=== PATIENT | male | born 1955 | race African-American/Black ===

== ENCOUNTER 2016-12-12 12:41 | Inpatient (IN) | payer OTHER ==
[2016-12-12 14:13] VITALS: BMI 27.1
--- NOTE | 2016-12-12 16:55 | HP ---
COWS - Scale Resting Pulse: 0= [place] 80 or Below Sweatin=Flushed/Facial Moisture Restless Observation: 3= Extraneous Movement Pupil Size: 2= Moderately Dilated Bone or Joint Aches: 2= Severe Diffuse Aches Runny Nose/ Eye Tearin= Runny Nose/Eyes GI Upset > 30mins: 3= Vomiting/Diarrhea Tremor Observation: 2= Slight Tremor Visible Yawning Observation: 2= >3x During Session Anxiety or Irritability: 2=Irritable/Anxious Goose Flesh Skin: 0=Smooth Skin COWS Score: 20 CIWA Score - CIWA Score Nausea/Vomitin Muscle Tremors: 3 Anxiety: 3 Agitation: 3 Paroxysmal Sweats: 2 Orientation: 0-Oriented Tacttile Disturbances: 2-Mild Itch/Numbness/Burn Auditory Disturbances: 2-Mild Harshness/Frighten Visual Disturbances: 2-Mild Sensitivity Headache: 2-Mild CIWA-Ar Total Score: 22 Admission ROS BHS - HPI Chief Complaint: i need help to stop using heroin and alcohol,withdrawal symptom,last detox [facility] insomnia low back pain eight loss longest of sobriety 1 year Allergies/Adverse Reactions: Allergies Allergy/AdvReac Type Severity Reaction Status Date / Time No Known Allergies Allergy Verified 12/12/16 16:46 History of Present Illness: this 61 years old male with heroin and alcohol dependence for inpatient detox as mentioned Exam Limitations: No Limitations - Ebola screening Have you traveled outside of the country in the last 21 days: No Have you had contact with anyone from an Ebola affected area: No Have you been sick,other than usual withdrawal symptoms: No Do you have a fever: No - Review of Systems Constitutional: Chills, Loss of Appetite, Malaise, Night Sweats, Changes in sleep, Weakness, Unintentional Wgt. Loss EENT: reports: Tearing, Nose Congestion Respiratory: reports: No Symptoms reported Cardiac: reports: No Symptoms Reported GI: reports: Diarrhea, Nausea, Vomiting, Abdominal cramping : reports: No Symptoms Reported Musculoskeletal: reports: Back Pain, Joint Pain, Muscle Pain, Joint Stiffness Integumentary: reports: Dryness Neuro: reports: Headache, Tremors Endocrine: reports: No Symptoms Reported Hematology: reports: No Symptoms Reported Psychiatric: reports: No Sypmtoms Reported (insomnia), Mood/Affect Appropiate, Orientated x3, other Patient History - Patient Medical History Hx Anemia: No Hx Asthma: No Hx Chronic Obstructive Pulmonary Disease (COPD): No Hx Cancer: No Hx Cardiac Disorders: No Hx Congestive Heart Failure: No Hx Hypertension: No Hx Hypercholesterolemia: No Hx Pacemaker: No HX Cerebrovascular Accident: No Hx Seizures: No Hx Diabetes: No Hx Gastrointestinal Disorders: No Hx Liver Disease: No Hx Genitourinary Disorders: No Hx Sexually Transmitted Disorders: No Hx Renal Disease (ESRD): No Hx Thyroid Disease: No Hx Human Immunodeficiency Virus (HIV): No (NEGATIVE HX LAST 2014) Hx Hepatitis C: No Hx Depression: No Hx Suicide Attempt: No Hx Bipolar Disorder: No Hx Schizophrenia: No Other Medical History: NO SUICIDAL,NO HOMICIDAL - Patient Surgical History Past Surgical History: No - PPD History Previous Implant?: Yes Documented Results: Negative w/o proof Date: 10/13/14 PPD to be Administered?: Yes - Smoking Cessation Smoking history: Never smoked Have you smoked in the past 12 months: No Aproximately how many cigarettes per day: 0 If you are a former smoker, when did you quit?: 20 Cigars Per Day: 0 Hx Chewing Tobacco Use: No Initiated information on smoking cessation: No - Substance & Tx. History Hx Alcohol Use: Yes Hx Substance Use: Yes Substance Use Type: Alcohol, Heroin Hx Substance Use Treatment: Yes (LAST 07/06 [facility]) - Substances Abused Heroin Route: Inhalation Frequency: Daily Amount used: 8 BAGS Age of first use: 52 Date of Last Use: 12/11/16 Alcohol Route: Oral Frequency: Daily Amount used: 1 PINT RUM Age of first use: 32 Date of Last Use: 12/11/16 Family Disease History - Family Disease History Family History: Denies Admission Physical Exam [facility] - Vital Signs Vital Signs: Vital Signs - 24 hr 12/12/16 14:11 Temperature 97.5 F L Pulse Rate 66 Respiratory 20 Rate Blood Pressure 121/71 - Physical General Appearance: Yes: Moderate Distress, Tremorous, Irritable, Sweating, Anxious HEENTM: Yes: Hearing grossly Normal, Pharynx Normal, Nasal Congestion Respiratory: Yes: Lungs Clear, Normal Breath Sounds, No Respiratory Distress Neck: Yes: Within Normal Limits Breast: Yes: Within Normal Limits Cardiology: Yes: Within Normal Limits, Regular Rhythm, Regular Rate, S1, S2 Abdominal: Yes: Within Normal Limits, Normal Bowel Sounds, Non Tender, Flat, Soft Genitourinary: Yes: Within Normal Limits Back: Yes: Muscle Spasm Musculoskeletal: Yes: Back pain, Joint Stiffness, Muscle Pain Extremities: Yes: Within Normal Limits, Normal Inspection, Normal Range of Motion, Non-Tender, Tremors Neurological: Yes: radio news writer II-XII NML intact, Fully Oriented, Alert, Motor Strength 5/5 Integumentary: Yes: Dry Lymphatic: Yes: Within Normal Limits - Diagnostic (1) Opioid dependence with withdrawal Current Visit: Yes Status: Acute (2) Alcohol dependence with uncomplicated withdrawal Current Visit: Yes Status: Acute (3) Insomnia Current Visit: Yes Status: Acute (4) Low back pain Current Visit: Yes Status: Acute (5) Weight loss Current Visit: Yes Status: Acute Cleared for Admission [facility] - Detox or Rehab [facility] Level of Care: Medically Managed Detox Regimen/Protocol: Methadone/Librium [facility] Breath Alcohol Content Breath Alcohol Content: 0 Urine Drug Screen - Results Drug Screen Negative: No Urine Drug Screen Results: OPI-Opiates, BZO-Benzodiazepines
[2016-12-12] MEDS ORDERED: guaiFENesin/D-METHORPHAN HB 10 ML UNIT-DOSE CUPS PO PRN (17:03)
[2016-12-12] MEDS ORDERED: LOPERAMIDE HCL 2 MG CAPSULE PO PRN (17:03)
[2016-12-12] MEDS ORDERED: diphenhydrAMINE HCL 50 MG CAPSULE PO PRN (17:03)
[2016-12-12] MEDS ORDERED: MENTHOL/PHENOL 1 EACH UD MM PRN (17:03)
[2016-12-12] MEDS ORDERED: IBUPROFEN 400 MG TABLET (FP) PO PRN (17:03)
[2016-12-12] MEDS ORDERED: hydrOXYzine PAMOATE 25 MG CAPSULE (FP) PO PRN (17:03)
[2016-12-12] MEDS ORDERED: P-EPHED 60MG/TRIPROLIDI 2.5MG TABLET PO PRN (17:03)
[2016-12-12] MEDS ORDERED: MAGNESIUM CITRATE 300 ML BOTTLE PO PRN (17:03)
[2016-12-12] MEDS ORDERED: MAGNESIUM HYDROX 2400MG/30ML ORAL SUSPENSION 30 ML CUP PO PRN (17:03)
[2016-12-12] MEDS ORDERED: MAG HYDROX/AL HYDROX/SIMETH 30 ML UNIT-DOSE CUP PO PRN (17:03)
[2016-12-12] MEDS ORDERED: ACETAMINOPHEN 325 MG TABLET (FP) PO PRN (17:03)
[2016-12-12] MEDS ORDERED: chlordiazePOXIDE HCL 25 MG CAPSULE PO ONE (18:30)
[2016-12-12] MEDS ORDERED: METHADONE HCL 10 MG TABLET (FOR DETOX USE ONLY) PO ONE ×2 (18:30→23:00)
[2016-12-12] MEDS: chlordiazePOXIDE HCL 25 MG CAPSULE PO SCH (22:15)
[2016-12-12] MEDS: cloNIDine HCL 0.1 MG TABLET PO SCH (22:44)
[2016-12-12] MEDS: THIAMINE HCL 100 MG TABLET (FP) PO SCH (22:44)
[2016-12-12 22:45] LABS: URINE APPEARANCE CLEAR; URINE BILIRUBIN NEGATIVE (NEGATIVE); URINE COLOR LTYELLOW; URINE GLUCOSE (UA) NEGATIVE (NEGATIVE); URINE KETONE NEGATIVE (NEGATIVE); URINE LEUK ESTERASE NEGATIVE (NEGATIVE); URINE NITRITE NEGATIVE (NEGATIVE); URINE PROTEIN NEGATIVE (NEGATIVE); URINE UROBILINOGEN NEGATIVE E.U./dl (0.2-1.0)
[2016-12-12 22:49] LABS: URINE BLOOD 2+ (NEGATIVE)
[2016-12-12 22:56] LABS: URINE MUCUS RARE; URINE RBC 2 /hpf (0-3); URINE WBC 1 /hpf (3-5)
[2016-12-13] MEDS: chlordiazePOXIDE HCL 25 MG CAPSULE PO SCH ×4 (06:10→22:43)
[2016-12-13] MEDS: CYCLOBENZAPRINE HCL 10 MG TABLET (FP) PO PRN (07:43)
[2016-12-13] MEDS ORDERED: METHADONE HCL 10 MG TABLET (FOR DETOX USE ONLY) PO SCH (10:00)
[2016-12-13] MEDS: PRENATAL VITAMINS W/ FOLIC ACID TABLET (FP) PO SCH (10:15)
[2016-12-13] MEDS: cloNIDine HCL 0.1 MG TABLET PO SCH ×3 (10:15→22:45)
[2016-12-13 10:34] LABS: MCH 29.5 pg (25.7-33.7); MCHC 32.5 g/dl (32.0-35.9); MEAN CELL VOLUME 90.7 fl (80-96); MEAN PLT VOLUME 9.7 fl (7.5-11.1); PLATELET COUNT 229 K/MM3 (134-434); RDW 14.1 % (11.9-15.9); WHITE BLOOD COUNT 8.6 K/mm3 (4.0-10.0)
[2016-12-13 10:57] LABS: ALBUMIN 4.1 g/dl (3.4-5.0); ALK PHOS 74 U/L (45-117); ANION GAP 9 (8-16); BILIRUBIN,TOTAL 1.3 mg/dL (0.2-1.0); CALCIUM 9.1 mg/dL (8.5-10.1); CO2 28 mmol/L (21-32); CREATININE 1.1 mg/dL (0.7-1.3); GLUCOSE,RANDOM 121 mg/dL (74-106); SGOT/AST 18 U/L (15-37); SGPT/ALT 10 U/L (12-78); TOT PROT 8.1 g/dl (6.4-8.2)
--- NOTE | 2016-12-13 11:27 | PN ---
S CIWA - CIWA Score Nausea/Vomitin Muscle Tremors: 3 Anxiety: 2 Agitation: 2 Paroxysmal Sweats: 1-Minimal Palms Moist Orientation: 0-Oriented Tacttile Disturbances: 1-Very Mild Itch/Numbness Auditory Disturbances: 1-Very Mild Visual Disturbances: 1-Very Mild Sensitivity Headache: 2-Mild CIWA-Ar Total Score: 16 BHS COWS - Scale Resting Pulse: 0= [place] 80 or Below Sweatin= Chills/Flushing Restless Observation: 3= Extraneous Movement Pupil Size: 1= Pupils >than Normal Bone or Joint Aches: 2= Severe Diffuse Aches Runny Nose/ Eye Tearin= Runny Nose/Eyes GI Upset > 30mins: 3= Vomiting/Diarrhea Tremor Observation of Outstretched Hands: 2= Slight Tremor Visible Yawning Observation: 1= 1-2x During Session Anxiety or Irritability: 2=Irritable/Anxious Goose Flesh Skin: 0=Smooth Skin COWS Score: 17 S Progress Note (SOAP) Subjective: ALERT,IRRITABLE,ANXIOUS,INTERRUPTED SLEEP,TREMOR,PAIN IN THE BODY AND BACK Objective: 12/13/16 11:25 Vital Signs Temperature 97.3 F L 12/13/16 09:57 Pulse Rate 75 12/13/16 09:57 Respiratory Rate 18 12/13/16 09:57 Blood Pressure 104/77 12/13/16 09:57 O2 Sat by Pulse Oximetry (%) EKG SINUS BRADYCARDIA RATE 57/MIN,RBBB NO CHEST PAIN,NO SOB,NO DIZZINESS Laboratory Last Values WBC 8.6 K/mm3 (4.0-10.0) 12/13/16 06:20 RBC 4.68 M/mm3 (4.00-5.60) 12/13/16 06:20 Hgb 13.8 GM/dL (11.7-16.9) D 12/13/16 06:20 Hct 42.4 % (35.4-49) 12/13/16 06:20 MCV 90.7 fl (80-96) 12/13/16 06:20 MCHC 32.5 g/dl (32.0-35.9) 12/13/16 06:20 RDW 14.1 % (11.9-15.9) 12/13/16 06:20 Plt Count 229 K/MM3 (134-434) 12/13/16 06:20 MPV 9.7 fl (7.5-11.1) 12/13/16 06:20 Sodium 136 mmol/L (136-145) 12/13/16 06:20 Potassium 4.1 mmol/L (3.5-5.1) 12/13/16 06:20 Chloride 99 mmol/L (98-107) 12/13/16 06:20 Carbon Dioxide 28 mmol/L (21-32) 12/13/16 06:20 Anion Gap 9 (8-16) 12/13/16 06:20 BUN 20 mg/dL (7-18) H 12/13/16 06:20 Creatinine 1.1 mg/dL (0.7-1.3) D 12/13/16 06:20 Creat Clearance w eGFR > 60 (>60) 12/13/16 06:20 Random Glucose 121 mg/dL (74-106) H D 12/13/16 06:20 Calcium 9.1 mg/dL (8.5-10.1) 12/13/16 06:20 Total Bilirubin 1.3 mg/dL (0.2-1.0) H D 12/13/16 06:20 AST 18 U/L (15-37) D 12/13/16 06:20 ALT 10 U/L (12-78) L D 12/13/16 06:20 Alkaline Phosphatase 74 U/L (45-117) 12/13/16 06:20 Total Protein 8.1 g/dl (6.4-8.2) 12/13/16 06:20 Albumin 4.1 g/dl (3.4-5.0) 12/13/16 06:20 Urine Color Ltyellow 12/12/16 21:14 Urine Appearance Clear 12/12/16 21:14 Urine pH 5.0 (5.0-8.0) 12/12/16 21:14 Ur Specific [place] 1.025 (1.001-1.035) 12/12/16 21:14 Urine Protein Negative (NEGATIVE) 12/12/16 21:14 Urine Glucose (UA) Negative (NEGATIVE) 12/12/16 21:14 Urine Ketones Negative (NEGATIVE) 12/12/16 21:14 Urine Blood 2+ (NEGATIVE) H 12/12/16 21:14 Urine Nitrite Negative (NEGATIVE) 12/12/16 21:14 Urine Bilirubin Negative (NEGATIVE) 12/12/16 21:14 Urine Urobilinogen Negative E.U./dl (0.2-1.0) 12/12/16 21:14 Ur Leukocyte Esterase Negative (NEGATIVE) 12/12/16 21:14 Urine RBC 2 /hpf (0-3) 12/12/16 21:14 Urine WBC 1 /hpf (3-5) 12/12/16 21:14 Ur Epithelial Cells Rare /hpf (FEW) 12/12/16 21:14 Urine Mucus Rare 12/12/16 21:14 Assessment: 12/13/16 11:27 WITHDRAWAL SYMPTOM Plan: CONTINUE DETOX,INITIAL GLUCOSE 121,BGM MONITORING
--- NOTE | 2016-12-13 18:23 | EKG ---
Test Reason : Blood Pressure : / mmHG Vent. Rate : 057 BPM Atrial Rate : 057 BPM P-R Int : 158 ms QRS Dur : 168 ms QT Int : 468 ms P-R-T Axes : -12 -38 009 degrees QTc Int : 455 ms SINUS BRADYCARDIA LEFT AXIS DEVIATION RIGHT BUNDLE BRANCH BLOCK ABNORMAL ECG WHEN COMPARED WITH ECG OF 12-DEC-2016 17:57, NO SIGNIFICANT CHANGE WAS FOUND Confirmed by JOSE JENNINGS, NICHOLAS ([id number]) on 12/13/2016 6:22:53 PM Referred By: Jeff Grady Confirmed By:NICHOLAS GARCIA MD
--- NOTE | 2016-12-13 18:29 | EKG ---
Test Reason : Blood Pressure : / mmHG Vent. Rate : 065 BPM Atrial Rate : 065 BPM P-R Int : 146 ms QRS Dur : 164 ms QT Int : 462 ms P-R-T Axes : -10 -49 033 degrees QTc Int : 480 ms NORMAL SINUS RHYTHM RIGHT BUNDLE BRANCH BLOCK LEFT ANTERIOR FASCICULAR BLOCK BIFASCICULAR BLOCK ABNORMAL ECG NO PREVIOUS ECGS AVAILABLE Confirmed by JOSE JENNINGS, NICHOLAS ([id number]) on 12/13/2016 6:29:43 PM Referred By: Jeff Grady Confirmed By:NICHOLAS GARCIA MD
[2016-12-13] MEDS: chlordiazePOXIDE HCL 25 MG CAPSULE PO PRN (18:53)
[2016-12-13] MEDS: THIAMINE HCL 100 MG TABLET (FP) PO SCH (22:44)
[2016-12-14] MEDS: chlordiazePOXIDE HCL 25 MG CAPSULE PO SCH ×3 (06:04→17:36)
[2016-12-14] MEDS: PRENATAL VITAMINS W/ FOLIC ACID TABLET (FP) PO SCH (10:55)
[2016-12-14] MEDS: METHADONE HCL 5 MG TABLET (FOR DETOX USE ONLY) PO SCH (10:55)
[2016-12-14] MEDS: cloNIDine HCL 0.1 MG TABLET PO SCH ×2 (10:57→22:54)
[2016-12-14] MEDS: CYCLOBENZAPRINE HCL 10 MG TABLET (FP) PO PRN (10:58)
--- NOTE | 2016-12-14 15:28 | PN ---
S CIWA - CIWA Score Nausea/Vomitin-Mild Nausea/No Vomiting Muscle Tremors: 3 Anxiety: 3 Agitation: 3 Paroxysmal Sweats: No Perspiration Orientation: 0-Oriented Tacttile Disturbances: 1-Very Mild Itch/Numbness Auditory Disturbances: 0-None Visual Disturbances: 0-None Headache: 3-Moderate CIWA-Ar Total Score: 14 BHS COWS - Scale Resting Pulse: 0= [place] 80 or Below Sweatin= Chills/Flushing Restless Observation: 3= Extraneous Movement Pupil Size: 0= Normal to Room Light Bone or Joint Aches: 1= Mild Discomfort Runny Nose/ Eye Tearin= Runny Nose/Eyes GI Upset > 30mins: 2= Nausea/Diarrhea Tremor Observation of Outstretched Hands: 2= Slight Tremor Visible Yawning Observation: 0= None Anxiety or Irritability: 2=Irritable/Anxious Goose Flesh Skin: 0=Smooth Skin COWS Score: 13 S Progress Note (SOAP) Subjective: Anxious, interrupted sleep, sweating, tremor, nausea Objective: 12/14/16 15:25 Last Vital Signs Temp Pulse Resp BP Pulse Ox 97.9 F 79 18 114/66 12/14/16 14:00 12/14/16 14:00 12/14/16 14:00 12/14/16 14:00 Laboratory Tests 12/12/16 12/13/16 12/13/16 21:14 06:20 06:20 WBC 8.6 RBC 4.68 Hgb 13.8 D Hct 42.4 MCV 90.7 MCHC 32.5 RDW 14.1 Plt Count 229 MPV 9.7 Sodium 136 Potassium 4.1 Chloride 99 Carbon Dioxide 28 Anion Gap 9 BUN 20 H Creatinine 1.1 D Creat Clearance w eGFR > 60 Random Glucose 121 H D Calcium 9.1 Total Bilirubin 1.3 H D AST 18 D ALT 10 L D Alkaline Phosphatase 74 Total Protein 8.1 Albumin 4.1 Urine Color Ltyellow Urine Appearance Clear Urine pH 5.0 Ur Specific [place] 1.025 Urine Protein Negative Urine Glucose (UA) Negative Urine Ketones Negative Urine Blood 2+ H Urine Nitrite Negative Urine Bilirubin Negative Urine Urobilinogen Negative Ur Leukocyte Esterase Negative Urine RBC 2 Urine WBC 1 Ur Epithelial Cells Rare Urine Mucus Rare RPR Titer 12/13/16 06:20 WBC RBC Hgb Hct MCV MCHC RDW Plt Count MPV Sodium Potassium Chloride Carbon Dioxide Anion Gap BUN Creatinine Creat Clearance w eGFR Random Glucose Calcium Total Bilirubin AST ALT Alkaline Phosphatase Total Protein Albumin Urine Color Urine Appearance Urine pH Ur Specific [place] Urine Protein Urine Glucose (UA) Urine Ketones Urine Blood Urine Nitrite Urine Bilirubin Urine Urobilinogen Ur Leukocyte Esterase Urine RBC Urine WBC Ur Epithelial Cells Urine Mucus RPR Titer Nonreactive Labs noted: UA with 2+ blood Assessment: 12/14/16 15:27 Withdrawal symptoms Noted with microscopic hematuria Plan: Continue detox Microscopic hematuria: encouraged to drink lots of water (at least 6-8 cups/day) , repeat UA
[2016-12-14] MEDS: THIAMINE HCL 100 MG TABLET (FP) PO SCH (22:53)
[2016-12-14] MEDS: chlordiazePOXIDE 5 MG CAPSULE PO SCH (22:53)
[2016-12-15] MEDS: chlordiazePOXIDE 5 MG CAPSULE PO SCH ×3 (05:48→17:51)
[2016-12-15] MEDS: METHADONE HCL 5 MG TABLET (FOR DETOX USE ONLY) PO SCH (10:18)
[2016-12-15] MEDS: PRENATAL VITAMINS W/ FOLIC ACID TABLET (FP) PO SCH (10:18)
[2016-12-15] MEDS: cloNIDine HCL 0.1 MG TABLET PO SCH ×2 (10:19→23:57)
[2016-12-15 10:23] LABS: URINE APPEARANCE CLEAR; URINE BILIRUBIN NEGATIVE (NEGATIVE); URINE BLOOD NEGATIVE (NEGATIVE); URINE COLOR STRAW; URINE GLUCOSE (UA) NEGATIVE (NEGATIVE); URINE KETONE NEGATIVE (NEGATIVE); URINE LEUK ESTERASE NEGATIVE (NEGATIVE); URINE NITRITE NEGATIVE (NEGATIVE); URINE PROTEIN NEGATIVE (NEGATIVE); URINE UROBILINOGEN NEGATIVE E.U./dl (0.2-1.0)
--- NOTE | 2016-12-15 10:45 | PN ---
BHS Progress Note (SOAP) Subjective: left knee pain sweats irritable agitation Objective: 12/15/16 10:45 Vital Signs Temperature 97.0 F L 12/15/16 10:00 Pulse Rate 73 12/15/16 10:00 Respiratory Rate 18 12/15/16 10:00 Blood Pressure 137/75 12/15/16 10:00 O2 Sat by Pulse Oximetry (%) awake/alert ambulating no acute distress Assessment: 12/15/16 10:46 withdrawal sx Plan: continue detox increase fluids knee x-ray analgesic balm motrin 800mg tid
[2016-12-15] MEDS ORDERED: IBUPROFEN 400 MG TABLET (FP) PO PRN (10:49)
[2016-12-15] MEDS: chlordiazePOXIDE HCL 25 MG CAPSULE PO PRN (14:09)
[2016-12-15] MEDS: METHYL SALICYLATE/MENTHOL OINT 30 GM TUBE TP SCH ×2 (15:26→23:58)
[2016-12-15] MEDS: chlordiazePOXIDE HCL 10 MG CAPSULE PO SCH (23:57)
[2016-12-15] MEDS: THIAMINE HCL 100 MG TABLET (FP) PO SCH (23:57)
[2016-12-16] MEDS: chlordiazePOXIDE HCL 10 MG CAPSULE PO SCH ×3 (05:53→17:28)
[2016-12-16] MEDS ORDERED: chlordiazePOXIDE 5 MG CAPSULE ONE (09:45)
[2016-12-16] MEDS ORDERED: METHADONE HCL 10 MG TABLET (FOR DETOX USE ONLY) PO SCH (10:00)
[2016-12-16] MEDS: PRENATAL VITAMINS W/ FOLIC ACID TABLET (FP) PO SCH (10:29)
[2016-12-16] MEDS: METHYL SALICYLATE/MENTHOL OINT 30 GM TUBE TP SCH ×2 (10:30→23:34)
[2016-12-16] MEDS: cloNIDine HCL 0.1 MG TABLET PO SCH ×2 (10:31→23:33)
[2016-12-16] MEDS ORDERED: COLLOIDAL OATMEAL 1 BAR EACH TP PRN (10:35)
--- NOTE | 2016-12-16 10:43 | PN ---
BHS Progress Note (SOAP) Subjective: ALERT,IRRITABLE.INTERRUPTED SLEEP Objective: 12/16/16 10:42 Vital Signs Temperature 97.9 F 12/16/16 09:58 Pulse Rate 73 12/16/16 09:58 Respiratory Rate 18 12/16/16 09:58 Blood Pressure 118/75 12/16/16 09:58 O2 Sat by Pulse Oximetry (%) Assessment: 12/16/16 10:42 WITHDRAWAL SYMPTOM Plan: CONTINUE DETOX,DISCHARGE IN AM
[2016-12-16] MEDS: CYCLOBENZAPRINE HCL 10 MG TABLET (FP) PO PRN (14:23)
[2016-12-16] MEDS: THIAMINE HCL 100 MG TABLET (FP) PO SCH (23:34)
[2016-12-17] MEDS ORDERED: METHADONE HCL 5 MG TABLET (FOR DETOX USE ONLY) PO SCH (06:00)
--- NOTE | 2016-12-17 08:56 | DS ---
[facility] Detox Discharge Summary Admission Date: 12/12/16 Discharge Date: 12/17/16 - History Present History: Alcohol Dependence, Opioid Dependence - Physical Exam Results Vital Signs: Vital Signs Temperature 97.9 F 12/17/16 06:44 Pulse Rate 60 12/17/16 06:44 Respiratory Rate 16 12/17/16 06:44 Blood Pressure 98/65 12/17/16 06:44 O2 Sat by Pulse Oximetry (%) - Treatment Hospital Course: Detox Protocol Followed, Detoxed Safely, Responded well, Discharged Condition Good, Rehab Referral Accepted - Medication Discharge Medications: Ambulatory Orders NK [No Known Home Medication] 12/12/16 - Diagnosis (1) Alcohol dependence with uncomplicated withdrawal Current Visit: Yes Status: Chronic (2) Insomnia Current Visit: Yes Status: Acute (3) Low back pain Current Visit: Yes Status: Chronic Qualifiers: Chronicity: unspecified (4) Opioid dependence with withdrawal Current Visit: Yes Status: Chronic (5) Weight loss Current Visit: Yes Status: Acute (6) Substance-induced sleep disorder Current Visit: No Status: Acute (7) Chronic back pain Current Visit: No Status: Chronic (8) Substance induced mood disorder Current Visit: No Status: Chronic - AMA Did Patient Leave Against Medical Advice: No
[2016-12-17 10:33] VITALS: BP 113/72; PULSE 78; TEMP 97.7
[2016-12-17] MEDS: PRENATAL VITAMINS W/ FOLIC ACID TABLET (FP) PO SCH (10:47)
[2016-12-17] MEDS: METHYL SALICYLATE/MENTHOL OINT 30 GM TUBE TP SCH (10:48)
[2016-12-17] MEDS: cloNIDine HCL 0.1 MG TABLET PO SCH (10:48)
== END 2016-12-17 14:30 | disposition other institution (70) | DRG 773 ==
LOC: YASAS 12:41 → Y6N 17:55
PROVIDERS: ADMIT Internal Medicine; ATTEND Internal Medicine
PROC: HZ2ZZZZ Detoxification Services for Substance Abuse Treatment (ICD-10-PCS; principal; 2016-12-12)
DX: F11.23 Opioid dependence with withdrawal (principal); F10.230 Alcohol dependence with withdrawal, uncomplicated; F19.24 Other psychoactive substance dependence with psychoactive substance-induced mood disorder; F19.282 Other psychoactive substance dependence with psychoactive substance-induced sleep disorder; R00.0 Tachycardia, unspecified; I45.10 Unspecified right bundle-branch block; G47.00 Insomnia, unspecified; M54.5 Low back pain; G89.29 Other chronic pain; R31.29 Other microscopic hematuria; Z87.898 Personal history of other specified conditions
CPT/HCPCS: 36415; 71020-TC; 73564-TC-LT; 80053; 81003; 81015; 85027; 86593; 93005; 93010

== ENCOUNTER 2016-12-17 15:03 | Inpatient (IN) | payer OTHER ==
[2016-12-17 15:31] VITALS: BMI 28.5
[2016-12-17] MEDS ORDERED: LOPERAMIDE HCL 2 MG CAPSULE PO PRN (15:46)
[2016-12-17] MEDS ORDERED: IBUPROFEN 400 MG TABLET (FP) PO PRN (15:46)
[2016-12-17] MEDS ORDERED: MAG HYDROX/AL HYDROX/SIMETH 30 ML UNIT-DOSE CUP PO PRN (15:46)
[2016-12-17] MEDS ORDERED: guaiFENesin/D-METHORPHAN HB 10 ML UNIT-DOSE CUPS PO PRN (15:46)
[2016-12-17] MEDS ORDERED: diphenhydrAMINE HCL 50 MG CAPSULE PO PRN (15:46)
[2016-12-17] MEDS ORDERED: ACETAMINOPHEN 325 MG TABLET (FP) PO PRN (15:46)
[2016-12-17] MEDS ORDERED: MAGNESIUM CITRATE 300 ML BOTTLE PO PRN (15:46)
[2016-12-17] MEDS ORDERED: P-EPHED 60MG/TRIPROLIDI 2.5MG TABLET PO PRN (15:46)
[2016-12-17] MEDS ORDERED: MENTHOL/PHENOL 1 EACH UD MM PRN (15:46)
[2016-12-18] MEDS: THIAMINE HCL 100 MG TABLET (FP) PO SCH ×2 (00:43→21:30)
--- NOTE | 2016-12-18 09:38 | HP ---
Psychiatrist Admission - Data Date of interview: 12/18/16 Admission source: 6N Identifying data: This is the third [facility] admission for this 61 years old single Black male, unemployed with no source of income, living with a friend seeking rehab treatment for alcohol and heroin Medical History: Significant for Positive PPD and LBP. Smokes cigarettes 1ppd Psychiatric History: Denies history of previous psychiatric treatment Physical/Sexual Abuse/Trauma History: Denies history of emotional, physical or sexual abuse as well asDV relationship Additional Comment: No criminal history elicited Vital Signs: Vital Signs - 24 hr 12/17/16 12/18/16 15:21 06:00 Temperature 97.7 F 97 F L Pulse Rate 86 62 Respiratory 18 20 Rate Blood Pressure 130/72 111/72 Allergies/Adverse Reactions: Allergies Allergy/AdvReac Type Severity Reaction Status Date / Time No Known Allergies Allergy Verified 12/17/16 15:18 Date of last physical exam: 12/12/16 Concur with the findings of this exam: Yes - Substance Abuse/Tx History Hx Alcohol Use: Yes Hx Substance Use: Yes Substance Use Type: Alcohol (Started drinking alcohol at age 32, consumes one p[ int of rum daily. Last drink on 12/11/16), Heroin (Started using heroin at age 52 , consumes 8 bagsdaily. Last used on 12/11/16) Hx Substance Use Treatment: Yes (one previous inpt detox & 2 inpt rehab @ [facility]) - Admission Criteria Previous failed treatment: Yes Poor recovery environment: Yes Comorbidities: Yes Lacks judgement: Yes Mental Status Exam - Mental Status Exam Alert and Oriented to: Time, Place, Person Cognitive Function: Fair Patient Appearance: Well Groomed Mood: Hopeful, Euthymic Patient Behavior: Cooperative Speech Pattern: Clear Voice Loudness: Normal Thought Process: Intact Thought Disorder: Not Present Hallucinations: Denies Suicidal Ideation: Denies Homicidal Ideation: Denies Insight/Judgement: Fair Sleep: Poorly Appetite: Good Muscle strength/Tone: Normal Gait/Station: Normal Psychiatric Findings - Problem List ([place] 1, 2,3) (1) Alcohol dependence with uncomplicated withdrawal Current Visit: No Status: Chronic (2) Opioid dependence with withdrawal Current Visit: No Status: Chronic (3) Nicotine dependence Current Visit: Yes Status: Acute (4) Substance-induced sleep disorder Current Visit: No Status: Acute (5) Chronic back pain Current Visit: No Status: Chronic (6) Low back pain Current Visit: No Status: Chronic Qualifiers: Chronicity: unspecified (7) PPD positive Current Visit: Yes Status: Acute - Initial Treatment Plan Initial Treatment Plan: 1) Start Trazadone 100 mg po HS. 2) Monitor progress
[2016-12-18] MEDS: PRENATAL VITAMINS W/ FOLIC ACID TABLET (FP) PO SCH (10:23)
[2016-12-18 10:56] LABS: HIV 1 & 2 AB NEGATIVE; HIV 1 AGp24 NEGATIVE
[2016-12-18] MEDS ORDERED: PT OWN MED DRAWER 7, Y5N ONE (21:30)
[2016-12-18] MEDS: traZODone HCL 100 MG TABLET (FP) PO SCH (21:30)
[2016-12-18] MEDS: VITAMINS A AND D TOPICAL OINTMENT 60 GM TUBE TP SCH (21:31)
[2016-12-19] MEDS: PRENATAL VITAMINS W/ FOLIC ACID TABLET (FP) PO SCH (10:17)
[2016-12-19] MEDS: VITAMINS A AND D TOPICAL OINTMENT 60 GM TUBE TP SCH ×2 (10:17→21:14)
[2016-12-19] MEDS: MAGNESIUM HYDROX 2400MG/30ML ORAL SUSPENSION 30 ML CUP PO PRN (13:44)
[2016-12-19] MEDS: THIAMINE HCL 100 MG TABLET (FP) PO SCH (21:13)
[2016-12-19] MEDS: traZODone HCL 100 MG TABLET (FP) PO SCH (21:13)
[2016-12-20] MEDS: MAGNESIUM HYDROX 2400MG/30ML ORAL SUSPENSION 30 ML CUP PO PRN (07:42)
[2016-12-20] MEDS: PRENATAL VITAMINS W/ FOLIC ACID TABLET (FP) PO SCH (10:17)
[2016-12-20] MEDS: VITAMINS A AND D TOPICAL OINTMENT 60 GM TUBE TP SCH ×2 (10:18→21:50)
[2016-12-20] MEDS: traZODone HCL 100 MG TABLET (FP) PO SCH (21:49)
[2016-12-20] MEDS: THIAMINE HCL 100 MG TABLET (FP) PO SCH (21:50)
[2016-12-20] MEDS ORDERED: PT OWN MED DRAWER 7, Y5N ONE (22:21)
[2016-12-21] MEDS ORDERED: PT OWN MED DRAWER 7, Y5N ONE ×2 (09:01→14:02)
[2016-12-21] MEDS: VITAMINS A AND D TOPICAL OINTMENT 60 GM TUBE TP SCH ×2 (10:25→21:22)
[2016-12-21] MEDS: PRENATAL VITAMINS W/ FOLIC ACID TABLET (FP) PO SCH (10:25)
[2016-12-21] MEDS: traZODone HCL 100 MG TABLET (FP) PO SCH (21:22)
[2016-12-21] MEDS: THIAMINE HCL 100 MG TABLET (FP) PO SCH (21:23)
[2016-12-22] MEDS: PRENATAL VITAMINS W/ FOLIC ACID TABLET (FP) PO SCH (10:00)
[2016-12-22] MEDS: VITAMINS A AND D TOPICAL OINTMENT 60 GM TUBE TP SCH ×2 (10:01→21:16)
[2016-12-22] MEDS: MAGNESIUM HYDROX 2400MG/30ML ORAL SUSPENSION 30 ML CUP PO PRN (12:03)
--- NOTE | 2016-12-22 15:00 | PN ---
Psychiatric Progress Note Vital Signs: Vital Signs Period Temp Pulse Resp BP Sys/Egan Pulse Ox Last 24 Hr 97.4 F 73 17-18 132/91 Date of Session: 12/22/16 Chief Complaint:: Insomnia HPI: Patient addressing Alcohol, Opoid Dependence comorbid with Nicotine Dependence and Substance-Induced Sleep Disorder ROS: LBP, PPD+ Current Medications: Active Medications Generic Name Dose Route Start Last Admin Trade Name Freq PRN Reason Stop Dose Admin Acetaminophen 650 mg 12/17/16 15:46 Tylenol - PO Q4H PRN FEVER OR PAIN Al Hydroxide/Mg Hydroxide 30 ml 12/17/16 15:46 Mylanta Oral Suspension - PO Q6H PRN DYSPEPSIA Diphenhydramine HCl 50 mg 12/17/16 15:46 Benadryl - PO HSMR1 PRN FOR ITCHING Eucalyptus/Menthol/Phenol/Sorbitol 1 each 12/17/16 15:46 Cepastat Lozenge - MM Q4H PRN SORE THROAT Guaifenesin 10 ml 12/17/16 15:46 Robitussin Dm - PO Q6H PRN COUGH Ibuprofen 400 mg 12/17/16 15:46 Motrin - PO Q6H PRN PAIN Loperamide HCl 4 mg 12/17/16 15:46 Imodium - PO Q6H PRN DIARRHEA Magnesium Hydroxide 30 ml 12/17/16 15:46 12/22/16 12:03 Milk Of Magnesia - PO 30 ml DAILY PRN Administration CONSTIPATION Multivit/Folic Acid/Iron 1 tab 12/18/16 10:00 12/22/16 10:00 Vitamins (Sjr) - PO 1 tab DAILY HOWARD Administration Pseudoephedrine/Triprolidine 1 combo 12/17/16 15:46 Actifed - PO TID PRN NASAL CONGESTION Thiamine HCl 100 mg 12/17/16 22:00 12/21/16 21:23 Vitamin B1 - PO Not Given HS HOWARD Trazodone HCl 150 mg 12/22/16 22:00 Desyrel - PO HS HOWARD Vitamin A/Vitamin D 1 applic 12/18/16 22:00 12/22/16 10:01 Vitamin A & D Top Oint - TP Not Given BID [facility] Medication(s) Change(s): Increase Trazadone dosage to 150 mg po HS Current Side Effect: No Lab tests ordered: Yes Lab tests reviewed: Yes Provider note:: Patient reports experiencing difficulty to sleep. Told verse writer that he has been sleeping poorly despite taking Trazadone 100 mg po HS Total face to face time:: 25 Mental Status Exam - Mental Status Exam Alert and Oriented to: Time, Place, Person Cognitive Function: Fair Patient Appearance: Well Groomed Mood: Hopeful, Euthymic Affect: Appropriate Patient Behavior: Cooperative Speech Pattern: Clear Voice Loudness: Normal Thought Process: Intact Thought Disorder: Not Present Hallucinations: Denies Suicidal Ideation: Denies Homicidal Ideation: Denies Insight/Judgement: Fair Sleep: Poorly Appetite: Good Muscle strength/Tone: Normal Gait/Station: Normal Psychiatric Treatment Plan - Problem List (1) Alcohol dependence with uncomplicated withdrawal Current Visit: No (2) Opioid dependence with withdrawal Current Visit: No (3) Nicotine dependence Current Visit: Yes (4) Substance-induced sleep disorder Current Visit: No (5) Chronic back pain Current Visit: No (6) Low back pain Current Visit: No Qualifiers: Chronicity: unspecified (7) PPD positive Current Visit: Yes Initial treatment plan: 1) Discontinue Trazadone 100 mg po HS. 2) Start Trazadone 150 mg po HS. 3) Monitor progress
[2016-12-22] MEDS ORDERED: PT OWN MED DRAWER 7, Y5N ONE (20:07)
[2016-12-22] MEDS: traZODone HCL 50 MG TABLET (FP) PO SCH (21:16)
[2016-12-22] MEDS: THIAMINE HCL 100 MG TABLET (FP) PO SCH (21:16)
--- NOTE | 2016-12-23 07:45 | PN ---
Psychiatric Progress Note Vital Signs: Vital Signs Period Temp Pulse Resp BP Sys/Egan Pulse Ox Last 24 Hr 97 F 77 18-18 140/78 Date of Session: 12/23/16 Chief Complaint:: Psychiatrist Discharge Note HPI: Patient addressing Alcohol and Opoid Dependence comorbid with Nicotine Dependence and Substance-Induced Sleep Disorder ROS: LBP, PPD+ were medically managed Current Medications: Active Medications Generic Name Dose Route Start Last Admin Trade Name Freq PRN Reason Stop Dose Admin Acetaminophen 650 mg 12/17/16 15:46 Tylenol - PO Q4H PRN FEVER OR PAIN Al Hydroxide/Mg Hydroxide 30 ml 12/17/16 15:46 Mylanta Oral Suspension - PO Q6H PRN DYSPEPSIA Diphenhydramine HCl 50 mg 12/17/16 15:46 Benadryl - PO HSMR1 PRN FOR ITCHING Eucalyptus/Menthol/Phenol/Sorbitol 1 each 12/17/16 15:46 Cepastat Lozenge - MM Q4H PRN SORE THROAT Guaifenesin 10 ml 12/17/16 15:46 Robitussin Dm - PO Q6H PRN COUGH Ibuprofen 400 mg 12/17/16 15:46 Motrin - PO Q6H PRN PAIN Loperamide HCl 4 mg 12/17/16 15:46 Imodium - PO Q6H PRN DIARRHEA Magnesium Hydroxide 30 ml 12/17/16 15:46 12/22/16 12:03 Milk Of Magnesia - PO 30 ml DAILY PRN Administration CONSTIPATION Multivit/Folic Acid/Iron 1 tab 12/18/16 10:00 12/22/16 10:00 Vitamins (Sjr) - PO 1 tab DAILY HOWARD Administration Pseudoephedrine/Triprolidine 1 combo 12/17/16 15:46 Actifed - PO TID PRN NASAL CONGESTION Thiamine HCl 100 mg 12/17/16 22:00 12/22/16 21:16 Vitamin B1 - PO Not Given HS HOWARD Trazodone HCl 150 mg 12/22/16 22:00 12/22/16 21:16 Desyrel - PO 150 mg HS HOWARD Administration Vitamin A/Vitamin D 1 applic 12/18/16 22:00 12/22/16 21:16 Vitamin A & D Top Oint - TP 1 applic BID HOWARD Administration Current Side Effect: No Lab tests ordered: Yes Lab tests reviewed: Yes Provider note:: Patient will complete this program on 12/24/16. He has met his treatment goals and will continue to address his issues in outpatient treatment at [facility]. He verbalized understanding the negative consequences of his addiction and from his participation in this program, he has learned that patience is a virtue. He responded well to Trazadone 150 mg po HS. Script for 30 days supply of that medication jean paul be electronically transmitted to [facility] at [address] [place] [address]. He is stable for discharge on 12/24/16 Total face to face time:: 35 Psychiatric Treatment Plan - Problem List (1) Alcohol dependence with uncomplicated withdrawal Current Visit: No (2) Opioid dependence with withdrawal Current Visit: No (3) Nicotine dependence Current Visit: Yes (4) Substance-induced sleep disorder Current Visit: No (5) Chronic back pain Current Visit: No (6) Low back pain Current Visit: No (7) PPD positive Current Visit: Yes Initial treatment plan: Patient will be disccharged tomorrow and referred to [facility] for outpatient treatment
[2016-12-23] MEDS: PRENATAL VITAMINS W/ FOLIC ACID TABLET (FP) PO SCH (10:09)
[2016-12-23] MEDS: VITAMINS A AND D TOPICAL OINTMENT 60 GM TUBE TP SCH ×2 (10:09→21:25)
[2016-12-23] MEDS: traZODone HCL 50 MG TABLET (FP) PO SCH (21:24)
[2016-12-23] MEDS: THIAMINE HCL 100 MG TABLET (FP) PO SCH (21:25)
[2016-12-24 07:15] VITALS: BP 150/95; PULSE 76; TEMP 97.5
== END 2016-12-24 09:55 | disposition home or self-care (01) | DRG 772 ==
LOC: YASAS 15:03 → Y3W 15:04
PROVIDERS: ADMIT Psychiatry & Neurology Psychiatry; ATTEND Psychiatry & Neurology Psychiatry
PROC: HZ42ZZZ Group Counseling for Substance Abuse Treatment, Cognitive-Behavioral (ICD-10-PCS; principal; 2016-12-17)
DX: F11.20 Opioid dependence, uncomplicated (principal); F10.20 Alcohol dependence, uncomplicated; F17.210 Nicotine dependence, cigarettes, uncomplicated; F19.282 Other psychoactive substance dependence with psychoactive substance-induced sleep disorder; M54.5 Low back pain; G89.29 Other chronic pain
CPT/HCPCS: 36415; 87389

== ENCOUNTER 2017-04-16 11:59 | Inpatient (IN) | payer OTHER ==
[2017-04-16 12:15] VITALS: BMI 28.3
--- NOTE | 2017-04-16 19:33 | HP ---
CIWA Score - CIWA Score Nausea/Vomitin Muscle Tremors: 3 Anxiety: 3 Agitation: 3 Paroxysmal Sweats: 2 Orientation: 0-Oriented Tacttile Disturbances: 2-Mild Itch/Numbness/Burn Auditory Disturbances: 2-Mild Harshness/Frighten Visual Disturbances: 2-Mild Sensitivity Headache: 2-Mild CIWA-Ar Total Score: 22 Admission ROS [facility] - HPI Chief Complaint: i nee help to stop drinking and also heroin Allergies/Adverse Reactions: Allergies Allergy/AdvReac Type Severity Reaction Status Date / Time No Known Allergies Allergy Verified 04/16/17 17:03 History of Present Illness: this 61 years old male with alcohol dependence and heroin,seeking detox,last treatment - Ebola screening Have you traveled outside of the country in the last 21 days: No Have you had contact with anyone from an Ebola affected area: No Have you been sick,other than usual withdrawal symptoms: No - Review of Systems Constitutional: Loss of Appetite, Malaise, Night Sweats, Changes in sleep, Weakness EENT: reports: Nose Congestion Respiratory: reports: No Symptoms reported Cardiac: reports: No Symptoms Reported GI: reports: Diarrhea, Nausea, Vomiting, Abdominal cramping : reports: No Symptoms Reported Musculoskeletal: reports: Back Pain, Joint Pain, Muscle Pain Integumentary: reports: Dryness Neuro: reports: Headache, Tremors Endocrine: reports: No Symptoms Reported Hematology: reports: No Symptoms Reported Psychiatric: reports: Anxious, Depressed (insomnia) Patient History - Patient Medical History Hx Anemia: No Hx Asthma: No Hx Chronic Obstructive Pulmonary Disease (COPD): No Hx Cancer: No Hx Cardiac Disorders: No Hx Congestive Heart Failure: No Hx Hypertension: No Hx Hypercholesterolemia: No Hx Pacemaker: No HX Cerebrovascular Accident: No Hx Seizures: No Hx Diabetes: No Hx Gastrointestinal Disorders: No Hx Liver Disease: No Hx Genitourinary Disorders: No Hx Sexually Transmitted Disorders: No Hx Renal Disease (ESRD): No Hx Thyroid Disease: No Hx Human Immunodeficiency Virus (HIV): No (NEGATIVE HX LAST 2014) Hx Hepatitis C: No Hx Depression: Yes (anxiety) Hx Suicide Attempt: No Hx Bipolar Disorder: No Hx Schizophrenia: No Other Medical History: insomnia,no suiidal,no homicidal - Patient Surgical History Past Surgical History: No Hx Neurologic Surgery: No Hx Cataract Extraction: No Hx Cardiac Surgery: No Hx Lung Surgery: No Hx Breast Surgery: No Hx Breast Biopsy: No Hx Abdominal Surgery: No Hx Appendectomy: No Hx Cholecystectomy: No Hx Genitourinary Surgery: No Hx Section: No Hx Orthopedic Surgery: No Anesthesia Reaction: No - PPD History Previous Implant?: Yes Documented Results: Positive w/proof Date: 12/14/16 Results: 15 mm PPD to be Administered?: No - Smoking Cessation Smoking history: Never smoked Have you smoked in the past 12 months: No Aproximately how many cigarettes per day: 0 If you are a former smoker, when did you quit?: 20 Cigars Per Day: 0 Hx Chewing Tobacco Use: No Initiated information on smoking cessation: No - Substance & Tx. History Hx Alcohol Use: Yes Hx Substance Use: Yes Substance Use Type: Alcohol Hx Substance Use Treatment: Yes [facility] 12[facility] to 12/17/16 detox,12/17/16 to 02/04) - Substances Abused Heroin Route: Inhalation Frequency: Daily Amount used: 5 BAGS Age of first use: 22 Date of Last Use: 04/15/17 Alcohol Route: Oral Frequency: Daily Amount used: LIQUOR- 2 PINTS, BEER- 1 SIX PACK Age of first use: 22 Date of Last Use: 04/15/17 Family Disease History - Family Disease History Family History: Denies Admission Physical Exam [facility] - Vital Signs Vital Signs: Vital Signs - 24 hr 04/16/17 12:13 Temperature 97.3 F L Pulse Rate 51 L Respiratory 18 Rate Blood Pressure 139/87 - Physical General Appearance: Yes: Moderate Distress, Tremorous, Irritable, Sweating, Anxious HEENTM: Yes: Normocephalic, JAMI, Pharynx Normal Respiratory: Yes: Lungs Clear, Normal Breath Sounds, No Respiratory Distress Neck: Yes: Within Normal Limits, Supple, Trachea in good position Breast: Yes: Within Normal Limits Cardiology: Yes: Within Normal Limits, Regular Rhythm, Regular Rate, S1, S2 Abdominal: Yes: Within Normal Limits, Normal Bowel Sounds, Non Tender, Flat, Soft Genitourinary: Yes: Within Normal Limits Back: Yes: Muscle Spasm Musculoskeletal: Yes: full range of Motion, Back pain, Muscle Pain Extremities: Yes: Tremors Neurological: Yes: waste cotton cleaner II-XII NML intact, Fully Oriented, Alert, Motor Strength 5/5 Integumentary: Yes: Dry Lymphatic: Yes: Within Normal Limits Cleared for Admission [facility] - Detox or Rehab [facility] Level of Care: Medically Managed (urine for drug screening negative,ptent will not get detox from heroin,will be on librium regimen for alcohol detox) Detox Regimen/Protocol: Librium (patient urine for drug screeni shooed negative, patient awae he get detox from alcohol with librium) [facility] Breath Alcohol Content Breath Alcohol Content: 0 Urine Drug Screen - Results Drug Screen Negative: Yes
[2017-04-16] MEDS ORDERED: hydrOXYzine PAMOATE 50 MG CAPSULE (FP) PO PRN (19:56)
[2017-04-16] MEDS ORDERED: diphenhydrAMINE HCL 50 MG CAPSULE PO PRN (19:56)
[2017-04-16] MEDS ORDERED: chlordiazePOXIDE HCL 25 MG CAPSULE PO ONE (19:56)
[2017-04-16] MEDS ORDERED: METHADONE HCL 10 MG TABLET (FOR DETOX USE ONLY) PO ONE ×2 (19:56→23:00)
[2017-04-16] MEDS ORDERED: P-EPHED 60MG/TRIPROLIDI 2.5MG TABLET PO PRN (19:56)
[2017-04-16] MEDS ORDERED: MENTHOL/PHENOL 1 EACH UD MM PRN (19:56)
[2017-04-16] MEDS ORDERED: guaiFENesin/D-METHORPHAN HB 10 ML UNIT-DOSE CUPS PO PRN (19:56)
[2017-04-16] MEDS ORDERED: IBUPROFEN 400 MG TABLET (FP) PO PRN (19:56)
[2017-04-16] MEDS ORDERED: ACETAMINOPHEN 325 MG TABLET (FP) PO PRN (19:56)
[2017-04-16] MEDS ORDERED: MAGNESIUM HYDROX 2400MG/30ML ORAL SUSPENSION 30 ML CUP PO PRN (19:56)
[2017-04-16] MEDS ORDERED: MAGNESIUM CITRATE 300 ML BOTTLE PO PRN (19:56)
[2017-04-16] MEDS ORDERED: chlordiazePOXIDE HCL 25 MG CAPSULE PO PRN (19:56)
[2017-04-16] MEDS: THIAMINE HCL 100 MG TABLET (FP) PO SCH (22:28)
[2017-04-16] MEDS: cloNIDine HCL 0.1 MG TABLET PO SCH (22:28)
[2017-04-16 23:05] LABS: URINE APPEARANCE CLEAR; URINE BILIRUBIN NEGATIVE (NEGATIVE); URINE BLOOD 2+ (NEGATIVE); URINE COLOR LTYELLOW; URINE GLUCOSE (UA) NEGATIVE (NEGATIVE); URINE KETONE NEGATIVE (NEGATIVE); URINE LEUK ESTERASE NEGATIVE (NEGATIVE); URINE NITRITE NEGATIVE (NEGATIVE); URINE PROTEIN NEGATIVE (NEGATIVE); URINE UROBILINOGEN NEGATIVE mg/dL (0.2-1.0)
[2017-04-16 23:26] LABS: URINE BACTERIA RARE /hpf (NONE SEEN); URINE MUCUS RARE; URINE RBC 6 /hpf (0-3); URINE WBC 2 /hpf (3-5)
[2017-04-17] MEDS: chlordiazePOXIDE HCL 25 MG CAPSULE PO SCH ×4 (05:16→22:23)
--- NOTE | 2017-04-17 09:24 | EKG ---
Test Reason : Blood Pressure : / mmHG Vent. Rate : 053 BPM Atrial Rate : 053 BPM P-R Int : 146 ms QRS Dur : 170 ms QT Int : 494 ms P-R-T Axes : -12 -37 015 degrees QTc Int : 463 ms SINUS BRADYCARDIA LEFT AXIS DEVIATION RIGHT BUNDLE BRANCH BLOCK ABNORMAL ECG WHEN COMPARED WITH ECG OF 13-DEC-2016 05:55, NO SIGNIFICANT CHANGE WAS FOUND Confirmed by PAIGE DUARTE MD ([id number]) on 04/17/2017 9:24:17 AM Referred By: Jeff Grady Confirmed By:PAIGE DUARTE MD
[2017-04-17] MEDS ORDERED: METHADONE HCL 10 MG TABLET (FOR DETOX USE ONLY) PO SCH (10:00)
[2017-04-17 10:14] LABS: MCH 29.4 pg (25.7-33.7); MCHC 32.9 g/dl (32.0-35.9); MEAN CELL VOLUME 89.3 fl (80-96); MEAN PLT VOLUME 9.4 fl (7.5-11.1); PLATELET COUNT 229 K/MM3 (134-434); WHITE BLOOD COUNT 7.1 K/mm3 (4.0-10.0)
[2017-04-17 10:21] LABS: ANION GAP 4 (8-16); CALCIUM 9.5 mg/dL (8.5-10.1); CO2 34 mmol/L (21-32); GLUCOSE,RANDOM 102 mg/dL (74-106)
[2017-04-17 10:23] LABS: ALK PHOS 68 U/L (45-117); BILIRUBIN,TOTAL 1.6 mg/dL (0.2-1.0); SGOT/AST 17 U/L (15-37); SGPT/ALT 12 U/L (12-78); TOT PROT 7.9 g/dl (6.4-8.2)
[2017-04-17] MEDS: cloNIDine HCL 0.1 MG TABLET PO SCH ×2 (10:29→22:22)
[2017-04-17] MEDS: CYCLOBENZAPRINE HCL 10 MG TABLET (FP) PO PRN ×2 (10:29→17:54)
[2017-04-17] MEDS: PRENATAL VITAMINS W/ FOLIC ACID TABLET (FP) PO SCH (10:30)
[2017-04-17] MEDS: MAG HYDROX/AL HYDROX/SIMETH 30 ML UNIT-DOSE CUP PO PRN (10:30)
--- NOTE | 2017-04-17 10:49 | PN ---
[facility] CIWA - CIWA Score Nausea/Vomitin Muscle Tremors: 3 Anxiety: 2 Agitation: 2 Paroxysmal Sweats: 1-Minimal Palms Moist Orientation: 0-Oriented Tacttile Disturbances: 1-Very Mild Itch/Numbness Auditory Disturbances: 1-Very Mild Visual Disturbances: 1-Very Mild Sensitivity Headache: 2-Mild CIWA-Ar Total Score: 16 S Progress Note (SOAP) Subjective: ALERT,IRRITABLE,ANXIOUS,INTERRUPTED SLEEP,TREMOR Objective: 04/17/17 10:46 Vital Signs Temperature 97.7 F 04/17/17 10:00 Pulse Rate 63 04/17/17 10:00 Respiratory Rate 16 04/17/17 10:00 Blood Pressure 114/67 04/17/17 10:00 O2 Sat by Pulse Oximetry (%) EKG SINUS BRADYCARDIA,RBBB RATE 53/MIN NO CHEST PAIN,NO SOB,NO DIZZINESS Laboratory Last Values WBC 7.1 K/mm3 (4.0-10.0) 04/17/17 07:00 RBC 4.80 M/mm3 (4.00-5.60) 04/17/17 07:00 Hgb 14.1 GM/dL (11.7-16.9) 04/17/17 07:00 Hct 42.8 % (35.4-49) 04/17/17 07:00 MCV 89.3 fl (80-96) 04/17/17 07:00 MCH 29.4 pg (25.7-33.7) 04/17/17 07:00 MCHC 32.9 g/dl (32.0-35.9) 04/17/17 07:00 RDW 14.0 % (11.9-15.9) 04/17/17 07:00 Plt Count 229 K/MM3 (134-434) 04/17/17 07:00 MPV 9.4 fl (7.5-11.1) 04/17/17 07:00 Sodium 137 mmol/L (136-145) 04/17/17 07:00 Potassium 4.4 mmol/L (3.5-5.1) 04/17/17 07:00 Chloride 99 mmol/L (98-107) 04/17/17 07:00 Carbon Dioxide 34 mmol/L (21-32) H D 04/17/17 07:00 Anion Gap 4 (8-16) L 04/17/17 07:00 BUN 17 mg/dL (7-18) 04/17/17 07:00 Creatinine 1.0 mg/dL (0.7-1.3) 04/17/17 07:00 Creat Clearance w eGFR > 60 (>60) 04/17/17 07:00 Random Glucose 102 mg/dL (74-106) 04/17/17 07:00 Calcium 9.5 mg/dL (8.5-10.1) 04/17/17 07:00 Total Bilirubin 1.6 mg/dL (0.2-1.0) H D 04/17/17 07:00 AST 17 U/L (15-37) 04/17/17 07:00 ALT 12 U/L (12-78) 04/17/17 07:00 Alkaline Phosphatase 68 U/L (45-117) 04/17/17 07:00 Total Protein 7.9 g/dl (6.4-8.2) 04/17/17 07:00 Albumin 4.0 g/dl (3.4-5.0) 04/17/17 07:00 Urine Color Ltyellow 04/16/17 21:30 Urine Appearance Clear 04/16/17 21:30 Urine pH 5.0 (5.0-8.0) 04/16/17 21:30 Urine Protein Negative (NEGATIVE) 04/16/17 21:30 Urine Glucose (UA) Negative (NEGATIVE) 04/16/17 21:30 Urine Ketones Negative (NEGATIVE) 04/16/17 21:30 Urine Blood 2+ (NEGATIVE) H 04/16/17 21:30 Urine Nitrite Negative (NEGATIVE) 04/16/17 21:30 Urine Bilirubin Negative (NEGATIVE) 04/16/17 21:30 Urine Urobilinogen Negative mg/dL (0.2-1.0) 04/16/17 21:30 Ur Leukocyte Esterase Negative (NEGATIVE) 04/16/17 21:30 Urine RBC 6 /hpf (0-3) 04/16/17 21:30 Urine WBC 2 /hpf (3-5) 04/16/17 21:30 Ur Epithelial Cells Rare /hpf (FEW) 04/16/17 21:30 Urine Bacteria Rare /hpf (NONE SEEN) 04/16/17 21:30 Urine Mucus Rare 04/16/17 21:30 Assessment: 07/28/17 10:48 WITHDRAWAL SYMPTOM Plan: CONTINUE DETOX
--- NOTE | 2017-04-17 11:07 | CONSULT ---
[facility] Psychiatric Consult - Data Date of interview: 04/17/17 Admission source: [facility] Identifying data: This is a 61 years old single Black male, unemployed with no source of income, living in [place], here for detox. treatment for alcohol and heroin Substance Abuse History: Patient reports started drinking alcohol at age of 22. He drinks daily beer and 2 pints of liquor. He reports started using heroin at age of 22 , uses 5 bags a day, but urine tox. was negative for opioids. Medical History: Positive PPD and LBP. Smokes cigarettes 1ppd Psychiatric History: Patient reports no history of psychiatric hospitalizations, was treated for insomnia with Trazodone, reports a good response sleeps well when on medications, no side-effects. Physical/Sexual Abuse/Trauma History: Denies history of sexual, physical and verbal abuse. Mental Status Exam - Mental Status Exam Alert and Oriented to: Time, Place, Person Cognitive Function: Grossly Intact Patient Appearance: Well Groomed Mood: Anxious Affect: Appropriate, Mood Congruent Patient Behavior: Appropriate, Cooperative Speech Pattern: Clear, Appropriate Voice Loudness: Normal Thought Process: Intact, Goal Oriented Hallucinations: Denies Suicidal Ideation: Denies Homicidal Ideation: Denies Insight/Judgement: Fair Sleep: Poorly, Difficulty falling asleep Appetite: Fair Muscle strength/Tone: Normal Gait/Station: Normal Psychiatric Findings - Problem List ([place] 1, 2,3) (1) Insomnia Current Visit: Yes Status: Acute (2) Nicotine dependence Current Visit: Yes Status: Acute (3) Substance-induced anxiety disorder Current Visit: Yes Status: Acute - Initial Treatment Plan Initial Treatment Plan: Will add Trazodone 100 mg po hs, side-effects /beneft= its discussed with the patient, will contineu to monitor progress.
[2017-04-17] MEDS: traZODone HCL 100 MG TABLET (FP) PO SCH (22:23)
[2017-04-17] MEDS: THIAMINE HCL 100 MG TABLET (FP) PO SCH (22:42)
[2017-04-18] MEDS: chlordiazePOXIDE HCL 25 MG CAPSULE PO SCH ×3 (06:15→17:31)
[2017-04-18] MEDS: CYCLOBENZAPRINE HCL 10 MG TABLET (FP) PO PRN (06:18)
[2017-04-18] MEDS ORDERED: METHADONE HCL 5 MG TABLET (FOR DETOX USE ONLY) PO SCH (10:00)
[2017-04-18] MEDS: PRENATAL VITAMINS W/ FOLIC ACID TABLET (FP) PO SCH (10:31)
[2017-04-18] MEDS: cloNIDine HCL 0.1 MG TABLET PO SCH ×2 (10:33→22:18)
[2017-04-18 10:39] LABS: URINE APPEARANCE CLEAR; URINE BILIRUBIN NEGATIVE (NEGATIVE); URINE BLOOD 2+ (NEGATIVE); URINE COLOR LTYELLOW; URINE GLUCOSE (UA) NEGATIVE (NEGATIVE); URINE KETONE NEGATIVE (NEGATIVE); URINE LEUK ESTERASE NEGATIVE (NEGATIVE); URINE NITRITE NEGATIVE (NEGATIVE); URINE PROTEIN NEGATIVE (NEGATIVE); URINE UROBILINOGEN NEGATIVE mg/dL (0.2-1.0)
[2017-04-18 10:47] LABS: URINE MUCUS RARE; URINE RBC 1 /hpf (0-3); URINE WBC <1 /hpf (3-5)
--- NOTE | 2017-04-18 16:26 | PN ---
[facility] CIWA - CIWA Score Nausea/Vomitin-Mild Nausea/No Vomiting Muscle Tremors: 4-Moderate,w/Arms Extend Anxiety: 3 Agitation: 3 Paroxysmal Sweats: 3 Orientation: 0-Oriented Tacttile Disturbances: 0-None Auditory Disturbances: 0-None Visual Disturbances: 0-None Headache: 0-None Present CIWA-Ar Total Score: 14 S Progress Note (SOAP) Subjective: Anxiety,tremors,interrupted sleep,restless Objective: 04/18/17 16:24 Vital Signs - 8 hr 04/18/17 04/18/17 09:46 14:04 Temperature 97.9 F 97.3 F L Pulse Rate 100 H 95 H Respiratory 20 20 Rate Blood Pressure 110/65 117/65 Laboratory Last Values WBC 7.1 K/mm3 (4.0-10.0) 04/17/17 07:00 RBC 4.80 M/mm3 (4.00-5.60) 04/17/17 07:00 Hgb 14.1 GM/dL (11.7-16.9) 04/17/17 07:00 Hct 42.8 % (35.4-49) 04/17/17 07:00 MCV 89.3 fl (80-96) 04/17/17 07:00 MCH 29.4 pg (25.7-33.7) 04/17/17 07:00 MCHC 32.9 g/dl (32.0-35.9) 04/17/17 07:00 RDW 14.0 % (11.9-15.9) 04/17/17 07:00 Plt Count 229 K/MM3 (134-434) 04/17/17 07:00 MPV 9.4 fl (7.5-11.1) 04/17/17 07:00 Sodium 137 mmol/L (136-145) 04/17/17 07:00 Potassium 4.4 mmol/L (3.5-5.1) 04/17/17 07:00 Chloride 99 mmol/L (98-107) 04/17/17 07:00 Carbon Dioxide 34 mmol/L (21-32) H D 04/17/17 07:00 Anion Gap 4 (8-16) L 04/17/17 07:00 BUN 17 mg/dL (7-18) 04/17/17 07:00 Creatinine 1.0 mg/dL (0.7-1.3) 04/17/17 07:00 Creat Clearance w eGFR > 60 (>60) 04/17/17 07:00 Random Glucose 102 mg/dL (74-106) 04/17/17 07:00 Calcium 9.5 mg/dL (8.5-10.1) 04/17/17 07:00 Total Bilirubin 1.6 mg/dL (0.2-1.0) H D 04/17/17 07:00 AST 17 U/L (15-37) 04/17/17 07:00 ALT 12 U/L (12-78) 04/17/17 07:00 Alkaline Phosphatase 68 U/L (45-117) 04/17/17 07:00 Total Protein 7.9 g/dl (6.4-8.2) 04/17/17 07:00 Albumin 4.0 g/dl (3.4-5.0) 04/17/17 07:00 Urine Color Ltyellow 04/18/17 08:00 Urine Appearance Clear 04/18/17 08:00 Urine pH 5.0 (5.0-8.0) 04/18/17 08:00 Ur Specific [place] 1.015 (1.005-1.025) 04/18/17 08:00 Urine Protein Negative (NEGATIVE) 04/18/17 08:00 Urine Glucose (UA) Negative (NEGATIVE) 04/18/17 08:00 Urine Ketones Negative (NEGATIVE) 04/18/17 08:00 Urine Blood 2+ (NEGATIVE) H 04/18/17 08:00 Urine Nitrite Negative (NEGATIVE) 04/18/17 08:00 Urine Bilirubin Negative (NEGATIVE) 04/18/17 08:00 Urine Urobilinogen Negative mg/dL (0.2-1.0) 04/18/17 08:00 Ur Leukocyte Esterase Negative (NEGATIVE) 04/18/17 08:00 Urine RBC 1 /hpf (0-3) 04/18/17 08:00 Urine WBC <1 /hpf (3-5) 04/18/17 08:00 Ur Epithelial Cells Rare /hpf (FEW) 04/18/17 08:00 Urine Bacteria Rare /hpf (NONE SEEN) 04/16/17 21:30 Urine Mucus Rare 04/18/17 08:00 RPR Titer Nonreactive (NONREACTIVE) 04/17/17 07:00 labs noted Assessment: 04/18/17 16:25 Withdrawal sx. Plan: Continue detox
[2017-04-18] MEDS: chlordiazePOXIDE 5 MG CAPSULE PO SCH (22:18)
[2017-04-18] MEDS: traZODone HCL 100 MG TABLET (FP) PO SCH (22:18)
[2017-04-18] MEDS: THIAMINE HCL 100 MG TABLET (FP) PO SCH (22:20)
[2017-04-19] MEDS: chlordiazePOXIDE 5 MG CAPSULE PO SCH ×4 (05:56→18:26)
[2017-04-19] MEDS: CYCLOBENZAPRINE HCL 10 MG TABLET (FP) PO PRN ×2 (05:58→23:51)
[2017-04-19] MEDS: PRENATAL VITAMINS W/ FOLIC ACID TABLET (FP) PO SCH (10:39)
[2017-04-19] MEDS: cloNIDine HCL 0.1 MG TABLET PO SCH ×3 (10:41→23:51)
--- NOTE | 2017-04-19 15:17 | PN ---
[facility] Progress Note (SOAP) Subjective: Sweating,interrupted sleep,restless Objective: 04/19/17 15:16 Vital Signs - 8 hr 04/19/17 04/19/17 10:00 13:44 Temperature 95.8 F L 97 F L Pulse Rate 88 84 Respiratory 18 16 Rate Blood Pressure 127/74 117/74 Laboratory Last Values WBC 7.1 K/mm3 (4.0-10.0) 04/17/17 07:00 RBC 4.80 M/mm3 (4.00-5.60) 04/17/17 07:00 Hgb 14.1 GM/dL (11.7-16.9) 04/17/17 07:00 Hct 42.8 % (35.4-49) 04/17/17 07:00 MCV 89.3 fl (80-96) 04/17/17 07:00 MCH 29.4 pg (25.7-33.7) 04/17/17 07:00 MCHC 32.9 g/dl (32.0-35.9) 04/17/17 07:00 RDW 14.0 % (11.9-15.9) 04/17/17 07:00 Plt Count 229 K/MM3 (134-434) 04/17/17 07:00 MPV 9.4 fl (7.5-11.1) 04/17/17 07:00 Sodium 137 mmol/L (136-145) 04/17/17 07:00 Potassium 4.4 mmol/L (3.5-5.1) 04/17/17 07:00 Chloride 99 mmol/L (98-107) 04/17/17 07:00 Carbon Dioxide 34 mmol/L (21-32) H D 04/17/17 07:00 Anion Gap 4 (8-16) L 04/17/17 07:00 BUN 17 mg/dL (7-18) 04/17/17 07:00 Creatinine 1.0 mg/dL (0.7-1.3) 04/17/17 07:00 Creat Clearance w eGFR > 60 (>60) 04/17/17 07:00 Random Glucose 102 mg/dL (74-106) 04/17/17 07:00 Calcium 9.5 mg/dL (8.5-10.1) 04/17/17 07:00 Total Bilirubin 1.6 mg/dL (0.2-1.0) H D 04/17/17 07:00 AST 17 U/L (15-37) 04/17/17 07:00 ALT 12 U/L (12-78) 04/17/17 07:00 Alkaline Phosphatase 68 U/L (45-117) 04/17/17 07:00 Total Protein 7.9 g/dl (6.4-8.2) 04/17/17 07:00 Albumin 4.0 g/dl (3.4-5.0) 04/17/17 07:00 Urine Color Ltyellow 04/18/17 08:00 Urine Appearance Clear 04/18/17 08:00 Urine pH 5.0 (5.0-8.0) 04/18/17 08:00 Ur Specific [place] 1.015 (1.005-1.025) 04/18/17 08:00 Urine Protein Negative (NEGATIVE) 04/18/17 08:00 Urine Glucose (UA) Negative (NEGATIVE) 04/18/17 08:00 Urine Ketones Negative (NEGATIVE) 04/18/17 08:00 Urine Blood 2+ (NEGATIVE) H 04/18/17 08:00 Urine Nitrite Negative (NEGATIVE) 04/18/17 08:00 Urine Bilirubin Negative (NEGATIVE) 04/18/17 08:00 Urine Urobilinogen Negative mg/dL (0.2-1.0) 04/18/17 08:00 Ur Leukocyte Esterase Negative (NEGATIVE) 04/18/17 08:00 Urine RBC 1 /hpf (0-3) 04/18/17 08:00 Urine WBC <1 /hpf (3-5) 04/18/17 08:00 Ur Epithelial Cells Rare /hpf (FEW) 04/18/17 08:00 Urine Bacteria Rare /hpf (NONE SEEN) 04/16/17 21:30 Urine Mucus Rare 04/18/17 08:00 RPR Titer Nonreactive (NONREACTIVE) 04/17/17 07:00 labs noted Assessment: 04/19/17 15:16 Withdrawal sx. Plan: Continue detox
--- NOTE | 2017-04-19 18:33 | PN ---
[facility] Progress Note Note: Pt. slipped on wet floor,fell with LLE bent at the knee, RLE straight then back and head hit the floor. BP 142/81 P 96 R 18 TEMP 98.2F Head : Normocephalic,no injury noted in occipital region Ext. : Normal ROM both lower extremities, no signs of injury Dx. : Fall with head trauma as per patient P : post fall #[address] scan without contrast, X-ray of left knee.
[2017-04-19] MEDS: traZODone HCL 100 MG TABLET (FP) PO SCH ×2 (23:21→23:51)
[2017-04-19] MEDS: chlordiazePOXIDE HCL 10 MG CAPSULE PO SCH ×2 (23:22→23:51)
[2017-04-19] MEDS: THIAMINE HCL 100 MG TABLET (FP) PO SCH ×2 (23:22→23:51)
[2017-04-20] MEDS: chlordiazePOXIDE HCL 10 MG CAPSULE PO SCH ×3 (06:16→17:55)
--- NOTE | 2017-04-20 09:31 | PN ---
S Progress Note (SOAP) Subjective: ALERT,IRRITABLE,INTERRUPTED SLEEP Objective: 04/20/17 09:30 Vital Signs Temperature 97.7 F 04/20/17 07:54 Pulse Rate 58 L 04/20/17 07:54 Respiratory Rate 16 04/20/17 07:54 Blood Pressure 116/76 04/20/17 07:54 O2 Sat by Pulse Oximetry (%) HISTORY OF A FALL YESTERDAY WITH HEAD INJURY CLEAR TO RETURN FROM ER FOR CONTINUE DETOX CT OF HED,XRAY LEFT KNEE,PELVIS AND RIGHT HIP NOTED ON PROTOCOL 1 OBSERVATION AMBULATION WITHOUT COMPLAINT 04/20/17 09:33 Assessment: 04/20/17 09:35 WITHDRAWAL SYMPTOM Plan: CONTINUE DETOX,DISCHARGE IN AM
[2017-04-20] MEDS ORDERED: METHADONE HCL 10 MG TABLET (FOR DETOX USE ONLY) PO SCH (10:00)
[2017-04-20] MEDS: PRENATAL VITAMINS W/ FOLIC ACID TABLET (FP) PO SCH (10:14)
[2017-04-20] MEDS: cloNIDine HCL 0.1 MG TABLET PO SCH ×2 (10:15→22:55)
[2017-04-20] MEDS: CYCLOBENZAPRINE HCL 10 MG TABLET (FP) PO PRN (10:16)
[2017-04-20] MEDS: MAG HYDROX/AL HYDROX/SIMETH 30 ML UNIT-DOSE CUP PO PRN (16:52)
[2017-04-20] MEDS: LOPERAMIDE HCL 2 MG CAPSULE PO PRN (21:18)
[2017-04-20] MEDS: THIAMINE HCL 100 MG TABLET (FP) PO SCH (22:55)
[2017-04-20] MEDS: traZODone HCL 100 MG TABLET (FP) PO SCH (22:55)
[2017-04-21] MEDS: LOPERAMIDE HCL 2 MG CAPSULE PO PRN (04:25)
[2017-04-21 06:07] VITALS: BP 112/73; PULSE 55; TEMP 96.9
--- NOTE | 2017-04-21 08:32 | DS ---
[facility] Detox Discharge Summary Admission Date: 04/16/17 Discharge Date: 04/21/17 - History Present History: Alcohol Dependence Additional Comments: FOLLOW UP WITH AFTER CARE PROGRAM ARRANGEMENT Pertinent Past History: CHRONIC LOW BACK PAIN WEIGHT LOSS ANXIETY AND DEPRESSION - Physical Exam Results Vital Signs: Vital Signs Temperature 96.9 F L 04/21/17 06:05 Pulse Rate 55 L 04/21/17 06:05 Respiratory Rate 16 04/21/17 06:05 Blood Pressure 112/73 04/21/17 06:05 O2 Sat by Pulse Oximetry (%) Pertinent Admission Physical Exam Findings: WITHDRAWAL SYMPTOM - Treatment Hospital Course: Detox Protocol Followed, Detoxed Safely, Responded well, Discharged Condition Good Patient has Accepted a Rehab Referral to: DECLINED - Medication Discharge Medications: Ambulatory Orders Trazodone HCl [Desyrel -] 150 mg PO HS #30 tablet 12/24/16 Trazodone HCl [Desyrel -] 100 mg PO HS #30 tablet 04/17/17 - Diagnosis (1) Insomnia Current Visit: Yes Status: Acute (2) Nicotine dependence Current Visit: Yes Status: Acute (3) PPD positive Current Visit: Yes Status: Acute (4) Weight loss Current Visit: Yes Status: Acute (5) Alcohol dependence with uncomplicated withdrawal Current Visit: Yes Status: Chronic (6) Chronic back pain Current Visit: Yes Status: Chronic (7) Low back pain Current Visit: Yes Status: Chronic Qualifiers: Chronicity: unspecified (8) Anxiety and depression Current Visit: Yes Status: Acute - AMA Did Patient Leave Against Medical Advice: No
== END 2017-04-21 09:21 | disposition home or self-care (01) | DRG 775 ==
LOC: YASAS 11:59 → Y6N 17:27
PROVIDERS: ADMIT Internal Medicine; ATTEND Internal Medicine
PROC: HZ2ZZZZ Detoxification Services for Substance Abuse Treatment (ICD-10-PCS; principal; 2017-04-16)
DX: F10.230 Alcohol dependence with withdrawal, uncomplicated (principal); F17.210 Nicotine dependence, cigarettes, uncomplicated; F41.8 Other specified anxiety disorders; F19.280 Other psychoactive substance dependence with psychoactive substance-induced anxiety disorder; G47.00 Insomnia, unspecified; R76.11 Nonspecific reaction to tuberculin skin test without active tuberculosis; M54.5 Low back pain; G89.29 Other chronic pain; R00.1 Bradycardia, unspecified; I45.10 Unspecified right bundle-branch block; Z87.898 Personal history of other specified conditions; S09.90XA Unspecified injury of head, initial encounter; W01.0XXA Fall on same level from slipping, tripping and stumbling without subsequent striking against object, initial encounter; Y93.01 Activity, walking, marching and hiking; Y92.239 Unspecified place in hospital as the place of occurrence of the external cause
CPT/HCPCS: 36415; 73560-TC-LT; 80053; 81003; 81015; 85027; 86593; 93005; 93010

== ENCOUNTER 2017-04-19 19:06 | Emergency (ER) | payer OTHER ==
[2017-04-19 19:41] VITALS: TEMP 98.2; BMI 27.5
--- NOTE | 2017-04-19 19:42 | PDOC ---
History of Present Illness - General Stated Complaint: FALL Time Seen by Provider: 04/19/17 19:15 History Source: Patient Exam Limitations: No Limitations - History of Present Illness Initial Comments: 04/19/17 19:38 61M with history of alcohol abuse (last drink Thursday, in detox facility) here today complaining of a fall. He's complaining of a headache, pain to his left knee and pain in his right hip. The headache is on the right side and is described as a throbbing. He did not lose consciousness and did not vomit. The fall was from standing. He was able to ambulate after the fall with a limp. Past History - Past Medical History Allergies/Adverse Reactions: Allergies Allergy/AdvReac Type Severity Reaction Status Date / Time No Known Allergies Allergy Verified 04/19/17 19:40 Home Medications: Ambulatory Orders Trazodone HCl [Desyrel -] 150 mg PO HS #30 tablet 12/24/16 Trazodone HCl [Desyrel -] 100 mg PO HS #30 tablet 04/17/17 Anemia: No Asthma: No Cancer: No Cardiac Disorders: No CVA: No COPD: No CHF: No Diabetes: No GI Disorders: No Disorders: No HTN: No Hypercholesterolemia: No Kidney Stones: No Liver Disease: No Suicide Attempt (Hx): No Seizures: No Thyroid Disease: No - Surgical History Abdominal Surgery: No Appendectomy: No Cardiac Surgery: No Cholecystectomy: No Lung Surgery: No Neurologic Surgery: No Orthopedic Surgery: No - Reproductive History Testicular Surgery: No - Psycho/Social/Smoking Cessation Hx Anxiety: Yes Suicidal Ideation: No Smoking History: Never smoked Have you smoked in the past 12 months: No Number of Cigarettes Smoked Daily: 0 If you are a former smoker, when did you quit?: 20 Cigars Per Day: 0 'Breaking Loose' booklet given: 03/08/15 Hx Alcohol Use: Yes Drug/Substance Use Hx: Yes Substance Use Type: Alcohol Hx Substance Use Treatment: Yes ([facility] 12/12/16 to 12/17/16 detox,12/17/16 to 02/04) Trauma Specific PMHX - Complaint Specific PMHX Arthritis: No Review of Systems - Review of Systems Comments:: 04/19/17 19:42 GENERAL/CONSTITUTIONAL: No fever or chills. No weakness. HEAD, EYES, EARS, NOSE AND THROAT: No change in vision. CARDIOVASCULAR: No chest pain or shortness of breath RESPIRATORY: No cough, wheezing GASTROINTESTINAL: No nausea, vomiting, diarrhea or constipation. GENITOURINARY: No dysuria, frequency, or change in urination. MUSCULOSKELETAL: Pain in right knee and right hip. NEUROLOGIC: Positive for headache. Negative for vertigo, loss of consciousness, or change in strength/sensation. *Physical Exam - Physical Exam Comments: 04/19/17 19:44 GENERAL: Awake, alert, and fully oriented, in no acute distress HEAD: Tender to palpation along right side, normocephalic, atraumatic EYES: PERRLA, EOMI, sclera anicteric, conjunctiva clear ENT: Auricles normal inspection, hearing grossly normal, nares patent, oropharynx clear without exudates. Moist mucosa NECK: Normal ROM, supple, no midline tenderness LUNGS: No distress, speaks full sentences, clear to auscultation bilaterally HEART: Regular rate and rhythm, normal S1 and S2, no murmurs, rubs or gallops, peripheral pulses normal and equal bilaterally. ABDOMEN: Soft, nontender, normoactive bowel sounds. No guarding, no rebound. No masses EXTREMITIES: Pain to palpation in right hip and left knee. Neurovascularly intact. NEUROLOGICAL: Cranial nerves II through XII grossly intact. Normal speech, normal gait, no focal sensorimotor deficits SKIN: Warm, Dry, normal turgor, no rashes or lesions noted. ED Treatment Course - RADIOLOGY Radiology Studies Ordered: Category Date Time Status HEAD CT WITHOUT CONTRAST [CT] Stat CT Scan 04/19/17 19:33 Ordered HIP & PELVIS-RIGHT [RAD] Stat Radiology 04/19/17 19:33 Ordered KNEE 3 POS-LEFT [RAD] Stat Radiology 04/19/17 19:33 Ordered Medical Decision Making - Medical Decision Making 04/19/17 19:45 61M with history of alcohol abuse, currently in detox last drink Thursday, here today complaining of a fall. Will get head CT, x-rays of left knee and right hip to evaluate. 04/19/17 21:23 X-rays of left knee and right hip show no fractures. Head CT pending. 04/19/17 21:39 CT of his head is normal. Discharging back to [facility]. *DC/Admit/Observation/Transfer Diagnosis at time of Disposition: Fall Qualifiers: Encounter type: initial encounter Qualified Code(s): W19.XXXA - Unspecified fall, initial encounter - Discharge Dispostion Disposition: I.P. ALCOHOL/SUBS ABUSE REHAB Condition at time of disposition: Good Admit: No - Referrals Referrals: STAFF,NOT ON [Primary Care Provider] - - Patient Instructions Printed Discharge Instructions: DI for Post-traumatic Headache - Attestations Physician Attestion: 04/19/17 21:15 I, Dr. Iain Jensen, attest that this document has been prepared under my direction and personally reviewed by me in its entirety. I further attest, that it accurately reflects all work, treatment, procedures and medical decision -making performed by me.
--- NOTE | 2017-04-19 20:11 | PDOC ---
Attending Attestation - Resident Resident Name: Iain Jensen - HPI HPI: 04/19/17 20:11 61-year-old male brought in by ambulance from [facility] because he felt the facility. No loss of consciousness. Does report slipping on his back hurting his knee and hitting his head He also has complaint of hip pain - Physicial Exam PE: 04/19/17 20:12 Well-nourished, well-developed 61-year-old male with no scalp laceration Neck supple, no vertebral tenderness Lungs clear to auscultation cvs [id number] abd soft,nontender extemity no gross deformity neuro axox4 - Medical Decision Making 04/19/17 20:13 pt sent from [facility] for Ct head and plain films following fall at the detox facility
[2017-04-19] MEDS ORDERED: ACETAMINOPHEN 325 MG TABLET (FP) PO ONE (21:05)
[2017-04-19] MEDS ORDERED: ACETAMINOPHEN 500 MG TABLET (FP) PO ONE (21:07)
[2017-04-19] MEDS ORDERED: ACETAMINOPHEN 325 MG TABLET (FP) ONE (21:08)
[2017-04-19 23:28] VITALS: BP 118/71; PULSE 58
== END 2017-04-19 23:28 | disposition other institution (70) ==
LOC: SUPCPDRO 19:06 → JER 19:06
DX: G44.309 Post-traumatic headache, unspecified, not intractable (principal); W18.39XA Other fall on same level, initial encounter; Y93.89 Activity, other specified; Y92.238 Other place in hospital as the place of occurrence of the external cause; F10.10 Alcohol abuse, uncomplicated; F17.210 Nicotine dependence, cigarettes, uncomplicated
CPT/HCPCS: 70450-TC; 73523-TC; 73562-TC-LT; 99281-25

== ENCOUNTER 2018-04-15 09:51 | Inpatient (IN) | payer OTHER ==
[2018-04-15 10:12] VITALS: BMI 27.1
--- NOTE | 2018-04-15 12:55 | HP ---
COWS - Scale Resting Pulse: 0= [place] 80 or Below Sweatin= Chills/Flushing Restless Observation: 1= Difficult to Sit Still Pupil Size: 0= Normal to Room Light Bone or Joint Aches: 2= Severe Diffuse Aches Runny Nose/ Eye Tearin= Runny Nose/Eyes GI Upset > 30mins: 2= Nausea/Diarrhea Tremor Observation: 2= Slight Tremor Visible Yawning Observation: 2= >3x During Session Anxiety or Irritability: 2=Irritable/Anxious Goose Flesh Skin: 3=Piloerection COWS Score: 17 CIWA Score - CIWA Score Nausea/Vomitin-Mild Nausea/No Vomiting Muscle Tremors: 4-Moderate,w/Arms Extend Anxiety: 4-Mod. Anxious/Guarded Agitation: 4-Moderately Restless Paroxysmal Sweats: 1-Minimal Palms Moist Orientation: 1-Uncertain about Date Tacttile Disturbances: 1-Very Mild Itch/Numbness Auditory Disturbances: 0-None Visual Disturbances: 0-None Headache: 1-Very Mild CIWA-Ar Total Score: 17 Admission [facility] - HPI Chief Complaint: alcohol and opiate withdrawal sx Allergies/Adverse Reactions: Allergies Allergy/AdvReac Type Severity Reaction Status Date / Time No Known Allergies Allergy Verified 04/15/18 10:43 History of Present Illness: 62 years old male with long history of opiate alcohol dependence denies medical issue has depression and anxiety is admitted to detox Exam Limitations: No Limitations - Ebola screening Have you traveled outside of the country in the last 21 days: No Have you had contact with anyone from an Ebola affected area: No Have you been sick,other than usual withdrawal symptoms: No Do you have a fever: No - Review of Systems Constitutional: Loss of Appetite, Changes in sleep, Unintentional Wgt. Loss, Unexplained wgt Loss EENT: reports: Blurred Vision (eye glasses) Respiratory: reports: No Symptoms reported Cardiac: reports: No Symptoms Reported GI: reports: Nausea, Poor Appetite, Poor Fluid Intake, Abdominal cramping : reports: No Symptoms Reported Musculoskeletal: reports: No Symptoms Reported Neuro: reports: Tremors Endocrine: reports: No Symptoms Reported Hematology: reports: No Symptoms Reported Psychiatric: reports: Judgement Intact, Anxious, Depressed Other Systems: Reviewed and Negative Patient History - Patient Medical History Hx Anemia: No Hx Asthma: No Hx Chronic Obstructive Pulmonary Disease (COPD): No Hx Cancer: No Hx Cardiac Disorders: No Hx Congestive Heart Failure: No Hx Hypertension: No Hx Hypercholesterolemia: No Hx Pacemaker: No HX Cerebrovascular Accident: No Hx Seizures: No Hx Dementia: No Hx Diabetes: No Hx Gastrointestinal Disorders: No Hx Liver Disease: No Hx Genitourinary Disorders: No Hx Sexually Transmitted Disorders: No Hx Renal Disease (ESRD): No Hx Thyroid Disease: No Hx Human Immunodeficiency Virus (HIV): No (NEGATIVE HX LAST 2014) Hx Hepatitis C: No Hx Depression: Yes Hx Suicide Attempt: No Hx Bipolar Disorder: No Hx Schizophrenia: No - Patient Surgical History Past Surgical History: No Hx Neurologic Surgery: No Hx Cataract Extraction: No Hx Cardiac Surgery: No Hx Lung Surgery: No Hx Breast Surgery: No Hx Breast Biopsy: No Hx Abdominal Surgery: No Hx Appendectomy: No Hx Cholecystectomy: No Hx Genitourinary Surgery: No Hx Orthopedic Surgery: No - PPD History Previous Implant?: Yes Documented Results: Positive w/proof Implanted On Prior R Admission?: No Date: 12/14/16 Results: 15 mm PPD to be Administered?: No - Smoking Cessation Smoking history: Never smoked Have you smoked in the past 12 months: No Aproximately how many cigarettes per day: 0 If you are a former smoker, when did you quit?: 20 Cigars Per Day: 0 Hx Chewing Tobacco Use: No Initiated information on smoking cessation: No - Substance & Tx. History Hx Alcohol Use: Yes Hx Substance Use: Yes Substance Use Type: Alcohol, Opiates Hx Substance Use Treatment: Yes (03/2017 [facility] - Substances Abused Heroin Route: Inhalation Frequency: Daily Amount used: 8 BAGS Age of first use: 28 Date of Last Use: 04/13/18 Alcohol Route: Oral Frequency: Daily Amount used: 1 PINT RUM Age of first use: 22 Date of Last Use: 04/12/18 Family Disease History - Family Disease History Family Disease History: Other: Father ( no contact), Mother () Other Family History: only child Admission Physical Exam S - Vital Signs Vital Signs: Vital Signs - 24 hr 04/15/18 10:11 Temperature 98.1 F Pulse Rate 55 L Respiratory 20 Rate Blood Pressure 146/99 - Physical General Appearance: Yes: Appropriately Dressed, Mild Distress, Thin, Tremorous, Irritable, Sweating, Anxious HEENTM: Yes: Hearing grossly Normal, Normocephalic, Normal Voice, Other (eye glasses) Respiratory: Yes: Chest Non-Tender, Lungs Clear, Normal Breath Sounds, No Respiratory Distress, No Accessory Muscle Use Neck: Yes: Supple, Trachea in good position Breast: Yes: Breasts Symetrical, No Discharge Cardiology: Yes: Regular Rhythm, S1, S2, Bradycardia Abdominal: Yes: Normal Bowel Sounds, Non Tender, Flat, Soft Genitourinary: Yes: Within Normal Limits Back: Yes: Normal Inspection Musculoskeletal: Yes: full range of Motion, Gait Steady, Back pain, Muscle Pain Extremities: Yes: Normal Inspection, Normal Range of Motion, Non-Tender, Tremors Neurological: Yes: Alert, Motor Strength 5/5, Normal Response, Depressed Affect Integumentary: Yes: Warm Lymphatic: Yes: Within Normal Limits - Diagnostic (1) PPD positive Current Visit: No Status: Resolved (2) Weight loss Current Visit: Yes Status: Acute (3) Opioid dependence with withdrawal Current Visit: Yes Status: Acute (4) Alcohol dependence with uncomplicated withdrawal Current Visit: Yes Status: Acute (5) Depression (emotion) Current Visit: Yes Status: Suspected Qualifiers: Depression Type: dysthymia Qualified Code(s): F34.1 - Dysthymic disorder Cleared for Admission [facility] - Detox or Rehab [facility] Level of Care: Medically Managed Detox Regimen/Protocol: Methadone/Librium [facility] Breath Alcohol Content Breath Alcohol Content: 0 Urine Drug Screen - Results Drug Screen Negative: No Urine Drug Screen Results: OPI-Opiates, BZO-Benzodiazepines
[2018-04-15] MEDS ORDERED: IBUPROFEN 400 MG TABLET (FP) PO PRN (12:56)
[2018-04-15] MEDS ORDERED: chlordiazePOXIDE HCL 25 MG CAPSULE PO PRN (12:56)
[2018-04-15] MEDS ORDERED: LOPERAMIDE HCL 2 MG CAPSULE PO PRN (12:56)
[2018-04-15] MEDS ORDERED: guaiFENesin/D-METHORPHAN HB 10 ML UNIT-DOSE CUPS PO PRN (12:56)
[2018-04-15] MEDS ORDERED: MAGNESIUM CITRATE 300 ML BOTTLE PO PRN (12:56)
[2018-04-15] MEDS ORDERED: P-EPHED 60MG/TRIPROLIDI 2.5MG TABLET PO PRN (12:56)
[2018-04-15] MEDS ORDERED: ACETAMINOPHEN 325 MG TABLET (FP) PO PRN (12:56)
[2018-04-15] MEDS ORDERED: MAG HYDROX/AL HYDROX/SIMETH 30 ML UNIT-DOSE CUP PO PRN (12:56)
[2018-04-15] MEDS ORDERED: MAGNESIUM HYDROX 2400MG/30ML ORAL SUSPENSION 30 ML CUP PO PRN (12:56)
[2018-04-15] MEDS ORDERED: MENTHOL/PHENOL 1 EACH UD MM PRN (12:56)
[2018-04-15] MEDS ORDERED: METHADONE HCL 10 MG TABLET (FOR DETOX USE ONLY) PO ONE ×2 (13:35→23:00)
--- NOTE | 2018-04-15 15:25 | CONSULT ---
[facility] Psychiatric Consult - Data Date of interview: 04/15/18 Admission source: [facility] Identifying data: Patient is a 62 year old single male, domiciled, and unemployed. Pt. is supported by public assistance. This is one of multiple admissions for patient. Pt. admitted to for alcohol and opiate dependence. Substance Abuse History: - Smoking Cessation. Smoking history: Never smoked. Have you smoked in the past 12 months: No. Aproximately how many cigarettes per day: 0. If you are a former smoker, when did you quit?: 20. Cigars Per Day : 0. Hx Chewing Tobacco Use: No. Initiated information on smoking cessation: No. - Substance & Tx. History. Hx Alcohol Use: Yes. Hx Substance Use: Yes. Substance Use Type: Alcohol, Opiates. Hx Substance Use Treatment: Yes (03/2017 [facility]). - Substances Abused. Heroin. Route: Inhalation. Frequency: Daily. Amount used: 8 BAGS. Age of first use: 28. Date of Last Use: . Alcohol. Route: Oral. Frequency: Daily. Amount used: 1 PINT RUM. Age of first use: 22. Date of Last Use: 04/12/18 Medical History: Denies. Psychiatric History: Patient denies h/o psychiatric hospitalization, outpatient care, and suicide attempt. Pt. reports poor sleep and is requesting trazodone. States he has received trazodone on detox/rehab facilites with good effect. Physical/Sexual Abuse/Trauma History: Denies. Mental Status Exam - Mental Status Exam Alert and Oriented to: Time, Place, Person Cognitive Function: Good Patient Appearance: Well Groomed Mood: Hopeful, Euthymic Affect: Mood Congruent Patient Behavior: Appropriate, Cooperative Speech Pattern: Clear, Appropriate Voice Loudness: Normal Thought Process: Intact, Goal Oriented Thought Disorder: Not Present Hallucinations: Denies Suicidal Ideation: Denies Homicidal Ideation: Denies Insight/Judgement: Poor Sleep: Poorly Appetite: Fair Muscle strength/Tone: Normal Gait/Station: Normal Psychiatric Findings - Problem List ([place] 1, 2,3) (1) Alcohol dependence with uncomplicated withdrawal Current Visit: Yes Status: Acute (2) Opioid dependence with withdrawal Current Visit: Yes Status: Acute (3) Substance-induced sleep disorder Current Visit: No Status: Acute - Initial Treatment Plan Initial Treatment Plan: Psychoeducation provided. Detoxification in progress. Trazodone 50mg qhs ordered. Benefits and side effects discussed. Pt. made aware of the risk of priapism. Verbal consent given.
[2018-04-15 17:09] LABS: URINE APPEARANCE CLEAR; URINE BILIRUBIN NEGATIVE (<2.0 mg/dL); URINE COLOR YELLOW; URINE GLUCOSE (UA) NEGATIVE (NEGATIVE); URINE KETONE NEGATIVE (NEGATIVE); URINE LEUK ESTERASE NEGATIVE (NEGATIVE); URINE NITRITE NEGATIVE (NEGATIVE); URINE PROTEIN NEGATIVE (NEGATIVE); URINE UROBILINOGEN NEGATIVE mg/dL (0.2-1.0)
[2018-04-15] MEDS: chlordiazePOXIDE HCL 25 MG CAPSULE PO SCH ×2 (17:46→22:12)
[2018-04-15] MEDS ORDERED: MELATONIN 5 MG TABLETS PO PRN (22:00)
[2018-04-15] MEDS: traZODone HCL 50 MG TABLET (FP) PO SCH (22:12)
[2018-04-15] MEDS: THIAMINE HCL 100 MG TABLET (FP) PO SCH (22:14)
[2018-04-16] MEDS: chlordiazePOXIDE HCL 25 MG CAPSULE PO SCH ×4 (05:24→23:53)
[2018-04-16] MEDS: PRENATAL VITAMINS W/ FOLIC ACID TABLET (FP) PO SCH (09:59)
[2018-04-16 10:00] LABS: HEMATOCRIT 43.1 % (35.4-49); HEMOGLOBIN 14.5 GM/dL (11.7-16.9); MCH 30.1 pg (25.7-33.7); MCHC 33.7 g/dl (32.0-35.9); MEAN CELL VOLUME 89.2 fl (80-96); MEAN PLT VOLUME 10.1 fl (7.5-11.1); PLATELET COUNT 255 K/MM3 (134-434); RBC 4.83 M/mm3 (4.00-5.60); RDW 14.4 % (11.9-15.9); WHITE BLOOD COUNT 9.5 K/mm3 (4.0-10.0)
[2018-04-16] MEDS ORDERED: METHADONE HCL 10 MG TABLET (FOR DETOX USE ONLY) PO SCH (10:00)
[2018-04-16 10:07] LABS: CHLORIDE 98 mmol/L (98-107); POTASSIUM 4.9 mmol/L (3.5-5.1); SODIUM 136 mmol/L (136-145)
[2018-04-16 10:16] LABS: ALBUMIN 4.5 g/dl (3.4-5.0); ALK PHOS 72 U/L (45-117); ANION GAP 9 (8-16); BILIRUBIN,TOTAL 1.6 mg/dL (0.2-1.0); BLOOD UREA NITROGEN 18 mg/dL (7-18); CALCIUM 9.6 mg/dL (8.5-10.1); CO2 29 mmol/L (21-32); CREATININE 1.2 mg/dL (0.7-1.3); GLUCOSE,RANDOM 122 mg/dL (74-106); SGOT/AST 34 U/L (15-37); SGPT/ALT 17 U/L (12-78); TOT PROT 8.8 g/dl (6.4-8.2)
--- NOTE | 2018-04-16 11:36 | EKG ---
Test Reason : Blood Pressure : / mmHG Vent. Rate : 056 BPM Atrial Rate : 056 BPM P-R Int : 134 ms QRS Dur : 160 ms QT Int : 474 ms P-R-T Axes : -18 -59 028 degrees QTc Int : 457 ms SINUS BRADYCARDIA WITH PREMATURE SUPRAVENTRICULAR COMPLEXES RIGHT BUNDLE BRANCH BLOCK LEFT ANTERIOR FASCICULAR BLOCK BIFASCICULAR BLOCK SEPTAL INFARCT , AGE UNDETERMINED ABNORMAL ECG WHEN COMPARED WITH ECG OF 16-APR-2017 19:53, PREMATURE SUPRAVENTRICULAR COMPLEXES ARE NOW PRESENT SEPTAL INFARCT IS NOW PRESENT Confirmed by LUIS JENNINGS, RIVERA ([id number]) on 04/16/2018 11:35:51 AM Referred By: Confirmed By:RIVERA SMITH MD
--- NOTE | 2018-04-16 12:33 | PN ---
[facility] CIWA - CIWA Score Nausea/Vomitin-No Nausea/No Vomiting Muscle Tremors: None Anxiety: 4-Mod. Anxious/Guarded Agitation: 2 Paroxysmal Sweats: 3 Orientation: 0-Oriented Tacttile Disturbances: 3-Moderate Itch/Numb/Burn Auditory Disturbances: 1-Very Mild Visual Disturbances: 2-Mild Sensitivity Headache: 0-None Present CIWA-Ar Total Score: 15 BHS COWS - Scale Resting Pulse: 1= [place] 81-100 Sweatin= Chills/Flushing Restless Observation: 1= Difficult to Sit Still Pupil Size: 0= Normal to Room Light Bone or Joint Aches: 2= Severe Diffuse Aches Runny Nose/ Eye Tearin= None GI Upset > 30mins: 2= Nausea/Diarrhea Tremor Observation of Outstretched Hands: 0= None Yawning Observation: 1= 1-2x During Session Anxiety or Irritability: 2=Irritable/Anxious Goose Flesh Skin: 3=Piloerection COWS Score: 13 BHS Progress Note (SOAP) Subjective: Body Aches, Diarrhea, Stomach Cramping, Sweating, Interrupted Sleep. Objective: PATIENT A & O X 3, OBSERVED AMBULATING ON UNIT. NO ACUTE DISTRESS. 04/16/18 12:32 Vital Signs Temperature 97.0 F L 04/16/18 09:19 Pulse Rate 82 04/16/18 09:19 Respiratory Rate 18 04/16/18 09:19 Blood Pressure 118/78 04/16/18 09:19 O2 Sat by Pulse Oximetry (%) Laboratory Tests 04/15/18 04/15/18 04/16/18 14:00 14:00 06:00 WBC 9.5 RBC 4.83 Hgb 14.5 Hct 43.1 MCV 89.2 MCH 30.1 MCHC 33.7 RDW 14.4 Plt Count 255 MPV 10.1 Sodium Potassium Chloride Carbon Dioxide Anion Gap BUN Creatinine Creat Clearance w eGFR Random Glucose Calcium Total Bilirubin AST ALT Alkaline Phosphatase Total Protein Albumin Urine Color Yellow Urine Appearance Clear Urine pH 5.0 Ur Specific [place] 1.021 Urine Protein Negative Urine Glucose (UA) Negative Urine Ketones Negative Urine Blood Negative Urine Nitrite Negative Urine Bilirubin Negative Urine Urobilinogen Negative Ur Leukocyte Esterase Negative RPR Titer HIV 1&2 Antibody Screen Negative HIV P24 Antigen Negative 07/27/18 07/27/18 06:00 06:00 WBC RBC Hgb Hct MCV MCH MCHC RDW Plt Count MPV Sodium 136 Potassium 4.9 Chloride 98 Carbon Dioxide 29 Anion Gap 9 BUN 18 Creatinine 1.2 Creat Clearance w eGFR > 60 Random Glucose 122 H Calcium 9.6 Total Bilirubin 1.6 H AST 34 D ALT 17 D Alkaline Phosphatase 72 Total Protein 8.8 H Albumin 4.5 Urine Color Urine Appearance Urine pH Ur Specific [place] Urine Protein Urine Glucose (UA) Urine Ketones Urine Blood Urine Nitrite Urine Bilirubin Urine Urobilinogen Ur Leukocyte Esterase RPR Titer Nonreactive HIV 1&2 Antibody Screen HIV P24 Antigen LABS NOTED. Assessment: 04/16/18 12:32 WITHDRAWAL SYMPTOMS. Plan: CONTINUE DETOX. INCREASE DAILY PO FLUID INTAKE. PRN IMMODIUM FOR DIARRHEA. LIDODERM PATCH FOR LOWER BACK ACHE.
[2018-04-16] MEDS: LIDOCAINE 5% TOPICAL PATCH TP SCH (14:49)
[2018-04-16] MEDS: LIDOCAINE PATCH REMOVAL MC SCH (23:52)
[2018-04-16] MEDS: traZODone HCL 50 MG TABLET (FP) PO SCH (23:52)
[2018-04-16] MEDS: THIAMINE HCL 100 MG TABLET (FP) PO SCH (23:53)
[2018-04-17] MEDS: chlordiazePOXIDE HCL 25 MG CAPSULE PO SCH ×2 (05:21→10:17)
[2018-04-17] MEDS: PRENATAL VITAMINS W/ FOLIC ACID TABLET (FP) PO SCH (10:17)
[2018-04-17] MEDS: METHADONE HCL 5 MG TABLET (FOR DETOX USE ONLY) PO SCH (10:17)
[2018-04-17] MEDS: LIDOCAINE 5% TOPICAL PATCH TP SCH (10:18)
[2018-04-17] MEDS: chlordiazePOXIDE 5 MG CAPSULE PO SCH ×2 (17:52→22:32)
--- NOTE | 2018-04-17 18:08 | PN ---
[facility] CIWA - CIWA Score Nausea/Vomitin-No Nausea/No Vomiting Muscle Tremors: None Anxiety: 4-Mod. Anxious/Guarded Agitation: 4-Moderately Restless Paroxysmal Sweats: No Perspiration Orientation: 0-Oriented Tacttile Disturbances: 2-Mild Itch/Numbness/Burn Auditory Disturbances: 2-Mild Harshness/Frighten Visual Disturbances: 2-Mild Sensitivity Headache: 0-None Present CIWA-Ar Total Score: 14 S COWS - Scale Resting Pulse: 0= [place] 80 or Below Sweatin= Chills/Flushing Restless Observation: 1= Difficult to Sit Still Pupil Size: 0= Normal to Room Light Bone or Joint Aches: 2= Severe Diffuse Aches Runny Nose/ Eye Tearin= Nasal Congestion GI Upset > 30mins: 1= Stomach Cramp Tremor Observation of Outstretched Hands: 0= None Yawning Observation: 1= 1-2x During Session Anxiety or Irritability: 2=Irritable/Anxious Goose Flesh Skin: 3=Piloerection COWS Score: 12 S Progress Note (SOAP) Subjective: Body Aches, Stomach Cramping, Runny Nose, Interrupted Sleep. Objective: PATIENT A & O X 3, OBSERVED AMBULATING ON UNIT. NO ACUTE DISTRESS. 04/17/18 18:07 Vital Signs Temperature 96.7 F L 04/17/18 14:38 Pulse Rate 72 04/17/18 14:38 Respiratory Rate 18 04/17/18 14:38 Blood Pressure 116/80 04/17/18 14:38 O2 Sat by Pulse Oximetry (%) Laboratory Tests 04/15/18 04/15/18 04/16/18 14:00 14:00 06:00 WBC 9.5 RBC 4.83 Hgb 14.5 Hct 43.1 MCV 89.2 MCH 30.1 MCHC 33.7 RDW 14.4 Plt Count 255 MPV 10.1 Sodium Potassium Chloride Carbon Dioxide Anion Gap BUN Creatinine Creat Clearance w eGFR Random Glucose Calcium Total Bilirubin AST ALT Alkaline Phosphatase Total Protein Albumin Urine Color Yellow Urine Appearance Clear Urine pH 5.0 Ur Specific [place] 1.021 Urine Protein Negative Urine Glucose (UA) Negative Urine Ketones Negative Urine Blood Negative Urine Nitrite Negative Urine Bilirubin Negative Urine Urobilinogen Negative Ur Leukocyte Esterase Negative RPR Titer HIV 1&2 Antibody Screen Negative HIV P24 Antigen Negative 04/16/18 04/16/18 06:00 06:00 WBC RBC Hgb Hct MCV MCH MCHC RDW Plt Count MPV Sodium 136 Potassium 4.9 Chloride 98 Carbon Dioxide 29 Anion Gap 9 BUN 18 Creatinine 1.2 Creat Clearance w eGFR > 60 Random Glucose 122 H Calcium 9.6 Total Bilirubin 1.6 H AST 34 D ALT 17 D Alkaline Phosphatase 72 Total Protein 8.8 H Albumin 4.5 Urine Color Urine Appearance Urine pH Ur Specific [place] Urine Protein Urine Glucose (UA) Urine Ketones Urine Blood Urine Nitrite Urine Bilirubin Urine Urobilinogen Ur Leukocyte Esterase RPR Titer Nonreactive HIV 1&2 Antibody Screen HIV P24 Antigen LABS NOTED. Assessment: 04/17/18 18:07 WITHDRAWAL SYMPTOMS. Plan: CONTINUE DETOX.
[2018-04-17] MEDS: LIDOCAINE PATCH REMOVAL MC SCH (22:32)
[2018-04-17] MEDS: THIAMINE HCL 100 MG TABLET (FP) PO SCH (22:32)
[2018-04-17] MEDS: traZODone HCL 50 MG TABLET (FP) PO SCH (22:32)
[2018-04-18] MEDS: chlordiazePOXIDE 5 MG CAPSULE PO SCH ×2 (05:48→10:36)
[2018-04-18] MEDS: LIDOCAINE 5% TOPICAL PATCH TP SCH (10:36)
[2018-04-18] MEDS: METHADONE HCL 5 MG TABLET (FOR DETOX USE ONLY) PO SCH (10:36)
[2018-04-18] MEDS: PRENATAL VITAMINS W/ FOLIC ACID TABLET (FP) PO SCH (10:36)
[2018-04-18] MEDS: chlordiazePOXIDE HCL 10 MG CAPSULE PO SCH ×2 (16:32→22:21)
--- NOTE | 2018-04-18 17:05 | PN ---
[facility] Progress Note (SOAP) Subjective: pt wants to go to rehab at d/c. Objective: 04/18/18 17:04 Vital Signs - 24 hr 04/17/18 04/17/18 04/18/18 18:24 22:37 06:33 Temperature 97.8 F 97.6 F 97.1 F L Pulse Rate 78 70 59 L Respiratory 18 18 18 Rate Blood Pressure 107/67 118/74 101/68 04/18/18 04/18/18 09:14 13:27 Temperature 98.3 F 97.1 F L Pulse Rate 89 86 Respiratory 18 18 Rate Blood Pressure 129/82 136/82 Laboratory Tests 04/15/18 04/15/18 04/16/18 14:00 14:00 06:00 WBC 9.5 RBC 4.83 Hgb 14.5 Hct 43.1 MCV 89.2 MCH 30.1 MCHC 33.7 RDW 14.4 Plt Count 255 MPV 10.1 Sodium Potassium Chloride Carbon Dioxide Anion Gap BUN Creatinine Creat Clearance w eGFR Random Glucose Calcium Total Bilirubin AST ALT Alkaline Phosphatase Total Protein Albumin Urine Color Yellow Urine Appearance Clear Urine pH 5.0 Ur Specific [place] 1.021 Urine Protein Negative Urine Glucose (UA) Negative Urine Ketones Negative Urine Blood Negative Urine Nitrite Negative Urine Bilirubin Negative Urine Urobilinogen Negative Ur Leukocyte Esterase Negative RPR Titer HIV 1&2 Antibody Screen Negative HIV P24 Antigen Negative 04/16/18 04/16/18 06:00 06:00 WBC RBC Hgb Hct MCV MCH MCHC RDW Plt Count MPV Sodium 136 Potassium 4.9 Chloride 98 Carbon Dioxide 29 Anion Gap 9 BUN 18 Creatinine 1.2 Creat Clearance w eGFR > 60 Random Glucose 122 H Calcium 9.6 Total Bilirubin 1.6 H AST 34 D ALT 17 D Alkaline Phosphatase 72 Total Protein 8.8 H Albumin 4.5 Urine Color Urine Appearance Urine pH Ur Specific [place] Urine Protein Urine Glucose (UA) Urine Ketones Urine Blood Urine Nitrite Urine Bilirubin Urine Urobilinogen Ur Leukocyte Esterase RPR Titer Nonreactive HIV 1&2 Antibody Screen HIV P24 Antigen Vs good labs WNL Assessment: 04/18/18 17:04 alcohol and opiate withdrawal Rx Plan: continue detox protocol
[2018-04-18] MEDS: traZODone HCL 50 MG TABLET (FP) PO SCH (22:21)
[2018-04-18] MEDS: THIAMINE HCL 100 MG TABLET (FP) PO SCH (22:21)
[2018-04-18] MEDS: LIDOCAINE PATCH REMOVAL MC SCH (22:21)
[2018-04-19] MEDS: chlordiazePOXIDE HCL 10 MG CAPSULE PO SCH ×2 (05:27→10:34)
[2018-04-19] MEDS ORDERED: METHADONE HCL 10 MG TABLET (FOR DETOX USE ONLY) PO SCH (10:00)
[2018-04-19] MEDS: PRENATAL VITAMINS W/ FOLIC ACID TABLET (FP) PO SCH (10:34)
[2018-04-19] MEDS: LIDOCAINE 5% TOPICAL PATCH TP SCH (11:08)
--- NOTE | 2018-04-19 12:11 | PN ---
S Progress Note (SOAP) Subjective: DETOX PROCEEDING PER PROTOCOL. ALERT O X 3. PT IS INTERESTED IN GOING TO REHAB. Objective: 04/19/18 12:09 Vital Signs 04/19/18 04/19/18 06:19 09:16 Temperature 96.8 F L 97.5 F L Pulse Rate 68 98 H Respiratory 18 20 Rate Blood Pressure 129/89 121/82 Laboratory Tests 04/15/18 04/15/18 04/16/18 14:00 14:00 06:00 WBC 9.5 RBC 4.83 Hgb 14.5 Hct 43.1 MCV 89.2 MCH 30.1 MCHC 33.7 RDW 14.4 Plt Count 255 MPV 10.1 Sodium Potassium Chloride Carbon Dioxide Anion Gap BUN Creatinine Creat Clearance w eGFR Random Glucose Calcium Total Bilirubin AST ALT Alkaline Phosphatase Total Protein Albumin Urine Color Yellow Urine Appearance Clear Urine pH 5.0 Ur Specific [place] 1.021 Urine Protein Negative Urine Glucose (UA) Negative Urine Ketones Negative Urine Blood Negative Urine Nitrite Negative Urine Bilirubin Negative Urine Urobilinogen Negative Ur Leukocyte Esterase Negative RPR Titer HIV 1&2 Antibody Screen Negative HIV P24 Antigen Negative 04/16/18 04/16/18 06:00 06:00 WBC RBC Hgb Hct MCV MCH MCHC RDW Plt Count MPV Sodium 136 Potassium 4.9 Chloride 98 Carbon Dioxide 29 Anion Gap 9 BUN 18 Creatinine 1.2 Creat Clearance w eGFR > 60 Random Glucose 122 H Calcium 9.6 Total Bilirubin 1.6 H AST 34 D ALT 17 D Alkaline Phosphatase 72 Total Protein 8.8 H Albumin 4.5 Urine Color Urine Appearance Urine pH Ur Specific [place] Urine Protein Urine Glucose (UA) Urine Ketones Urine Blood Urine Nitrite Urine Bilirubin Urine Urobilinogen Ur Leukocyte Esterase RPR Titer Nonreactive HIV 1&2 Antibody Screen HIV P24 Antigen Assessment: 04/19/18 12:10 DECREASED WITHDRAWAL SX Plan: CONTINUE DETOX COUNSELOR WOULD REFER TO REHAB IF BED AVAILABLE TODAY.
[2018-04-19 17:52] VITALS: BP 101/64; PULSE 84; TEMP 97
[2018-04-20] MEDS ORDERED: METHADONE HCL 5 MG TABLET (FOR DETOX USE ONLY) PO SCH (06:00)
== END 2018-04-19 17:39 | disposition other institution (70) | DRG 773 ==
LOC: YASAS 09:51 → Y3N 13:19
PROVIDERS: ADMIT Surgery; ATTEND Surgery
PROC: HZ2ZZZZ Detoxification Services for Substance Abuse Treatment (ICD-10-PCS; principal; 2018-04-15)
DX: F11.23 Opioid dependence with withdrawal (principal); F10.230 Alcohol dependence with withdrawal, uncomplicated; F17.213 Nicotine dependence, cigarettes, with withdrawal; F19.282 Other psychoactive substance dependence with psychoactive substance-induced sleep disorder; F34.1 Dysthymic disorder; R63.4 Abnormal weight loss; Z68.27 Body mass index [BMI] 27.0-27.9, adult; R76.11 Nonspecific reaction to tuberculin skin test without active tuberculosis
CPT/HCPCS: 36415; 71046-TC-FY; 80053; 81003; 85027; 86593; 87389; 93005; 93010

== ENCOUNTER 2018-06-16 12:16 | Inpatient (IN) | payer OTHER ==
[2018-06-16 12:38] VITALS: BMI 27.0
--- NOTE | 2018-06-16 13:53 | HP ---
COWS - Scale Resting Pulse: 0= [place] 80 or Below Sweatin= Chills/Flushing Restless Observation: 3= Extraneous Movement Pupil Size: 1= Pupils >than Normal Bone or Joint Aches: 2= Severe Diffuse Aches Runny Nose/ Eye Tearin= Runny Nose/Eyes GI Upset > 30mins: 3= Vomiting/Diarrhea Tremor Observation: 2= Slight Tremor Visible Yawning Observation: 1= 1-2x During Session Anxiety or Irritability: 2=Irritable/Anxious Goose Flesh Skin: 0=Smooth Skin COWS Score: 17 CIWA Score - CIWA Score Nausea/Vomitin Muscle Tremors: 3 Anxiety: 2 Agitation: 3 Paroxysmal Sweats: 1-Minimal Palms Moist Orientation: 0-Oriented Tacttile Disturbances: 1-Very Mild Itch/Numbness Auditory Disturbances: 1-Very Mild Visual Disturbances: 1-Very Mild Sensitivity Headache: 2-Mild CIWA-Ar Total Score: 16 Admission ROS [facility] - HPI Chief Complaint: i need help to stop using heroin and alcohol Allergies/Adverse Reactions: Allergies Allergy/AdvReac Type Severity Reaction Status Date / Time No Known Allergies Allergy Verified 06/16/18 13:42 History of Present Illness: this 62 years old male with heroin and alcohol dependence,withdrawal symptom, seeking detox,last detox 04/19/18 to 04/22/18 weight loss low back pain positive ppd longest period of sobriety 2 years Exam Limitations: No Limitations - Ebola screening Have you traveled outside of the country in the last 21 days: No Have you had contact with anyone from an Ebola affected area: No Have you been sick,other than usual withdrawal symptoms: Yes Do you have a fever: No - Review of Systems Constitutional: Chills, Loss of Appetite, Malaise, Night Sweats, Changes in sleep, Weakness, Unintentional Wgt. Loss EENT: reports: Tearing, Nose Congestion Respiratory: reports: No Symptoms reported Cardiac: reports: No Symptoms Reported GI: reports: Diarrhea, Nausea, Poor Fluid Intake, Vomiting : reports: No Symptoms Reported Musculoskeletal: reports: Back Pain, Muscle Pain, Neck Pain, Joint Stiffness Integumentary: reports: Dryness Neuro: reports: Headache, Tremors Endocrine: reports: No Symptoms Reported Hematology: reports: No Symptoms Reported Psychiatric: reports: No Sypmtoms Reported, Judgement Intact, Mood/Affect Appropiate, Orientated x3 Patient History - Patient Medical History Hx Anemia: No Hx Asthma: No Hx Chronic Obstructive Pulmonary Disease (COPD): No Hx Cancer: No Hx Cardiac Disorders: No Hx Congestive Heart Failure: No Hx Hypertension: No Hx Hypercholesterolemia: No Hx Pacemaker: No HX Cerebrovascular Accident: No Hx Seizures: No Hx Dementia: No Hx Diabetes: No Hx Gastrointestinal Disorders: No Hx Liver Disease: No Hx Genitourinary Disorders: No Hx Sexually Transmitted Disorders: No Hx Renal Disease (ESRD): No Hx Thyroid Disease: No Hx Human Immunodeficiency Virus (HIV): No (NEGATIVE HX LAST 2014) Hx Hepatitis C: No Hx Depression: Yes Hx Suicide Attempt: No Hx Bipolar Disorder: No Hx Schizophrenia: No Other Medical History: no suicidal,no homicidal - Patient Surgical History Past Surgical History: No Hx Neurologic Surgery: No Hx Cataract Extraction: No Hx Cardiac Surgery: No Hx Lung Surgery: No Hx Breast Surgery: No Hx Breast Biopsy: No Hx Abdominal Surgery: No Hx Appendectomy: No Hx Cholecystectomy: No Hx Genitourinary Surgery: No Hx Section: No Hx Orthopedic Surgery: No Anesthesia Reaction: No - PPD History Previous Implant?: Yes Documented Results: Positive w/proof Date: 12/14/16 Results: 15 mm PPD to be Administered?: No - Smoking Cessation Smoking history: Never smoked Have you smoked in the past 12 months: No Aproximately how many cigarettes per day: 0 If you are a former smoker, when did you quit?: 20 Cigars Per Day: 0 Hx Chewing Tobacco Use: No - Substance & Tx. History Hx Alcohol Use: Yes Hx Substance Use: Yes Substance Use Type: Alcohol, Heroin Hx Substance Use Treatment: Yes ([facility] 04/15/18 to 04/19/18) - Substances Abused Heroin Route: Inhalation Frequency: Daily Amount used: 8 BAGS Age of first use: 27 Date of Last Use: 06/14/18 Alcohol Route: Oral Frequency: Daily Amount used: 1 PINT RUM Age of first use: 22 Date of Last Use: 06/15/18 Family Disease History - Family Disease History Family History: Denies Family Disease History: Other: Father ( no contact), Mother () Admission Physical Exam [facility] - Vital Signs Vital Signs: Vital Signs - 24 hr 06/16/18 12:34 Temperature 98.1 F Pulse Rate 62 Respiratory 18 Rate Blood Pressure 127/95 - Physical General Appearance: Yes: Moderate Distress, Tremorous, Irritable, Sweating, Anxious HEENTM: Yes: Normal ENT Inspection, JAMI, Pharynx Normal Respiratory: Yes: Lungs Clear, Normal Breath Sounds, No Respiratory Distress Neck: Yes: Within Normal Limits, Supple, Trachea in good position Breast: Yes: Within Normal Limits Cardiology: Yes: Within Normal Limits, Regular Rhythm, Regular Rate, S1, S2 Abdominal: Yes: Within Normal Limits, Normal Bowel Sounds, Non Tender, Soft Genitourinary: Yes: Within Normal Limits Back: Yes: Muscle Spasm Musculoskeletal: Yes: full range of Motion, Back pain, Joint Stiffness, Muscle Pain Extremities: Yes: Tremors Neurological: Yes: airplane captain II-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 NML intact, Fully Oriented, Alert, Motor Strength 5/5 Integumentary: Yes: Dry Lymphatic: Yes: Within Normal Limits - Diagnostic (1) Opioid dependence with withdrawal Current Visit: No Status: Acute (2) Alcohol dependence with uncomplicated withdrawal Current Visit: No Status: Acute (3) Insomnia Current Visit: No Status: Acute (4) Low back pain Current Visit: No Status: Chronic Qualifiers: Chronicity: unspecified (5) PPD positive Current Visit: No Status: Resolved Cleared for Admission [facility] - Detox or Rehab [facility] Level of Care: Medically Managed Detox Regimen/Protocol: Methadone/Librium [facility] Breath Alcohol Content Breath Alcohol Content: 0 Urine Drug Screen - Results Drug Screen Negative: No Urine Drug Screen Results: OPI-Opiates, BZO-Benzodiazepines
[2018-06-16] MEDS ORDERED: hydrOXYzine PAMOATE 25 MG CAPSULE (FP) PO PRN (14:00)
[2018-06-16] MEDS ORDERED: P-EPHED 60MG/TRIPROLIDI 2.5MG TABLET PO PRN (14:00)
[2018-06-16] MEDS ORDERED: MAGNESIUM CITRATE 300 ML BOTTLE PO PRN (14:00)
[2018-06-16] MEDS ORDERED: guaiFENesin/D-METHORPHAN HB 10 ML UNIT-DOSE CUPS PO PRN (14:00)
[2018-06-16] MEDS ORDERED: MENTHOL/PHENOL 1 EACH UD MM PRN (14:00)
[2018-06-16] MEDS ORDERED: MAGNESIUM HYDROX 2400MG/30ML ORAL SUSPENSION 30 ML CUP PO PRN (14:00)
[2018-06-16] MEDS ORDERED: LOPERAMIDE HCL 2 MG CAPSULE PO PRN (14:00)
[2018-06-16] MEDS ORDERED: IBUPROFEN 400 MG TABLET (FP) PO PRN (14:00)
[2018-06-16] MEDS ORDERED: ACETAMINOPHEN 325 MG TABLET (FP) PO PRN (14:00)
[2018-06-16] MEDS ORDERED: MAG HYDROX/AL HYDROX/SIMETH 30 ML UNIT-DOSE CUP PO PRN (14:00)
[2018-06-16] MEDS ORDERED: METHADONE HCL 10 MG TABLET (FOR DETOX USE ONLY) PO ONE ×2 (15:15→23:00)
[2018-06-16] MEDS: chlordiazePOXIDE HCL 25 MG CAPSULE PO PRN (15:52)
--- NOTE | 2018-06-16 15:53 | EKG ---
Test Reason : Blood Pressure : / mmHG Vent. Rate : 064 BPM Atrial Rate : 064 BPM P-R Int : 140 ms QRS Dur : 158 ms QT Int : 450 ms P-R-T Axes : 058 -60 030 degrees QTc Int : 464 ms NORMAL SINUS RHYTHM RIGHT BUNDLE BRANCH BLOCK LEFT ANTERIOR FASCICULAR BLOCK BIFASCICULAR BLOCK ABNORMAL ECG WHEN COMPARED WITH ECG OF 15-APR-2018 13:57, PREMATURE SUPRAVENTRICULAR COMPLEXES ARE NO LONGER PRESENT CRITERIA FOR SEPTAL INFARCT ARE NO LONGER PRESENT Confirmed by LUIS JENNINGS, RIVERA ([id number]) on 06/16/2018 3:53:02 PM Referred By: Confirmed By:RIVERA SMITH MD
[2018-06-16] MEDS: chlordiazePOXIDE HCL 25 MG CAPSULE PO SCH ×2 (17:44→22:07)
[2018-06-16 18:35] LABS: URINE APPEARANCE CLEAR; URINE BILIRUBIN NEGATIVE (<2.0 mg/dL); URINE COLOR YELLOW; URINE GLUCOSE (UA) NEGATIVE (NEGATIVE); URINE KETONE NEGATIVE (NEGATIVE); URINE LEUK ESTERASE NEGATIVE (NEGATIVE); URINE NITRITE NEGATIVE (NEGATIVE); URINE PROTEIN NEGATIVE (NEGATIVE); URINE UROBILINOGEN NEGATIVE mg/dL (0.2-1.0)
[2018-06-16] MEDS ORDERED: MELATONIN 5 MG TABLETS PO PRN (22:00)
[2018-06-16] MEDS: THIAMINE HCL 100 MG TABLET (FP) PO SCH (22:09)
[2018-06-17] MEDS: chlordiazePOXIDE HCL 25 MG CAPSULE PO PRN (02:39)
[2018-06-17] MEDS: chlordiazePOXIDE HCL 25 MG CAPSULE PO SCH ×4 (05:30→23:22)
[2018-06-17] MEDS ORDERED: METHADONE HCL 10 MG TABLET (FOR DETOX USE ONLY) PO SCH (10:00)
[2018-06-17 10:09] LABS: HEMATOCRIT 42.3 % (35.4-49); HEMOGLOBIN 13.8 GM/dL (11.7-16.9); MCH 29.3 pg (25.7-33.7); MCHC 32.5 g/dl (32.0-35.9); MEAN CELL VOLUME 90.2 fl (80-96); MEAN PLT VOLUME 9.5 fl (7.5-11.1); PLATELET COUNT 227 K/MM3 (134-434); RBC 4.69 M/mm3 (4.00-5.60); RDW 14.5 % (11.9-15.9); WHITE BLOOD COUNT 7.4 K/mm3 (4.0-10.0)
[2018-06-17] MEDS: PRENATAL VITAMINS W/ FOLIC ACID TABLET (FP) PO SCH (10:20)
[2018-06-17 10:35] LABS: ALK PHOS 64 U/L (45-117); ANION GAP 11 MMOL/L (8-16); BILIRUBIN,TOTAL 1.4 mg/dL (0.2-1); BLOOD UREA NITROGEN 17 mg/dL (7-18); CALCIUM 9.6 mg/dL (8.5-10.1); CHLORIDE 104 mmol/L (98-107); CO2 26 mmol/L (21-32); CREATININE 1.3 mg/dL (0.55-1.3); GLUCOSE,RANDOM 116 mg/dL (74-106); POTASSIUM 4.5 mmol/L (3.5-5.1); SGOT/AST 21 U/L (15-37); SGPT/ALT 14 U/L (13-61); SODIUM 141 mmol/L (136-145); TOT PROT 8.3 g/dl (6.4-8.2)
[2018-06-17] MEDS: LIDOCAINE 5% TOPICAL PATCH TP SCH (11:41)
--- NOTE | 2018-06-17 11:55 | PN ---
[facility] CIWA - CIWA Score Nausea/Vomitin-No Nausea/No Vomiting Muscle Tremors: 2 Anxiety: 3 Agitation: 3 Paroxysmal Sweats: 2 Orientation: 0-Oriented Tacttile Disturbances: 1-Very Mild Itch/Numbness Auditory Disturbances: 0-None Visual Disturbances: 1-Very Mild Sensitivity Headache: 0-None Present CIWA-Ar Total Score: 12 BHS COWS - Scale Resting Pulse: 0= [place] 80 or Below Sweatin= Chills/Flushing Restless Observation: 1= Difficult to Sit Still Pupil Size: 1= Pupils >than Normal Bone or Joint Aches: 1= Mild Discomfort Runny Nose/ Eye Tearin= Runny Nose/Eyes GI Upset > 30mins: 2= Nausea/Diarrhea Tremor Observation of Outstretched Hands: 0= None Yawning Observation: 2= >3x During Session Anxiety or Irritability: 2=Irritable/Anxious Goose Flesh Skin: 0=Smooth Skin COWS Score: 12 S Progress Note (SOAP) Subjective: anxious, interrupted sleep, body aches Objective: 06/17/18 11:55 Vital Signs Temperature 98.4 F 06/17/18 09:06 Pulse Rate 75 06/17/18 09:06 Respiratory Rate 18 06/17/18 09:06 Blood Pressure 108/72 06/17/18 09:06 O2 Sat by Pulse Oximetry (%) Laboratory Last Values WBC 7.4 K/mm3 (4.0-10.0) 06/17/18 06:00 RBC 4.69 M/mm3 (4.00-5.60) 06/17/18 06:00 Hgb 13.8 GM/dL (11.7-16.9) 06/17/18 06:00 Hct 42.3 % (35.4-49) 06/17/18 06:00 MCV 90.2 fl (80-96) 06/17/18 06:00 MCH 29.3 pg (25.7-33.7) 06/17/18 06:00 MCHC 32.5 g/dl (32.0-35.9) 06/17/18 06:00 RDW 14.5 % (11.9-15.9) 06/17/18 06:00 Plt Count 227 K/MM3 (134-434) 06/17/18 06:00 MPV 9.5 fl (7.5-11.1) 06/17/18 06:00 Sodium 141 mmol/L (136-145) 06/17/18 06:00 Potassium 4.5 mmol/L (3.5-5.1) 06/17/18 06:00 Chloride 104 mmol/L (98-107) 06/17/18 06:00 Carbon Dioxide 26 mmol/L (21-32) 06/17/18 06:00 Anion Gap 11 MMOL/L (8-16) 06/17/18 06:00 BUN 17 mg/dL (7-18) 06/17/18 06:00 Creatinine 1.3 mg/dL (0.55-1.3) 06/17/18 06:00 Creat Clearance w eGFR 56.31 (>60) 06/17/18 06:00 Random Glucose 116 mg/dL (74-106) H 06/17/18 06:00 Calcium 9.6 mg/dL (8.5-10.1) 06/17/18 06:00 Total Bilirubin 1.4 mg/dL (0.2-1) H 06/17/18 06:00 AST 21 U/L (15-37) 06/17/18 06:00 ALT 14 U/L (13-61) 06/17/18 06:00 Alkaline Phosphatase 64 U/L (45-117) 06/17/18 06:00 Total Protein 8.3 g/dl (6.4-8.2) H 06/17/18 06:00 Albumin 4.0 g/dl (3.4-5.0) 06/17/18 06:00 Urine Color Yellow 06/16/18 14:40 Urine Appearance Clear 06/16/18 14:40 Urine pH 5.0 (5.0-8.0) 06/16/18 14:40 Ur Specific [place] 1.024 (1.001-1.035) 06/16/18 14:40 Urine Protein Negative (NEGATIVE) 06/16/18 14:40 Urine Glucose (UA) Negative (NEGATIVE) 06/16/18 14:40 Urine Ketones Negative (NEGATIVE) 06/16/18 14:40 Urine Blood Negative (NEGATIVE) 06/16/18 14:40 Urine Nitrite Negative (NEGATIVE) 06/16/18 14:40 Urine Bilirubin Negative (<2.0 mg/dL) 06/16/18 14:40 Urine Urobilinogen Negative mg/dL (0.2-1.0) 06/16/18 14:40 Ur Leukocyte Esterase Negative (NEGATIVE) 06/16/18 14:40 RPR Titer Nonreactive (NONREACTIVE) 06/17/18 06:00 Assessment: 06/17/18 15:41 Vital Signs Temperature 97.3 F L 06/17/18 13:42 Pulse Rate 57 L 06/17/18 13:42 Respiratory Rate 18 06/17/18 13:42 Blood Pressure 117/75 06/17/18 13:42 O2 Sat by Pulse Oximetry (%) Laboratory Last Values WBC 7.4 K/mm3 (4.0-10.0) 06/17/18 06:00 RBC 4.69 M/mm3 (4.00-5.60) 06/17/18 06:00 Hgb 13.8 GM/dL (11.7-16.9) 06/17/18 06:00 Hct 42.3 % (35.4-49) 06/17/18 06:00 MCV 90.2 fl (80-96) 06/17/18 06:00 MCH 29.3 pg (25.7-33.7) 06/17/18 06:00 MCHC 32.5 g/dl (32.0-35.9) 06/17/18 06:00 RDW 14.5 % (11.9-15.9) 06/17/18 06:00 Plt Count 227 K/MM3 (134-434) 06/17/18 06:00 MPV 9.5 fl (7.5-11.1) 06/17/18 06:00 Sodium 141 mmol/L (136-145) 06/17/18 06:00 Potassium 4.5 mmol/L (3.5-5.1) 06/17/18 06:00 Chloride 104 mmol/L (98-107) 06/17/18 06:00 Carbon Dioxide 26 mmol/L (21-32) 06/17/18 06:00 Anion Gap 11 MMOL/L (8-16) 06/17/18 06:00 BUN 17 mg/dL (7-18) 06/17/18 06:00 Creatinine 1.3 mg/dL (0.55-1.3) 06/17/18 06:00 Creat Clearance w eGFR 56.31 (>60) 06/17/18 06:00 Random Glucose 116 mg/dL (74-106) H 06/17/18 06:00 Calcium 9.6 mg/dL (8.5-10.1) 06/17/18 06:00 Total Bilirubin 1.4 mg/dL (0.2-1) H 06/17/18 06:00 AST 21 U/L (15-37) 06/17/18 06:00 ALT 14 U/L (13-61) 06/17/18 06:00 Alkaline Phosphatase 64 U/L (45-117) 06/17/18 06:00 Total Protein 8.3 g/dl (6.4-8.2) H 06/17/18 06:00 Albumin 4.0 g/dl (3.4-5.0) 06/17/18 06:00 Urine Color Yellow 06/16/18 14:40 Urine Appearance Clear 06/16/18 14:40 Urine pH 5.0 (5.0-8.0) 06/16/18 14:40 Ur Specific [place] 1.024 (1.001-1.035) 06/16/18 14:40 Urine Protein Negative (NEGATIVE) 06/16/18 14:40 Urine Glucose (UA) Negative (NEGATIVE) 06/16/18 14:40 Urine Ketones Negative (NEGATIVE) 06/16/18 14:40 Urine Blood Negative (NEGATIVE) 06/16/18 14:40 Urine Nitrite Negative (NEGATIVE) 06/16/18 14:40 Urine Bilirubin Negative (<2.0 mg/dL) 06/16/18 14:40 Urine Urobilinogen Negative mg/dL (0.2-1.0) 06/16/18 14:40 Ur Leukocyte Esterase Negative (NEGATIVE) 06/16/18 14:40 RPR Titer Nonreactive (NONREACTIVE) 06/17/18 06:00 Aox3 no distress no adventitious breath sounds full ROM, ambulating in the unit withdrawal sx Plan: continue detox continue to monitor
[2018-06-17] MEDS: THIAMINE HCL 100 MG TABLET (FP) PO SCH (23:20)
[2018-06-17] MEDS: LIDOCAINE PATCH REMOVAL MC SCH (23:20)
[2018-06-18] MEDS: chlordiazePOXIDE HCL 25 MG CAPSULE PO SCH ×2 (05:16→10:50)
[2018-06-18] MEDS: LIDOCAINE 5% TOPICAL PATCH TP SCH (10:50)
[2018-06-18] MEDS: METHADONE HCL 5 MG TABLET (FOR DETOX USE ONLY) PO SCH (10:50)
[2018-06-18] MEDS: PRENATAL VITAMINS W/ FOLIC ACID TABLET (FP) PO SCH (10:51)
--- NOTE | 2018-06-18 11:32 | PN ---
[facility] CIWA - CIWA Score Nausea/Vomitin-No Nausea/No Vomiting Muscle Tremors: 3 Anxiety: 2 Agitation: 2 Paroxysmal Sweats: 2 Orientation: 0-Oriented Tacttile Disturbances: 0-None Auditory Disturbances: 0-None Visual Disturbances: 0-None Headache: 1-Very Mild CIWA-Ar Total Score: 10 BHS COWS - Scale Resting Pulse: 0= [place] 80 or Below Sweatin= Chills/Flushing Restless Observation: 1= Difficult to Sit Still Pupil Size: 0= Normal to Room Light Bone or Joint Aches: 1= Mild Discomfort Runny Nose/ Eye Tearin= Runny Nose/Eyes GI Upset > 30mins: 1= Stomach Cramp Tremor Observation of Outstretched Hands: 1= Tremor [place], Not Seen Yawning Observation: 2= >3x During Session Anxiety or Irritability: 2=Irritable/Anxious Goose Flesh Skin: 0=Smooth Skin COWS Score: 11 S Progress Note (SOAP) Subjective: shakes sweats interrupted sleep body aches agitation Objective: 06/18/18 11:31 Vital Signs Temperature 97.9 F 06/18/18 09:27 Pulse Rate 61 06/18/18 09:27 Respiratory Rate 18 06/18/18 09:27 Blood Pressure 118/80 06/18/18 09:27 O2 Sat by Pulse Oximetry (%) Laboratory Tests 06/16/18 06/17/18 06/17/18 14:40 06:00 06:00 WBC 7.4 RBC 4.69 Hgb 13.8 Hct 42.3 MCV 90.2 MCH 29.3 MCHC 32.5 RDW 14.5 Plt Count 227 MPV 9.5 Sodium 141 Potassium 4.5 Chloride 104 Carbon Dioxide 26 Anion Gap 11 BUN 17 Creatinine 1.3 Creat Clearance w eGFR 56.31 Random Glucose 116 H Calcium 9.6 Total Bilirubin 1.4 H AST 21 ALT 14 Alkaline Phosphatase 64 Total Protein 8.3 H Albumin 4.0 Urine Color Yellow Urine Appearance Clear Urine pH 5.0 Ur Specific [place] 1.024 Urine Protein Negative Urine Glucose (UA) Negative Urine Ketones Negative Urine Blood Negative Urine Nitrite Negative Urine Bilirubin Negative Urine Urobilinogen Negative Ur Leukocyte Esterase Negative RPR Titer 06/17/18 06:00 WBC RBC Hgb Hct MCV MCH MCHC RDW Plt Count MPV Sodium Potassium Chloride Carbon Dioxide Anion Gap BUN Creatinine Creat Clearance w eGFR Random Glucose Calcium Total Bilirubin AST ALT Alkaline Phosphatase Total Protein Albumin Urine Color Urine Appearance Urine pH Ur Specific [place] Urine Protein Urine Glucose (UA) Urine Ketones Urine Blood Urine Nitrite Urine Bilirubin Urine Urobilinogen Ur Leukocyte Esterase RPR Titer Nonreactive aaox3 ambulating no acute distress Assessment: 06/18/18 11:31 withdrawal sx Plan: continue detox increase fluids
[2018-06-18] MEDS: chlordiazePOXIDE HCL 25 MG CAPSULE PO PRN ×2 (12:40→19:54)
--- NOTE | 2018-06-18 14:42 | CONSULT ---
[facility] Psychiatric Consult - Data Date of interview: 06/18/18 Admission source: [facility] Identifying data: Patient is a 62 year old single male, father of six, domiciled , unemployed, and is supported by food stamps. This is patient's first admission to detox at [facility]. Pt. admitted to for alcohol and opioid dependence. Substance Abuse History: Smoking Cessation. Smoking history: Never smoked. Have you smoked in the past 12 months: No. Aproximately how many cigarettes per day: 0. If you are a former smoker, when did you quit?: 20. Cigars Per Day : 0. Hx Chewing Tobacco Use: No. - Substance & Tx. History. Hx Alcohol Use: Yes. Hx Substance Use: Yes. Substance Use Type: Alcohol, Heroin. Hx Substance Use Treatment: Yes ([facility] 04/15/18 to 04/19/18). - Substances Abused. Heroin. Route: Inhalation. Frequency: Daily. Amount used: 8 BAGS. Age of first use: 27. Date of Last Use: 06/14/18. Alcohol. Route: Oral. Frequency: Daily. Amount used: 1 PINT RUM. Age of first use: 22. Date of Last Use: 06/15/18 Medical History: denies. Psychiatric History: Patient denies h/o psychiatric hospitalization, outpatient care, and suicide attempt. Pt. reports poor sleep. Physical/Sexual Abuse/Trauma History: denies. Mental Status Exam - Mental Status Exam Alert and Oriented to: Time, Place, Person Cognitive Function: Good Patient Appearance: Well Groomed Mood: Hopeful, Euthymic Affect: Appropriate Patient Behavior: Appropriate, Cooperative Speech Pattern: Clear, Appropriate Voice Loudness: Normal Thought Process: Intact, Goal Oriented Thought Disorder: Not Present Hallucinations: Denies Suicidal Ideation: Denies Homicidal Ideation: Denies Insight/Judgement: Poor Sleep: Poorly Appetite: Fair Muscle strength/Tone: Normal Gait/Station: Normal Psychiatric Findings - Problem List ([place] 1, 2,3) (1) Alcohol dependence with uncomplicated withdrawal Current Visit: Yes Status: Acute (2) Opioid dependence with withdrawal Current Visit: Yes Status: Acute (3) Substance-induced sleep disorder Current Visit: Yes Status: Acute - Initial Treatment Plan Initial Treatment Plan: Psychoeducation provided. Detoxification in progress. Will increase Melatonin to 10mg qhs prn. Verbal consent given.
[2018-06-18] MEDS: chlordiazePOXIDE 5 MG CAPSULE PO SCH ×2 (17:37→23:07)
[2018-06-18] MEDS ORDERED: MELATONIN 5 MG TABLETS PO PRN (22:00)
[2018-06-18] MEDS: LIDOCAINE PATCH REMOVAL MC SCH (23:06)
[2018-06-18] MEDS: THIAMINE HCL 100 MG TABLET (FP) PO SCH (23:06)
[2018-06-19] MEDS: chlordiazePOXIDE 5 MG CAPSULE PO SCH ×2 (05:38→10:27)
--- NOTE | 2018-06-19 09:01 | PN ---
S Progress Note Note: c/o of back pain, interrupted sleep, anxious Vital Signs Temperature 97.2 F L 06/19/18 07:26 Pulse Rate 57 L 06/19/18 07:26 Respiratory Rate 18 06/19/18 07:26 Blood Pressure 115/70 06/19/18 07:26 O2 Sat by Pulse Oximetry (%) Laboratory Last Values WBC 7.4 K/mm3 (4.0-10.0) 06/17/18 06:00 RBC 4.69 M/mm3 (4.00-5.60) 06/17/18 06:00 Hgb 13.8 GM/dL (11.7-16.9) 06/17/18 06:00 Hct 42.3 % (35.4-49) 06/17/18 06:00 MCV 90.2 fl (80-96) 06/17/18 06:00 MCH 29.3 pg (25.7-33.7) 06/17/18 06:00 MCHC 32.5 g/dl (32.0-35.9) 06/17/18 06:00 RDW 14.5 % (11.9-15.9) 06/17/18 06:00 Plt Count 227 K/MM3 (134-434) 06/17/18 06:00 MPV 9.5 fl (7.5-11.1) 06/17/18 06:00 Sodium 141 mmol/L (136-145) 06/17/18 06:00 Potassium 4.5 mmol/L (3.5-5.1) 06/17/18 06:00 Chloride 104 mmol/L (98-107) 06/17/18 06:00 Carbon Dioxide 26 mmol/L (21-32) 06/17/18 06:00 Anion Gap 11 MMOL/L (8-16) 06/17/18 06:00 BUN 17 mg/dL (7-18) 06/17/18 06:00 Creatinine 1.3 mg/dL (0.55-1.3) 06/17/18 06:00 Creat Clearance w eGFR 56.31 (>60) 06/17/18 06:00 Random Glucose 116 mg/dL (74-106) H 06/17/18 06:00 Calcium 9.6 mg/dL (8.5-10.1) 06/17/18 06:00 Total Bilirubin 1.4 mg/dL (0.2-1) H 06/17/18 06:00 AST 21 U/L (15-37) 06/17/18 06:00 ALT 14 U/L (13-61) 06/17/18 06:00 Alkaline Phosphatase 64 U/L (45-117) 06/17/18 06:00 Total Protein 8.3 g/dl (6.4-8.2) H 06/17/18 06:00 Albumin 4.0 g/dl (3.4-5.0) 06/17/18 06:00 Urine Color Yellow 06/16/18 14:40 Urine Appearance Clear 06/16/18 14:40 Urine pH 5.0 (5.0-8.0) 06/16/18 14:40 Ur Specific [place] 1.024 (1.001-1.035) 06/16/18 14:40 Urine Protein Negative (NEGATIVE) 06/16/18 14:40 Urine Glucose (UA) Negative (NEGATIVE) 06/16/18 14:40 Urine Ketones Negative (NEGATIVE) 06/16/18 14:40 Urine Blood Negative (NEGATIVE) 06/16/18 14:40 Urine Nitrite Negative (NEGATIVE) 06/16/18 14:40 Urine Bilirubin Negative (<2.0 mg/dL) 06/16/18 14:40 Urine Urobilinogen Negative mg/dL (0.2-1.0) 06/16/18 14:40 Ur Leukocyte Esterase Negative (NEGATIVE) 06/16/18 14:40 RPR Titer Nonreactive (NONREACTIVE) 06/17/18 06:00 Patient AOx3 no distress no adventitious breath sounds + low back pain full ROM, ambulating in the unit independently withdrawal sx back pain Plan: increase PO fluids flexeril PRN ambulate continue lidocaine TP patch qd PRN continue detox continue to monitor
[2018-06-19] MEDS ORDERED: CYCLOBENZAPRINE HCL 10 MG TABLET (FP) PO SCH (10:00)
[2018-06-19] MEDS: METHADONE HCL 5 MG TABLET (FOR DETOX USE ONLY) PO SCH (10:26)
[2018-06-19] MEDS: PRENATAL VITAMINS W/ FOLIC ACID TABLET (FP) PO SCH (10:27)
[2018-06-19] MEDS: LIDOCAINE 5% TOPICAL PATCH TP SCH (10:27)
[2018-06-19] MEDS: chlordiazePOXIDE HCL 25 MG CAPSULE PO PRN (13:29)
[2018-06-19] MEDS: CYCLOBENZAPRINE HCL 5 MG TABLET PO SCH ×2 (13:29→22:26)
[2018-06-19] MEDS: chlordiazePOXIDE HCL 10 MG CAPSULE PO SCH ×2 (17:40→22:26)
[2018-06-19] MEDS: LIDOCAINE PATCH REMOVAL MC SCH (22:26)
[2018-06-19] MEDS: THIAMINE HCL 100 MG TABLET (FP) PO SCH (22:26)
[2018-06-20] MEDS: CYCLOBENZAPRINE HCL 5 MG TABLET PO SCH ×3 (05:49→23:40)
[2018-06-20] MEDS: chlordiazePOXIDE HCL 10 MG CAPSULE PO SCH ×2 (05:49→10:39)
[2018-06-20] MEDS ORDERED: METHADONE HCL 10 MG TABLET (FOR DETOX USE ONLY) PO SCH (10:00)
[2018-06-20] MEDS: PRENATAL VITAMINS W/ FOLIC ACID TABLET (FP) PO SCH (10:39)
[2018-06-20] MEDS: LIDOCAINE 5% TOPICAL PATCH TP SCH (10:40)
--- NOTE | 2018-06-20 15:57 | PN ---
S Progress Note (SOAP) Subjective: feeling better no tremor no body ache no gi distress social with peers in day room Objective: 06/20/18 15:56 Vital Signs Temperature 97.3 F L 06/20/18 14:03 Pulse Rate 73 06/20/18 14:03 Respiratory Rate 16 06/20/18 14:03 Blood Pressure 108/69 06/20/18 14:03 O2 Sat by Pulse Oximetry (%) Laboratory Last Values WBC 7.4 K/mm3 (4.0-10.0) 06/17/18 06:00 RBC 4.69 M/mm3 (4.00-5.60) 06/17/18 06:00 Hgb 13.8 GM/dL (11.7-16.9) 06/17/18 06:00 Hct 42.3 % (35.4-49) 06/17/18 06:00 MCV 90.2 fl (80-96) 06/17/18 06:00 MCH 29.3 pg (25.7-33.7) 06/17/18 06:00 MCHC 32.5 g/dl (32.0-35.9) 06/17/18 06:00 RDW 14.5 % (11.9-15.9) 06/17/18 06:00 Plt Count 227 K/MM3 (134-434) 06/17/18 06:00 MPV 9.5 fl (7.5-11.1) 06/17/18 06:00 Sodium 141 mmol/L (136-145) 06/17/18 06:00 Potassium 4.5 mmol/L (3.5-5.1) 06/17/18 06:00 Chloride 104 mmol/L (98-107) 06/17/18 06:00 Carbon Dioxide 26 mmol/L (21-32) 06/17/18 06:00 Anion Gap 11 MMOL/L (8-16) 06/17/18 06:00 BUN 17 mg/dL (7-18) 06/17/18 06:00 Creatinine 1.3 mg/dL (0.55-1.3) 06/17/18 06:00 Creat Clearance w eGFR 56.31 (>60) 06/17/18 06:00 Random Glucose 116 mg/dL (74-106) H 06/17/18 06:00 Calcium 9.6 mg/dL (8.5-10.1) 06/17/18 06:00 Total Bilirubin 1.4 mg/dL (0.2-1) H 06/17/18 06:00 AST 21 U/L (15-37) 06/17/18 06:00 ALT 14 U/L (13-61) 06/17/18 06:00 Alkaline Phosphatase 64 U/L (45-117) 06/17/18 06:00 Total Protein 8.3 g/dl (6.4-8.2) H 06/17/18 06:00 Albumin 4.0 g/dl (3.4-5.0) 06/17/18 06:00 Urine Color Yellow 06/16/18 14:40 Urine Appearance Clear 06/16/18 14:40 Urine pH 5.0 (5.0-8.0) 06/16/18 14:40 Ur Specific [place] 1.024 (1.001-1.035) 06/16/18 14:40 Urine Protein Negative (NEGATIVE) 06/16/18 14:40 Urine Glucose (UA) Negative (NEGATIVE) 06/16/18 14:40 Urine Ketones Negative (NEGATIVE) 06/16/18 14:40 Urine Blood Negative (NEGATIVE) 06/16/18 14:40 Urine Nitrite Negative (NEGATIVE) 06/16/18 14:40 Urine Bilirubin Negative (<2.0 mg/dL) 06/16/18 14:40 Urine Urobilinogen Negative mg/dL (0.2-1.0) 06/16/18 14:40 Ur Leukocyte Esterase Negative (NEGATIVE) 06/16/18 14:40 RPR Titer Nonreactive (NONREACTIVE) 06/17/18 06:00 lab noted Assessment: 06/20/18 15:56 midl withdrawal sx Plan: medically supervised detox
[2018-06-20] MEDS: THIAMINE HCL 100 MG TABLET (FP) PO SCH (23:40)
[2018-06-20] MEDS: LIDOCAINE PATCH REMOVAL MC SCH (23:40)
[2018-06-21] MEDS: CYCLOBENZAPRINE HCL 5 MG TABLET PO SCH (05:36)
[2018-06-21] MEDS ORDERED: METHADONE HCL 5 MG TABLET (FOR DETOX USE ONLY) PO SCH (06:00)
[2018-06-21 06:05] VITALS: BP 126/76; PULSE 81; TEMP 97.5
--- NOTE | 2018-06-21 11:57 | DS ---
[facility] Detox Discharge Summary Admission Date: 06/16/18 Discharge Date: 06/21/18 - History Present History: Alcohol Dependence, Opioid Dependence Additional Comments: 62 years old male admitted on 06/16/18 for alcohol and opioid withdrawal sx \alert oriented x 3 no acute distress denies alcohol and opioid withdrawal sx alert oriented x 3 no acute distress aftercare [facility] out patient - Physical Exam Results Vital Signs: Vital Signs Temperature 97.5 F L 06/21/18 06:00 Pulse Rate 81 06/21/18 06:00 Respiratory Rate 18 06/21/18 06:00 Blood Pressure 126/76 06/21/18 06:00 O2 Sat by Pulse Oximetry (%) Pertinent Admission Physical Exam Findings: 62 years old male admitted on 06/16/18 for alcohol and opioid withdrawal sx completed alcohol and opioid detox regimen tolerated well denies alcohol and opioid withdrawal sx alert oriented x 3 no acute distress aftercare aci outpatient - Treatment Hospital Course: Detox Protocol Followed, Detoxed Safely, Responded well, Discharged Condition Good, Rehab Referral Accepted Patient has Accepted a Rehab Referral to: [facility] out patient - Medication Discharge Medications: Ambulatory Orders Folic Acid 1 mg PO DAILY 06/18/18 - Diagnosis (1) Alcohol dependence with uncomplicated withdrawal Status: Acute (2) Nicotine dependence Status: Acute Qualifiers: Nicotine product type: cigarettes Substance use status: in withdrawal Qualified Code(s): F17.213 - Nicotine dependence, cigarettes, with withdrawal (3) Opioid dependence with withdrawal Status: Acute (4) Substance-induced anxiety disorder Status: Suspected (5) PPD positive Status: Resolved - AMA Did Patient Leave Against Medical Advice: No
== END 2018-06-21 08:57 | disposition home or self-care (01) | DRG 773 ==
LOC: YASAS 12:16 → Y6N 14:34
PROC: HZ2ZZZZ Detoxification Services for Substance Abuse Treatment (ICD-10-PCS; principal; 2018-06-16)
DX: F11.23 Opioid dependence with withdrawal (principal); F10.230 Alcohol dependence with withdrawal, uncomplicated; F19.280 Other psychoactive substance dependence with psychoactive substance-induced anxiety disorder; G47.00 Insomnia, unspecified; R76.11 Nonspecific reaction to tuberculin skin test without active tuberculosis; M54.5 Low back pain; G89.29 Other chronic pain
CPT/HCPCS: 36415; 80053; 81003; 85027; 86593; 93005; 93010

== ENCOUNTER 2018-09-07 16:00 | Inpatient (IN) | payer OTHER ==
[2018-09-07 16:37] VITALS: BMI 29.7
--- NOTE | 2018-09-07 18:11 | HP ---
"CIWA Score - Admission Criteria OASAS Guidelines: Admission for Medically Managed Detox: Requires at least one of the followin. CIWA greater than 12 2. Seizures within the past 24 hours 3. Delirium tremens within the past 24 hours 4. Hallucinations within the past 24 hours 5. Acute intervention needed for co occurring medical disorder 6. Acute intervention needed for co occurring psychiatric disorder 7. Severe withdrawal that cannot be handled at a lower level of care (continued vomiting, continued diarrhea, abnormal vital signs) requiring intravenous medication and/or fluids 8. Admission ROS S - HPI Chief Complaint: SEEKING REHAB SERVICES AFTER DETOX TO MAINTAIN ABSTINENCE Allergies/Adverse Reactions: Allergies Allergy/AdvReac Type Severity Reaction Status Date / Time No Known Allergies Allergy Verified 09/07/18 17:50 History of Present Illness: 63 Y.O. MALE WITH OPIOID AND ALCOHOL DEPENDENCE HERE FOR REHAB SERVICES CLIENT WAS REFERRED BY [facility] AFTER COMPLETING A 5 DAY STAY FOR DETOX. CLIENT IS KNOWN TO [facility]. LAST HERE 05/2018. REPORTS LONGEST CLEAN TIME 1 YEAR SELF MAINTAINED. DENIES ANY CLEAN TIME IN THE PAST YEAR. DENIES HX/O SI/HI, AVH,SEIZURE D/O AND DRUG OVERDOSE. DENIES LEGALS, LIVES ALONE, UNEMPLOYED. PMHX- CHRONIC R HIP PAIN, PSYCH- DENIES MEDS- DENIES Search Terms: genaro waller, 1955 Search Date: 09/07/2018 06:01:46 PM The Drug Utilization Report below displays all of the controlled substance prescriptions, if any, that your patient has filled in the last twelve months. The information displayed on this report is compiled from pharmacy submissions to the Department, and accurately reflects the information as submitted by the pharmacies. This report was requested by: Daniel Ricks | Reference #: [id number] You have not added a MATTHIAS number. Keeping your MATTHIAS number(s) up to date on the My MATTHIAS Numbers page will enable the separation of your prescriptions from others ' in the search results. Others' Prescriptions Patient Name: Genaro Waller Date: 1955 Address: [address] [place] [address] [id number] [place] [address] Sex: Male Rx Written Rx Dispensed Drug Quantity Days Supply Prescriber Name 07/07/2018 07/07/2018 suboxone 8 mg-2 mg sl film 30 15 Tarun Moscoso MD 06/23/2018 06/23/2018 suboxone 8 mg-2 mg sl film 15 15 Tarun Moscoso MD Patient Name: Genaro Waller Date: 1955 Address: [address] [place] [address] Sex: Male Rx Written Rx Dispensed Drug Quantity Days Supply Prescriber Name 03/03/2018 03/06/2018 zolpidem tartrate 10 mg tablet 30 30 Hilda, Cooper Galaviz MD 01/29/2018 01/29/2018 suboxone 8 mg-2 mg sl film 60 30 Hilda, Cooper Galaviz MD 01/29/2018 01/29/2018 zolpidem tartrate 10 mg tablet 30 30 Hilda, Cooper Galaviz MD 01/01/2018 01/01/2018 suboxone 8 mg-2 mg sl film 60 30 Hilda, Cooper Galaviz MD 01/01/2018 01/01/2018 zolpidem tartrate 10 mg tablet 30 30 Hilda, Cooper Galaviz MD 12/01/2017 12/01/2017 suboxone 8 mg-2 mg sl film 60 30 Hilda, Cooper Galaviz MD 12/01/2017 12/01/2017 zolpidem tartrate 10 mg tablet 30 30 Hilda, Cooper Galaviz MD 11/03/2017 11/03/2017 zolpidem tartrate 10 mg tablet 30 30 Hilda, Cooper Galaviz MD 11/03/2017 11/03/2017 suboxone 8 mg-2 mg sl film 30 30 Hilda, Cooper Galaviz MD 09/29/2017 10/01/2017 suboxone 8 mg-2 mg sl film 30 30 Hilda, Cooper Galaviz MD Exam Limitations: No Limitations - Ebola screening Have you traveled outside of the country in the last 21 days: No Have you had contact with anyone from an Ebola affected area: No Have you been sick,other than usual withdrawal symptoms: No Do you have a fever: No - Review of Systems Constitutional: Malaise, Changes in sleep EENT: reports: Other (RINORRHEA) Respiratory: reports: No Symptoms reported Cardiac: reports: No Symptoms Reported GI: reports: No Symptoms Reported : reports: No Symptoms Reported Musculoskeletal: reports: Joint Pain (R HIP) Integumentary: reports: No Symptoms Reported Neuro: reports: No Symptoms reported Endocrine: reports: No Symptoms Reported Hematology: reports: No Symptoms Reported Psychiatric: reports: Anxious Other Systems: Reviewed and Negative Patient History - Patient Medical History Hx Anemia: No Hx Asthma: No Hx Chronic Obstructive Pulmonary Disease (COPD): No Hx Cancer: No Hx Cardiac Disorders: No Hx Congestive Heart Failure: No Hx Hypertension: No Hx Hypercholesterolemia: No Hx Pacemaker: No HX Cerebrovascular Accident: No Hx Seizures: No Hx Dementia: No Hx Diabetes: No Hx Gastrointestinal Disorders: No Hx Liver Disease: No Hx Genitourinary Disorders: No Hx Sexually Transmitted Disorders: No Hx Renal Disease (ESRD): No Hx Thyroid Disease: No Hx Human Immunodeficiency Virus (HIV): No Hx Hepatitis C: No Hx Depression: Yes Hx Suicide Attempt: No Hx Bipolar Disorder: No Hx Schizophrenia: No - Patient Surgical History Past Surgical History: No Hx Neurologic Surgery: No Hx Cataract Extraction: No Hx Cardiac Surgery: No Hx Lung Surgery: No Hx Breast Surgery: No Hx Breast Biopsy: No Hx Abdominal Surgery: No Hx Appendectomy: No Hx Cholecystectomy: No Hx Genitourinary Surgery: No Hx Section: No Hx Orthopedic Surgery: No Anesthesia Reaction: No - PPD History Previous Implant?: Yes Documented Results: Positive w/proof Implanted On Prior R Admission?: Yes Date: 09/02/18 ([facility]) Results: NEGATIVE TBGOLD PPD to be Administered?: No - Reproductive History Patient is a Female of Child Bearing Age (11 -55 yrs old): No - Smoking Cessation Smoking history: Never smoked Have you smoked in the past 12 months: No Aproximately how many cigarettes per day: 0 Cigars Per Day: 0 Hx Chewing Tobacco Use: No Initiated information on smoking cessation: No - Substance & Tx. History Hx Alcohol Use: Yes Hx Substance Use: Yes Substance Use Type: Alcohol, Heroin Hx Substance Use Treatment: Yes ([facility]) - Substances Abused Alcohol Route: Oral Frequency: Daily Amount used: 1 PINT Age of first use: 22 Date of Last Use: 08/31/18 Heroin Route: SNIFF Frequency: Daily Amount used: 7 BAGS Age of first use: 27 Date of Last Use: 08/31/18 Family Disease History - Family Disease History Family Disease History: Other: Father ( no contact), Mother () Admission Physical Exam BHS - Vital Signs Vital Signs: Vital Signs - 24 hr 09/07/18 16:35 Temperature 96.7 F L Pulse Rate 60 Respiratory 18 Rate Blood Pressure 122/80 - Physical General Appearance: Yes: No Apparent Distress, Appropriately Dressed HEENTM: Yes: EOMI, Normocephalic, Normal Voice, JAMI, Pharynx Normal, Tm's normal, Other (MISSING TEETH) Respiratory: Yes: Chest Non-Tender, Lungs Clear, Normal Breath Sounds, No Respiratory Distress, No Accessory Muscle Use Neck: Yes: No masses,lesions,Nodules, Supple, Trachea in good position Breast: Yes: Breast Exam Deferred Cardiology: Yes: Regular Rhythm, Regular Rate, S1, S2 Abdominal: Yes: Normal Bowel Sounds, Non Tender, Soft Genitourinary: Yes: Within Normal Limits (NO C/O) Back: Yes: Normal Inspection Musculoskeletal: Yes: full range of Motion, Gait Steady Extremities: Yes: Normal Capillary Refill, Normal Range of Motion, Non-Tender Neurological: Yes: Fully Oriented, Alert, Motor Strength 5/5 Integumentary: Yes: Dry, Warm Lymphatic: Yes: Within Normal Limits - Diagnostic (1) Uncomplicated alcohol dependence Current Visit: Yes Status: Chronic (2) Uncomplicated opioid dependence Current Visit: Yes Status: Chronic (3) Insomnia Current Visit: Yes Status: Chronic Qualifiers: Insomnia type: drug-induced Qualified Code(s): F19.982 - Other psychoactive substance use, unspecified with psychoactive substance-induced sleep disorder (4) Nicotine dependence Current Visit: Yes Status: Chronic Qualifiers: Nicotine product type: cigarettes Substance use status: in withdrawal Qualified Code(s): F17.213 - Nicotine dependence, cigarettes, with withdrawal (5) Chronic back pain Current Visit: Yes Status: Chronic Qualifiers: Back pain location: low back pain Back pain laterality: bilateral Sciatica presence: without sciatica Qualified Code(s): M54.5 - Low back pain; G89.29 - Other chronic pain (6) Substance induced mood disorder Current Visit: Yes Status: Chronic Cleared for Admission BHS - Detox or Rehab Detox Regimen/Protocol: Not Applicable Claeared for Rehab Admission: Yes [facility] Breath Alcohol Content Breath Alcohol Content: 0 Urine Drug Screen - Results Drug Screen Negative: No Urine Drug Screen Results: BZO-Benzodiazepines, BUP-Suboxone Inpatient Rehab Admission - Initial Determination Are CD services needed?: Yes Free of communicable disease: Yes Not in need of hospitalization: Yes - Rehab Admission Criteria Previous failed treatment: Yes Poor recovery environment: Yes Comorbidities: No Lacks judgement: Yes Patient is meeting Inpatient Rehab admission criteria:: Yes"
[2018-09-07] MEDS ORDERED: LOPERAMIDE HCL 2 MG CAPSULE PO PRN (18:21)
[2018-09-07] MEDS ORDERED: MAGNESIUM HYDROX 2400MG/30ML ORAL SUSPENSION 30 ML CUP PO PRN (18:21)
[2018-09-07] MEDS ORDERED: hydrOXYzine PAMOATE 50 MG CAPSULE (FP) PO PRN (18:21)
[2018-09-07] MEDS ORDERED: MAGNESIUM CITRATE 300 ML BOTTLE PO PRN (18:21)
[2018-09-07] MEDS ORDERED: guaiFENesin/D-METHORPHAN HB 10 ML UNIT-DOSE CUPS PO PRN (18:21)
[2018-09-07] MEDS ORDERED: MENTHOL/PHENOL 1 EACH UD MM PRN (18:21)
[2018-09-07] MEDS ORDERED: IBUPROFEN 400 MG TABLET (FP) PO PRN (18:21)
[2018-09-07] MEDS ORDERED: ACETAMINOPHEN 325 MG TABLET (FP) PO PRN (18:21)
[2018-09-07] MEDS ORDERED: P-EPHED 60MG/TRIPROLIDI 2.5MG TABLET PO PRN (18:21)
[2018-09-07] MEDS ORDERED: MELATONIN 5 MG TABLETS PO PRN (22:00)
[2018-09-07] MEDS: CYCLOBENZAPRINE HCL 5 MG TABLET PO PRN (22:03)
[2018-09-07] MEDS: THIAMINE HCL 100 MG TABLET (FP) PO SCH (22:03)
[2018-09-08 01:39] LABS: URINE APPEARANCE CLEAR; URINE BILIRUBIN NEGATIVE (<2.0 mg/dL); URINE COLOR LTYELLOW; URINE GLUCOSE (UA) NEGATIVE (NEGATIVE); URINE KETONE NEGATIVE (NEGATIVE); URINE LEUK ESTERASE NEGATIVE (NEGATIVE); URINE NITRITE NEGATIVE (NEGATIVE); URINE PROTEIN NEGATIVE (NEGATIVE); URINE UROBILINOGEN NEGATIVE mg/dL (0.2-1.0)
--- NOTE | 2018-09-08 08:13 | HP ---
Psychiatrist Admission - Data Date of interview: 09/08/18 Admission source: Self-refered Identifying data: This is one of the multiple [facility] admission for this 63 years old single Black male, father of 4 children, unemployed on public assistance, domiciled Medical History: Significant for positive PPD and chronic low back and right hip pain Psychiatric History: Denies history of previous psychiatric treatment. However he was seen on 06/18/18 by ABIGAIL Degroot in detox and was prescribed Melatonin 10 mg po HS prn for insomnia Physical/Sexual Abuse/Trauma History: Denies history of emotional, physical or sexual abuse as well as DV relationship. No service Additional Comment: No criminal history elicited Vital Signs: Vital Signs - 24 hr 09/07/18 09/07/18 09/08/18 16:35 21:25 00:30 Temperature 96.7 F L 97.9 F Pulse Rate 60 65 Respiratory 18 18 18 Rate Blood Pressure 122/80 122/74 09/08/18 06:48 Temperature 97.3 F L Pulse Rate 52 L Respiratory 18 Rate Blood Pressure 142/80 Allergies/Adverse Reactions: Allergies Allergy/AdvReac Type Severity Reaction Status Date / Time No Known Allergies Allergy Verified 09/07/18 17:50 Date of last physical exam: 09/07/18 Concur with the findings of this exam: Yes - Substance Abuse/Tx History Hx Alcohol Use: Yes Hx Substance Use: Yes Substance Use Type: Alcohol (Started drinking alcohol at age 22, consumes one pint of liquordaily. Last drank on 08/31/18), Heroin (Started using heroin at age 27, consumes 7 bags daily. Last used on 08/31/18) Hx Substance Use Treatment: Yes (4 previous inpt detox & 4 inpt rehab @ [facility]) Mental Status Exam - Mental Status Exam Alert and Oriented to: Time, Place, Person Cognitive Function: Fair Patient Appearance: Well Groomed Mood: Hopeful, Euthymic Patient Behavior: Cooperative Speech Pattern: Clear Voice Loudness: Normal Thought Process: Intact Thought Disorder: Not Present Hallucinations: Denies Suicidal Ideation: Denies Insight/Judgement: Fair Sleep: Poorly Muscle strength/Tone: Normal Gait/Station: Normal Psychiatric Findings - Problem List ([place] 1, 2,3) (1) Alcohol dependence Current Visit: No Status: Acute (2) Opioid dependence Current Visit: No Status: Acute (3) Nicotine dependence Current Visit: Yes Status: Chronic Qualifiers: Nicotine product type: cigarettes Substance use status: in withdrawal Qualified Code(s): F17.213 - Nicotine dependence, cigarettes, with withdrawal (4) Substance-induced sleep disorder Current Visit: Yes Status: Acute (5) Chronic back pain Current Visit: Yes Status: Chronic Qualifiers: Back pain location: low back pain Back pain laterality: bilateral Sciatica presence: without sciatica Qualified Code(s): M54.5 - Low back pain; G89.29 - Other chronic pain (6) Low back pain Current Visit: No Status: Chronic Qualifiers: Chronicity: unspecified (7) PPD positive Current Visit: No Status: Resolved - Initial Treatment Plan Initial Treatment Plan: 1) Start melatonin 10 mg po HS prn for insomnia. 2) Monitor progress
[2018-09-08 10:09] LABS: HEMATOCRIT 42.4 % (35.4-49); HEMOGLOBIN 13.7 GM/dL (11.7-16.9); MCH 29.4 pg (25.7-33.7); MCHC 32.3 g/dl (32.0-35.9); MEAN PLT VOLUME 9.2 fl (7.5-11.1); PLATELET COUNT 194 K/MM3 (134-434); RBC 4.66 M/mm3 (4.00-5.60); RDW 14.1 % (11.9-15.9); WHITE BLOOD COUNT 6.5 K/mm3 (4.0-10.0)
[2018-09-08 10:40] LABS: ALBUMIN 3.5 g/dl (3.4-5.0); ALK PHOS 70 U/L (45-117); ANION GAP 4 MMOL/L (8-16); BILIRUBIN,TOTAL 0.6 mg/dL (0.2-1); BLOOD UREA NITROGEN 16 mg/dL (7-18); CALCIUM 8.8 mg/dL (8.5-10.1); CHLORIDE 101 mmol/L (98-107); CO2 32 mmol/L (21-32); GLUCOSE,RANDOM 75 mg/dL (74-106); POTASSIUM 4.4 mmol/L (3.5-5.1); SGOT/AST 17 U/L (15-37); SGPT/ALT 11 U/L (13-61); SODIUM 137 mmol/L (136-145); TOT PROT 7.3 g/dl (6.4-8.2)
[2018-09-08] MEDS: PRENATAL VITAMINS W/ FOLIC ACID TABLET (FP) PO SCH (10:43)
[2018-09-08] MEDS: CYCLOBENZAPRINE HCL 5 MG TABLET PO PRN (12:09)
[2018-09-08] MEDS ORDERED: CYCLOBENZAPRINE HCL 10 MG TABLET (FP) PO SCH (14:00)
[2018-09-08] MEDS: MELATONIN 5 MG TABLETS PO PRN (21:25)
[2018-09-08] MEDS: MAG HYDROX/AL HYDROX/SIMETH 30 ML UNIT-DOSE CUP PO PRN (21:27)
[2018-09-08] MEDS: THIAMINE HCL 100 MG TABLET (FP) PO SCH (22:29)
[2018-09-09] MEDS: PRENATAL VITAMINS W/ FOLIC ACID TABLET (FP) PO SCH (10:25)
[2018-09-09] MEDS: CYCLOBENZAPRINE HCL 5 MG TABLET PO PRN (10:26)
[2018-09-09] MEDS: MELATONIN 5 MG TABLETS PO PRN (21:40)
[2018-09-09] MEDS: THIAMINE HCL 100 MG TABLET (FP) PO SCH (21:41)
[2018-09-10] MEDS: PRENATAL VITAMINS W/ FOLIC ACID TABLET (FP) PO SCH (10:20)
[2018-09-10] MEDS: CYCLOBENZAPRINE HCL 5 MG TABLET PO PRN (10:22)
[2018-09-10] MEDS: THIAMINE HCL 100 MG TABLET (FP) PO SCH (22:07)
[2018-09-11] MEDS: PRENATAL VITAMINS W/ FOLIC ACID TABLET (FP) PO SCH (09:57)
[2018-09-11] MEDS: CYCLOBENZAPRINE HCL 5 MG TABLET PO PRN (09:58)
[2018-09-11] MEDS: MELATONIN 5 MG TABLETS PO PRN (21:20)
[2018-09-11] MEDS: THIAMINE HCL 100 MG TABLET (FP) PO SCH (21:54)
[2018-09-12] MEDS: CYCLOBENZAPRINE HCL 5 MG TABLET PO PRN (10:04)
[2018-09-12] MEDS: PRENATAL VITAMINS W/ FOLIC ACID TABLET (FP) PO SCH (10:04)
[2018-09-12] MEDS: THIAMINE HCL 100 MG TABLET (FP) PO SCH (21:44)
[2018-09-13] MEDS: PRENATAL VITAMINS W/ FOLIC ACID TABLET (FP) PO SCH (10:15)
[2018-09-13] MEDS: CYCLOBENZAPRINE HCL 5 MG TABLET PO PRN (10:15)
[2018-09-13] MEDS: MAG HYDROX/AL HYDROX/SIMETH 30 ML UNIT-DOSE CUP PO PRN (10:15)
--- NOTE | 2018-09-13 14:30 | PN ---
BHS Progress Note Note: Patient complains of experiencing difficulty to sleep despite taking Melatonin 10 mg at bedtime. Belsomra 10 mg po HS prn for insomnia ordered for patient
--- NOTE | 2018-09-13 14:43 | PN ---
[facility] Progress Note Note: Others' Prescriptions Patient Name: Genaro Waller Date: 1955 Address: [address] [place], [place] [id number] [place] [address] Sex: Male Rx Written Rx Dispensed Drug Quantity Days Supply Prescriber Name 07/07/2018 07/07/2018 suboxone 8 mg-2 mg sl film 30 15 Tarun Moscoso MD 06/23/2018 06/23/2018 suboxone 8 mg-2 mg sl film 15 15 Tarun Moscoso MD Patient Name: Genaro Waller Date: 1955 Address: [facility] [place] [address] Sex: Male Rx Written Rx Dispensed Drug Quantity Days Supply Prescriber Name 03/03/2018 03/06/2018 zolpidem tartrate 10 mg tablet 30 30 HildaCooper MD 01/29/2018 01/29/2018 suboxone 8 mg-2 mg sl film 60 30 HildaCooper MD 01/29/2018 01/29/2018 zolpidem tartrate 10 mg tablet 30 30 HildaCooper MD 01/01/2018 01/01/2018 suboxone 8 mg-2 mg sl film 60 30 HildaCooper MD 01/01/2018 01/01/2018 zolpidem tartrate 10 mg tablet 30 30 HildaCooper MD 12/01/2017 12/01/2017 suboxone 8 mg-2 mg sl film 60 30 HildaCooper MD 12/01/2017 12/01/2017 zolpidem tartrate 10 mg tablet 30 30 HildaCooper MD 11/03/2017 11/03/2017 zolpidem tartrate 10 mg tablet 30 30 HildaCooper MD 11/03/2017 11/03/2017 suboxone 8 mg-2 mg sl film 30 30 HildaCooper MD 09/29/2017 10/01/2017 suboxone 8 mg-2 mg sl film 30 30 HildaCooper mckeon MD * - Drugs marked with an asterisk are compound drugs. If the compound drug is made up of more than one controlled substance, then each controlled substance will be a separate row in the table.
--- NOTE | 2018-09-13 16:08 | PN ---
BHS COWS - Scale Resting Pulse: 0= TN 80 or Below Sweatin= No chills or Flushing Restless Observation: 3= Extraneous Movement Pupil Size: 2= Moderately Dilated (5 mm) Bone or Joint Aches: 4=Acute Joint/Muscle Pain Runny Nose/ Eye Tearin= Runny Nose/Eyes GI Upset > 30mins: 1= Stomach Cramp Tremor Observation of Outstretched Hands: 1= Tremor [place], Not Seen Yawning Observation: 0= None Anxiety or Irritability: 2=Irritable/Anxious Goose Flesh Skin: 0=Smooth Skin COWS Score: 15 BHS Progress Note (SOAP) Subjective: PT REPORTS WITHDRAWAL SX OF RESTLESSNESS AND IRRITABILITY, BODY ACHES, YAWNING, RUNNY NOSE. PT STATES HE WAS ON SUBOXONE 8MG/2MG SL ONCE IN JUNE PER PNP RECORD. PT STATES HE RELAPSED AND WENT BACK TO USING HEROIN AND WENT TO A PROGRAM CALLED [facility] IN [place] WHERE HE LAST GOT 4MG TABLET EVERY OTHER DAY. PT WAS ADMITTED TO REHAB ON 09/07/18. PT IS WILLING TO BE ON 2 MG SL DAILY HERE TO SEE HOW HE FEELS WITH THE DOSE. PT MET WITH HIS COUNSELOR HERE, [place]IN[place]ILLA AND ARRANGEMENT HAS BEEN MADE FOR REFERRAL TO [facility] FOR AFTERCARE AND TO CONTINUE WITH SUBOXONE TREATMENT AFTER REHAB. Laboratory Tests 09/07/18 09/08/18 09/08/18 23:45 07:00 07:00 WBC 6.5 RBC 4.66 Hgb 13.7 Hct 42.4 MCV 91.0 MCH 29.4 MCHC 32.3 RDW 14.1 Plt Count 194 MPV 9.2 Sodium 137 Potassium 4.4 Chloride 101 Carbon Dioxide 32 Anion Gap 4 L BUN 16 Creatinine 1.0 Creat Clearance w eGFR > 60 Random Glucose 75 Calcium 8.8 Total Bilirubin 0.6 AST 17 ALT 11 L Alkaline Phosphatase 70 Total Protein 7.3 Albumin 3.5 Urine Color Ltyellow Urine Appearance Clear Urine pH 5.0 Ur Specific [place] 1.021 Urine Protein Negative Urine Glucose (UA) Negative Urine Ketones Negative Urine Blood Negative Urine Nitrite Negative Urine Bilirubin Negative Urine Urobilinogen Negative Ur Leukocyte Esterase Negative RPR Titer 09/08/18 07:00 WBC RBC Hgb Hct MCV MCH MCHC RDW Plt Count MPV Sodium Potassium Chloride Carbon Dioxide Anion Gap BUN Creatinine Creat Clearance w eGFR Random Glucose Calcium Total Bilirubin AST ALT Alkaline Phosphatase Total Protein Albumin Urine Color Urine Appearance Urine pH Ur Specific [place] Urine Protein Urine Glucose (UA) Urine Ketones Urine Blood Urine Nitrite Urine Bilirubin Urine Urobilinogen Ur Leukocyte Esterase RPR Titer Nonreactive Vital Signs - 24 hr 09/13/18 09/13/18 00:30 07:07 Temperature 98.5 F Pulse Rate 77 Respiratory 18 18 Rate Blood Pressure 110/75 Objective: 09/13/18 16:09 Vital Signs - 24 hr 09/13/18 09/13/18 00:30 07:07 Temperature 98.5 F Pulse Rate 77 Respiratory 18 18 Rate Blood Pressure 110/75 Laboratory Tests 09/07/18 09/08/18 09/08/18 23:45 07:00 07:00 WBC 6.5 RBC 4.66 Hgb 13.7 Hct 42.4 MCV 91.0 MCH 29.4 MCHC 32.3 RDW 14.1 Plt Count 194 MPV 9.2 Sodium 137 Potassium 4.4 Chloride 101 Carbon Dioxide 32 Anion Gap 4 L BUN 16 Creatinine 1.0 Creat Clearance w eGFR > 60 Random Glucose 75 Calcium 8.8 Total Bilirubin 0.6 AST 17 ALT 11 L Alkaline Phosphatase 70 Total Protein 7.3 Albumin 3.5 Urine Color Ltyellow Urine Appearance Clear Urine pH 5.0 Ur Specific [place] 1.021 Urine Protein Negative Urine Glucose (UA) Negative Urine Ketones Negative Urine Blood Negative Urine Nitrite Negative Urine Bilirubin Negative Urine Urobilinogen Negative Ur Leukocyte Esterase Negative RPR Titer 09/08/18 07:00 WBC RBC Hgb Hct MCV MCH MCHC RDW Plt Count MPV Sodium Potassium Chloride Carbon Dioxide Anion Gap BUN Creatinine Creat Clearance w eGFR Random Glucose Calcium Total Bilirubin AST ALT Alkaline Phosphatase Total Protein Albumin Urine Color Urine Appearance Urine pH Ur Specific [place] Urine Protein Urine Glucose (UA) Urine Ketones Urine Blood Urine Nitrite Urine Bilirubin Urine Urobilinogen Ur Leukocyte Esterase RPR Titer Nonreactive Assessment: 09/13/18 16:09 SUBOXONE TREATMENT Plan: START SUBOXONE 2MG /05 MG SL DAILY RE-EVALUATE IF NEEDED
[2018-09-13] MEDS ORDERED: BUPRENORPHINE/NALOXONE 2 MG/0.5 MG FILM PACKET SL SCH (16:15)
[2018-09-13] MEDS ORDERED: BUPRENORPHINE/NALOXONE 2 MG/0.5 MG FILM PACKET SL ONE (16:45)
[2018-09-13] MEDS: THIAMINE HCL 100 MG TABLET (FP) PO SCH (21:17)
[2018-09-13] MEDS: SUVOREXANT 10 MG TABLET PO PRN (21:18)
[2018-09-14] MEDS: PRENATAL VITAMINS W/ FOLIC ACID TABLET (FP) PO SCH (10:10)
[2018-09-14] MEDS: BUPRENORPHINE/NALOXONE 2 MG/0.5 MG FILM PACKET SL SCH (10:11)
[2018-09-14] MEDS: CYCLOBENZAPRINE HCL 5 MG TABLET PO PRN ×3 (10:12→21:16)
[2018-09-14] MEDS: THIAMINE HCL 100 MG TABLET (FP) PO SCH (21:16)
[2018-09-15] MEDS: PRENATAL VITAMINS W/ FOLIC ACID TABLET (FP) PO SCH (10:32)
[2018-09-15] MEDS: CYCLOBENZAPRINE HCL 5 MG TABLET PO PRN ×2 (10:33→21:21)
[2018-09-15] MEDS: BUPRENORPHINE/NALOXONE 2 MG/0.5 MG FILM PACKET SL SCH (10:33)
[2018-09-15] MEDS: THIAMINE HCL 100 MG TABLET (FP) PO SCH (21:23)
[2018-09-15] MEDS: SUVOREXANT 10 MG TABLET PO PRN (21:23)
[2018-09-16] MEDS: CYCLOBENZAPRINE HCL 5 MG TABLET PO PRN ×2 (10:13→21:19)
[2018-09-16] MEDS: BUPRENORPHINE/NALOXONE 2 MG/0.5 MG FILM PACKET SL SCH (10:14)
[2018-09-16] MEDS: PRENATAL VITAMINS W/ FOLIC ACID TABLET (FP) PO SCH (10:14)
[2018-09-16] MEDS: THIAMINE HCL 100 MG TABLET (FP) PO SCH (21:19)
[2018-09-16] MEDS: SUVOREXANT 10 MG TABLET PO PRN (21:19)
[2018-09-17] MEDS: BUPRENORPHINE/NALOXONE 2 MG/0.5 MG FILM PACKET SL SCH (10:01)
[2018-09-17] MEDS: PRENATAL VITAMINS W/ FOLIC ACID TABLET (FP) PO SCH (10:01)
[2018-09-17] MEDS: CYCLOBENZAPRINE HCL 5 MG TABLET PO PRN ×2 (10:01→21:23)
[2018-09-17] MEDS: THIAMINE HCL 100 MG TABLET (FP) PO SCH (21:23)
[2018-09-18] MEDS: CYCLOBENZAPRINE HCL 5 MG TABLET PO PRN ×2 (09:43→21:28)
[2018-09-18] MEDS: PRENATAL VITAMINS W/ FOLIC ACID TABLET (FP) PO SCH (09:44)
[2018-09-18] MEDS: BUPRENORPHINE/NALOXONE 2 MG/0.5 MG FILM PACKET SL SCH (09:44)
[2018-09-18] MEDS: SUVOREXANT 10 MG TABLET PO PRN (21:28)
[2018-09-18] MEDS: THIAMINE HCL 100 MG TABLET (FP) PO SCH (21:28)
--- NOTE | 2018-09-19 08:48 | PN ---
Psychiatric Progress Note Vital Signs: Vital Signs Period Temp Pulse Resp BP Sys/Egan Pulse Ox Last 24 Hr 97.3 F 70 18-18 126/78 Date of Session: 09/19/18 ( Discharge ) Chief Complaint:: Discharge Note HPI: Patient addressing Alcohol and Opioid Dependence comorbid with Nicotine Dependence and Substance-Induced Sleep Disorder ROS: Low back pain, PPD+ were medically managed Current Medications: Active Medications Generic Name Dose Route Start Last Admin Trade Name Freq PRN Reason Stop Dose Admin Acetaminophen 650 mg 09/07/18 18:21 Tylenol - PO Q4H PRN FEVER Al Hydroxide/Mg Hydroxide 30 ml 09/07/18 18:21 09/13/18 10:15 Mylanta Oral Suspension - PO 30 ml Q6H PRN Administration DYSPEPSIA Buprenorphine/Naloxone 1 each 09/14/18 10:00 09/18/18 09:44 Suboxone 2mg/0.5mg Sl Film - SL 1 each DAILY HOWARD Administration Cyclobenzaprine HCl 5 mg 09/07/18 18:22 09/18/18 21:28 Cyclobenzaprine Hcl PO 5 mg Q8H PRN Administration MUSCLE SPASMS Eucalyptus/Menthol/Phenol/Sorbitol 1 each 09/07/18 18:21 09/08/18 21:27 Cepastat Lozenge - MM 1 each Q4H PRN Administration SORE THROAT Guaifenesin 10 ml 09/07/18 18:21 Robitussin Dm - PO Q6H PRN COUGH Hydroxyzine Pamoate 50 mg 09/07/18 18:21 Vistaril - PO Q4H PRN AGITATION Ibuprofen 400 mg 09/07/18 18:21 Motrin - PO Q6H PRN Pain level 4-6 Loperamide HCl 4 mg 09/07/18 18:21 Imodium - PO Q6H PRN DIARRHEA Magnesium Citrate 300 ml 09/07/18 18:21 Citroma - PO Q48H PRN CONSTIPATION Magnesium Hydroxide 30 ml 09/07/18 18:21 09/10/18 10:21 Milk Of Magnesia - PO 30 ml DAILY PRN Administration CONSTIPATION Multivit/Folic Acid/Iron 1 tab 09/08/18 10:00 09/18/18 09:44 Vitamins (Sjr) - PO 1 tab DAILY HOWARD Administration Pseudoephedrine/Triprolidine 1 combo 09/07/18 18:21 Actifed - PO TID PRN NASAL CONGESTION Suvorexant 10 mg 09/18/18 22:00 09/18/18 21:28 Belsomra PO 10 mg HS PRN Administration INSOMNIA Thiamine HCl 100 mg 09/07/18 22:00 09/18/18 21:28 Vitamin B1 - PO Not Given HS HOWARD Current Side Effect: No Lab tests ordered: Yes Lab tests reviewed: Yes Provider note:: Patient will complete this program on 09/20/18. He has met his treatment goals and will continue to address his issues in outpatient treatment at [facility] at [address] [place] [address]. Told radio script writer that from his participation in this program, he has learned the importance of adherence to his outpatient treatment. He is stable for discharge on 09/20/18 Total face to face time:: 35 Mental Status Exam - Mental Status Exam Alert and Oriented to: Time, Place, Person Cognitive Function: Fair Patient Appearance: Well Groomed Mood: Hopeful, Euthymic Affect: Appropriate Patient Behavior: Cooperative Speech Pattern: Clear Voice Loudness: Normal Thought Process: Intact, Goal Oriented Thought Disorder: Not Present Hallucinations: Denies Suicidal Ideation: Denies Homicidal Ideation: Denies Insight/Judgement: Fair Sleep: Fair Appetite: Good Muscle strength/Tone: Normal Gait/Station: Normal Psychiatric Treatment Plan - Problem List (1) Alcohol dependence Current Visit: No (2) Opioid dependence Current Visit: No (3) Nicotine dependence Current Visit: Yes Qualifiers: Nicotine product type: cigarettes Substance use status: in withdrawal Qualified Code(s): F17.213 - Nicotine dependence, cigarettes, with withdrawal (4) Substance-induced sleep disorder Current Visit: Yes (5) Chronic back pain Current Visit: Yes Qualifiers: Back pain location: low back pain Back pain laterality: bilateral Sciatica presence: without sciatica Qualified Code(s): M54.5 - Low back pain; G89.29 - Other chronic pain (6) Low back pain Current Visit: No Qualifiers: Chronicity: unspecified (7) PPD positive Current Visit: No Initial treatment plan: Patient will be discharged tomorrow and referred to [facility] in [place] for outpatient treatment
[2018-09-19] MEDS: PRENATAL VITAMINS W/ FOLIC ACID TABLET (FP) PO SCH (09:49)
[2018-09-19] MEDS: CYCLOBENZAPRINE HCL 5 MG TABLET PO PRN ×2 (09:49→21:21)
[2018-09-19] MEDS: BUPRENORPHINE/NALOXONE 2 MG/0.5 MG FILM PACKET SL SCH (09:49)
[2018-09-19] MEDS: THIAMINE HCL 100 MG TABLET (FP) PO SCH (21:20)
[2018-09-19] MEDS: SUVOREXANT 10 MG TABLET PO PRN (21:21)
[2018-09-20 07:22] VITALS: BP 131/85; PULSE 60; TEMP 97.8
== END 2018-09-20 09:20 | disposition home or self-care (01) | DRG 772 ==
LOC: YASAS 16:00 → Y5N 19:11
PROVIDERS: ADMIT Psychiatry & Neurology Psychiatry; ATTEND Psychiatry & Neurology Psychiatry
PROC: HZ42ZZZ Group Counseling for Substance Abuse Treatment, Cognitive-Behavioral (ICD-10-PCS; principal; 2018-09-07)
DX: F11.20 Opioid dependence, uncomplicated (principal); F10.20 Alcohol dependence, uncomplicated; F17.213 Nicotine dependence, cigarettes, with withdrawal; F19.282 Other psychoactive substance dependence with psychoactive substance-induced sleep disorder; F19.24 Other psychoactive substance dependence with psychoactive substance-induced mood disorder; M54.5 Low back pain; G89.29 Other chronic pain; M25.551 Pain in right hip; R76.11 Nonspecific reaction to tuberculin skin test without active tuberculosis
CPT/HCPCS: 36415; 80053; 81003; 85027; 86593

== ENCOUNTER 2019-03-23 09:21 | Inpatient (IN) | payer OTHER ==
[2019-03-23 09:58] VITALS: BMI 30.2
--- NOTE | 2019-03-23 10:20 | HP ---
COWS - Scale Resting Pulse: 0= [place] 80 or Below Sweatin= Beads of Sweat on Face Restless Observation: 3= Extraneous Movement Pupil Size: 0= Normal to Room Light Bone or Joint Aches: 1= Mild Discomfort Runny Nose/ Eye Tearin= Runny Nose/Eyes GI Upset > 30mins: 1= Stomach Cramp Tremor Observation: 1= Tremor Martin, Not Seen Yawning Observation: 1= 1-2x During Session Anxiety or Irritability: 2=Irritable/Anxious Goose Flesh Skin: 3=Piloerection COWS Score: 17 CIWA Score Nausea/Vomitin Muscle Tremors: 3 Anxiety: 3 Agitation: 0-Normal Activity Paroxysmal Sweats: 3 Orientation: 0-Oriented Tacttile Disturbances: 0-None Auditory Disturbances: 0-None Visual Disturbances: 0-None Headache: 1-Very Mild CIWA-Ar Total Score: 13 - Admission Criteria OASAS Guidelines: Admission for Medically Managed Detox: Requires at least one of the followin. CIWA greater than 12 2. Seizures within the past 24 hours 3. Delirium tremens within the past 24 hours 4. Hallucinations within the past 24 hours 5. Acute intervention needed for co occurring medical disorder 6. Acute intervention needed for co occurring psychiatric disorder 7. Severe withdrawal that cannot be handled at a lower level of care (continued vomiting, continued diarrhea, abnormal vital signs) requiring intravenous medication and/or fluids 8. Admission ROS [facility] Chief Complaint: 63 y/o M with no significant PMH who presents for detox from heroin and alcohol. States that his last use of heroin was yesterday. Used 7 bags worth. Uses 7-8 bags/day. Has never OD. Was in detox and rehab in 2018 for heroin at [facility]. Also endorses last drink was yesterday; had 1 pint of rum. Drinks 1 pint daily. Has never had alcoholic sz or blackouts. Endorses good support at home. Lives in [place]. Would like to go to rehab after he is done with detox. PMH: none PsxH: denies meds: denies allergies: NKDA FH: none SH: lives in [place]. 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 denies smoking cigarettes. alcohol and heroin use as above. denies other drug ingestions. Allergies/Adverse Reactions: Allergies Allergy/AdvReac Type Severity Reaction Status Date / Time No Known Allergies Allergy Verified 03/23/19 09:54 History of Present Illness: 63 y/o M with no significant PMH who presents for detox from heroin and alcohol. States that his last use of heroin was yesterday Exam Limitations: No Limitations - Ebola screening Have you traveled outside of the country in the last 21 days: No Have you had contact with anyone from an Ebola affected area: No Do you have a fever: No - Review of Systems Constitutional: Unintentional Wgt. Loss EENT: reports: Nose Congestion Respiratory: reports: Cough Cardiac: reports: No Symptoms Reported GI: reports: Abdominal cramping : reports: No Symptoms Reported Musculoskeletal: reports: Muscle Pain, Muscle Weakness Integumentary: reports: No Symptoms Reported Neuro: reports: Tremors Endocrine: reports: No Symptoms Reported Hematology: reports: No Symptoms Reported Psychiatric: reports: Orientated x3 Patient History - Patient Medical History Hx Anemia: No Hx Asthma: No Hx Chronic Obstructive Pulmonary Disease (COPD): No Hx Cancer: No Hx Cardiac Disorders: No Hx Congestive Heart Failure: No Hx Hypertension: No Hx Hypercholesterolemia: No Hx Pacemaker: No HX Cerebrovascular Accident: No Hx Seizures: No Hx Dementia: No Hx Diabetes: No Hx Gastrointestinal Disorders: No Hx Liver Disease: No Hx Genitourinary Disorders: No Hx Sexually Transmitted Disorders: No Hx Renal Disease (ESRD): No Hx Thyroid Disease: No Hx Human Immunodeficiency Virus (HIV): No Hx Hepatitis C: No Hx Depression: No Hx Suicide Attempt: No Hx Bipolar Disorder: No Hx Schizophrenia: No - Patient Surgical History Past Surgical History: No Hx Neurologic Surgery: No Hx Cataract Extraction: No Hx Cardiac Surgery: No Hx Lung Surgery: No Hx Breast Surgery: No Hx Breast Biopsy: No Hx Abdominal Surgery: No Hx Appendectomy: No Hx Cholecystectomy: No Hx Genitourinary Surgery: No Hx Section: No Hx Orthopedic Surgery: No Anesthesia Reaction: No - PPD History Documented Results: Negative w/o proof Date: 09/21/18 PPD to be Administered?: Yes - Reproductive History Patient is a Female of Child Bearing Age (11 -55 yrs old): No - Smoking Cessation Smoking history: Never smoked Have you smoked in the past 12 months: No Aproximately how many cigarettes per day: 0 If you are a former smoker, when did you quit?: 20 Cigars Per Day: 0 Hx Chewing Tobacco Use: No - Substance & Tx. History Hx Alcohol Use: Yes Hx Substance Use: Yes Substance Use Type: Heroin Hx Substance Use Treatment: Yes (rehab, detox 2018 ) - Substances abused Alcohol Substance route: Oral Frequency: Daily Amount used: 1 pint of rum, 3/24oz cans of beer Age of first use: 17 Date of last use: 03/22/19 Heroin Substance route: Inhalation Frequency: Daily Amount used: 8 bags Age of first use: 30 Date of last use: 03/22/19 Family Disease History - Family Disease History Family History: Denies Family Disease History: Other: Father ( no contact), Mother () Admission Physical Exam [facility] - Vital Signs Vital Signs: Vital Signs - 24 hr 03/23/19 09:47 Temperature 98.3 F Pulse Rate 57 L Respiratory 16 Rate Blood Pressure 129/83 - Physical General Appearance: Yes: Nourished HEENTM: Yes: Within Normal Limits Respiratory: Yes: Chest Non-Tender, Normal Breath Sounds Neck: Yes: Supple Breast: Yes: Breast Exam Deferred Cardiology: Yes: Regular Rhythm, Regular Rate, S1, S2 Abdominal: Yes: Flat, Soft Genitourinary: Yes: Within Normal Limits Back: Yes: Within Normal Limits Musculoskeletal: Yes: Within Normal Limits Extremities: Yes: Normal Range of Motion Neurological: Yes: senior benefits specialist II-XII NML intact Integumentary: Yes: Dry, Warm Lymphatic: Yes: Within Normal Limits - Diagnostic (1) Alcohol dependence with uncomplicated withdrawal Current Visit: No Status: Acute (2) Opioid dependence with withdrawal Current Visit: No Status: Acute Cleared for Admission [facility] - Detox or Rehab [facility] Level of Care: Medically Managed Detox Regimen/Protocol: Methadone/Librium Inpatient Rehab Admission - Rehab Decision to Admit Inpatient rehab admission?: No
[2019-03-23] MEDS ORDERED: cloNIDine HCL 0.1 MG TABLET PO PRN (10:26)
[2019-03-23] MEDS ORDERED: MELATONIN 5 MG TABLETS PO PRN (10:28)
[2019-03-23] MEDS ORDERED: MENTHOL/PHENOL 1 EACH UD MM PRN (10:28)
[2019-03-23] MEDS ORDERED: hydrOXYzine PAMOATE 25 MG CAPSULE (FP) PO PRN (10:28)
[2019-03-23] MEDS ORDERED: MAGNESIUM HYDROX 2400MG/30ML ORAL SUSPENSION 30 ML CUP PO PRN (10:28)
[2019-03-23] MEDS ORDERED: ACETAMINOPHEN 325 MG TABLET (FP) PO PRN (10:28)
[2019-03-23] MEDS ORDERED: BISMUTH SUBSALICYLATE 262 MG/15 ML BTL PO PRN (10:28)
[2019-03-23] MEDS ORDERED: MAGNESIUM CITRATE 300 ML BOTTLE PO PRN (10:28)
[2019-03-23] MEDS ORDERED: METHOCARBAMOL 500 MG TABLET PO PRN (10:28)
--- NOTE | 2019-03-23 10:40 | PN ---
OLIVER Progress Note Note: this 63 years old male with heroin and alcohol dependence i personally present,review ,the history and examination of this patient by Dr.Abbi Griffiths, including plan of treatment and concurred with the need for inpatient Detox, Medically managed and methadone and librium regimen
--- NOTE | 2019-03-23 11:01 | PN ---
[facility] Progress Note Note: ptient has history of positive ppd,will do chest x ray
[2019-03-23] MEDS ORDERED: METHADONE HCL 10 MG TABLET (FOR DETOX USE ONLY) PO ONE (11:10)
[2019-03-23] MEDS: chlordiazePOXIDE HCL 25 MG CAPSULE PO SCH ×2 (12:46→22:20)
[2019-03-23 14:47] LABS: URINE APPEARANCE CLEAR; URINE BILIRUBIN NEGATIVE (NEGATIVE); URINE COLOR YELLOW; URINE GLUCOSE (UA) TRACE (NEGATIVE); URINE KETONE NEGATIVE (NEGATIVE); URINE LEUK ESTERASE NEGATIVE (NEGATIVE); URINE NITRITE NEGATIVE (NEGATIVE); URINE PROTEIN NEGATIVE (NEGATIVE); URINE UROBILINOGEN 0.2 mg/dL (0.2-1.0)
[2019-03-23 14:49] LABS: HEMATOCRIT 40.8 % (35.4-49); HEMOGLOBIN 13.4 GM/dL (11.7-16.9); MCH 29.7 pg (25.7-33.7); MCHC 32.9 g/dl (32.0-35.9); MEAN CELL VOLUME 90.4 fl (80-96); MEAN PLT VOLUME 9.1 fl (7.5-11.1); PLATELET COUNT 191 K/MM3 (134-434); RBC 4.51 M/mm3 (4.00-5.60); WHITE BLOOD COUNT 7.7 K/mm3 (4.0-10.0)
[2019-03-23 15:02] LABS: BILIRUBIN,TOTAL 1.4 mg/dL (0.2-1); BLOOD UREA NITROGEN 18.4 mg/dL (7-18); CALCIUM 8.8 mg/dL (8.5-10.1); POTASSIUM 3.9 mmol/L (3.5-5.1)
[2019-03-23] MEDS: chlordiazePOXIDE HCL 10 MG CAPSULE PO PRN (16:04)
[2019-03-23] MEDS: THIAMINE HCL 100 MG TABLET (FP) PO SCH (22:20)
[2019-03-24] MEDS: chlordiazePOXIDE HCL 25 MG CAPSULE PO SCH ×3 (04:55→21:24)
[2019-03-24] MEDS: MAG HYDROX/AL HYDROX/SIMETH 30 ML UNIT-DOSE CUP PO PRN (04:55)
[2019-03-24] MEDS: IBUPROFEN 400 MG TABLET (FP) PO PRN ×3 (04:56→21:24)
[2019-03-24] MEDS ORDERED: METHADONE HCL 5 MG TABLET (FOR DETOX USE ONLY) PO ONE (10:00)
[2019-03-24] MEDS: chlordiazePOXIDE HCL 10 MG CAPSULE PO PRN (10:45)
[2019-03-24] MEDS: PRENATAL VITAMINS W/ FOLIC ACID TABLET (FP) PO SCH (10:46)
--- NOTE | 2019-03-24 10:48 | PN ---
S CIWA - CIWA Score Nausea/Vomitin-Mild Nausea/No Vomiting Muscle Tremors: 3 Anxiety: 3 Agitation: 3 Paroxysmal Sweats: 1-Minimal Palms Moist Orientation: 0-Oriented Tacttile Disturbances: 0-None Auditory Disturbances: 0-None Visual Disturbances: 0-None Headache: 2-Mild CIWA-Ar Total Score: 13 [facility] COWS - Scale Resting Pulse: 0= [place] 80 or Below Sweatin= Chills/Flushing Restless Observation: 0= Sits Still Pupil Size: 0= Normal to Room Light Bone or Joint Aches: 1= Mild Discomfort Runny Nose/ Eye Tearin= Nasal Congestion GI Upset > 30mins: 2= Nausea/Diarrhea Tremor Observation of Outstretched Hands: 2= Slight Tremor Visible Yawning Observation: 1= 1-2x During Session Anxiety or Irritability: 2=Irritable/Anxious Goose Flesh Skin: 3=Piloerection COWS Score: 13 S Progress Note (SOAP) Subjective: body aches anxious minimum food toleration Objective: 03/24/19 10:47 Vital Signs Temperature 98.6 F 03/24/19 09:33 Pulse Rate 76 03/24/19 09:33 Respiratory Rate 18 03/24/19 09:33 Blood Pressure 131/91 03/24/19 09:33 O2 Sat by Pulse Oximetry (%) Laboratory Last Values WBC 7.7 K/mm3 (4.0-10.0) 03/23/19 10:50 RBC 4.51 M/mm3 (4.00-5.60) 03/23/19 10:50 Hgb 13.4 GM/dL (11.7-16.9) 03/23/19 10:50 Hct 40.8 % (35.4-49) 03/23/19 10:50 MCV 90.4 fl (80-96) 03/23/19 10:50 MCH 29.7 pg (25.7-33.7) 03/23/19 10:50 MCHC 32.9 g/dl (32.0-35.9) 03/23/19 10:50 RDW 14.0 % (11.9-15.9) 03/23/19 10:50 Plt Count 191 K/MM3 (134-434) 03/23/19 10:50 MPV 9.1 fl (7.5-11.1) 03/23/19 10:50 Sodium 135 mmol/L (136-145) L 03/23/19 10:50 Potassium 3.9 mmol/L (3.5-5.1) 03/23/19 10:50 Chloride 102 mmol/L (98-107) 03/23/19 10:50 Carbon Dioxide 28 mmol/L (21-32) 03/23/19 10:50 Anion Gap 5 MMOL/L (8-16) L 03/23/19 10:50 BUN 18.4 mg/dL (7-18) H 03/23/19 10:50 Creatinine 1.0 mg/dL (0.55-1.3) 03/23/19 10:50 Est GFR (CKD-EPI)AfAm 93.73 03/23/19 10:50 Est GFR (CKD-EPI)NonAf 80.87 03/23/19 10:50 Random Glucose 78 mg/dL (74-106) 03/23/19 10:50 Calcium 8.8 mg/dL (8.5-10.1) 03/23/19 10:50 Total Bilirubin 1.4 mg/dL (0.2-1) H 03/23/19 10:50 AST 34 U/L (15-37) 03/23/19 10:50 ALT 19 U/L (13-61) 03/23/19 10:50 Alkaline Phosphatase 67 U/L (45-117) 03/23/19 10:50 Total Protein 8.0 g/dl (6.4-8.2) 03/23/19 10:50 Albumin 4.0 g/dl (3.4-5.0) 03/23/19 10:50 Urine Color Yellow 03/23/19 11:15 Urine Appearance Clear 03/23/19 11:15 Urine pH 5.0 (5.0-8.0) 03/23/19 11:15 Ur Specific [place] 1.022 (1.010-1.035) 03/23/19 11:15 Urine Protein Negative (NEGATIVE) 03/23/19 11:15 Urine Glucose (UA) Trace (NEGATIVE) 03/23/19 11:15 Urine Ketones Negative (NEGATIVE) 03/23/19 11:15 Urine Blood Negative (NEGATIVE) 03/23/19 11:15 Urine Nitrite Negative (NEGATIVE) 03/23/19 11:15 Urine Bilirubin Negative (NEGATIVE) 03/23/19 11:15 Urine Urobilinogen 0.2 mg/dL (0.2-1.0) 03/23/19 11:15 Ur Leukocyte Esterase Negative (NEGATIVE) 03/23/19 11:15 RPR Titer Nonreactive (NONREACTIVE) 03/23/19 10:50 lab noted Assessment: 03/24/19 10:47 alcohol and opiate withdrawal sx Plan: continue alcohol and opiate detox
[2019-03-24] MEDS: THIAMINE HCL 100 MG TABLET (FP) PO SCH (21:24)
[2019-03-24] MEDS: QUEtiapine FUMARATE 50 MG TABLET PO SCH (21:24)
[2019-03-25] MEDS: chlordiazePOXIDE 5 MG CAPSULE PO SCH ×3 (06:27→22:23)
[2019-03-25] MEDS: IBUPROFEN 400 MG TABLET (FP) PO PRN (06:28)
[2019-03-25] MEDS ORDERED: METHADONE HCL 10 MG TABLET (FOR DETOX USE ONLY) PO ONE (10:00)
[2019-03-25] MEDS: PRENATAL VITAMINS W/ FOLIC ACID TABLET (FP) PO SCH (10:14)
[2019-03-25] MEDS: MAG HYDROX/AL HYDROX/SIMETH 30 ML UNIT-DOSE CUP PO PRN (10:16)
[2019-03-25] MEDS: ACETAMINOPHEN 325 MG TABLET (FP) PO PRN ×2 (12:24→19:53)
--- NOTE | 2019-03-25 16:22 | PN ---
S CIWA - CIWA Score Nausea/Vomitin-No Nausea/No Vomiting Muscle Tremors: None Anxiety: 3 Agitation: 1-Slight > Activity Paroxysmal Sweats: No Perspiration Orientation: 0-Oriented Tacttile Disturbances: 1-Very Mild Itch/Numbness Auditory Disturbances: 1-Very Mild Visual Disturbances: 0-None Headache: 0-None Present CIWA-Ar Total Score: 6 [facility] COWS - Scale Resting Pulse: 1= [place] 81-100 Sweatin= No chills or Flushing Restless Observation: 1= Difficult to Sit Still Pupil Size: 0= Normal to Room Light Bone or Joint Aches: 0= None Runny Nose/ Eye Tearin= None GI Upset > 30mins: 0= None Tremor Observation of Outstretched Hands: 0= None Yawning Observation: 1= 1-2x During Session Anxiety or Irritability: 2=Irritable/Anxious Goose Flesh Skin: 3=Piloerection COWS Score: 8 S Progress Note (SOAP) Subjective: Anxious, Restless. Objective: PATIENT A & O X 3, OBSERVED AMBULATING ON UNIT UNASSISTED. IN NO ACUTE DISTRESS. 03/25/19 16:20 Vital Signs Temperature 96.8 F L 03/25/19 13:52 Pulse Rate 69 03/25/19 13:52 Respiratory Rate 18 03/25/19 13:52 Blood Pressure 140/84 03/25/19 13:52 O2 Sat by Pulse Oximetry (%) Laboratory Tests 03/23/19 03/23/19 03/23/19 10:50 10:50 10:50 WBC 7.7 RBC 4.51 Hgb 13.4 Hct 40.8 MCV 90.4 MCH 29.7 MCHC 32.9 RDW 14.0 Plt Count 191 MPV 9.1 Sodium 135 L Potassium 3.9 Chloride 102 Carbon Dioxide 28 Anion Gap 5 L BUN 18.4 H Creatinine 1.0 Est GFR (CKD-EPI)AfAm 93.73 Est GFR (CKD-EPI)NonAf 80.87 Random Glucose 78 Calcium 8.8 Total Bilirubin 1.4 H AST 34 ALT 19 Alkaline Phosphatase 67 Total Protein 8.0 Albumin 4.0 Urine Color Urine Appearance Urine pH Ur Specific [place] Urine Protein Urine Glucose (UA) Urine Ketones Urine Blood Urine Nitrite Urine Bilirubin Urine Urobilinogen Ur Leukocyte Esterase RPR Titer Nonreactive 03/23/19 11:15 WBC RBC Hgb Hct MCV MCH MCHC RDW Plt Count MPV Sodium Potassium Chloride Carbon Dioxide Anion Gap BUN Creatinine Est GFR (CKD-EPI)AfAm Est GFR (CKD-EPI)NonAf Random Glucose Calcium Total Bilirubin AST ALT Alkaline Phosphatase Total Protein Albumin Urine Color Yellow Urine Appearance Clear Urine pH 5.0 Ur Specific [place] 1.022 Urine Protein Negative Urine Glucose (UA) Trace Urine Ketones Negative Urine Blood Negative Urine Nitrite Negative Urine Bilirubin Negative Urine Urobilinogen 0.2 Ur Leukocyte Esterase Negative RPR Titer LABS NOTED. Assessment: 03/25/19 16:21 WITHDRAWAL SYMPTOMS. HYPERBILIRUBINEMIA. ELEVATED BLOOD PRESSURE. 03/25/19 16:22 Plan: CONTINUE DETOX. INCREASE DAILY PO WATER INTAKE. CONTINUE TO MONITOR BLOOD PRESSURE (PATIENT DENIES KNOWN HISTORY OF HYPERTENSION / TREATMENT FOR HYPERTENSION).
[2019-03-25] MEDS: chlordiazePOXIDE HCL 10 MG CAPSULE PO PRN (19:52)
[2019-03-25] MEDS: QUEtiapine FUMARATE 50 MG TABLET PO SCH (22:23)
[2019-03-25] MEDS: THIAMINE HCL 100 MG TABLET (FP) PO SCH (23:25)
[2019-03-26] MEDS ORDERED: chlordiazePOXIDE HCL 10 MG CAPSULE PO PRN
[2019-03-26] MEDS ORDERED: chlordiazePOXIDE HCL 10 MG CAPSULE PO SCH (05:00)
[2019-03-26] MEDS: ACETAMINOPHEN 325 MG TABLET (FP) PO PRN (05:40)
[2019-03-26] MEDS ORDERED: METHADONE HCL 5 MG TABLET (FOR DETOX USE ONLY) PO ONE (06:00)
[2019-03-26 09:37] VITALS: BP 129/91; PULSE 79; TEMP 97.2
--- NOTE | 2019-03-26 14:23 | DS ---
[facility] Detox Discharge Summary Admission Date: 03/23/19 Discharge Date: 03/26/19 - History Present History: Alcohol Dependence, Opioid Dependence Additional Comments: PATIENT DENIES CURRENT WITHDRAWAL / DETOX SYMPTOMS AND REPORTS THAT HE FEELS WELL OVERALL AT TIME OF DISCHARGE FROM DETOX UNIT. PATIENT WILL ATTEND [facility] ([place], [place]) FOR AFTERCARE. PATIENT WAS DISCHARGED FROM DETOX UNIT IN STABLE MEDICAL CONDITION. Pertinent Past History: History Of Positive PPD, Hyperbilirubinemia, Elevated Blood Pressure Reading Without Diagnosis of hypertension. - Physical Exam Results Vital Signs: Vital Signs Temperature 97.2 F L 03/26/19 09:37 Pulse Rate 79 03/26/19 09:37 Respiratory Rate 18 03/26/19 09:37 Blood Pressure 129/91 03/26/19 09:37 O2 Sat by Pulse Oximetry (%) Pertinent Admission Physical Exam Findings: WITHDRAWAL SYMPTOMS. Laboratory Tests 03/23/19 03/23/19 03/23/19 10:50 10:50 10:50 WBC 7.7 RBC 4.51 Hgb 13.4 Hct 40.8 MCV 90.4 MCH 29.7 MCHC 32.9 RDW 14.0 Plt Count 191 MPV 9.1 Sodium 135 L Potassium 3.9 Chloride 102 Carbon Dioxide 28 Anion Gap 5 L BUN 18.4 H Creatinine 1.0 Est GFR (CKD-EPI)AfAm 93.73 Est GFR (CKD-EPI)NonAf 80.87 Random Glucose 78 Calcium 8.8 Total Bilirubin 1.4 H AST 34 ALT 19 Alkaline Phosphatase 67 Total Protein 8.0 Albumin 4.0 Urine Color Urine Appearance Urine pH Ur Specific [place] Urine Protein Urine Glucose (UA) Urine Ketones Urine Blood Urine Nitrite Urine Bilirubin Urine Urobilinogen Ur Leukocyte Esterase RPR Titer Nonreactive 03/23/19 11:15 WBC RBC Hgb Hct MCV MCH MCHC RDW Plt Count MPV Sodium Potassium Chloride Carbon Dioxide Anion Gap BUN Creatinine Est GFR (CKD-EPI)AfAm Est GFR (CKD-EPI)NonAf Random Glucose Calcium Total Bilirubin AST ALT Alkaline Phosphatase Total Protein Albumin Urine Color Yellow Urine Appearance Clear Urine pH 5.0 Ur Specific [place] 1.022 Urine Protein Negative Urine Glucose (UA) Trace Urine Ketones Negative Urine Blood Negative Urine Nitrite Negative Urine Bilirubin Negative Urine Urobilinogen 0.2 Ur Leukocyte Esterase Negative RPR Titer LABS NOTED. - Treatment Hospital Course: Detox Protocol Followed, Detoxed Safely, Responded well, Discharged Condition Good Patient has Accepted a Rehab Referral to: PATIENT WILL ATTEND [facility] OUT[facility]IENT [facility] ([place], [place]). - Medication Discharge Medications: Ambulatory Orders NK [No Known Home Medication] 09/07/18 - Diagnosis (1) Alcohol dependence with uncomplicated withdrawal Status: Acute (2) Elevated blood pressure reading in office with diagnosis of hypertension Status: Acute (3) Hyperbilirubinemia Status: Acute (4) Opioid dependence with withdrawal Status: Acute - AMA Did Patient Leave Against Medical Advice: No
[2019-03-27] MEDS ORDERED: chlordiazePOXIDE HCL 10 MG CAPSULE PO ONE (05:00)
== END 2019-03-26 10:10 | disposition home or self-care (01) | DRG 773 ==
LOC: YASAS 09:21 → Y3N 10:39
PROVIDERS: ADMIT Surgery; ATTEND Surgery
PROC: HZ2ZZZZ Detoxification Services for Substance Abuse Treatment (ICD-10-PCS; principal; 2019-03-23)
DX: F10.230 Alcohol dependence with withdrawal, uncomplicated (principal); F11.23 Opioid dependence with withdrawal; E80.6 Other disorders of bilirubin metabolism; R03.0 Elevated blood-pressure reading, without diagnosis of hypertension; R76.11 Nonspecific reaction to tuberculin skin test without active tuberculosis
CPT/HCPCS: 36415; 80053; 81003; 85027; 86593

== ENCOUNTER 2019-06-01 12:59 | Inpatient (IN) | payer OTHER | END 2019-06-06 12:55 | disposition other institution (70) | LOC: YASAS 12:59 → Y3N 18:12 ==

== ENCOUNTER 2019-06-06 13:30 | Inpatient (IN) | payer OTHER ==
--- NOTE | 2019-06-06 12:59 | HP ---
OLIVER JENNINGS Rehab Assess/Revision - Admission History Admitted to Rehab from: [facility] Date of Admission to Rehab: 06/06/19 - Findings Detox History & Physical reviewed: Yes Concur with findings: Yes Comments/Additional Findings: transferred from detox to rehab admission as per protocol Inpatient Rehab Admission - Rehab Decision to Admit Inpatient rehab admission?: Yes - Initial Determination Are CD services needed?: Yes Free of communicable disease: Yes Not in need of hospitalization: Yes - Rehab Admission Criteria Previous failed treatment: Yes Poor recovery environment: Yes Comorbidities: Yes Lacks judgement: Yes Patient is meeting Inpatient Rehab admission criteria:: Yes
[~2019-06-06 13:30] MED LIST: ACETAMINOPHEN 325 MG TABLET (FP) PO PRN; LOPERAMIDE HCL 2 MG CAPSULE PO PRN; MAGNESIUM CITRATE 300 ML BOTTLE PO PRN; MAGNESIUM HYDROX 2400MG/30ML ORAL SUSPENSION 30 ML CUP PO PRN; MENTHOL/PHENOL 1 EACH UD MM PRN; NICOTINE 7 MG/24 HOURS TOPICAL PATCH TD PRN; NICOTINE POLACRILEX 2 MG GUM BC PRN; P-EPHED 60MG/TRIPROLIDI 2.5MG TABLET PO PRN
--- NOTE | 2019-06-06 14:45 | PN ---
OLIVER Progress Note Note: received nurse call that the patient wants to increase his remeron requests psychiatric consultation psychiatrist referral
[2019-06-06] MEDS: THIAMINE HCL 100 MG TABLET (FP) PO SCH (21:45)
[2019-06-06] MEDS ORDERED: MIRTAZAPINE 15 MG TABLET (FP) PO SCH (22:00)
[2019-06-07] MEDS: IBUPROFEN 400 MG TABLET (FP) PO PRN ×2 (04:28→21:31)
[2019-06-07] MEDS: PRENATAL VITAMINS W/ FOLIC ACID TABLET (FP) PO SCH (10:45)
[2019-06-07] MEDS: MAG HYDROX/AL HYDROX/SIMETH 30 ML UNIT-DOSE CUP PO PRN (11:41)
--- NOTE | 2019-06-07 14:06 | CONSULT ---
[facility] Psychiatric Consult - Data Date of interview: 06/07/19 Admission source: [facility] Identifying data: Patient is a 63 year old single male, father of five, domiciled, unemployed, and is supported on welfare. Patient admitted to for alcohol and opiate dependence. Substance Abuse History: Smoking Cessation. Smoking history: Never smoked. Have you smoked in the past 12 months: No. Aproximately how many cigarettes per day: 0. If you are a former smoker, when did you quit?: 20. Cigars Per Day : 0. Hx Chewing Tobacco Use: No. - Substance & Tx. History. Hx Alcohol Use: Yes. Hx Substance Use: Yes. Substance Use Type: Heroin, Opiates. - Substances abused. Alcohol. Substance route: Oral. Frequency: 3-6 times per week. Amount used: 1 pint of rum, 2/24oz cans of beer. Age of first use: 17. Date of last use: 05/31/19. Heroin. Substance route: Inhalation. Frequency: Daily. Amount used: 8-10 bags. Age of first use: 30. Date of last use: 05/31/19 Medical History: History of positive PPD and chronic lumbar pain. Psychiatric History: Patient denies h/o psychiatric hospitalization, suicide attempts, and outpatient care. Patient seen by Dr. Schrader on 3N and was prescribed remeron 7.5mg HS. At present patient reports stable mood but reports mild anxiety, restlessness and difficulty sleeping. Physical/Sexual Abuse/Trauma History: Patient served in the [employer] ([id number]). 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 Never deployed in combat situations. Mental Status Exam - Mental Status Exam Alert and Oriented to: Time, Place, Person Cognitive Function: Good Patient Appearance: Well Groomed Mood: Euthymic Affect: Mood Congruent Patient Behavior: Cooperative Speech Pattern: Appropriate Voice Loudness: Normal Thought Process: Goal Oriented Thought Disorder: Not Present Hallucinations: Denies Suicidal Ideation: Denies Homicidal Ideation: Denies Insight/Judgement: Poor Sleep: Poorly Appetite: Fair Muscle strength/Tone: Normal Gait/Station: Normal Psychiatric Findings - Problem List ([place] 1, 2,3) (1) Opioid dependence Current Visit: Yes Status: Acute (2) Alcohol dependence Current Visit: Yes Status: Acute (3) Insomnia Current Visit: Yes Status: Chronic Qualifiers: Insomnia type: drug-induced Qualified Code(s): F19.982 - Other psychoactive substance use, unspecified with psychoactive substance-induced sleep disorder (4) Substance induced mood disorder Current Visit: Yes Status: Suspected - Initial Treatment Plan Initial Treatment Plan: Psychoeducation provided. Rehab in progress. Will d/c remeron 7.5mg HS. Will order remeron 15mg HS. Benefits and side effects discussed. Verbal consent given.
[2019-06-07] MEDS: MIRTAZAPINE 15 MG TABLET (FP) PO SCH (21:29)
[2019-06-07] MEDS: THIAMINE HCL 100 MG TABLET (FP) PO SCH (21:29)
[2019-06-08] MEDS: PRENATAL VITAMINS W/ FOLIC ACID TABLET (FP) PO SCH (10:51)
[2019-06-08] MEDS: MAG HYDROX/AL HYDROX/SIMETH 30 ML UNIT-DOSE CUP PO PRN (10:52)
[2019-06-08] MEDS: THIAMINE HCL 100 MG TABLET (FP) PO SCH (22:00)
[2019-06-08] MEDS: IBUPROFEN 400 MG TABLET (FP) PO PRN (22:01)
[2019-06-08] MEDS: MELATONIN 5 MG TABLETS PO PRN (22:01)
[2019-06-08] MEDS: MIRTAZAPINE 15 MG TABLET (FP) PO SCH (22:01)
[2019-06-09] MEDS: PRENATAL VITAMINS W/ FOLIC ACID TABLET (FP) PO SCH (11:06)
[2019-06-09] MEDS: THIAMINE HCL 100 MG TABLET (FP) PO SCH (21:57)
[2019-06-09] MEDS: MIRTAZAPINE 15 MG TABLET (FP) PO SCH (21:57)
[2019-06-09] MEDS: MELATONIN 5 MG TABLETS PO PRN (21:58)
[2019-06-10] MEDS: MAG HYDROX/AL HYDROX/SIMETH 30 ML UNIT-DOSE CUP PO PRN (10:45)
[2019-06-10] MEDS: PRENATAL VITAMINS W/ FOLIC ACID TABLET (FP) PO SCH (10:45)
--- NOTE | 2019-06-10 16:11 | PN ---
OLIVER Progress Note Note: Nurse reports that this patient wants to increase medication for sleeping. Pt is on Melatonin 5 mg po hs prn with no effect. Pt is alsoon Remeron 15 mg po hs. Vital Signs - 24 hr 06/10/19 06/10/19 06/10/19 00:30 03:30 07:17 Temperature 97.4 F L Pulse Rate 92 H Respiratory 18 18 18 Rate Blood Pressure 135/81 A/P Poor sleep hygiene Plan:Increase melatonin 10 mg po hs prn Refer to Psych MD if not effective
[2019-06-10] MEDS: MIRTAZAPINE 15 MG TABLET (FP) PO SCH (22:00)
[2019-06-10] MEDS: THIAMINE HCL 100 MG TABLET (FP) PO SCH (22:00)
[2019-06-10] MEDS: MELATONIN 5 MG TABLETS PO PRN (22:00)
[2019-06-11] MEDS: PRENATAL VITAMINS W/ FOLIC ACID TABLET (FP) PO SCH (10:29)
[2019-06-11] MEDS: MIRTAZAPINE 15 MG TABLET (FP) PO SCH (22:30)
[2019-06-11] MEDS: THIAMINE HCL 100 MG TABLET (FP) PO SCH (22:30)
[2019-06-12] MEDS: PRENATAL VITAMINS W/ FOLIC ACID TABLET (FP) PO SCH (10:23)
[2019-06-12] MEDS: MIRTAZAPINE 15 MG TABLET (FP) PO SCH (22:12)
[2019-06-12] MEDS: THIAMINE HCL 100 MG TABLET (FP) PO SCH (22:13)
[2019-06-13] MEDS: PRENATAL VITAMINS W/ FOLIC ACID TABLET (FP) PO SCH (10:35)
[2019-06-13] MEDS: MIRTAZAPINE 15 MG TABLET (FP) PO SCH (21:04)
[2019-06-13] MEDS: MELATONIN 5 MG TABLETS PO PRN (21:04)
[2019-06-13] MEDS: THIAMINE HCL 100 MG TABLET (FP) PO SCH (21:05)
[2019-06-14] MEDS: PRENATAL VITAMINS W/ FOLIC ACID TABLET (FP) PO SCH (10:25)
--- NOTE | 2019-06-14 12:53 | PN ---
Psychiatric Progress Note Vital Signs: Vital Signs Period Temp Pulse Resp BP Sys/Egan Pulse Ox Last 24 Hr 98.5 F 94 18-20 124/84 Date of Session: 06/14/19 Chief Complaint:: " I'm only sleeping two hours per night." HPI: Patient admitted to for alcohol and opiate dependence. ROS: Patient is coherent, alert, and oriented X3. Current Medications: Active Medications Generic Name Dose Route Start Last Admin Trade Name Freq PRN Reason Stop Dose Admin Acetaminophen 650 mg 06/06/19 12:59 Tylenol - PO Q4H PRN FEVER Al Hydroxide/Mg Hydroxide 30 ml 06/06/19 12:59 06/10/19 10:45 Mylanta Oral Suspension - PO 30 ml Q6H PRN Administration DYSPEPSIA Eucalyptus/Menthol/Phenol/Sorbitol 1 each 06/06/19 12:59 Cepastat Lozenge - MM Q4H PRN SORE THROAT Guaifenesin 10 ml 06/06/19 12:59 Robitussin - PO Q6H PRN COUGH Ibuprofen 400 mg 06/06/19 12:59 06/08/19 22:01 Motrin - PO 400 mg Q6H PRN Administration Pain level 4-6 Loperamide HCl 4 mg 06/06/19 12:59 Imodium - PO Q6H PRN DIARRHEA Magnesium Citrate 300 ml 06/06/19 12:59 Citroma - PO Q48H PRN CONSTIPATION Magnesium Hydroxide 30 ml 06/06/19 12:59 Milk Of Magnesia - PO DAILY PRN CONSTIPATION Melatonin 10 mg 06/10/19 16:15 06/13/19 21:04 Melatonin PO 10 mg HS PRN Administration INSOMNIA Mirtazapine 15 mg 06/07/19 22:00 06/13/19 21:04 Remeron - PO 15 mg HS HOWARD Administration Nicotine 7 mg 06/06/19 12:59 Nicoderm Patch - TD DAILY PRN NICOTINE REPLACEMENT RX Nicotine Polacrilex 2 mg 06/06/19 12:59 Nicorette Gum - BC Q2H PRN NICOTINE REPLACEMENT RX Multivit/Folic Acid/Iron 1 tab 06/07/19 10:00 06/14/19 10:25 Vitamins (Sjr) - PO Not Given DAILY HOWARD Pseudoephedrine/Triprolidine 1 combo 09/16/19 12:59 Actifed - PO TID PRN NASAL CONGESTION Thiamine HCl 100 mg 06/06/19 22:00 06/13/19 21:05 Vitamin B1 - PO Not Given HS [facility] Medication(s) Change(s): Yes. Current Side Effect: No Lab tests ordered: No Lab tests reviewed: Yes Provider note:: Patient reports poor sleep. Reports sleeping 2-3 hours per night. Patient is accepting remeron 15mg + Melatonin 10mg but continues to report difficulty sleeping. Mr. Waller is requesting melatonin be discontinued. Will order Belsomra 10mg and discontinue melatonin 10mg hs. Benefits and side effects discussed. Verbal consent given. Total face to face time:: 20 Mental Status Exam - Mental Status Exam Alert and Oriented to: Time, Place, Person Cognitive Function: Good Patient Appearance: Well Groomed Mood: Euthymic Affect: Mood Congruent Patient Behavior: Cooperative Speech Pattern: Appropriate Voice Loudness: Normal Thought Process: Goal Oriented Thought Disorder: Not Present Hallucinations: Denies Suicidal Ideation: Denies Homicidal Ideation: Denies Insight/Judgement: Poor Sleep: Poorly Appetite: Fair Muscle strength/Tone: Normal Gait/Station: Normal Psychiatric Treatment Plan - Problem List (1) Opioid dependence Current Visit: Yes (2) Alcohol dependence Current Visit: Yes (3) Insomnia Current Visit: Yes Qualifiers: Insomnia type: drug-induced Qualified Code(s): F19.982 - Other psychoactive substance use, unspecified with psychoactive substance-induced sleep disorder (4) Substance induced mood disorder Current Visit: Yes
--- NOTE | 2019-06-14 15:18 | PN ---
BHS Progress Note (SOAP) Subjective: Pt was referred to this provider for evaluation for possible Suboxone-MAT. Pt was identified as a patient who has been on suboxone as below and might benefit from treatment. Pt spoke to this rewriter that he does not want to get back on Suboxone stating "I'm clean now and don't want anything anymore inside me". Others' Prescriptions Patient Name: Genaro Waller Date: 1955 Address: [address] [place] [address] [address] [place] [id number] Sex: Male Rx Written Rx Dispensed Drug Quantity Days Supply Prescriber Name 07/07/2018 07/07/2018 suboxone 8 mg-2 mg sl film 30 15 Taurn Moscoso MD 06/23/2018 06/23/2018 suboxone 8 mg-2 mg sl film 15 15 Tarun Moscoso MD * - Drugs marked with an asterisk are compound drugs. If the compound drug is made up of more than one controlled substance, then each controlled substance will be a separate row in the table.Pt was referred to this rewriter Objective: 06/14/19 19:45 Vital Signs (72 hours) 06/12/19 06/12/19 06/12/19 00:30 03:30 07:26 Temperature 98.0 F Pulse Rate 92 H Respiratory 18 18 18 Rate Blood Pressure 113/72 06/13/19 06/13/19 06/14/19 03:30 07:19 00:30 Temperature 97.8 F Pulse Rate 83 Respiratory 18 18 18 Rate Blood Pressure 124/77 06/14/19 06/14/19 03:30 06:14 Temperature 98.5 F Pulse Rate 94 H Respiratory 18 20 Rate Blood Pressure 124/84 Alert o x 3 oob ambulating with steady gait nad Participating in groups as needed. Assessment: 06/14/19 19:46 rehab patient Plan: maintain safety Follow up with patient if changes his mind for MAT. D/w pt's counselor, Ms Gustabo Finn about pt's refusal at this time and plan to revisit with patient if needed.
[2019-06-14] MEDS: THIAMINE HCL 100 MG TABLET (FP) PO SCH (21:01)
[2019-06-14] MEDS: SUVOREXANT 10 MG TABLET PO PRN (21:02)
[2019-06-14] MEDS: MIRTAZAPINE 15 MG TABLET (FP) PO SCH (21:02)
[2019-06-15] MEDS: PRENATAL VITAMINS W/ FOLIC ACID TABLET (FP) PO SCH (09:53)
[2019-06-15] MEDS: THIAMINE HCL 100 MG TABLET (FP) PO SCH (20:59)
[2019-06-15] MEDS: SUVOREXANT 10 MG TABLET PO PRN (21:00)
[2019-06-15] MEDS: MIRTAZAPINE 15 MG TABLET (FP) PO SCH (21:01)
[2019-06-16] MEDS: PRENATAL VITAMINS W/ FOLIC ACID TABLET (FP) PO SCH (11:29)
[2019-06-16] MEDS: THIAMINE HCL 100 MG TABLET (FP) PO SCH (22:14)
[2019-06-16] MEDS: MIRTAZAPINE 15 MG TABLET (FP) PO SCH (22:14)
[2019-06-17] MEDS: PRENATAL VITAMINS W/ FOLIC ACID TABLET (FP) PO SCH (10:32)
--- NOTE | 2019-06-17 17:12 | PN ---
BHS Progress Note Note: Psychiatric nurse practitioner note: Belsomra 10mg ordered X3 days. Verbal consent given.
[2019-06-17] MEDS: MIRTAZAPINE 15 MG TABLET (FP) PO SCH (21:04)
[2019-06-17] MEDS: THIAMINE HCL 100 MG TABLET (FP) PO SCH (21:04)
[2019-06-17] MEDS ORDERED: SUVOREXANT 10 MG TABLET PO PRN (22:00)
[2019-06-18] MEDS: PRENATAL VITAMINS W/ FOLIC ACID TABLET (FP) PO SCH (11:25)
[2019-06-18] MEDS: guaiFENesin 200 MG/10 ML 10 ML UNIT-DOSE CUPS PO PRN (12:54)
[2019-06-18] MEDS: MIRTAZAPINE 15 MG TABLET (FP) PO SCH (21:46)
[2019-06-18] MEDS: THIAMINE HCL 100 MG TABLET (FP) PO SCH (21:46)
[2019-06-19] MEDS: MAG HYDROX/AL HYDROX/SIMETH 30 ML UNIT-DOSE CUP PO PRN (02:18)
[2019-06-19] MEDS: PRENATAL VITAMINS W/ FOLIC ACID TABLET (FP) PO SCH (10:40)
[2019-06-19] MEDS ORDERED: SUVOREXANT 10 MG TABLET PO PRN (12:59)
--- NOTE | 2019-06-19 13:17 | PN ---
S Progress Note Note: Psychiatric nurse practitioner note: Patient scheduled for discharge on 06/20/19. A 30 day prescription of remeron 15mg HS was electronically sent to [facility], [address] [place] [address].
[2019-06-19] MEDS: guaiFENesin 200 MG/10 ML 10 ML UNIT-DOSE CUPS PO PRN (15:42)
[2019-06-19] MEDS: THIAMINE HCL 100 MG TABLET (FP) PO SCH (22:21)
[2019-06-19] MEDS: MIRTAZAPINE 15 MG TABLET (FP) PO SCH (22:21)
[2019-06-20] MEDS: guaiFENesin 200 MG/10 ML 10 ML UNIT-DOSE CUPS PO PRN ×2 (01:19→09:23)
[2019-06-20 06:48] VITALS: BP 141/87; PULSE 79; TEMP 97.9
--- NOTE | 2019-06-20 09:07 | DS ---
[facility] Rehab Discharge Summary - [facility] Rehab Discharge Summary Admission Date: 06/06/19 Discharge Date: 06/20/19 - History Present History: Alcohol dependence, Opioid dependence, Sedative dependence Additional Comments: pt is a 63 y/o male with a hx of DEJAN admitted to rehab and discharging today after completion of rehab. Pt reports he has no primary care provider but goes to [facility] when in [place] or [facility] when in in [place]. Pertinent Past History: Poor sleep hygiene - Discharge Physical Exam Vital Signs: Vital Signs Temperature 97.9 F 06/20/19 06:47 Pulse Rate 79 06/20/19 06:47 Respiratory Rate 18 06/20/19 06:47 Blood Pressure 141/87 06/20/19 06:47 O2 Sat by Pulse Oximetry (%) Alert o x 3 nad oob ambulating with steady gait cardiac:s1 s2,rrr lung:cta,laura. abdomen:soft,+bs,nt,nd Extremities/Skin:No edema,no cyanosis, toe nails with dry/brow/thickened and brittle appearance:full ROM;skin intact. Pertinent Admission Physical Exam Findings: unremarkable and status Unchanged from admission. - Treatment Discharge Condition: Discharge condition good Hospital Course: Rehabilitated safely and Responded well Accepted CD aftercare referral - Medication Discharge Medications: Ambulatory Orders Naloxone HCl [Narcan] 4 mg NS 1XPACU PRN 1 Days spray 06/05/19 Naloxone HCl [Narcan] 4 mg NS ASDIR PRN #1 spray 06/05/19 Mirtazapine [Remeron -] 7.5 mg PO DAILY 06/06/19 Mirtazapine [Remeron -] 15 mg PO HS #30 tablet 06/19/19 - Medication-Assisted Treatment (MAT) Medication-Assisted Treatment (MAT): No - Discharge Instructions Diet, activity, other medical instructions: Diet:Regular diet Activity: oob ad cali Other medical instructions:Follow up with CD aftercare at [facility] at [address] [place] [address]. Follow up with primary care at [facility] within 1-2 weeks after discharge/as needed. - Diagnosis (1) Sedative abuse Status: Chronic (2) Alcohol dependence Status: Chronic Qualifiers: Substance use status: uncomplicated Qualified Code(s): F10.20 - Alcohol dependence, uncomplicated (3) Nicotine dependence Status: Chronic Qualifiers: Nicotine product type: cigarettes Substance use status: uncomplicated Qualified Code(s): F17.210 - Nicotine dependence, cigarettes, uncomplicated (4) Opioid dependence Status: Chronic Qualifiers: Substance use status: uncomplicated Qualified Code(s): F11.20 - Opioid dependence, uncomplicated - Follow-up Referral Minutes to complete discharge: 20 - AMA Did Patient Leave Against Medical Advice: No
== END 2019-06-20 10:25 | disposition home or self-care (01) | DRG 772 ==
LOC: YASAS 13:30 → Y5N 13:32
PROVIDERS: ADMIT Neuromusculoskeletal Medicine & OMM; ATTEND Neuromusculoskeletal Medicine & OMM
PROC: HZ42ZZZ Group Counseling for Substance Abuse Treatment, Cognitive-Behavioral (ICD-10-PCS; principal; 2019-06-06)
DX: F11.20 Opioid dependence, uncomplicated (principal); F10.20 Alcohol dependence, uncomplicated; F13.10 Sedative, hypnotic or anxiolytic abuse, uncomplicated; F17.210 Nicotine dependence, cigarettes, uncomplicated; F19.24 Other psychoactive substance dependence with psychoactive substance-induced mood disorder; F19.282 Other psychoactive substance dependence with psychoactive substance-induced sleep disorder
CPT/HCPCS: 71046-TC-FY

== ENCOUNTER 2019-08-03 13:34 | Inpatient (IN) | payer OTHER ==
[2019-08-03 14:43] VITALS: BMI 28.2
--- NOTE | 2019-08-03 15:05 | HP ---
CIWA Score Nausea/Vomitin Muscle Tremors: 2 Anxiety: 4-Mod. Anxious/Guarded Agitation: 4-Moderately Restless Paroxysmal Sweats: 1-Minimal Palms Moist Orientation: 0-Oriented Tacttile Disturbances: 0-None Auditory Disturbances: 0-None Visual Disturbances: 0-None Headache: 3-Moderate CIWA-Ar Total Score: 17 - Admission Criteria OASAS Guidelines: Admission for Medically Managed Detox: Requires at least one of the followin. CIWA greater than 12 2. Seizures within the past 24 hours 3. Delirium tremens within the past 24 hours 4. Hallucinations within the past 24 hours 5. Acute intervention needed for co occurring medical disorder 6. Acute intervention needed for co occurring psychiatric disorder 7. Severe withdrawal that cannot be handled at a lower level of care (continued vomiting, continued diarrhea, abnormal vital signs) requiring intravenous medication and/or fluids 8. Admitting History and Physical - Admission Chief Complaint: "I want to detox and work on rewiring my thought processes to be successful in stopping alcohol." History of Present Illness: 64 year old male with history of alcohol dependence with withdrawals, opiate dependence with withdrawals. He is drinking about 1 pint of rum daily, denies blackout or withdrawal seizures , last drank yesterday. He is using heroin 1 bundle daily, last used yesterday. He denies overdoses. He does not carry a narcan kit. He was last here for detox in 05/2019 and then completed detox and rehab but upon discharge he was only abstinent for only 1 month and then relapsed. Patient denies any other substances of abuse. He does not smoke ciggarettes. Never smoked. PMH: Insomnia, Chronic back pain Psurg: None Patient has 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s pending. He is domiciled and has support systems of friends and family. However, he feels he needs a structured environment to really succeed. - Smoking History Smoking history: Never smoked Have you smoked in the past 12 months: No Aproximately how many cigarettes per day: 0 If you are a former smoker, when did you quit?: 20 - Alcohol/Substance Use Hx Alcohol Use: Yes Admission ROS [facility] Allergies/Adverse Reactions: Allergies Allergy/AdvReac Type Severity Reaction Status Date / Time No Known Allergies Allergy Verified 08/03/19 14:36 - Ebola screening Have you traveled outside of the country in the last 21 days: No Have you had contact with anyone from an Ebola affected area: No Do you have a fever: No Patient History - Patient Medical History Hx Anemia: No Hx Asthma: No Hx Chronic Obstructive Pulmonary Disease (COPD): No Hx Cancer: No Hx Cardiac Disorders: No Hx Congestive Heart Failure: No Hx Hypertension: No Hx Hypercholesterolemia: No Hx Pacemaker: No HX Cerebrovascular Accident: No Hx Seizures: No Hx Dementia: No Hx Diabetes: No Hx Gastrointestinal Disorders: No Hx Liver Disease: No Hx Genitourinary Disorders: No Hx Sexually Transmitted Disorders: No Hx Renal Disease (ESRD): No Hx Thyroid Disease: No Hx Human Immunodeficiency Virus (HIV): No Hx Hepatitis C: No Hx Depression: No Hx Suicide Attempt: No Hx Bipolar Disorder: No Hx Schizophrenia: No - Patient Surgical History Past Surgical History: No Hx Neurologic Surgery: No Hx Cataract Extraction: No Hx Cardiac Surgery: No Hx Lung Surgery: No Hx Breast Surgery: No Hx Breast Biopsy: No Hx Abdominal Surgery: No Hx Appendectomy: No Hx Cholecystectomy: No Hx Genitourinary Surgery: No Hx Section: No Hx Orthopedic Surgery: No Anesthesia Reaction: No - PPD History Date: 09/21/18 Results: NEGATIVE TBGOLD - Smoking Cessation Smoking history: Never smoked Have you smoked in the past 12 months: No Aproximately how many cigarettes per day: 0 If you are a former smoker, when did you quit?: 20 Cigars Per Day: 0 Hx Chewing Tobacco Use: No Initiated information on smoking cessation: No - Substances abused Alcohol Substance route: Oral Frequency: 3-6 times per week Amount used: 1 pint of rum, 2/24oz cans of beer Age of first use: 17 Date of last use: 08/02/19 Heroin Substance route: Inhalation Frequency: Daily Amount used: 8-10 bags Age of first use: 30 Date of last use: 08/02/19 Admission Physical Exam BHS - Vital Signs Vital Signs: Vital Signs - 24 hr 08/03/19 14:38 Temperature 98.2 F Pulse Rate 57 L Respiratory 20 Rate Blood Pressure 136/83 Screened but not Admitted - Documentation of Visit Screened but not Admitted: No Breathalyzer - Breathalyzer Breathalyzer: 0.005 Urine Drug Screen - Test Device Lot number: [id number] Expiration date: 02/18/21 - Control Is test valid?: Yes - Results Drug screen NEGATIVE: No Urine drug screen results: FEN-Fentanyl, MOP-Opiates, OXY-Oxycodone, BZO- Benzodiazepines Inpatient Rehab Admission - Rehab Decision to Admit Inpatient rehab admission?: No
[2019-08-03] MEDS ORDERED: ACETAMINOPHEN 325 MG TABLET (FP) PO PRN ×2 (15:10)
[2019-08-03] MEDS ORDERED: MAGNESIUM HYDROX 2400MG/30ML ORAL SUSPENSION 30 ML CUP PO PRN (15:10)
[2019-08-03] MEDS ORDERED: MENTHOL/PHENOL 1 EACH UD MM PRN (15:10)
[2019-08-03] MEDS ORDERED: chlordiazePOXIDE HCL 25 MG CAPSULE PO PRN (15:10)
[2019-08-03] MEDS ORDERED: METHOCARBAMOL 500 MG TABLET PO PRN (15:10)
[2019-08-03] MEDS ORDERED: MAG HYDROX/AL HYDROX/SIMETH 30 ML UNIT-DOSE CUP PO PRN (15:10)
[2019-08-03] MEDS ORDERED: BISMUTH SUBSALICYLATE 262 MG/15 ML BTL PO PRN (15:10)
[2019-08-03] MEDS ORDERED: METHADONE HCL 10 MG TABLET (FOR DETOX USE ONLY) PO ONE (15:10)
[2019-08-03] MEDS ORDERED: MAGNESIUM CITRATE 300 ML BOTTLE PO PRN (15:10)
[2019-08-03] MEDS ORDERED: hydrOXYzine PAMOATE 25 MG CAPSULE (FP) PO PRN (15:10)
[2019-08-03] MEDS ORDERED: cloNIDine HCL 0.1 MG TABLET PO PRN (15:10)
[2019-08-03] MEDS: chlordiazePOXIDE HCL 25 MG CAPSULE PO SCH ×2 (17:22→22:07)
[2019-08-03] MEDS: THIAMINE HCL 100 MG TABLET (FP) PO SCH (22:07)
[2019-08-03] MEDS: SUVOREXANT 10 MG TABLET PO PRN (22:09)
[2019-08-04] MEDS: chlordiazePOXIDE HCL 25 MG CAPSULE PO SCH ×4 (06:54→22:02)
[2019-08-04] MEDS ORDERED: METHADONE HCL 10 MG TABLET (FOR DETOX USE ONLY) ONE (09:29)
[2019-08-04] MEDS ORDERED: METHADONE HCL 5 MG TABLET (FOR DETOX USE ONLY) ONE (09:29)
[2019-08-04 09:38] LABS: HEMATOCRIT 43.6 % (35.4-49); HEMOGLOBIN 14.4 GM/dL (11.7-16.9); MCH 29.9 pg (25.7-33.7); MEAN CELL VOLUME 90.8 fl (80-96); MEAN PLT VOLUME 9.3 fl (7.5-11.1); PLATELET COUNT 215 K/MM3 (134-434); RDW 14.3 % (11.9-15.9); WHITE BLOOD COUNT 7.5 K/mm3 (4.0-10.0)
--- NOTE | 2019-08-04 09:43 | PN ---
S CIWA - CIWA Score Nausea/Vomitin-Mild Nausea/No Vomiting Muscle Tremors: 2 Anxiety: 3 Agitation: 2 Paroxysmal Sweats: No Perspiration Orientation: 0-Oriented Tacttile Disturbances: 1-Very Mild Itch/Numbness Auditory Disturbances: 0-None Visual Disturbances: 0-None Headache: 2-Mild CIWA-Ar Total Score: 11 BHS COWS - Scale Resting Pulse: 1= [place] 81-100 Sweatin= No chills or Flushing Restless Observation: 1= Difficult to Sit Still Pupil Size: 1= Pupils >than Normal Bone or Joint Aches: 1= Mild Discomfort Runny Nose/ Eye Tearin= Nasal Congestion GI Upset > 30mins: 1= Stomach Cramp Tremor Observation of Outstretched Hands: 2= Slight Tremor Visible Yawning Observation: 1= 1-2x During Session Anxiety or Irritability: 2=Irritable/Anxious Goose Flesh Skin: 0=Smooth Skin COWS Score: 11 S Progress Note (SOAP) Subjective: alert,irritable,anxious,interrupted sleep,pain in the body, Objective: 08/04/19 09:40 Vital Signs Temperature 97.7 F 08/04/19 09:37 Pulse Rate 88 08/04/19 09:37 Respiratory Rate 18 08/04/19 09:37 Blood Pressure 127/77 08/04/19 09:37 O2 Sat by Pulse Oximetry (%) 08/04/19 09:40 Laboratory Last Values WBC 7.5 K/mm3 (4.0-10.0) 08/03/19 06:00 RBC 4.80 M/mm3 (4.00-5.60) 08/03/19 06:00 Hgb 14.4 GM/dL (11.7-16.9) 08/03/19 06:00 Hct 43.6 % (35.4-49) 08/03/19 06:00 MCV 90.8 fl (80-96) 08/03/19 06:00 MCH 29.9 pg (25.7-33.7) 08/03/19 06:00 MCHC 33.0 g/dl (32.0-35.9) 08/03/19 06:00 RDW 14.3 % (11.9-15.9) 08/03/19 06:00 Plt Count 215 K/MM3 (134-434) 08/03/19 06:00 MPV 9.3 fl (7.5-11.1) 08/03/19 06:00 labs pending Assessment: 08/04/19 09:42 withdrawal symptom Plan: continue detox methadone and librium regimen
[2019-08-04] MEDS ORDERED: METHADONE (DETOX) 20 MG, METHADONE (DETOX) 5 MG PO ONE (10:00)
[2019-08-04 10:10] LABS: ALBUMIN 4.2 g/dl (3.4-5.0); BILIRUBIN,TOTAL 1.3 mg/dL (0.2-1); BLOOD UREA NITROGEN 21.3 mg/dL (7-18); CALCIUM 9.2 mg/dL (8.5-10.1); POTASSIUM 3.9 mmol/L (3.5-5.1); TOT PROT 8.4 g/dl (6.4-8.2)
[2019-08-04] MEDS: PRENATAL VITAMINS W/ FOLIC ACID TABLET (FP) PO SCH (10:58)
[2019-08-04] MEDS: NICOTINE 14 MG/24 HOURS TOPICAL PATCH TD SCH (11:01)
[2019-08-04] MEDS: SUVOREXANT 10 MG TABLET PO PRN (22:02)
[2019-08-04] MEDS: THIAMINE HCL 100 MG TABLET (FP) PO SCH (22:03)
[2019-08-05] MEDS: chlordiazePOXIDE HCL 25 MG CAPSULE PO SCH ×4 (05:40→22:10)
[2019-08-05] MEDS ORDERED: METHADONE HCL 10 MG TABLET (FOR DETOX USE ONLY) PO ONE (10:00)
[2019-08-05] MEDS: PRENATAL VITAMINS W/ FOLIC ACID TABLET (FP) PO SCH (10:37)
[2019-08-05] MEDS: NICOTINE 14 MG/24 HOURS TOPICAL PATCH TD SCH (10:38)
[2019-08-05] MEDS: SUVOREXANT 10 MG TABLET PO PRN (22:09)
[2019-08-05] MEDS: THIAMINE HCL 100 MG TABLET (FP) PO SCH (22:10)
[2019-08-06] MEDS ORDERED: chlordiazePOXIDE HCL 10 MG CAPSULE PO PRN
[2019-08-06] MEDS: chlordiazePOXIDE HCL 10 MG CAPSULE PO SCH ×4 (05:38→22:09)
[2019-08-06] MEDS ORDERED: METHADONE HCL 10 MG TABLET (FOR DETOX USE ONLY) ONE (09:28)
[2019-08-06] MEDS ORDERED: METHADONE HCL 5 MG TABLET (FOR DETOX USE ONLY) ONE (09:28)
[2019-08-06] MEDS ORDERED: METHADONE (DETOX) 10 MG, METHADONE (DETOX) 5 MG PO ONE (10:00)
[2019-08-06] MEDS: PRENATAL VITAMINS W/ FOLIC ACID TABLET (FP) PO SCH (10:12)
[2019-08-06] MEDS: NICOTINE 14 MG/24 HOURS TOPICAL PATCH TD SCH (10:13)
--- NOTE | 2019-08-06 12:25 | PN ---
S CIWA - CIWA Score Nausea/Vomitin-No Nausea/No Vomiting Muscle Tremors: 2 Anxiety: 3 Agitation: 3 Paroxysmal Sweats: No Perspiration Orientation: 0-Oriented Tacttile Disturbances: 1-Very Mild Itch/Numbness Auditory Disturbances: 0-None Visual Disturbances: 0-None Headache: 0-None Present CIWA-Ar Total Score: 9 BHS Progress Note (SOAP) Subjective: Anxious, Tremors. Objective: PATIENT A & O X 3, OBSERVED AMBULATING ON DETOX UNIT UNASSISTED. IN NO ACUTE DISTRESS. 08/06/19 12:26 Vital Signs Temperature 97.4 F L 08/06/19 10:39 Pulse Rate 82 08/06/19 10:39 Respiratory Rate 18 08/06/19 10:39 Blood Pressure 132/70 08/06/19 10:39 O2 Sat by Pulse Oximetry (%) Laboratory Tests 08/03/19 08/03/19 08/03/19 06:00 06:00 06:00 WBC 7.5 RBC 4.80 Hgb 14.4 Hct 43.6 MCV 90.8 MCH 29.9 MCHC 33.0 RDW 14.3 Plt Count 215 MPV 9.3 Sodium 138 Potassium 3.9 Chloride 104 Carbon Dioxide 27 Anion Gap 8 BUN 21.3 H Creatinine 1.0 Est GFR (CKD-EPI)AfAm 93.08 Est GFR (CKD-EPI)NonAf 80.31 Random Glucose 103 Calcium 9.2 Total Bilirubin 1.3 H AST 21 ALT 13 Alkaline Phosphatase 76 Total Protein 8.4 H Albumin 4.2 RPR Titer Nonreactive LABS NOTED. Assessment: 08/06/19 12:26 WITHDRAWAL SYMPTOMS. Plan: CONTINUE DETOX. INCREASE DAILY PO WATER INTAKE.
[2019-08-06] MEDS: THIAMINE HCL 100 MG TABLET (FP) PO SCH (22:10)
[2019-08-07] MEDS: chlordiazePOXIDE HCL 10 MG CAPSULE PO SCH ×2 (06:01→17:35)
[2019-08-07] MEDS ORDERED: METHADONE HCL 10 MG TABLET (FOR DETOX USE ONLY) PO ONE (10:00)
[2019-08-07] MEDS: PRENATAL VITAMINS W/ FOLIC ACID TABLET (FP) PO SCH (10:50)
[2019-08-07] MEDS: NICOTINE 14 MG/24 HOURS TOPICAL PATCH TD SCH (10:51)
--- NOTE | 2019-08-07 10:57 | PN ---
[facility] CIWA - CIWA Score Nausea/Vomitin-No Nausea/No Vomiting Muscle Tremors: None Anxiety: 2 Agitation: 2 Paroxysmal Sweats: 2 Orientation: 0-Oriented Tacttile Disturbances: 0-None Auditory Disturbances: 0-None Visual Disturbances: 0-None Headache: 0-None Present CIWA-Ar Total Score: 6 BHS COWS - Scale Resting Pulse: 0= [place] 80 or Below Sweatin= No chills or Flushing Restless Observation: 0= Sits Still Pupil Size: 0= Normal to Room Light Bone or Joint Aches: 2= Severe Diffuse Aches Runny Nose/ Eye Tearin= Runny Nose/Eyes GI Upset > 30mins: 1= Stomach Cramp Tremor Observation of Outstretched Hands: 0= None Yawning Observation: 0= None Anxiety or Irritability: 1=Feels Anxious/Irritable Goose Flesh Skin: 0=Smooth Skin COWS Score: 6 BHS Progress Note (SOAP) Subjective: Patient stated he feels ok Objective: 08/07/19 10:53 Last Vital Signs Temp Pulse Resp BP Pulse Ox 97.7 F 78 18 117/73 08/07/19 10:42 08/07/19 10:42 08/07/19 10:42 08/07/19 10:42 Laboratory Tests 08/03/19 08/03/19 08/03/19 06:00 06:00 06:00 WBC 7.5 RBC 4.80 Hgb 14.4 Hct 43.6 MCV 90.8 MCH 29.9 MCHC 33.0 RDW 14.3 Plt Count 215 MPV 9.3 Sodium 138 Potassium 3.9 Chloride 104 Carbon Dioxide 27 Anion Gap 8 BUN 21.3 H Creatinine 1.0 Est GFR (CKD-EPI)AfAm 93.08 Est GFR (CKD-EPI)NonAf 80.31 Random Glucose 103 Calcium 9.2 Total Bilirubin 1.3 H AST 21 ALT 13 Alkaline Phosphatase 76 Total Protein 8.4 H Albumin 4.2 RPR Titer Nonreactive Labs reviewed: noted is bun 21.3 (high) and total bilirubin 1.3 (high) Assessment: 08/07/19 10:55 Withdrawal sxs Noted with azotemia and elevated total bilirubin Plan: Continue detox Patient scheduled for discharge tomorrow Azotemia: encouraged PO water intake Elevated total bilirubin: most likely due to alcoholism, follow up with PCP for monitoring
[2019-08-07] MEDS: IBUPROFEN 400 MG TABLET (FP) PO PRN (20:38)
[2019-08-07] MEDS: THIAMINE HCL 100 MG TABLET (FP) PO SCH (23:30)
[2019-08-08] MEDS ORDERED: chlordiazePOXIDE HCL 10 MG CAPSULE PO ONE (05:00)
[2019-08-08] MEDS ORDERED: METHADONE HCL 5 MG TABLET (FOR DETOX USE ONLY) PO ONE (06:00)
[2019-08-08] MEDS: IBUPROFEN 400 MG TABLET (FP) PO PRN (06:12)
--- NOTE | 2019-08-08 08:46 | DS ---
[facility] Detox Discharge Summary Admission Date: 08/03/19 Discharge Date: 08/08/19 - History Present History: Alcohol Dependence, Opioid Dependence - Physical Exam Results Vital Signs: Vital Signs Temperature 96.8 F L 08/08/19 05:47 Pulse Rate 69 08/08/19 05:47 Respiratory Rate 20 08/08/19 05:47 Blood Pressure 125/65 08/08/19 05:47 O2 Sat by Pulse Oximetry (%) Pertinent Admission Physical Exam Findings: pt arrived in withdrawals Vital Signs Temperature 96.8 F L 08/08/19 05:47 Pulse Rate 69 08/08/19 05:47 Respiratory Rate 20 08/08/19 05:47 Blood Pressure 125/65 08/08/19 05:47 O2 Sat by Pulse Oximetry (%) Laboratory Tests 08/03/19 08/03/19 08/03/19 06:00 06:00 06:00 WBC 7.5 RBC 4.80 Hgb 14.4 Hct 43.6 MCV 90.8 MCH 29.9 MCHC 33.0 RDW 14.3 Plt Count 215 MPV 9.3 Sodium 138 Potassium 3.9 Chloride 104 Carbon Dioxide 27 Anion Gap 8 BUN 21.3 H Creatinine 1.0 Est GFR (CKD-EPI)AfAm 93.08 Est GFR (CKD-EPI)NonAf 80.31 Random Glucose 103 Calcium 9.2 Total Bilirubin 1.3 H AST 21 ALT 13 Alkaline Phosphatase 76 Total Protein 8.4 H Albumin 4.2 RPR Titer Nonreactive today pt is aaox3 ambulating no acute distress - Treatment Hospital Course: Detox Protocol Followed, Detoxed Safely, Responded well, Discharged Condition Good, Rehab Referral Accepted Patient has Accepted a Rehab Referral to: referred to inpatient rehab [facility] or [facility]. - Medication Discharge Medications: Ambulatory Orders Mirtazapine [Remeron -] 7.5 mg PO DAILY 06/06/19 - Diagnosis (1) Alcohol dependence with uncomplicated withdrawal Current Visit: Yes Status: Chronic (2) Anxiety and depression Current Visit: No Status: Acute (3) Opioid dependence with withdrawal Current Visit: Yes Status: Chronic (4) Substance-induced anxiety disorder Current Visit: No Status: Acute (5) Substance-induced sleep disorder Current Visit: No Status: Acute (6) Substance-induced sleep disorder Current Visit: No Status: Acute (7) Substance-induced sleep disorder Current Visit: No Status: Acute (8) Chronic back pain Current Visit: Yes Status: Chronic Qualifiers: Back pain location: low back pain Back pain laterality: bilateral Sciatica presence: without sciatica Qualified Code(s): M54.5 - Low back pain; G89.29 - Other chronic pain (9) Insomnia Current Visit: No Status: Chronic Qualifiers: Insomnia type: drug-induced Qualified Code(s): F19.982 - Other psychoactive substance use, unspecified with psychoactive substance-induced sleep disorder (10) Nicotine dependence Current Visit: Yes Status: Chronic Qualifiers: Nicotine product type: cigarettes Substance use status: uncomplicated Qualified Code(s): F17.210 - Nicotine dependence, cigarettes, uncomplicated (11) Depression (emotion) Current Visit: No Status: Suspected Qualifiers: Depression Type: dysthymia Qualified Code(s): F34.1 - Dysthymic disorder (12) Substance induced mood disorder Current Visit: No Status: Suspected (13) Substance-induced anxiety disorder Current Visit: No Status: Suspected (14) PPD positive Current Visit: No Status: Resolved - AMA Did Patient Leave Against Medical Advice: No
[2019-08-08] MEDS: PRENATAL VITAMINS W/ FOLIC ACID TABLET (FP) PO SCH (10:45)
[2019-08-08] MEDS: NICOTINE 14 MG/24 HOURS TOPICAL PATCH TD SCH (10:46)
[2019-08-08 17:13] VITALS: BP 122/87; PULSE 83; TEMP 98.5
== END 2019-08-08 18:20 | disposition other institution (70) | DRG 773 ==
LOC: YASAS 13:34 → Y6N 15:22
PROVIDERS: ADMIT Allergy & Immunology; ATTEND Allergy & Immunology
PROC: HZ2ZZZZ Detoxification Services for Substance Abuse Treatment (ICD-10-PCS; principal; 2019-08-03)
DX: F10.230 Alcohol dependence with withdrawal, uncomplicated (principal); F11.23 Opioid dependence with withdrawal; F17.210 Nicotine dependence, cigarettes, uncomplicated; F19.280 Other psychoactive substance dependence with psychoactive substance-induced anxiety disorder; F19.282 Other psychoactive substance dependence with psychoactive substance-induced sleep disorder; F19.24 Other psychoactive substance dependence with psychoactive substance-induced mood disorder; F34.1 Dysthymic disorder; F41.8 Other specified anxiety disorders; F32.9 Major depressive disorder, single episode, unspecified; E80.6 Other disorders of bilirubin metabolism; M54.5 Low back pain; G89.29 Other chronic pain; R79.89 Other specified abnormal findings of blood chemistry; R76.11 Nonspecific reaction to tuberculin skin test without active tuberculosis
CPT/HCPCS: 36415; 80053; 85027; 86593

== ENCOUNTER 2019-08-08 18:45 | Inpatient (IN) | payer OTHER ==
--- NOTE | 2019-08-08 23:29 | HP ---
[facility] Rehab Assess/Revision - Admission History Admitted to Rehab from: [facility] Date of Admission to Rehab: 08/08/2019 - Findings Detox History & Physical reviewed: Yes Concur with findings: Yes Inpatient Rehab Admission - Rehab Decision to Admit Inpatient rehab admission?: Yes - Initial Determination Are CD services needed?: Yes Free of communicable disease: Yes Not in need of hospitalization: Yes - Rehab Admission Criteria Previous failed treatment: Yes Poor recovery environment: Yes Comorbidities: Yes Lacks judgement: No Patient is meeting Inpatient Rehab admission criteria:: Yes
[2019-08-08] MEDS ORDERED: LOPERAMIDE HCL 2 MG CAPSULE PO PRN (23:30)
[2019-08-08] MEDS ORDERED: MAGNESIUM CITRATE 300 ML BOTTLE PO PRN (23:30)
[2019-08-08] MEDS ORDERED: MENTHOL/PHENOL 1 EACH UD MM PRN (23:30)
[2019-08-08] MEDS ORDERED: NICOTINE POLACRILEX 2 MG GUM BUC PRN (23:30)
[2019-08-08] MEDS ORDERED: ACETAMINOPHEN 325 MG TABLET (FP) PO PRN (23:30)
[2019-08-08] MEDS ORDERED: P-EPHED 60MG/TRIPROLIDI 2.5MG TABLET PO PRN (23:30)
[2019-08-08] MEDS ORDERED: MAG HYDROX/AL HYDROX/SIMETH 30 ML UNIT-DOSE CUP PO PRN (23:30)
[2019-08-08] MEDS ORDERED: guaiFENesin 200 MG/10 ML 10 ML UNIT-DOSE CUPS PO PRN (23:30)
[2019-08-08] MEDS ORDERED: MAGNESIUM HYDROX 2400MG/30ML ORAL SUSPENSION 30 ML CUP PO PRN (23:30)
[2019-08-08] MEDS ORDERED: hydrOXYzine PAMOATE 25 MG CAPSULE (FP) PO PRN (23:39)
[2019-08-09] MEDS: PRENATAL VITAMINS W/ FOLIC ACID TABLET (FP) PO SCH (10:00)
[2019-08-09] MEDS: NICOTINE 14 MG/24 HOURS TOPICAL PATCH TD SCH (10:00)
[2019-08-09] MEDS: IBUPROFEN 400 MG TABLET (FP) PO PRN (13:50)
[2019-08-09] MEDS: MELATONIN 5 MG TABLETS PO PRN (21:32)
[2019-08-09] MEDS: THIAMINE HCL 100 MG TABLET (FP) PO SCH (21:33)
[2019-08-09] MEDS: MIRTAZAPINE 15 MG TABLET (FP) PO SCH (21:33)
[2019-08-10] MEDS: NICOTINE 14 MG/24 HOURS TOPICAL PATCH TD SCH (10:16)
[2019-08-10] MEDS: PRENATAL VITAMINS W/ FOLIC ACID TABLET (FP) PO SCH (10:16)
[2019-08-10] MEDS: THIAMINE HCL 100 MG TABLET (FP) PO SCH (21:42)
[2019-08-10] MEDS: MIRTAZAPINE 15 MG TABLET (FP) PO SCH (21:43)
[2019-08-10] MEDS: MELATONIN 5 MG TABLETS PO PRN (21:44)
[2019-08-11] MEDS: NICOTINE 14 MG/24 HOURS TOPICAL PATCH TD SCH (10:17)
[2019-08-11] MEDS: PRENATAL VITAMINS W/ FOLIC ACID TABLET (FP) PO SCH (10:17)
--- NOTE | 2019-08-11 10:34 | CONSULT ---
[facility] Psychiatric Consult - Data Date of interview: 08/11/19 Admission source: [facility] Identifying data: Patient is a 64 year old single male, with children, unemployed, domiciled, and is not currently receiving financial assistance. This is one of multiple admissions to rehab. Patient admitted to for alcohol and opiate dependence. Substance Abuse History: - Smoking Cessation. Smoking history: Never smoked. Have you smoked in the past 12 months: No. Aproximately how many cigarettes per day: 0. If you are a former smoker, when did you quit?: 20. Cigars Per Day : 0. Hx Chewing Tobacco Use: No. Initiated information on smoking cessation: No. - Substances abused. Alcohol. Substance route: Oral. Frequency: 3-6 times per week. Amount used: 1 pint of rum, 2/24oz cans of beer. Age of first use: 17. Date of last use: 08/02/19. Heroin. Substance route: Inhalation. Frequency: Daily. Amount used: 8-10 bags. Age of first use: 30. Date of last use: 08/02/19 Medical History: History of positive PPD and chronic lumbar pain Psychiatric History: Patient denies history of psychiatric hospitalizations, suicide attempt, and outpatient care. Mr. Waller reports history of insomnia which has been treated with Mirtzapine, trazdone, and belsomra. At present patient reports difficulty sleeping. Physical/Sexual Abuse/Trauma History: denies. Additional Comment: Patient served in the [employer] ([id number]). [facility]ed [facility]. Never deployed in combat situations. Mental Status Exam - Mental Status Exam Alert and Oriented to: Time, Place, Person Cognitive Function: Good Patient Appearance: Well Groomed Mood: Euthymic Affect: Appropriate Patient Behavior: Appropriate, Cooperative Speech Pattern: Appropriate Voice Loudness: Normal Thought Process: Goal Oriented Thought Disorder: Not Present Hallucinations: Denies Suicidal Ideation: Denies Homicidal Ideation: Denies Insight/Judgement: Poor Sleep: Poorly Appetite: Fair Muscle strength/Tone: Normal Gait/Station: Normal Psychiatric Findings - Problem List ([place] 1, 2,3) (1) Substance-induced sleep disorder Current Visit: Yes Status: Acute (2) Alcohol use disorder Current Visit: Yes Status: Acute (3) Opiate dependence Current Visit: Yes Status: Acute - Initial Treatment Plan Initial Treatment Plan: Psychoeducation provided. Rehab in progress. Will d/c remeron 7.5 mg HS. Will order Remeron 15mg HS. Benefits and side effects discussed. Verbal consent given.
[2019-08-11] MEDS: THIAMINE HCL 100 MG TABLET (FP) PO SCH (21:42)
[2019-08-11] MEDS: MELATONIN 5 MG TABLETS PO PRN (21:42)
[2019-08-11] MEDS: MIRTAZAPINE 15 MG TABLET (FP) PO SCH (21:43)
[2019-08-12] MEDS: PRENATAL VITAMINS W/ FOLIC ACID TABLET (FP) PO SCH (09:51)
[2019-08-12] MEDS: NICOTINE 14 MG/24 HOURS TOPICAL PATCH TD SCH (09:53)
[2019-08-12] MEDS: MIRTAZAPINE 15 MG TABLET (FP) PO SCH (21:18)
[2019-08-12] MEDS: THIAMINE HCL 100 MG TABLET (FP) PO SCH (21:18)
[2019-08-12] MEDS: SUVOREXANT 10 MG TABLET PO PRN (21:20)
--- NOTE | 2019-08-13 08:57 | PN ---
BHS Progress Note Note: Psychiatric nurse practitioner note: Delayed note: Patient continues to report poor sleep despite accepting Remeron 15mg HS. Will order Belsomra 10mg HS PRN. Benefits and side effects discussed. Verbal consent given.
[2019-08-13] MEDS: NICOTINE 14 MG/24 HOURS TOPICAL PATCH TD SCH (10:23)
[2019-08-13] MEDS: PRENATAL VITAMINS W/ FOLIC ACID TABLET (FP) PO SCH (10:23)
[2019-08-13] MEDS: MIRTAZAPINE 15 MG TABLET (FP) PO SCH (21:43)
[2019-08-13] MEDS: THIAMINE HCL 100 MG TABLET (FP) PO SCH (21:43)
[2019-08-13] MEDS: SUVOREXANT 10 MG TABLET PO PRN (21:43)
[2019-08-14] MEDS: PRENATAL VITAMINS W/ FOLIC ACID TABLET (FP) PO SCH (10:24)
[2019-08-14] MEDS: NICOTINE 14 MG/24 HOURS TOPICAL PATCH TD SCH (10:29)
[2019-08-14] MEDS: THIAMINE HCL 100 MG TABLET (FP) PO SCH (22:31)
[2019-08-14] MEDS: MIRTAZAPINE 15 MG TABLET (FP) PO SCH (22:31)
[2019-08-15] MEDS: IBUPROFEN 400 MG TABLET (FP) PO PRN (00:22)
[2019-08-15] MEDS: NICOTINE 14 MG/24 HOURS TOPICAL PATCH TD SCH (12:40)
[2019-08-15] MEDS: PRENATAL VITAMINS W/ FOLIC ACID TABLET (FP) PO SCH (12:40)
[2019-08-15] MEDS: MIRTAZAPINE 15 MG TABLET (FP) PO SCH (21:38)
[2019-08-15] MEDS: THIAMINE HCL 100 MG TABLET (FP) PO SCH (21:38)
[2019-08-15] MEDS: SUVOREXANT 10 MG TABLET PO PRN (21:39)
[2019-08-16] MEDS: NICOTINE 14 MG/24 HOURS TOPICAL PATCH TD SCH (10:27)
[2019-08-16] MEDS: PRENATAL VITAMINS W/ FOLIC ACID TABLET (FP) PO SCH (10:27)
[2019-08-16] MEDS: THIAMINE HCL 100 MG TABLET (FP) PO SCH (21:58)
[2019-08-16] MEDS: MIRTAZAPINE 15 MG TABLET (FP) PO SCH (21:58)
[2019-08-17] MEDS: IBUPROFEN 400 MG TABLET (FP) PO PRN (02:52)
[2019-08-17] MEDS: NICOTINE 14 MG/24 HOURS TOPICAL PATCH TD SCH (10:09)
[2019-08-17] MEDS: PRENATAL VITAMINS W/ FOLIC ACID TABLET (FP) PO SCH (10:16)
[2019-08-17] MEDS: MIRTAZAPINE 15 MG TABLET (FP) PO SCH (21:29)
[2019-08-17] MEDS: THIAMINE HCL 100 MG TABLET (FP) PO SCH (21:29)
[2019-08-17] MEDS: SUVOREXANT 10 MG TABLET PO PRN (21:30)
[2019-08-18] MEDS ORDERED: PT OWN MED DRAWER 7, Y5N ONE ×3 (09:01→14:42)
[2019-08-18] MEDS: NICOTINE 14 MG/24 HOURS TOPICAL PATCH TD SCH (10:09)
[2019-08-18] MEDS: PRENATAL VITAMINS W/ FOLIC ACID TABLET (FP) PO SCH (10:09)
--- NOTE | 2019-08-18 10:31 | DS ---
[facility] Rehab Discharge Summary - [facility] Rehab Discharge Summary Admission Date: 08/08/19 Discharge Date: 08/18/19 - History Pertinent Past History: 64 year old male with history of alcohol dependence with withdrawals, opiate dependence with withdrawals. He is drinking about 1 pint of rum daily, denies blackout or withdrawal seizures. He is using heroin 1 bundle bel. He denies overdoses. He does not carry a narcan kit. He was last here for detox in 05/2019 and then completed detox and rehab but upon discharge he was only abstinent for only 1 month and then relapsed. Patient denies any other substances of abuse. He does not smoke cigarettes. Never smoked. PMH: Insomnia, Chronic back pain Psurg: None Patient has 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s pending. He is domiciled and has support systems of friends and family. However, he feels he needs a structured environment to really succeed. - Discharge Physical Exam Vital Signs: Vital Signs Temperature 97.4 F L 08/18/19 07:00 Pulse Rate 79 08/18/19 07:00 Respiratory Rate 18 08/18/19 07:00 Blood Pressure 122/83 08/18/19 07:00 O2 Sat by Pulse Oximetry (%) Pertinent Admission Physical Exam Findings: Physical Exam General: No apparent distress HEENTM: Normocephalic, PERRLA Lungs: clear Heart: s1 s2 Abd: +BS, non-tender, non-distended Neuro: CN 2-12 intact MSK: full weight bearing, full ROM, steady gait. - Treatment Discharge Condition: Outpatient referral accepted (Medically stable for discharge.Will go to [facility] Hospital Course: Patient was adherent to his medication regimen and treatment plan. He had no medical needs while in detox. - Medication Discharge Medications: Ambulatory Orders Mirtazapine [Remeron -] 7.5 mg PO DAILY 06/06/19 - Medication-Assisted Treatment (MAT) Medication-Assisted Treatment (MAT): No - Discharge Instructions Diet, activity, other medical instructions: Diet: as tolerated Activity: as tolerated Other medical instructions: Please follow up with aftercare referral. - Follow-up Referral Minutes to complete discharge: 20 - AMA Did Patient Leave Against Medical Advice: No
--- NOTE | 2019-08-18 13:08 | PN ---
S Progress Note Note: Patient is scheduled for discharge tomorrow. Script for 30 days supply of Remeron 15 mg.hs will be electronically transmitted to [facility] at [address] [place], [place] [address]
[2019-08-18] MEDS: THIAMINE HCL 100 MG TABLET (FP) PO SCH (21:31)
[2019-08-18] MEDS: SUVOREXANT 10 MG TABLET PO PRN (21:31)
[2019-08-18] MEDS: MIRTAZAPINE 15 MG TABLET (FP) PO SCH (21:31)
[2019-08-18] MEDS ORDERED: SUVOREXANT 10 MG TABLET PO PRN (22:00)
[2019-08-19 06:57] VITALS: BP 139/91; PULSE 72; TEMP 97.7
== END 2019-08-19 08:20 | disposition home or self-care (01) | DRG 772 ==
LOC: YASAS 18:45 → Y3W 18:46
PROVIDERS: ADMIT Neuromusculoskeletal Medicine & OMM; ATTEND Neuromusculoskeletal Medicine & OMM
PROC: HZ42ZZZ Group Counseling for Substance Abuse Treatment, Cognitive-Behavioral (ICD-10-PCS; principal; 2019-08-08)
DX: F10.20 Alcohol dependence, uncomplicated (principal); F11.20 Opioid dependence, uncomplicated; F19.282 Other psychoactive substance dependence with psychoactive substance-induced sleep disorder; G47.00 Insomnia, unspecified; M54.5 Low back pain; G89.29 Other chronic pain; R76.11 Nonspecific reaction to tuberculin skin test without active tuberculosis
CPT/HCPCS: 36415; 87389

== ENCOUNTER 2019-11-02 11:39 | Inpatient (IN) | payer OTHER ==
--- NOTE | 2019-11-02 12:02 | BHS.RME ---
Substance Use & Tx History - Substance Use History Opiates (Heroin) Frequency of use: Daily Substance route: Inhalation (ex: sniffing or snorting) Date of Last Use: 11/01/19 (6 bags per day) Alcohol Frequency of use: Daily Substance route: Oral Date of Last Use: 11/01/19 (one pint rum, 2 24 ounce beer daily) Physical/Psych/Mental Status - Behavior Eye Contact: Normal - Cooperativeness Cooperativeness: Cooperative - Thinking Thought Processes: Tight - Physical Health Problems Is patient presently having any pain?: Yes (right hip, on Naproxen) Does patient presently have any injuries (include location): No Does patient currently have a fever: No Is patient : No COWS - Scale Resting Pulse: 0= [place] 80 or Below Sweatin= No chills or Flushing Restless Observation: 0= Sits Still Bone or Joint Aches: 1= Mild Discomfort Runny Nose/ Eye Tearin= Runny Nose/Eyes GI Upset > 30mins: 2= Nausea/Diarrhea Tremor Observation: 2= Slight Tremor Visible Yawning Observation: 0= None Anxiety or Irritability: 1=Feels Anxious/Irritable Goose Flesh Skin: 0=Smooth Skin CIWA Nausea/Vomitin-Mild Nausea/No Vomiting Muscle Tremors: 4-Moderate,w/Arms Extend Anxiety: 1-Mildly Anxious Agitation: 0-Normal Activity Paroxysmal Sweats: No Perspiration Orientation: 0-Oriented Tacttile Disturbances: 0-None Auditory Disturbances: 0-None Visual Disturbances: 0-None Headache: 0-None Present CIWA-Ar Total Score: 6
--- NOTE | 2019-11-02 12:28 | HP ---
COWS - Scale Resting Pulse: 0= [place] 80 or Below (last used yesterday) Sweatin= No chills or Flushing Restless Observation: 1= Difficult to Sit Still Pupil Size: 2= Moderately Dilated Bone or Joint Aches: 1= Mild Discomfort Runny Nose/ Eye Tearin= Runny Nose/Eyes GI Upset > 30mins: 2= Nausea/Diarrhea Tremor Observation: 2= Slight Tremor Visible Yawning Observation: 0= None Anxiety or Irritability: 2=Irritable/Anxious Goose Flesh Skin: 0=Smooth Skin COWS Score: 12 CIWA Score Nausea/Vomitin-Mild Nausea/No Vomiting (last used yesterday) Muscle Tremors: 4-Moderate,w/Arms Extend Anxiety: 2 Agitation: 2 Paroxysmal Sweats: No Perspiration Orientation: 0-Oriented Tacttile Disturbances: 0-None Auditory Disturbances: 0-None Visual Disturbances: 0-None Headache: 0-None Present CIWA-Ar Total Score: 9 - Admission Criteria OASAS Guidelines: Admission for Medically Managed Detox: Requires at least one of the followin. CIWA greater than 12 2. Seizures within the past 24 hours 3. Delirium tremens within the past 24 hours 4. Hallucinations within the past 24 hours 5. Acute intervention needed for co occurring medical disorder 6. Acute intervention needed for co occurring psychiatric disorder 7. Severe withdrawal that cannot be handled at a lower level of care (continued vomiting, continued diarrhea, abnormal vital signs) requiring intravenous medication and/or fluids 8. Admitting History and Physical - Admission Chief Complaint: "I want to get things together." History of Present Illness: 64 year old male with heroin dependence and alcohol dependence. He was in 05/2019 and completed detox and rehab. He then relapsed 2 months ago. He is seeking detox and rehab once again. PMH: Chronic pain Right Hip, Low back pain Psurg: None Psych: None Domiciled in [place]. Has family support systems but needs a change in environment to be success in maintaining abstinence. He has never blacked out, never had seizure upon withdrawal He has never overdosed. History Source: Patient Limitations to Obtaining History: No Limitations - Smoking History Smoking history: Never smoked Have you smoked in the past 12 months: No Aproximately how many cigarettes per day: 0 If you are a former smoker, when did you quit?: 20 - Alcohol/Substance Use Hx Alcohol Use: Yes Admission [facility] Allergies/Adverse Reactions: Allergies Allergy/AdvReac Type Severity Reaction Status Date / Time No Known Allergies Allergy Verified 08/08/19 19:17 Patient History - Patient Medical History Hx Anemia: No Hx Asthma: No Hx Chronic Obstructive Pulmonary Disease (COPD): No Hx Cancer: No Hx Cardiac Disorders: No Hx Congestive Heart Failure: No Hx Hypertension: No Hx Hypercholesterolemia: No Hx Pacemaker: No HX Cerebrovascular Accident: No Hx Seizures: No Hx Dementia: No Hx Diabetes: No Hx Gastrointestinal Disorders: No Hx Liver Disease: No Hx Genitourinary Disorders: No Hx Sexually Transmitted Disorders: No Hx Renal Disease (ESRD): No Hx Thyroid Disease: No Hx Human Immunodeficiency Virus (HIV): No Hx Hepatitis C: No Hx Depression: No Hx Suicide Attempt: No Hx Bipolar Disorder: No Hx Schizophrenia: No - Patient Surgical History Past Surgical History: No Hx Neurologic Surgery: No Hx Cataract Extraction: No Hx Cardiac Surgery: No Hx Lung Surgery: No Hx Breast Surgery: No Hx Breast Biopsy: No Hx Abdominal Surgery: No Hx Appendectomy: No Hx Cholecystectomy: No Hx Genitourinary Surgery: No Hx Section: No Hx Orthopedic Surgery: No Anesthesia Reaction: No - PPD History Date: 09/21/18 Results: NEGATIVE TBGOLD PPD to be Administered?: No - Smoking Cessation Smoking history: Never smoked Have you smoked in the past 12 months: No Aproximately how many cigarettes per day: 0 If you are a former smoker, when did you quit?: 20 Cigars Per Day: 0 Hx Chewing Tobacco Use: No Initiated information on smoking cessation: No - Substances abused Alcohol Substance route: Oral Frequency: Daily Amount used: 1. 5 pints of rum Age of first use: 17 Date of last use: 11/01/19 Heroin Substance route: Inhalation Frequency: Daily Amount used: 6 bags Age of first use: 30 Date of last use: 11/01/[address] [facility] Physical General Appearance: Yes: Mild Distress, Irritable, Sweating, Anxious HEENTM: Yes: EOMI, Hearing grossly Normal, Normal ENT Inspection, Normocephalic , Normal Voice, Pharynx Normal, Tm's normal, Other (pupils mid- dilated) Respiratory: Yes: Chest Non-Tender, Lungs Clear, Normal Breath Sounds, No Respiratory Distress, No Accessory Muscle Use Neck: Yes: No masses,lesions,Nodules, Supple, Trachea in good position Breast: Yes: Within Normal Limits Cardiology: Yes: Regular Rhythm, Regular Rate, S1, S2 Abdominal: Yes: Normal Bowel Sounds, Non Tender, Flat, Soft Genitourinary: Yes: Within Normal Limits Back: Yes: Normal Inspection Musculoskeletal: Yes: full range of Motion, Gait Steady, Pelvis Stable Extremities: Yes: Normal Capillary Refill, Normal Inspection, Normal Range of Motion, Non-Tender 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, Fully Oriented, Alert, Motor Strength 5/5, Normal Mood/Affect, Normal Response Integumentary: Yes: Normal Color, Warm Lymphatic: Yes: Within Normal Limits - Diagnostic (1) Alcohol dependence with uncomplicated withdrawal Current Visit: Yes Status: Chronic (2) Chronic back pain Current Visit: Yes Status: Chronic Qualifiers: Back pain location: low back pain Back pain laterality: bilateral Sciatica presence: without sciatica Qualified Code(s): M54.5 - Low back pain; G89.29 - Other chronic pain (3) Insomnia Current Visit: Yes Status: Chronic Qualifiers: Insomnia type: drug-induced Qualified Code(s): F19.982 - Other psychoactive substance use, unspecified with psychoactive substance-induced sleep disorder (4) Opioid dependence with withdrawal Current Visit: Yes Status: Chronic Screened but not Admitted - Documentation of Visit Screened but not Admitted: No Breathalyzer - Breathalyzer Breathalyzer: 0 (last used yesterday) Urine Drug Screen - Test Device Lot number: [id number] Expiration date: 04/14/21 - Control Is test valid?: Yes - Results Drug screen NEGATIVE: No Urine drug screen results: FEN-Fentanyl, MOP-Opiates, BZO-Benzodiazepines Inpatient Rehab Admission - Rehab Decision to Admit Inpatient rehab admission?: No
[2019-11-02] MEDS ORDERED: IBUPROFEN 400 MG TABLET (FP) PO PRN (12:35)
[2019-11-02] MEDS ORDERED: MAGNESIUM CITRATE 300 ML BOTTLE PO PRN (12:35)
[2019-11-02] MEDS ORDERED: MAGNESIUM HYDROX 2400MG/30ML ORAL SUSPENSION 30 ML CUP PO PRN (12:35)
[2019-11-02] MEDS ORDERED: cloNIDine HCL 0.1 MG TABLET PO PRN (12:35)
[2019-11-02] MEDS ORDERED: MENTHOL/PHENOL 1 EACH UD MM PRN (12:35)
[2019-11-02] MEDS ORDERED: hydrOXYzine PAMOATE 25 MG CAPSULE (FP) PO PRN (12:35)
[2019-11-02] MEDS ORDERED: chlordiazePOXIDE HCL 25 MG CAPSULE PO PRN (12:35)
[2019-11-02] MEDS ORDERED: ACETAMINOPHEN 325 MG TABLET (FP) PO PRN ×2 (12:35)
[2019-11-02] MEDS ORDERED: BISMUTH SUBSALICYLATE 524 MG/30 ML UD PO PRN (12:35)
[2019-11-02] MEDS ORDERED: MAG HYDROX/AL HYDROX/SIMETH 30 ML UNIT-DOSE CUP PO PRN (12:35)
[2019-11-02] MEDS ORDERED: MELATONIN 5 MG TABLETS PO PRN (12:35)
[2019-11-02 13:22] VITALS: BMI 27.5
[2019-11-02] MEDS ORDERED: METHADONE HCL 10 MG TABLET (FOR DETOX USE ONLY) PO ONE (14:00)
[2019-11-02] MEDS: chlordiazePOXIDE HCL 25 MG CAPSULE PO SCH ×3 (15:09→22:08)
[2019-11-02 17:23] LABS: HEMATOCRIT 39.4 % (35.4-49); HEMOGLOBIN 13.3 GM/dL (11.7-16.9); MCH 30.3 pg (25.7-33.7); MCHC 33.7 g/dl (32.0-35.9); MEAN CELL VOLUME 89.8 fl (80-96); MEAN PLT VOLUME 9.2 fl (7.5-11.1); PLATELET COUNT 198 K/MM3 (134-434); RBC 4.39 M/mm3 (4.00-5.60); RDW 14.2 % (11.9-15.9); WHITE BLOOD COUNT 8.2 K/mm3 (4.0-10.0)
[2019-11-02 17:27] LABS: BILIRUBIN,TOTAL 1.1 mg/dL (0.2-1); BLOOD UREA NITROGEN 24.3 mg/dL (7-18); CALCIUM 9.2 mg/dL (8.5-10.1); POTASSIUM 4.1 mmol/L (3.5-5.1)
[2019-11-02] MEDS: THIAMINE HCL 100 MG TABLET (FP) PO SCH (22:08)
[2019-11-03] MEDS: chlordiazePOXIDE HCL 25 MG CAPSULE PO SCH ×4 (04:20→22:20)
[2019-11-03] MEDS: METHOCARBAMOL 500 MG TABLET PO PRN ×2 (04:20→16:44)
[2019-11-03] MEDS ORDERED: METHADONE HCL 5 MG TABLET (FOR DETOX USE ONLY) ONE (08:56)
[2019-11-03] MEDS ORDERED: METHADONE HCL 10 MG TABLET (FOR DETOX USE ONLY) ONE (08:57)
[2019-11-03] MEDS ORDERED: METHADONE (DETOX) 20 MG, METHADONE (DETOX) 5 MG PO ONE (10:00)
[2019-11-03] MEDS: PRENATAL VITAMINS W/ FOLIC ACID TABLET (FP) PO SCH (10:47)
[2019-11-03] MEDS ORDERED: guaiFENesin 200 MG/10 ML 10 ML UNIT-DOSE CUPS PO PRN (11:47)
--- NOTE | 2019-11-03 15:36 | PN ---
S CIWA - CIWA Score Nausea/Vomitin Muscle Tremors: 2 Anxiety: 2 Agitation: 2 Paroxysmal Sweats: No Perspiration Orientation: 0-Oriented Tacttile Disturbances: 1-Very Mild Itch/Numbness Auditory Disturbances: 0-None Visual Disturbances: 0-None Headache: 2-Mild CIWA-Ar Total Score: 11 [facility]HS COWS - Scale Resting Pulse: 0= [place] 80 or Below Sweatin= No chills or Flushing Restless Observation: 1= Difficult to Sit Still Pupil Size: 1= Pupils >than Normal Bone or Joint Aches: 1= Mild Discomfort Runny Nose/ Eye Tearin= Runny Nose/Eyes GI Upset > 30mins: 1= Stomach Cramp Tremor Observation of Outstretched Hands: 2= Slight Tremor Visible Yawning Observation: 1= 1-2x During Session Anxiety or Irritability: 2=Irritable/Anxious Goose Flesh Skin: 0=Smooth Skin COWS Score: 11 S Progress Note (SOAP) Subjective: alert,irritable,anxious,interrupted sleep,tremor,pain in the body and back, coughing Objective: 11/03/19 15:34 Vital Signs Temperature 97.3 F L 11/03/19 14:03 Pulse Rate 68 11/03/19 14:03 Respiratory Rate 18 11/03/19 14:03 Blood Pressure 129/82 11/03/19 14:03 O2 Sat by Pulse Oximetry (%) 11/03/19 15:34 Laboratory Last Values WBC 8.2 K/mm3 (4.0-10.0) 11/02/19 13:05 RBC 4.39 M/mm3 (4.00-5.60) 11/02/19 13:05 Hgb 13.3 GM/dL (11.7-16.9) 11/02/19 13:05 Hct 39.4 % (35.4-49) 11/02/19 13:05 MCV 89.8 fl (80-96) 11/02/19 13:05 MCH 30.3 pg (25.7-33.7) 11/02/19 13:05 MCHC 33.7 g/dl (32.0-35.9) 11/02/19 13:05 RDW 14.2 % (11.9-15.9) 11/02/19 13:05 Plt Count 198 K/MM3 (134-434) 11/02/19 13:05 MPV 9.2 fl (7.5-11.1) 11/02/19 13:05 Sodium 138 mmol/L (136-145) 11/02/19 13:05 Potassium 4.1 mmol/L (3.5-5.1) 11/02/19 13:05 Chloride 103 mmol/L (98-107) 11/02/19 13:05 Carbon Dioxide 30 mmol/L (21-32) 11/02/19 13:05 Anion Gap 5 MMOL/L (8-16) L 11/02/19 13:05 BUN 24.3 mg/dL (7-18) H 11/02/19 13:05 Creatinine 1.0 mg/dL (0.55-1.3) 11/02/19 13:05 Est GFR (CKD-EPI)AfAm 93.08 11/02/19 13:05 Est GFR (CKD-EPI)NonAf 80.31 11/02/19 13:05 Random Glucose 104 mg/dL (74-106) 11/02/19 13:05 Calcium 9.2 mg/dL (8.5-10.1) 11/02/19 13:05 Total Bilirubin 1.1 mg/dL (0.2-1) H 11/02/19 13:05 AST 51 U/L (15-37) H 11/02/19 13:05 ALT 18 U/L (13-61) 11/02/19 13:05 Alkaline Phosphatase 73 U/L (45-117) 11/02/19 13:05 Total Protein 8.0 g/dl (6.4-8.2) 11/02/19 13:05 Albumin 4.0 g/dl (3.4-5.0) 11/02/19 13:05 RPR Titer Nonreactive (NONREACTIVE) 11/02/19 13:05 Assessment: 11/03/19 15:35 withdrawal symptom Plan: continue detox,dehydration,encourage oral fluid,continue methadone and librium regimen,
[2019-11-03] MEDS: THIAMINE HCL 100 MG TABLET (FP) PO SCH (22:20)
[2019-11-04] MEDS: chlordiazePOXIDE HCL 25 MG CAPSULE PO SCH ×4 (04:57→22:24)
[2019-11-04] MEDS ORDERED: METHADONE HCL 10 MG TABLET (FOR DETOX USE ONLY) PO ONE (10:00)
[2019-11-04] MEDS: PRENATAL VITAMINS W/ FOLIC ACID TABLET (FP) PO SCH (11:13)
--- NOTE | 2019-11-04 13:01 | PN ---
[facility] CIWA - CIWA Score Nausea/Vomitin-No Nausea/No Vomiting Muscle Tremors: 1-None Visible, but [place] Anxiety: 1-Mildly Anxious Agitation: 1-Slight > Activity Paroxysmal Sweats: No Perspiration Orientation: 0-Oriented Tacttile Disturbances: 0-None Auditory Disturbances: 0-None Visual Disturbances: 0-None Headache: 1-Very Mild CIWA-Ar Total Score: 4 S COWS - Scale Resting Pulse: 0= [place] 80 or Below Sweatin= No chills or Flushing Restless Observation: 0= Sits Still Pupil Size: 0= Normal to Room Light Bone or Joint Aches: 0= None Runny Nose/ Eye Tearin= None GI Upset > 30mins: 0= None Tremor Observation of Outstretched Hands: 0= None Yawning Observation: 0= None Anxiety or Irritability: 0= None Goose Flesh Skin: 0=Smooth Skin COWS Score: 0 [facility] Progress Note (SOAP) Subjective: Pt has no complaints. O: Vital Signs - 24 hr 11/03/19 11/03/19 11/03/19 14:03 16:32 20:45 Temperature 97.3 F L 97.6 F 100 F H Pulse Rate 68 57 L 65 Respiratory 18 19 18 Rate Blood Pressure 129/82 122/79 126/83 11/04/19 11/04/19 11/04/19 00:29 03:54 07:10 Temperature Pulse Rate Respiratory 18 18 18 Rate Blood Pressure 11/04/19 11/04/19 07:30 10:02 Temperature 97.3 F L 98.1 F Pulse Rate 58 L 69 Respiratory 18 16 Rate Blood Pressure 109/74 116/72 Laboratory Tests 11/02/19 11/02/19 11/02/19 13:05 13:05 13:05 WBC 8.2 RBC 4.39 Hgb 13.3 Hct 39.4 MCV 89.8 MCH 30.3 MCHC 33.7 RDW 14.2 Plt Count 198 MPV 9.2 Sodium 138 Potassium 4.1 Chloride 103 Carbon Dioxide 30 Anion Gap 5 L BUN 24.3 H Creatinine 1.0 Est GFR (CKD-EPI)AfAm 93.08 Est GFR (CKD-EPI)NonAf 80.31 Random Glucose 104 Calcium 9.2 Total Bilirubin 1.1 H AST 51 H ALT 18 Alkaline Phosphatase 73 Total Protein 8.0 Albumin 4.0 RPR Titer Nonreactive nl labs and VS a/p continue dual detox. Pt will talk to counselor re discharge plan to rehab.
[2019-11-04] MEDS: THIAMINE HCL 100 MG TABLET (FP) PO SCH (22:24)
[2019-11-05] MEDS ORDERED: chlordiazePOXIDE HCL 10 MG CAPSULE PO PRN
[2019-11-05] MEDS: chlordiazePOXIDE HCL 10 MG CAPSULE PO SCH ×4 (06:17→22:02)
[2019-11-05] MEDS ORDERED: METHADONE HCL 5 MG TABLET (FOR DETOX USE ONLY) ONE (09:37)
[2019-11-05] MEDS ORDERED: METHADONE HCL 10 MG TABLET (FOR DETOX USE ONLY) ONE (09:37)
[2019-11-05] MEDS ORDERED: METHADONE (DETOX) 10 MG, METHADONE (DETOX) 5 MG PO ONE (10:00)
[2019-11-05] MEDS: PRENATAL VITAMINS W/ FOLIC ACID TABLET (FP) PO SCH (10:45)
[2019-11-05] MEDS ORDERED: cloNIDine HCL 0.1 MG TABLET PO PRN (12:09)
[2019-11-05] MEDS ORDERED: hydrOXYzine PAMOATE 25 MG CAPSULE (FP) PO PRN (12:10)
--- NOTE | 2019-11-05 12:13 | PN ---
[facility] CIWA - CIWA Score Nausea/Vomitin-Mild Nausea/No Vomiting Muscle Tremors: 2 Anxiety: 2 Agitation: 2 Paroxysmal Sweats: 1-Minimal Palms Moist Orientation: 0-Oriented Tacttile Disturbances: 0-None Auditory Disturbances: 0-None Visual Disturbances: 0-None Headache: 0-None Present CIWA-Ar Total Score: 8 [facility]HS COWS - Scale Resting Pulse: 1= [place] 81-100 Sweatin= Chills/Flushing Restless Observation: 1= Difficult to Sit Still Pupil Size: 0= Normal to Room Light Bone or Joint Aches: 1= Mild Discomfort Runny Nose/ Eye Tearin= Nasal Congestion GI Upset > 30mins: 1= Stomach Cramp Tremor Observation of Outstretched Hands: 1= Tremor [place], Not Seen Yawning Observation: 0= None Anxiety or Irritability: 1=Feels Anxious/Irritable Goose Flesh Skin: 0=Smooth Skin COWS Score: 8 S Progress Note (SOAP) Subjective: pt would like prn meds- states that he would like symptomatic treatment- clonidine/vistaril. On dual detox. O: Vital Signs - 24 hr 11/04/19 11/04/19 11/04/19 13:09 16:48 20:31 Temperature 97.5 F L 97.2 F L 97.9 F Pulse Rate 94 H 81 73 Respiratory 20 18 18 Rate Blood Pressure 141/75 122/73 121/73 11/05/19 11/05/19 06:02 10:05 Temperature 98.1 F 96.1 F L Pulse Rate 69 65 Respiratory 18 18 Rate Blood Pressure 130/77 129/77 Laboratory Tests 11/02/19 11/02/19 11/02/19 13:05 13:05 13:05 WBC 8.2 RBC 4.39 Hgb 13.3 Hct 39.4 MCV 89.8 MCH 30.3 MCHC 33.7 RDW 14.2 Plt Count 198 MPV 9.2 Sodium 138 Potassium 4.1 Chloride 103 Carbon Dioxide 30 Anion Gap 5 L BUN 24.3 H Creatinine 1.0 Est GFR (CKD-EPI)AfAm 93.08 Est GFR (CKD-EPI)NonAf 80.31 Random Glucose 104 Calcium 9.2 Total Bilirubin 1.1 H AST 51 H ALT 18 Alkaline Phosphatase 73 Total Protein 8.0 Albumin 4.0 RPR Titer Nonreactive a/p: OUD/AUD- continue detox protocols- pt does not want to be on on detention MAT. clonidine/vistaril for prn symptomatic Rx.
[2019-11-05] MEDS: METHOCARBAMOL 500 MG TABLET PO PRN (18:17)
[2019-11-05] MEDS: THIAMINE HCL 100 MG TABLET (FP) PO SCH (22:02)
[2019-11-06] MEDS: chlordiazePOXIDE HCL 10 MG CAPSULE PO SCH ×2 (06:12→17:32)
[2019-11-06] MEDS ORDERED: METHADONE HCL 10 MG TABLET (FOR DETOX USE ONLY) PO ONE (10:00)
[2019-11-06] MEDS: PRENATAL VITAMINS W/ FOLIC ACID TABLET (FP) PO SCH (10:47)
--- NOTE | 2019-11-06 13:26 | PN ---
[facility] CIWA - CIWA Score Nausea/Vomitin-No Nausea/No Vomiting Muscle Tremors: None Anxiety: 2 Agitation: 2 Paroxysmal Sweats: 1-Minimal Palms Moist Orientation: 0-Oriented Tacttile Disturbances: 0-None Auditory Disturbances: 0-None Visual Disturbances: 0-None Headache: 0-None Present CIWA-Ar Total Score: 5 S COWS - Scale Resting Pulse: 1= [place] 81-100 Sweatin= No chills or Flushing Restless Observation: 1= Difficult to Sit Still Pupil Size: 0= Normal to Room Light Bone or Joint Aches: 1= Mild Discomfort Runny Nose/ Eye Tearin= None GI Upset > 30mins: 0= None Tremor Observation of Outstretched Hands: 0= None Yawning Observation: 0= None Anxiety or Irritability: 2=Irritable/Anxious Goose Flesh Skin: 0=Smooth Skin COWS Score: 5 S Progress Note (SOAP) Subjective: Patient admitted for ETOH/Opiod withdrawal sx Complains of mild body aches and anxiety Objective: 11/06/19 13:24 Laboratory Tests 11/02/19 11/02/19 11/02/19 13:05 13:05 13:05 WBC 8.2 RBC 4.39 Hgb 13.3 Hct 39.4 MCV 89.8 MCH 30.3 MCHC 33.7 RDW 14.2 Plt Count 198 MPV 9.2 Sodium 138 Potassium 4.1 Chloride 103 Carbon Dioxide 30 Anion Gap 5 L BUN 24.3 H Creatinine 1.0 Est GFR (CKD-EPI)AfAm 93.08 Est GFR (CKD-EPI)NonAf 80.31 Random Glucose 104 Calcium 9.2 Total Bilirubin 1.1 H AST 51 H ALT 18 Alkaline Phosphatase 73 Total Protein 8.0 Albumin 4.0 RPR Titer Nonreactive Vital Signs Temperature 97.2 F L 11/06/19 11:47 Pulse Rate 98 H 11/06/19 11:47 Respiratory Rate 18 11/06/19 11:47 Blood Pressure 101/73 11/06/19 11:47 O2 Sat by Pulse Oximetry (%) PE alert and oriented x 3 skin warm and dry +perrla, eoms intact bl gi nt, nd ext full rom amb ad cali anxious-mild Assessment: 11/06/19 13:25 Opiod/ETOH withdrawal sx Plan: continue detox d/c in am
[2019-11-06] MEDS: THIAMINE HCL 100 MG TABLET (FP) PO SCH (22:31)
[2019-11-07] MEDS ORDERED: chlordiazePOXIDE HCL 10 MG CAPSULE PO ONE (05:00)
[2019-11-07] MEDS ORDERED: METHADONE HCL 5 MG TABLET (FOR DETOX USE ONLY) PO ONE (06:00)
[2019-11-07] MEDS: PRENATAL VITAMINS W/ FOLIC ACID TABLET (FP) PO SCH (10:29)
[2019-11-07 11:10] VITALS: TEMP 96.3
--- NOTE | 2019-11-07 11:58 | PN ---
[facility] CIWA - CIWA Score Nausea/Vomitin-No Nausea/No Vomiting Muscle Tremors: 1-None Visible, but [place] Anxiety: 0-No Anxiety, at Ease Agitation: 0-Normal Activity Paroxysmal Sweats: No Perspiration Orientation: 0-Oriented Tacttile Disturbances: 0-None Auditory Disturbances: 0-None Visual Disturbances: 0-None Headache: 0-None Present CIWA-Ar Total Score: 1 [facility] COWS - Scale Resting Pulse: 1= [place] 81-100 Sweatin= No chills or Flushing Restless Observation: 0= Sits Still Pupil Size: 0= Normal to Room Light Bone or Joint Aches: 0= None Runny Nose/ Eye Tearin= None GI Upset > 30mins: 0= None Tremor Observation of Outstretched Hands: 0= None Yawning Observation: 0= None Anxiety or Irritability: 0= None Goose Flesh Skin: 0=Smooth Skin COWS Score: 1 [facility] Progress Note (SOAP) Subjective: alert,no complaint Objective: 11/07/19 11:56 Vital Signs Temperature 96.3 F L 11/07/19 08:57 Pulse Rate 89 11/07/19 08:57 Respiratory Rate 20 11/07/19 08:57 Blood Pressure 126/76 11/07/19 08:57 O2 Sat by Pulse Oximetry (%) Assessment: 11/07/19 11:57 detox completed,no withdrawal symptom Plan: discharge today,to go to [facility]
--- NOTE | 2019-11-07 12:02 | DS ---
[facility] Detox Discharge Summary Admission Date: 11/02/19 Discharge Date: 11/07/19 - History Present History: Alcohol Dependence, Opioid Dependence Additional Comments: alert,oriented x 3 ambulation on the unit no abdominal pain lung clear bilaterally stable for discharge time spending on discharge 30 mins - Physical Exam Results Vital Signs: Vital Signs Temperature 96.3 F L 11/07/19 08:57 Pulse Rate 89 11/07/19 08:57 Respiratory Rate 20 11/07/19 08:57 Blood Pressure 126/76 11/07/19 08:57 O2 Sat by Pulse Oximetry (%) Pertinent Admission Physical Exam Findings: withdrawal signs and symptom Laboratory Last Values WBC 8.2 K/mm3 (4.0-10.0) 11/02/19 13:05 RBC 4.39 M/mm3 (4.00-5.60) 11/02/19 13:05 Hgb 13.3 GM/dL (11.7-16.9) 11/02/19 13:05 Hct 39.4 % (35.4-49) 11/02/19 13:05 MCV 89.8 fl (80-96) 11/02/19 13:05 MCH 30.3 pg (25.7-33.7) 11/02/19 13:05 MCHC 33.7 g/dl (32.0-35.9) 11/02/19 13:05 RDW 14.2 % (11.9-15.9) 11/02/19 13:05 Plt Count 198 K/MM3 (134-434) 11/02/19 13:05 MPV 9.2 fl (7.5-11.1) 11/02/19 13:05 Sodium 138 mmol/L (136-145) 11/02/19 13:05 Potassium 4.1 mmol/L (3.5-5.1) 11/02/19 13:05 Chloride 103 mmol/L (98-107) 11/02/19 13:05 Carbon Dioxide 30 mmol/L (21-32) 11/02/19 13:05 Anion Gap 5 MMOL/L (8-16) L 11/02/19 13:05 BUN 24.3 mg/dL (7-18) H 11/02/19 13:05 Creatinine 1.0 mg/dL (0.55-1.3) 11/02/19 13:05 Est GFR (CKD-EPI)AfAm 93.08 11/02/19 13:05 Est GFR (CKD-EPI)NonAf 80.31 11/02/19 13:05 Random Glucose 104 mg/dL (74-106) 11/02/19 13:05 Calcium 9.2 mg/dL (8.5-10.1) 11/02/19 13:05 Total Bilirubin 1.1 mg/dL (0.2-1) H 11/02/19 13:05 AST 51 U/L (15-37) H 11/02/19 13:05 ALT 18 U/L (13-61) 11/02/19 13:05 Alkaline Phosphatase 73 U/L (45-117) 11/02/19 13:05 Total Protein 8.0 g/dl (6.4-8.2) 11/02/19 13:05 Albumin 4.0 g/dl (3.4-5.0) 11/02/19 13:05 RPR Titer Nonreactive (NONREACTIVE) 11/02/19 13:05 Vital Signs Temperature 96.3 F L 11/07/19 08:57 Pulse Rate 89 11/07/19 08:57 Respiratory Rate 20 11/07/19 08:57 Blood Pressure 126/76 11/07/19 08:57 O2 Sat by Pulse Oximetry (%) - Treatment Hospital Course: Detox Protocol Followed, Detoxed Safely, Responded well, Discharged Condition Good, Rehab Referral Accepted Patient has Accepted a [facility] Referral to: [facility] - Medication Discharge Medications: Ambulatory Orders NK [No Known Home Medication] 11/02/19 - Diagnosis (1) Alcohol dependence with uncomplicated withdrawal Current Visit: Yes Status: Chronic (2) Opioid dependence with withdrawal Current Visit: Yes Status: Chronic - AMA Did Patient Leave Against Medical Advice: No
--- NOTE | 2019-11-07 12:03 | HP ---
[facility] Rehab Assess/Revision - Admission History Admitted to Rehab from: [facility] Date of Admission to Rehab: 11/07/2019 - Vital signs Vital Signs: Vital Signs Period Temp Pulse Resp BP Sys/Egan Pulse Ox Last 24 Hr 96.3 F-97.5 F 70-89 16-20 98-130/56-76 - Findings Detox History & Physical reviewed: Yes Concur with findings: Yes Comments/Additional Findings: for rehab as protocol Inpatient Rehab Admission - Rehab Decision to Admit Inpatient rehab admission?: Yes - Initial Determination Are CD services needed?: Yes Free of communicable disease: Yes Not in need of hospitalization: Yes - Rehab Admission Criteria Previous failed treatment: Yes Poor recovery environment: Yes Comorbidities: Yes Lacks judgement: No Patient is meeting Inpatient Rehab admission criteria:: Yes
[2019-11-07 14:31] VITALS: BP 111/70; PULSE 81
== END 2019-11-07 14:49 | disposition other institution (70) | DRG 773 ==
LOC: YASAS 11:39 → Y6N 13:08
PROVIDERS: ADMIT Allergy & Immunology; ATTEND Allergy & Immunology
PROC: HZ2ZZZZ Detoxification Services for Substance Abuse Treatment (ICD-10-PCS; principal; 2019-11-02)
DX: F10.230 Alcohol dependence with withdrawal, uncomplicated (principal); F11.23 Opioid dependence with withdrawal; G47.00 Insomnia, unspecified; M54.5 Low back pain; M25.551 Pain in right hip; G89.29 Other chronic pain
CPT/HCPCS: 36415; 80053; 85027; 86593

== ENCOUNTER 2019-11-07 14:52 | Inpatient (IN) | payer OTHER ==
--- NOTE | 2019-11-07 15:19 | HP ---
[facility] Rehab Assess/Revision - Admission History Admitted to Rehab from: [facility] (S/P Detox from Heroin and Alcohol-completed today.) Date of Admission to Rehab: 11/07/19 - Vital signs Vital Signs: Vital Signs Period Temp Pulse Resp BP Sys/Egan Pulse Ox Last 24 Hr 97.2 F 88 20 124/68 - Findings Detox History & Physical reviewed: Yes Concur with findings: Yes Comments/Additional Findings: Pt is a 64 y/o male with a hx ofSUD-Heroin and Alcohol admitted to rehab today [place]. Pt reports he has no primary care provider and goes to Hospital ER when needed- [facility]. PMHx: Chronic Back Pain. Psych Hx:Sleeping Problems and has used seroquel in the past while in treatment. Reports he does not use any sleeping medication at home. PSHx:Denies. Alert o x 3. nad. oob ambulating with steady gait. Extremities/skin:no edema;skin intact. Inpatient Rehab Admission - Rehab Decision to Admit Inpatient rehab admission?: Yes - Initial Determination Are CD services needed?: Yes Free of communicable disease: Yes Not in need of hospitalization: Yes - Rehab Admission Criteria Previous failed treatment: Yes Poor recovery environment: Yes Comorbidities: Yes Lacks judgement: Yes Patient is meeting Inpatient Rehab admission criteria:: Yes
[2019-11-07] MEDS ORDERED: guaiFENesin 200 MG/10 ML 10 ML UNIT-DOSE CUPS PO PRN (15:23)
[2019-11-07] MEDS ORDERED: IBUPROFEN 400 MG TABLET (FP) PO PRN (15:23)
[2019-11-07] MEDS ORDERED: hydrOXYzine PAMOATE 50 MG CAPSULE (FP) PO PRN (15:23)
[2019-11-07] MEDS ORDERED: NICOTINE POLACRILEX 2 MG GUM BUC PRN (15:23)
[2019-11-07] MEDS ORDERED: LOPERAMIDE HCL 2 MG CAPSULE PO PRN (15:23)
[2019-11-07] MEDS ORDERED: MAGNESIUM HYDROX 2400MG/30ML ORAL SUSPENSION 30 ML CUP PO PRN (15:23)
[2019-11-07] MEDS ORDERED: MENTHOL/PHENOL 1 EACH UD MM PRN (15:23)
[2019-11-07] MEDS ORDERED: MAGNESIUM CITRATE 300 ML BOTTLE PO PRN (15:23)
[2019-11-07] MEDS ORDERED: P-EPHED 60MG/TRIPROLIDI 2.5MG TABLET PO PRN (15:23)
[2019-11-07] MEDS: THIAMINE HCL 100 MG TABLET (FP) PO SCH (21:40)
[2019-11-07] MEDS ORDERED: MELATONIN 5 MG TABLETS PO PRN (22:00)
[2019-11-08] MEDS: ACETAMINOPHEN 325 MG TABLET (FP) PO PRN (05:24)
[2019-11-08] MEDS: NICOTINE 14 MG/24 HOURS TOPICAL PATCH TD SCH (10:33)
[2019-11-08] MEDS: PRENATAL VITAMINS W/ FOLIC ACID TABLET (FP) PO SCH (10:33)
[2019-11-08] MEDS: THIAMINE HCL 100 MG TABLET (FP) PO SCH (21:35)
[2019-11-09] MEDS: ACETAMINOPHEN 325 MG TABLET (FP) PO PRN (06:06)
--- NOTE | 2019-11-09 09:08 | CONSULT ---
[facility] Psychiatric Consult - Data Date of interview: 11/09/19 Admission source: N Identifying data: Mr Waller is a 64 years old single Black male, unemployed receiving public assistance, domiciled admitted from detox on 11/07/19 for inpatient rehabilitation for alcohol and opioid Substance Abuse History: Reports history of alcohol and heroin use. Refer to addiction counselor's summary for further information Medical History: Significant for PPD+, chonic lumbar pain and chronic pain right hip. Smokes cigarettes 1 ppd Psychiatric History: Patient denies history of previous psychiatric treatment. However, reports experiencing difficulty sleeping and in the past he has been prescribed Remeron, Trazadone and Belsomra Physical/Sexual Abuse/Trauma History: Denies history of abuse as a child or DV relatonship as an adult. 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 Mental Status Exam - Mental Status Exam Alert and Oriented to: Time, Place, Person Cognitive Function: Fair Patient Appearance: Well Groomed Mood: Hopeful, Euthymic Patient Behavior: Cooperative Speech Pattern: Clear Voice Loudness: Normal Thought Process: Intact, Goal Oriented Thought Disorder: Not Present Hallucinations: Denies Suicidal Ideation: Denies Homicidal Ideation: Denies Insight/Judgement: Fair Sleep: Poorly Appetite: Good Muscle strength/Tone: Normal Gait/Station: Normal Psychiatric Findings - Problem List ([place] 1, 2,3) (1) Substance-induced sleep disorder Current Visit: No Status: Acute (2) Alcohol dependence Current Visit: Yes Status: Acute (3) Opiate dependence Current Visit: No Status: Acute (4) Nicotine dependence Current Visit: No Status: Chronic Qualifiers: Nicotine product type: cigarettes Substance use status: uncomplicated Qualified Code(s): F17.210 - Nicotine dependence, cigarettes, uncomplicated (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 2) Continue inpatient rehabilitation
[2019-11-09] MEDS: PRENATAL VITAMINS W/ FOLIC ACID TABLET (FP) PO SCH (10:31)
[2019-11-09] MEDS: NICOTINE 14 MG/24 HOURS TOPICAL PATCH TD SCH (10:31)
[2019-11-09] MEDS: NAPROXEN 500 MG TABLET PO PRN ×2 (10:32→21:40)
[2019-11-09] MEDS: SUVOREXANT 15 MG TABLET PO PRN (21:40)
[2019-11-09] MEDS: THIAMINE HCL 100 MG TABLET (FP) PO SCH (21:41)
[2019-11-10] MEDS: PRENATAL VITAMINS W/ FOLIC ACID TABLET (FP) PO SCH (10:33)
[2019-11-10] MEDS: NICOTINE 14 MG/24 HOURS TOPICAL PATCH TD SCH (10:34)
[2019-11-10] MEDS: NAPROXEN 500 MG TABLET PO PRN ×2 (10:34→21:36)
[2019-11-10] MEDS: SUVOREXANT 15 MG TABLET PO PRN (21:35)
[2019-11-10] MEDS: THIAMINE HCL 100 MG TABLET (FP) PO SCH (22:47)
[2019-11-11] MEDS: PRENATAL VITAMINS W/ FOLIC ACID TABLET (FP) PO SCH (10:20)
[2019-11-11] MEDS: NICOTINE 14 MG/24 HOURS TOPICAL PATCH TD SCH (10:20)
[2019-11-11] MEDS: NAPROXEN 500 MG TABLET PO PRN (10:20)
[2019-11-11] MEDS: THIAMINE HCL 100 MG TABLET (FP) PO SCH (21:27)
[2019-11-11] MEDS: SUVOREXANT 15 MG TABLET PO PRN (21:28)
[2019-11-12] MEDS: PRENATAL VITAMINS W/ FOLIC ACID TABLET (FP) PO SCH (10:14)
[2019-11-12] MEDS: NICOTINE 14 MG/24 HOURS TOPICAL PATCH TD SCH (10:14)
[2019-11-12] MEDS: THIAMINE HCL 100 MG TABLET (FP) PO SCH (22:29)
[2019-11-13] MEDS: MAG HYDROX/AL HYDROX/SIMETH 30 ML UNIT-DOSE CUP PO PRN (08:25)
[2019-11-13] MEDS: NAPROXEN 500 MG TABLET PO PRN (09:52)
[2019-11-13] MEDS: NICOTINE 14 MG/24 HOURS TOPICAL PATCH TD SCH (09:52)
[2019-11-13] MEDS: PRENATAL VITAMINS W/ FOLIC ACID TABLET (FP) PO SCH (09:52)
[2019-11-13] MEDS: THIAMINE HCL 100 MG TABLET (FP) PO SCH (22:54)
[2019-11-14] MEDS: PRENATAL VITAMINS W/ FOLIC ACID TABLET (FP) PO SCH (11:10)
[2019-11-14] MEDS: NICOTINE 14 MG/24 HOURS TOPICAL PATCH TD SCH (11:10)
[2019-11-14] MEDS: MAG HYDROX/AL HYDROX/SIMETH 30 ML UNIT-DOSE CUP PO PRN (13:44)
[2019-11-14] MEDS: THIAMINE HCL 100 MG TABLET (FP) PO SCH (21:26)
[2019-11-14] MEDS: NAPROXEN 500 MG TABLET PO PRN (21:28)
[2019-11-15] MEDS: PRENATAL VITAMINS W/ FOLIC ACID TABLET (FP) PO SCH (10:32)
[2019-11-15] MEDS: NICOTINE 14 MG/24 HOURS TOPICAL PATCH TD SCH (10:33)
[2019-11-15] MEDS: MAG HYDROX/AL HYDROX/SIMETH 30 ML UNIT-DOSE CUP PO PRN (18:17)
[2019-11-15] MEDS: THIAMINE HCL 100 MG TABLET (FP) PO SCH (22:47)
--- NOTE | 2019-11-16 10:08 | PN ---
BHS Progress Note Note: pt c/o stomach cramps and unrest
--- NOTE | 2019-11-16 10:09 | PN ---
BHS COWS - Scale Resting Pulse: 0= [place] 80 or Below Sweatin= Chills/Flushing Restless Observation: 0= Sits Still Pupil Size: 0= Normal to Room Light Bone or Joint Aches: 1= Mild Discomfort Runny Nose/ Eye Tearin= None GI Upset > 30mins: 1= Stomach Cramp Tremor Observation of Outstretched Hands: 0= None Yawning Observation: 0= None Anxiety or Irritability: 1=Feels Anxious/Irritable Goose Flesh Skin: 0=Smooth Skin COWS Score: 4 BHS Progress Note (SOAP) Subjective: c/o anxiety and cravings and wants to start on Suboxone. pt reports hx of previous suboxone use but not currently in treatment. Pt met with his counselor , Ms Kristi Frost who has referred pt to [facility] Suboxone program after discharge. Objective: 11/16/19 10:09 Vital Signs - 24 hr 11/16/19 11/16/19 11/16/19 00:30 03:30 06:30 Temperature 98 F Pulse Rate 66 Respiratory 16 16 18 Rate Blood Pressure 114/81 URINE DRUG SCREEN RESULTS Urine Drug Screen Results BZO-Benzodiazepines,MTD-Methadone Assessment: 11/17/19 10:55 Opioid Use disorder s/p Detox cravings Plan: Suboxone 2mg/0.5mg sl po daily started. D/w pt to follow up with [facility] in [place] upon discharge and for adjustments as needed. Pt is agreeable to poc.
[2019-11-16] MEDS: PRENATAL VITAMINS W/ FOLIC ACID TABLET (FP) PO SCH (10:25)
[2019-11-16] MEDS: NICOTINE 14 MG/24 HOURS TOPICAL PATCH TD SCH (10:25)
[2019-11-16] MEDS ORDERED: BUPRENORPHINE/NALOXONE 2 MG/0.5 MG FILM PACKET SL ONE (11:00)
[2019-11-16] MEDS: NAPROXEN 500 MG TABLET PO PRN (15:56)
[2019-11-16] MEDS: THIAMINE HCL 100 MG TABLET (FP) PO SCH (21:55)
[2019-11-17 08:01] VITALS: BP 122/90; PULSE 68; TEMP 97.2
[2019-11-17] MEDS: PRENATAL VITAMINS W/ FOLIC ACID TABLET (FP) PO SCH (09:58)
[2019-11-17] MEDS ORDERED: BUPRENORPHINE/NALOXONE 2 MG/0.5 MG FILM PACKET SL SCH (10:00)
[2019-11-17] MEDS: NICOTINE 14 MG/24 HOURS TOPICAL PATCH TD SCH (10:01)
--- NOTE | 2019-11-17 10:43 | DS ---
[facility] Rehab Discharge Summary - [facility] Rehab Discharge Summary Admission Date: 11/07/19 Discharge Date: 11/17/19 - History Present History: Alcohol dependence, Opioid dependence Additional Comments: Pt is a 64 y/o male with a hx of DEJAN admitted to rehab after completing detox and scheduled to discharge today. Pt has been referred to follow up with CD aftercare at [facility] CD program/Suboxone MAT program. Pt reports he has primary care with [facility] with provider Dr. Janet Guillermo. Pertinent Past History: Chronic Back pain - Discharge Physical Exam Vital Signs: Vital Signs Temperature 97.2 F L 11/17/19 06:00 Pulse Rate 68 11/17/19 06:00 Respiratory Rate 20 11/17/19 06:00 Blood Pressure 122/90 11/17/19 06:00 O2 Sat by Pulse Oximetry (%) Alert o x 3,denies s/h/i nad oob ambulating with steady gait cardiac:s1 s2,rrr lungs:cta,laura. abdomen:+bs,soft,nt,nd extremities/skin:no edema;skin intact. Pertinent Admission Physical Exam Findings: Starus stable and unchanged from detox - Treatment Discharge Condition: Discharge condition good Hospital Course: Rehabilitated safely and responded well CD aftercare referral accepted at [facility] programs participated in groups and individual sessions while in treatment. Started on Suboxone MAT and referred for follow up in [facility] as below. - Medication Discharge Medications: Ambulatory Orders Naproxen [Naprosyn -] 500 mg PO DAILY 11/07/19 Buprenorphine/Naloxone [Suboxone 2Mg/0.5MG Sl Film -] 1 combo SL DAILY 7 Days # 7 packet MDD 1 11/17/19 Naloxone HCl [Narcan] 4 mg NS ONCE #1 spray 11/17/19 - Medication-Assisted Treatment (MAT) Medication-Assisted Treatment (MAT): Yes Medication Prescribed: Suboxone MAT Follow-up Referral: [facility]) [address] [place] [address] - Discharge Instructions Diet, activity, other medical instructions: Diet:Regular Activity:oob ad cali Other medical instructions:follow up with [facility] CD/Suboxone MAT programs as recommended and scheduled. - Diagnosis (1) Alcohol dependence Current Visit: Yes Status: Chronic Qualifiers: Substance use status: uncomplicated Qualified Code(s): F10.20 - Alcohol dependence, uncomplicated (2) Opiate dependence Current Visit: Yes Status: Chronic Qualifiers: Substance use status: uncomplicated Qualified Code(s): F11.20 - Opioid dependence, uncomplicated (3) Chronic back pain Current Visit: Yes Status: Chronic Qualifiers: Back pain location: low back pain Back pain laterality: right Sciatica presence: without sciatica Qualified Code(s): M54.5 - Low back pain; G89.29 - Other chronic pain (4) Nicotine dependence Current Visit: Yes Status: Chronic Qualifiers: Nicotine product type: cigarettes Substance use status: uncomplicated Qualified Code(s): F17.210 - Nicotine dependence, cigarettes, uncomplicated - Follow-up Referral Minutes to complete discharge: 25 - AMA Did Patient Leave Against Medical Advice: No
== END 2019-11-17 11:10 | disposition home or self-care (01) | DRG 772 ==
LOC: YASAS 14:52 → Y5N 14:53
PROVIDERS: ADMIT Allergy & Immunology; ATTEND Allergy & Immunology
PROC: HZ42ZZZ Group Counseling for Substance Abuse Treatment, Cognitive-Behavioral (ICD-10-PCS; principal; 2019-11-07)
DX: F10.20 Alcohol dependence, uncomplicated (principal); F11.20 Opioid dependence, uncomplicated; F17.210 Nicotine dependence, cigarettes, uncomplicated; F19.282 Other psychoactive substance dependence with psychoactive substance-induced sleep disorder; G35 Multiple sclerosis; M25.551 Pain in right hip; M54.5 Low back pain; G89.29 Other chronic pain; R76.11 Nonspecific reaction to tuberculin skin test without active tuberculosis

== ENCOUNTER 2020-04-14 09:22 | Inpatient (IN) | payer OTHER ==
--- NOTE | 2020-04-14 09:48 | BHS.RME ---
Substance Use & Tx History - Substance Use History Alcohol Substance amount: 1 pint rum Frequency of use: Daily Substance route: Oral Date of Last Use: 04/13/20 Heroin Substance amount: 8 bags Frequency of use: Daily Substance route: Inhalation (ex: sniffing or snorting) Date of Last Use: 04/13/20 - Last Treatment Date of last treatment: 01/07/20 Where was last treatment: Detox Physical/Psych/Mental Status - Behavior General Behavior: Increased activity (restlessness, agitation) Eye Contact: Normal Other Behaviors: Mannerisms - Cooperativeness Cooperativeness: Cooperative - Thinking Thought Processes: Tight, Logical Thought content: Future oriented - Physical Health Problems Is patient presently having any pain?: Yes Does patient presently have any injuries (include location): No Does patient currently have a fever: No COWS - Scale Resting Pulse: 0= [place] 80 or Below Sweatin= Chills/Flushing Restless Observation: 1= Difficult to Sit Still Pupil Size: 1= Pupils >than Normal Bone or Joint Aches: 2= Severe Diffuse Aches Runny Nose/ Eye Tearin= Runny Nose/Eyes GI Upset > 30mins: 1= Stomach Cramp Tremor Observation: 1= Tremor [place], Not Seen Yawning Observation: 1= 1-2x During Session Anxiety or Irritability: 1=Feels Anxious/Irritable Goose Flesh Skin: 3=Piloerection COWS Score: 14 CIWA Nausea/Vomitin Muscle Tremors: 2 Anxiety: 2 Agitation: 2 Paroxysmal Sweats: 1-Minimal Palms Moist Orientation: 0-Oriented Tacttile Disturbances: 1-Very Mild Itch/Numbness Auditory Disturbances: 0-None Visual Disturbances: 0-None Headache: 2-Mild CIWA-Ar Total Score: 12
--- NOTE | 2020-04-14 09:54 | HP ---
COWS - Scale Resting Pulse: 0= [place] 80 or Below Sweatin= Chills/Flushing Restless Observation: 1= Difficult to Sit Still Pupil Size: 1= Pupils >than Normal Bone or Joint Aches: 2= Severe Diffuse Aches Runny Nose/ Eye Tearin= Runny Nose/Eyes GI Upset > 30mins: 1= Stomach Cramp Tremor Observation: 1= Tremor [place], Not Seen Yawning Observation: 1= 1-2x During Session Anxiety or Irritability: 1=Feels Anxious/Irritable Goose Flesh Skin: 3=Piloerection COWS Score: 14 CIWA Score Nausea/Vomitin Muscle Tremors: 2 Anxiety: 2 Agitation: 2 Paroxysmal Sweats: 1-Minimal Palms Moist Orientation: 0-Oriented Tacttile Disturbances: 1-Very Mild Itch/Numbness Auditory Disturbances: 0-None Visual Disturbances: 0-None Headache: 2-Mild CIWA-Ar Total Score: 12 - Admission Criteria [facility]ASAS Guidelines: Admission for Medically Managed Detox: Requires at least one of the followin. CIWA greater than 12 2. Seizures within the past 24 hours 3. Delirium tremens within the past 24 hours 4. Hallucinations within the past 24 hours 5. Acute intervention needed for co occurring medical disorder 6. Acute intervention needed for co occurring psychiatric disorder 7. Severe withdrawal that cannot be handled at a lower level of care (continued vomiting, continued diarrhea, abnormal vital signs) requiring intravenous medication and/or fluids 8. Patient presents the following: CIWA greater than 12 Admission Criteria Met: Admission criteria met Admitting History and Physical - Smoking History Smoking history: Never smoked Have you smoked in the past 12 months: No Aproximately how many cigarettes per day: 0 If you are a former smoker, when did you quit?: 20 - Alcohol/Substance Use Hx Alcohol Use: Yes Admission ROS [facility] Chief Complaint: Alcohol and heroin withdrawal Allergies/Adverse Reactions: Allergies Allergy/AdvReac Type Severity Reaction Status Date / Time No Known Allergies Allergy Verified 04/14/20 09:54 History of Present Illness: Patient is a 64 year old man who presents for heroin and alcohol withdrawal. Patient was previously on suboxone but he reports he has stopped taking, last pharmacy activity as below. He denies seizures, reports blackouts in the past Patient Name: Genaro Waller Date: 1955 Address: [place] [address] Sex: Male Rx Written Rx Dispensed Drug Quantity Days Supply Prescriber Name Payment Method Dispenser 02/16/2020 02/16/2020 buprenorphine-naloxone 2-0.5 mg sl film 7 7 Anaid Lopez DO Medicaid [facility] [employer] Patient Name: Genaro Waller Date: 1955 Address: [address] [place] [address] Sex: Male Rx Written Rx Dispensed Drug Quantity Days Supply Prescriber Name Payment Method Dispenser 12/13/2019 12/13/2019 buprenorphine-naloxone 2-0.5 mg sl film 30 30 Wanda Huber Medicaid [facility] Exam Limitations: No Limitations - Ebola screening Have you traveled outside of the country in the last 21 days: No Have you had contact with anyone from an Ebola affected area: No Have you been sick,other than usual withdrawal symptoms: No Do you have a fever: No - Review of Systems Constitutional: Chills, Changes in sleep EENT: reports: Nose Congestion Respiratory: reports: No Symptoms reported Cardiac: reports: No Symptoms Reported GI: reports: Nausea, Abdominal cramping : reports: No Symptoms Reported Musculoskeletal: reports: Joint Pain Integumentary: reports: Sweating Neuro: reports: Headache, Tremors Endocrine: reports: No Symptoms Reported Hematology: reports: No Symptoms Reported Psychiatric: reports: Anxious (r/t withdrawal) Other Systems: Reviewed and Negative Patient History - Patient Medical History Hx Anemia: No Hx Asthma: No Hx Chronic Obstructive Pulmonary Disease (COPD): No Hx Cancer: No Hx Cardiac Disorders: No Hx Congestive Heart Failure: No Hx Hypertension: No Hx Hypercholesterolemia: No Hx Pacemaker: No HX Cerebrovascular Accident: No Hx Seizures: No Hx Dementia: No Hx Diabetes: No Hx Gastrointestinal Disorders: No Hx Liver Disease: No Hx Genitourinary Disorders: No Hx Sexually Transmitted Disorders: No Hx Renal Disease (ESRD): No Hx Thyroid Disease: No Hx Human Immunodeficiency Virus (HIV): No Hx Hepatitis C: No Hx Depression: No Hx Suicide Attempt: No Hx Bipolar Disorder: No Hx Schizophrenia: No - Patient Surgical History Past Surgical History: No - PPD History Previous Implant?: Yes Documented Results: Positive w/proof Implanted On Prior [facility] Admission?: Yes Date: 09/21/18 (CXR negative on 01/07/20) Results: positive PPD PPD to be Administered?: No - Smoking Cessation Smoking history: Never smoked Have you smoked in the past 12 months: No Aproximately how many cigarettes per day: 0 If you are a former smoker, when did you quit?: 20 Cigars Per Day: 0 Hx Chewing Tobacco Use: No Initiated information on smoking cessation: No - Substances abused Alcohol Substance route: Oral Frequency: Daily Amount used: RUM- 1 PT/ BEERS- 24OZ 2 CANS Age of first use: 15 Date of last use: 04/13/20 Heroin Substance route: Inhalation Frequency: Daily Amount used: 7-8BAGS Age of first use: 27 Date of last use: 04/13/20 Admission Physical Exam [facility] - Physical General Appearance: Yes: Irritable HEENTM: Yes: Hearing grossly Normal, Normal ENT Inspection, Normocephalic, Normal Voice, Tm's normal Respiratory: Yes: Chest Non-Tender, Lungs Clear, Normal Breath Sounds, No Respiratory Distress, No Accessory Muscle Use Neck: Yes: No masses,lesions,Nodules, Supple Breast: Yes: Breast Exam Deferred Cardiology: Yes: Regular Rhythm, Regular Rate Abdominal: Yes: Normal Bowel Sounds, Non Tender, Soft Genitourinary: Yes: Within Normal Limits Back: Yes: Normal Inspection Musculoskeletal: Yes: full range of Motion, Gait Steady Extremities: Yes: Normal Range of Motion, Non-Tender, Tremors Neurological: Yes: byproducts operator II-XII NML intact, Fully Oriented, Alert, Normal Mood/Affect, Normal Response Integumentary: Yes: Other (bruise across the back) Lymphatic: Yes: Within Normal Limits - Diagnostic (1) Joint pain Current Visit: Yes Status: Chronic Qualifiers: Joint pain location: hip Laterality: bilateral Qualified Code(s): M25.551 - Pain in right hip; M25.552 - Pain in left hip (2) Alcohol dependence with uncomplicated withdrawal Current Visit: Yes Status: Acute (3) Opioid dependence with withdrawal Current Visit: Yes Status: Chronic Cleared for Admission [facility] - Detox or Rehab [facility] Level of Care: Medically Managed () Detox Regimen/Protocol: Methadone/Valium Claeared for Rehab Admission: No Breathalyzer - Breathalyzer Breathalyzer: 0.021 Urine Drug Screen - Test Device Lot number: [id number] Expiration date: 05/21/21 - Control Is test valid?: Yes - Results Drug screen NEGATIVE: No Urine drug screen results: FEN-Fentanyl, MOP-Opiates Inpatient Rehab Admission - Rehab Decision to Admit Inpatient rehab admission?: No
[2020-04-14] MEDS ORDERED: BISMUTH SUBSALICYLATE 524 MG/30 ML UD PO PRN (09:59)
[2020-04-14] MEDS ORDERED: MAGNESIUM HYDROX 2400MG/30ML ORAL SUSPENSION 30 ML CUP PO PRN (09:59)
[2020-04-14] MEDS ORDERED: cloNIDine HCL 0.1 MG TABLET PO PRN (09:59)
[2020-04-14] MEDS ORDERED: MENTHOL/PHENOL 1 EACH UD MM PRN (09:59)
[2020-04-14] MEDS ORDERED: METHOCARBAMOL 500 MG TABLET PO PRN (09:59)
[2020-04-14] MEDS ORDERED: ACETAMINOPHEN 325 MG TABLET (FP) PO PRN ×2 (09:59)
[2020-04-14] MEDS ORDERED: NALOXONE HCL 0.4 MG/ML VIAL IM PRN (09:59)
[2020-04-14] MEDS ORDERED: IBUPROFEN 400 MG TABLET (FP) PO PRN (09:59)
[2020-04-14] MEDS ORDERED: MAGNESIUM CITRATE 300 ML BOTTLE PO PRN (09:59)
[2020-04-14 10:07] VITALS: BMI 29.2
[2020-04-14] MEDS ORDERED: METHADONE HCL 10 MG TABLET (FOR DETOX USE ONLY) PO ONE (10:30)
[2020-04-14] MEDS: PRENATAL VITAMINS W/ FOLIC ACID TABLET (FP) PO SCH (10:53)
[2020-04-14 12:00] LABS: HEMATOCRIT 42.9 % (35.4-49); HEMOGLOBIN 14.3 GM/dL (11.7-16.9); MCH 30.1 pg (25.7-33.7); MCHC 33.4 g/dl (32.0-35.9); MEAN CELL VOLUME 90.1 fl (80-96); MEAN PLT VOLUME 9.1 fl (7.5-11.1); PLATELET COUNT 210 K/MM3 (134-434); RBC 4.76 M/mm3 (4.00-5.60); RDW 14.5 % (11.9-15.9); WHITE BLOOD COUNT 8.4 K/mm3 (4.0-10.0)
[2020-04-14 12:06] LABS: ALBUMIN 4.1 g/dl (3.4-5.0); BILIRUBIN,TOTAL 1.4 mg/dL (0.2-1); CREATININE 1.1 mg/dL (0.55-1.3); POTASSIUM 3.9 mmol/L (3.5-5.1); TOT PROT 8.4 g/dl (6.4-8.2)
[2020-04-14] MEDS ORDERED: MASKS NR ONE (13:57)
[2020-04-14] MEDS: diazePAM 5 MG TABLET PO SCH ×2 (14:00→22:44)
[2020-04-14] MEDS: diazePAM 5 MG TABLET PO PRN (18:39)
[2020-04-14] MEDS: THIAMINE HCL 100 MG TABLET (FP) PO SCH (22:44)
[2020-04-14] MEDS: MELATONIN 5 MG TABLETS PO SCH (22:44)
[2020-04-15] MEDS: diazePAM 5 MG TABLET PO SCH ×3 (05:53→21:29)
[2020-04-15] MEDS: MAG HYDROX/AL HYDROX/SIMETH 30 ML UNIT-DOSE CUP PO PRN (08:30)
[2020-04-15] MEDS: PRENATAL VITAMINS W/ FOLIC ACID TABLET (FP) PO SCH (09:22)
[2020-04-15] MEDS ORDERED: METHADONE HCL 5 MG TABLET (FOR DETOX USE ONLY) PO ONE (10:00)
--- NOTE | 2020-04-15 14:05 | PN ---
[facility] CIWA - CIWA Score Nausea/Vomitin-Mild Nausea/No Vomiting Muscle Tremors: 2 Anxiety: 2 Agitation: 2 Paroxysmal Sweats: 2 Orientation: 0-Oriented Tacttile Disturbances: 0-None Auditory Disturbances: 0-None Visual Disturbances: 0-None Headache: 0-None Present CIWA-Ar Total Score: 9 S COWS - Scale Resting Pulse: 0= [place] 80 or Below Sweatin= Chills/Flushing Restless Observation: 0= Sits Still Pupil Size: 0= Normal to Room Light Bone or Joint Aches: 2= Severe Diffuse Aches Runny Nose/ Eye Tearin= Runny Nose/Eyes GI Upset > 30mins: 1= Stomach Cramp Tremor Observation of Outstretched Hands: 2= Slight Tremor Visible Yawning Observation: 0= None Anxiety or Irritability: 1=Feels Anxious/Irritable Goose Flesh Skin: 0=Smooth Skin COWS Score: 9 S Progress Note (SOAP) Subjective: Hip pain, chronic wants motrin 800mg prn, states withdrawal sxs controlled with meds Objective: 04/15/20 14:07 Last Vital Signs Temp Pulse Resp BP Pulse Ox 97.1 F L 78 19 141/84 100 04/15/20 12:57 04/15/20 12:57 04/15/20 12:57 04/15/20 12:57 04/15/20 12:57 Elevated b/p noted, denies htn, on clonidine prn Laboratory Tests 04/14/20 04/14/20 04/14/20 10:20 10:20 10:20 WBC 8.4 RBC 4.76 Hgb 14.3 Hct 42.9 MCV 90.1 MCH 30.1 MCHC 33.4 RDW 14.5 Plt Count 210 D MPV 9.1 Sodium 136 Potassium 3.9 Chloride 102 Carbon Dioxide 27 Anion Gap 7 L BUN 18.0 Creatinine 1.1 Est GFR (CKD-EPI)AfAm 82.95 Est GFR (CKD-EPI)NonAf 71.57 Random Glucose 118 H Calcium 9.0 Total Bilirubin 1.4 H AST 26 ALT 14 Alkaline Phosphatase 74 Total Protein 8.4 H Albumin 4.1 Syphilis Serology Non-reactive Labs reviewed: serum gluc 118 (high), total bili 1.4 (high) Assessment: 07/26/20 14:10 Withdrawal sxs Noted with elevated b/p, hyperglycemia and elevated total bilirubin Plan: Continue detox Encouraged PO water intake Elevated b/p: denies htn, could be r/t withdrawal, monitor b/p, continue clonidine prn Hyperglycemia: denies dm, repeat fasting glucose, send A1c Elevated total bilirubin: most likely alcohol related, repeat total bilirubin level
[2020-04-15] MEDS: IBUPROFEN 400 MG TABLET (FP) PO PRN (16:13)
--- NOTE | 2020-04-15 17:15 | EKG ---
Test Reason : Blood Pressure : / mmHG Vent. Rate : 072 BPM Atrial Rate : 072 BPM P-R Int : 164 ms QRS Dur : 170 ms QT Int : 452 ms P-R-T Axes : 068 -63 016 degrees QTc Int : 494 ms NORMAL SINUS RHYTHM RIGHT BUNDLE BRANCH BLOCK LEFT ANTERIOR FASCICULAR BLOCK BIFASCICULAR BLOCK ABNORMAL ECG WHEN COMPARED WITH ECG OF 03-JUN-2019 15:25, NO SIGNIFICANT CHANGE WAS FOUND Confirmed by MD Hugo, Alexander ([id number]) on 04/15/2020 5:15:14 PM Referred By: Confirmed By:Alexander Arias MD
[2020-04-15] MEDS: THIAMINE HCL 100 MG TABLET (FP) PO SCH (21:29)
[2020-04-15] MEDS: MELATONIN 5 MG TABLETS PO SCH (21:29)
[2020-04-16] MEDS: IBUPROFEN 400 MG TABLET (FP) PO PRN (05:42)
[2020-04-16] MEDS: diazePAM 5 MG TABLET PO SCH ×2 (05:43→18:14)
[2020-04-16] MEDS ORDERED: METHADONE HCL 10 MG TABLET (FOR DETOX USE ONLY) PO ONE ×2 (09:33→10:00)
[2020-04-16] MEDS: PRENATAL VITAMINS W/ FOLIC ACID TABLET (FP) PO SCH (10:27)
[2020-04-16] MEDS: diazePAM 5 MG TABLET PO PRN ×2 (10:30→14:36)
--- NOTE | 2020-04-16 11:06 | PN ---
[facility] CIWA - CIWA Score Nausea/Vomitin-No Nausea/No Vomiting Muscle Tremors: 3 Anxiety: 2 Agitation: 3 Paroxysmal Sweats: 2 Orientation: 0-Oriented Tacttile Disturbances: 0-None Auditory Disturbances: 0-None Visual Disturbances: 0-None Headache: 0-None Present CIWA-Ar Total Score: 10 BHS COWS - Scale Resting Pulse: 0= [place] 80 or Below Sweatin= Chills/Flushing Restless Observation: 1= Difficult to Sit Still Pupil Size: 0= Normal to Room Light Bone or Joint Aches: 2= Severe Diffuse Aches Runny Nose/ Eye Tearin= Nasal Congestion GI Upset > 30mins: 1= Stomach Cramp Tremor Observation of Outstretched Hands: 1= Tremor [place], Not Seen Yawning Observation: 2= >3x During Session Anxiety or Irritability: 1=Feels Anxious/Irritable Goose Flesh Skin: 0=Smooth Skin COWS Score: 10 S Progress Note (SOAP) Subjective: irritable sweats shakes why is my dose of methadone started so low. I used alot of heroin. Objective: 04/16/20 10:59 Vital Signs Temperature 97.3 F L 04/16/20 08:50 Pulse Rate 75 04/16/20 08:50 Respiratory Rate 18 04/16/20 08:50 Blood Pressure 149/89 04/16/20 08:50 O2 Sat by Pulse Oximetry (%) 98 04/16/20 05:22 Laboratory Tests 04/14/20 04/14/20 04/14/20 10:20 10:20 10:20 WBC 8.4 RBC 4.76 Hgb 14.3 Hct 42.9 MCV 90.1 MCH 30.1 MCHC 33.4 RDW 14.5 Plt Count 210 D MPV 9.1 Sodium 136 Potassium 3.9 Chloride 102 Carbon Dioxide 27 Anion Gap 7 L BUN 18.0 Creatinine 1.1 Est GFR (CKD-EPI)AfAm 82.95 Est GFR (CKD-EPI)NonAf 71.57 Random Glucose 118 H Calcium 9.0 Total Bilirubin 1.4 H AST 26 ALT 14 Alkaline Phosphatase 74 Total Protein 8.4 H Albumin 4.1 Syphilis Serology COVID-19 ([facility]) Not detected 04/14/20 10:20 WBC RBC Hgb Hct MCV MCH MCHC RDW Plt Count MPV Sodium Potassium Chloride Carbon Dioxide Anion Gap BUN Creatinine Est GFR (CKD-EPI)AfAm Est GFR (CKD-EPI)NonAf Random Glucose Calcium Total Bilirubin AST ALT Alkaline Phosphatase Total Protein Albumin Syphilis Serology Non-reactive COVID-19 ([facility]) repeated labs pending aaox3 ambulating no acute distress Assessment: 04/16/20 11:06 withdrawals pt should have been started with 30mg of methadone and tapered but he was started on 20mg. Pt will benefit with adjusted dose and is in agreement with modified dose. Plan: continue with modified dose of methadone taper increase fluids
[2020-04-16 11:59] LABS: BILIRUBIN,TOTAL 1.6 mg/dL (0.2-1)
[2020-04-16] MEDS: MELATONIN 5 MG TABLETS PO SCH (22:11)
[2020-04-16] MEDS: THIAMINE HCL 100 MG TABLET (FP) PO SCH (22:11)
[2020-04-17] MEDS ORDERED: diazePAM 5 MG TABLET PO ONE (06:00)
[2020-04-17] MEDS ORDERED: METHADONE HCL 5 MG TABLET (FOR DETOX USE ONLY) PO ONE ×2 (06:00→10:00)
--- NOTE | 2020-04-17 09:21 | PN ---
S CIWA - CIWA Score Nausea/Vomitin-No Nausea/No Vomiting Muscle Tremors: 2 Anxiety: 1-Mildly Anxious Agitation: 1-Slight > Activity Paroxysmal Sweats: 2 Orientation: 0-Oriented Tacttile Disturbances: 0-None Auditory Disturbances: 0-None Visual Disturbances: 0-None Headache: 0-None Present CIWA-Ar Total Score: 6 BHS COWS - Scale Resting Pulse: 1= [place] 81-100 Sweatin= Chills/Flushing Restless Observation: 1= Difficult to Sit Still Pupil Size: 0= Normal to Room Light Bone or Joint Aches: 1= Mild Discomfort Runny Nose/ Eye Tearin= None GI Upset > 30mins: 0= None Tremor Observation of Outstretched Hands: 1= Tremor [place], Not Seen Yawning Observation: 0= None Anxiety or Irritability: 1=Feels Anxious/Irritable Goose Flesh Skin: 0=Smooth Skin COWS Score: 6 S Progress Note (SOAP) Subjective: sweats restless Objective: 04/17/20 09:19 Vital Signs Temperature 97.8 F 04/17/20 08:43 Pulse Rate 95 H 04/17/20 08:43 Respiratory Rate 17 04/17/20 08:43 Blood Pressure 118/76 04/17/20 08:43 O2 Sat by Pulse Oximetry (%) 97 04/17/20 05:26 Laboratory Tests 04/14/20 04/14/20 04/14/20 10:20 10:20 10:20 WBC 8.4 RBC 4.76 Hgb 14.3 Hct 42.9 MCV 90.1 MCH 30.1 MCHC 33.4 RDW 14.5 Plt Count 210 D MPV 9.1 Sodium 136 Potassium 3.9 Chloride 102 Carbon Dioxide 27 Anion Gap 7 L BUN 18.0 Creatinine 1.1 Est GFR (CKD-EPI)AfAm 82.95 Est GFR (CKD-EPI)NonAf 71.57 Random Glucose 118 H Fasting Glucose Hemoglobin A1c % Calcium 9.0 Total Bilirubin 1.4 H AST 26 ALT 14 Alkaline Phosphatase 74 Total Protein 8.4 H Albumin 4.1 Syphilis Serology COVID-19 ([facility]) Not detected 04/14/20 04/16/20 04/16/20 10:20 08:00 08:00 WBC RBC Hgb Hct MCV MCH MCHC RDW Plt Count MPV Sodium Potassium Chloride Carbon Dioxide Anion Gap BUN Creatinine Est GFR (CKD-EPI)AfAm Est GFR (CKD-EPI)NonAf Random Glucose Fasting Glucose 81 Hemoglobin A1c % 6.5 H Calcium Total Bilirubin 1.6 H AST ALT Alkaline Phosphatase Total Protein Albumin Syphilis Serology Non-reactive COVID-19 ([facility]) labs noted A1C noted 6.5. office helper clerical recommendation to change pt diet to BROCK & NCS. pt was made aware. aaox3 ambulating no acute distress Assessment: 04/17/20 09:20 withdrawals Plan: continue detox increase fluids glucerna with meals
[2020-04-17] MEDS: IBUPROFEN 400 MG TABLET (FP) PO PRN ×2 (10:25→20:32)
[2020-04-17] MEDS: PRENATAL VITAMINS W/ FOLIC ACID TABLET (FP) PO SCH (10:25)
[2020-04-17] MEDS: MELATONIN 5 MG TABLETS PO SCH (22:33)
[2020-04-17] MEDS: THIAMINE HCL 100 MG TABLET (FP) PO SCH (22:33)
--- NOTE | 2020-04-18 09:52 | PN ---
[facility] CIWA - CIWA Score Nausea/Vomitin-No Nausea/No Vomiting Muscle Tremors: None Anxiety: 1-Mildly Anxious Agitation: 1-Slight > Activity Paroxysmal Sweats: No Perspiration Orientation: 0-Oriented Tacttile Disturbances: 0-None Auditory Disturbances: 0-None Visual Disturbances: 0-None Headache: 0-None Present CIWA-Ar Total Score: 2 BHS COWS - Scale Resting Pulse: 0= [place] 80 or Below Sweatin= No chills or Flushing Restless Observation: 0= Sits Still Pupil Size: 0= Normal to Room Light Bone or Joint Aches: 1= Mild Discomfort Runny Nose/ Eye Tearin= None GI Upset > 30mins: 0= None Tremor Observation of Outstretched Hands: 1= Tremor [place], Not Seen Yawning Observation: 0= None Anxiety or Irritability: 1=Feels Anxious/Irritable Goose Flesh Skin: 0=Smooth Skin COWS Score: 3 S Progress Note (SOAP) Subjective: feeling better little anxiety Objective: 04/18/20 09:51 Vital Signs Temperature 97.3 F L 04/18/20 08:35 Pulse Rate 74 04/18/20 08:35 Respiratory Rate 20 04/18/20 08:35 Blood Pressure 130/90 04/18/20 08:35 O2 Sat by Pulse Oximetry (%) 98 04/18/20 08:35 aaox3 ambulating no acute distress Assessment: 04/18/20 09:52 mild withdrawals Plan: continue detox d/c in am
[2020-04-18] MEDS ORDERED: METHADONE HCL 10 MG TABLET (FOR DETOX USE ONLY) PO ONE (10:00)
[2020-04-18] MEDS: PRENATAL VITAMINS W/ FOLIC ACID TABLET (FP) PO SCH (10:49)
[2020-04-18] MEDS: IBUPROFEN 400 MG TABLET (FP) PO PRN ×2 (10:50→20:28)
[2020-04-18 17:45] VITALS: TEMP 97.3
[2020-04-18] MEDS: MELATONIN 5 MG TABLETS PO SCH (22:01)
[2020-04-18] MEDS: THIAMINE HCL 100 MG TABLET (FP) PO SCH (22:01)
[2020-04-19] MEDS: MAG HYDROX/AL HYDROX/SIMETH 30 ML UNIT-DOSE CUP PO PRN (05:42)
[2020-04-19] MEDS ORDERED: METHADONE HCL 5 MG TABLET (FOR DETOX USE ONLY) PO ONE (06:00)
[2020-04-19 06:11] VITALS: BP 118/78; PULSE 64
--- NOTE | 2020-04-19 08:30 | DS ---
[facility] Detox Discharge Summary Admission Date: 04/14/20 Discharge Date: 04/19/20 - History Present History: Alcohol Dependence, Opioid Dependence - Physical Exam Results Vital Signs: Vital Signs Temperature 97.3 F L 04/19/20 06:10 Pulse Rate 64 04/19/20 06:10 Respiratory Rate 18 04/19/20 06:10 Blood Pressure 118/78 04/19/20 06:10 O2 Sat by Pulse Oximetry (%) 100 04/19/20 06:10 Pertinent Admission Physical Exam Findings: Vital Signs Temperature 97.3 F L 04/19/20 06:10 Pulse Rate 64 04/19/20 06:10 Respiratory Rate 18 04/19/20 06:10 Blood Pressure 118/78 04/19/20 06:10 O2 Sat by Pulse Oximetry (%) 100 04/19/20 06:10 Laboratory Tests 04/14/20 04/14/20 04/14/20 10:20 10:20 10:20 WBC 8.4 RBC 4.76 Hgb 14.3 Hct 42.9 MCV 90.1 MCH 30.1 MCHC 33.4 RDW 14.5 Plt Count 210 D MPV 9.1 Sodium 136 Potassium 3.9 Chloride 102 Carbon Dioxide 27 Anion Gap 7 L BUN 18.0 Creatinine 1.1 Est GFR (CKD-EPI)AfAm 82.95 Est GFR (CKD-EPI)NonAf 71.57 Random Glucose 118 H Fasting Glucose Hemoglobin A1c % Calcium 9.0 Total Bilirubin 1.4 H AST 26 ALT 14 Alkaline Phosphatase 74 Total Protein 8.4 H Albumin 4.1 Syphilis Serology COVID-19 ([facility]) Not detected 04/14/20 04/16/20 04/16/20 10:20 08:00 08:00 WBC RBC Hgb Hct MCV MCH MCHC RDW Plt Count MPV Sodium Potassium Chloride Carbon Dioxide Anion Gap BUN Creatinine Est GFR (CKD-EPI)AfAm Est GFR (CKD-EPI)NonAf Random Glucose Fasting Glucose 81 Hemoglobin A1c % 6.5 H Calcium Total Bilirubin 1.6 H AST ALT Alkaline Phosphatase Total Protein Albumin Syphilis Serology Non-reactive COVID-19 ([facility]) labs noted aaox3 ambulating no acute distress lungs CTA - Treatment Hospital Course: Detox Protocol Followed, Detoxed Safely, Responded well, Discharged Condition Good, Rehab Referral Accepted - Medication Discharge Medications: Ambulatory Orders NK [No Known Home Medication] 04/14/20 - Diagnosis (1) Alcohol dependence with uncomplicated withdrawal Current Visit: Yes Status: Chronic (2) Joint pain Current Visit: Yes Status: Chronic Qualifiers: Joint pain location: hip Laterality: bilateral Qualified Code(s): M25.551 - Pain in right hip; M25.552 - Pain in left hip (3) Opioid dependence with withdrawal Current Visit: Yes Status: Chronic (4) Anxiety and depression Current Visit: No Status: Acute (5) Nicotine dependence Current Visit: Yes Status: Chronic Qualifiers: Nicotine product type: cigarettes Substance use status: uncomplicated Qualified Code(s): F17.210 - Nicotine dependence, cigarettes, uncomplicated (6) Substance-induced anxiety disorder Current Visit: No Status: Acute (7) Substance-induced sleep disorder Current Visit: No Status: Acute (8) Substance-induced sleep disorder Current Visit: No Status: Acute (9) Chronic back pain Current Visit: No Status: Chronic Qualifiers: Back pain location: low back pain Back pain laterality: right Sciatica presence: without sciatica Qualified Code(s): M54.5 - Low back pain; G89.29 - Other chronic pain (10) Insomnia Current Visit: No Status: Chronic Qualifiers: Insomnia type: drug-induced Qualified Code(s): F19.982 - Other psychoactive substance use, unspecified with psychoactive substance-induced sleep disorder (11) Multiple sclerosis Current Visit: No Status: Chronic (12) Opioid dependence on agonist therapy Current Visit: No Status: Chronic (13) Depression (emotion) Current Visit: No Status: Suspected Qualifiers: Depression Type: dysthymia Qualified Code(s): F34.1 - Dysthymic disorder (14) Substance induced mood disorder Current Visit: No Status: Suspected (15) Substance-induced anxiety disorder Current Visit: No Status: Suspected (16) PPD positive Current Visit: No Status: Resolved - AMA Did Patient Leave Against Medical Advice: No
== END 2020-04-19 08:39 | disposition home or self-care (01) | DRG 773 ==
LOC: YASAS 09:22 → Y6N 10:15
PROVIDERS: ADMIT Allergy & Immunology; ATTEND Allergy & Immunology
PROC: HZ2ZZZZ Detoxification Services for Substance Abuse Treatment (ICD-10-PCS; principal; 2020-04-14)
DX: F10.230 Alcohol dependence with withdrawal, uncomplicated (principal); F11.23 Opioid dependence with withdrawal; F17.210 Nicotine dependence, cigarettes, uncomplicated; F19.280 Other psychoactive substance dependence with psychoactive substance-induced anxiety disorder; F19.282 Other psychoactive substance dependence with psychoactive substance-induced sleep disorder; F19.24 Other psychoactive substance dependence with psychoactive substance-induced mood disorder; F41.9 Anxiety disorder, unspecified; F32.9 Major depressive disorder, single episode, unspecified; E80.6 Other disorders of bilirubin metabolism; G35 Multiple sclerosis; M25.551 Pain in right hip; M25.552 Pain in left hip; M54.89 Other dorsalgia; G89.29 Other chronic pain; R73.9 Hyperglycemia, unspecified; R03.0 Elevated blood-pressure reading, without diagnosis of hypertension; R76.11 Nonspecific reaction to tuberculin skin test without active tuberculosis
CPT/HCPCS: 36415; 80053; 82247; 82947; 83036; 85027; 86780; 93005; 93010; U0003

== ENCOUNTER 2020-06-02 09:47 | Inpatient (IN) | payer OTHER ==
--- NOTE | 2020-06-02 13:47 | BHS.RME ---
Substance Use & Tx History - Substance Use History Heroin Substance amount: 8 bags Frequency of use: Daily Substance route: Inhalation (ex: sniffing or snorting) Date of Last Use: 06/01/20 Alcohol Substance amount: 1 pint of rum/2 of 24 ozs of beer Frequency of use: Daily Substance route: Oral Date of Last Use: 06/01/20 - Last Treatment Date of last treatment: [facility] 04/14/20 to 04/19/20 Where was last treatment: Detox Physical/Psych/Mental Status - Behavior Eye Contact: Normal - Thinking Thought Processes: Logical Thought content: Future oriented - Physical Health Problems Is patient presently having any pain?: No Does patient presently have any injuries (include location): No Does patient currently have a fever: No COWS - Scale Resting Pulse: 0= [place] 80 or Below Sweatin= Chills/Flushing Restless Observation: 0= Sits Still Pupil Size: 1= Pupils >than Normal Bone or Joint Aches: 2= Severe Diffuse Aches Runny Nose/ Eye Tearin= Nasal Congestion GI Upset > 30mins: 2= Nausea/Diarrhea Tremor Observation: 2= Slight Tremor Visible Yawning Observation: 2= >3x During Session Anxiety or Irritability: 2=Irritable/Anxious Goose Flesh Skin: 0=Smooth Skin COWS Score: 13 CIWA Nausea/Vomitin Muscle Tremors: 3 Anxiety: 3 Agitation: 2 Paroxysmal Sweats: No Perspiration Orientation: 0-Oriented Tacttile Disturbances: 1-Very Mild Itch/Numbness Auditory Disturbances: 0-None Visual Disturbances: 0-None Headache: 2-Mild CIWA-Ar Total Score: 13
--- NOTE | 2020-06-02 14:06 | HP ---
COWS - Scale Resting Pulse: 0= [place] 80 or Below Sweatin= Chills/Flushing Restless Observation: 0= Sits Still Pupil Size: 1= Pupils >than Normal Bone or Joint Aches: 2= Severe Diffuse Aches Runny Nose/ Eye Tearin= Nasal Congestion GI Upset > 30mins: 2= Nausea/Diarrhea Tremor Observation: 2= Slight Tremor Visible Yawning Observation: 2= >3x During Session Anxiety or Irritability: 2=Irritable/Anxious Goose Flesh Skin: 0=Smooth Skin COWS Score: 13 CIWA Score Nausea/Vomitin Muscle Tremors: 3 Anxiety: 3 Agitation: 2 Paroxysmal Sweats: No Perspiration Orientation: 0-Oriented Tacttile Disturbances: 1-Very Mild Itch/Numbness Auditory Disturbances: 0-None Visual Disturbances: 0-None Headache: 2-Mild CIWA-Ar Total Score: 13 - Admission Criteria OASAS Guidelines: Admission for Medically Managed Detox: Requires at least one of the followin. CIWA greater than 12 2. Seizures within the past 24 hours 3. Delirium tremens within the past 24 hours 4. Hallucinations within the past 24 hours 5. Acute intervention needed for co occurring medical disorder 6. Acute intervention needed for co occurring psychiatric disorder 7. Severe withdrawal that cannot be handled at a lower level of care (continued vomiting, continued diarrhea, abnormal vital signs) requiring intravenous medication and/or fluids 8. Admitting History and Physical - Admission Chief Complaint: i am here to stop using heroin and alcohol History of Present Illness: this 64 years old with heroin and alcohol dependence seeking detox,withdrawal symptom,seeking help, History Source: Patient Limitations to Obtaining History: No Limitations - Past Medical History Psych: Yes: Anxiety, Other (insomna) - Smoking History Smoking history: Never smoked Have you smoked in the past 12 months: No Aproximately how many cigarettes per day: 0 - Alcohol/Substance Use Hx Alcohol Use: Yes History of Substance Use: reports: Heroin - Social History Usual Living Arrangement: Yes: Alone Do you think of yourself as: Straight/Heterosexual ADL: Support Services Occupation: unemployed History of Recent Travel: No Other Social History: 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,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,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 Admission ROS BHS - HPI Chief Complaint: i need help to stop using heroin and alcohol Allergies/Adverse Reactions: Allergies Allergy/AdvReac Type Severity Reaction Status Date / Time No Known Allergies Allergy Verified 06/02/20 14:32 History of Present Illness: this 64 years old male with heroin and alcohol dependence seeking detox,withdrawal symptom,multiple admissions in detox,last [facility] 04/14/20 to 04/19/20 denied syncope denied seizure longest sobriety 2 years anxiety,insomnia 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 loss 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 Exam Limitations: No Limitations - Ebola screening Have you traveled outside of the country in the last 21 days: Yes Have you had contact with anyone from an Ebola affected area: No Have you been sick,other than usual withdrawal symptoms: No Do you have a fever: No - Review of Systems Constitutional: Loss of Appetite, Malaise, Night Sweats, Changes in sleep, Weakness EENT: reports: Nose Congestion Respiratory: reports: No Symptoms reported Cardiac: reports: No Symptoms Reported GI: reports: Diarrhea, Nausea, Poor Appetite, Abdominal cramping : reports: No Symptoms Reported Musculoskeletal: reports: Back Pain, Joint Pain, Muscle Pain Integumentary: reports: Dryness Neuro: reports: Headache, Tremors Endocrine: reports: No Symptoms Reported Hematology: reports: No Symptoms Reported Psychiatric: reports: No Sypmtoms Reported, Mood/Affect Appropiate, Orientated x3, Agitated, other (insomnia) Patient History - Patient Medical History Hx Anemia: No Hx Asthma: No Hx Chronic Obstructive Pulmonary Disease (COPD): No Hx Cancer: No Hx Cardiac Disorders: No Hx Congestive Heart Failure: No Hx Hypertension: No Hx Hypercholesterolemia: No Hx Pacemaker: No HX Cerebrovascular Accident: No Hx Seizures: No Hx Dementia: No Hx Diabetes: No Hx Gastrointestinal Disorders: No Hx Liver Disease: No Hx Genitourinary Disorders: No Hx Sexually Transmitted Disorders: No Hx Renal Disease (ESRD): No Hx Thyroid Disease: No Hx Human Immunodeficiency Virus (HIV): No (last 11/2019 negative) Hx Hepatitis C: No Hx Depression: Yes (Patient reports history of depression) Hx Suicide Attempt: No Hx Bipolar Disorder: No Hx Schizophrenia: No Other Medical History: no suicidal,no homicidal - Patient Surgical History Past Surgical History: No Hx Neurologic Surgery: No Hx Cataract Extraction: No Hx Cardiac Surgery: No Hx Lung Surgery: No Hx Breast Surgery: No Hx Breast Biopsy: No Hx Abdominal Surgery: No Hx Appendectomy: No Hx Cholecystectomy: No Hx Genitourinary Surgery: No Hx Section: No Hx Orthopedic Surgery: No Anesthesia Reaction: No - PPD History Documented Results: Positive w/proof Implanted On Prior [facility] Admission?: No Date: 01/07/20 Results: cxr(neg) PPD to be Administered?: No - Smoking Cessation Smoking history: Never smoked Have you smoked in the past 12 months: No Aproximately how many cigarettes per day: 0 Cigars Per Day: 0 Hx Chewing Tobacco Use: No Initiated information on smoking cessation: No - Substance & Tx. History Hx Alcohol Use: Yes Hx Substance Use: Yes Substance Use Type: Alcohol, Heroin Hx Substance Use Treatment: Yes (04/14/20 to 04/19/20) - Substances abused Heroin Substance route: Inhalation Frequency: Daily Amount used: 8 bags Age of first use: 27 Date of last use: 06/01/20 Alcohol Substance route: Oral Frequency: Daily Amount used: 1 pint of rum/2 of 24 ozs of beer Age of first use: 17 Date of last use: 06/01/20 Admission Physical Exam BHS - Vital Signs Vital Signs: bp 144/86,p67,r18,t97.2,bud 0.000,pulse ox 100 - Physical General Appearance: Yes: Moderate Distress, Tremorous, Irritable, Sweating, Anxious HEENTM: Yes: Normal ENT Inspection, JAMI, Pharynx Normal Respiratory: Yes: Lungs Clear, Normal Breath Sounds, No Respiratory Distress Neck: Yes: Within Normal Limits, Supple, Trachea in good position Breast: Yes: Within Normal Limits Cardiology: Yes: Within Normal Limits, Regular Rhythm, Regular Rate, S1, S2 Abdominal: Yes: Within Normal Limits, Normal Bowel Sounds, Non Tender, Soft Genitourinary: Yes: Within Normal Limits Back: Yes: Muscle Spasm Musculoskeletal: Yes: Back pain, Muscle Pain Extremities: Yes: Within Normal Limits, Normal Range of Motion, Tremors 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, Alert, Motor Strength 5/5 Integumentary: Yes: Dry Lymphatic: Yes: Within Normal Limits - Diagnostic (1) Opioid dependence with withdrawal Current Visit: Yes Status: Acute (2) Alcohol dependence with uncomplicated withdrawal Current Visit: Yes Status: Acute (3) Insomnia Current Visit: No Status: Chronic Qualifiers: Insomnia type: drug-induced Qualified Code(s): F19.982 - Other psychoactive substance use, unspecified with psychoactive substance-induced sleep disorder (4) PPD positive Current Visit: No Status: Resolved (5) Weight loss Current Visit: Yes Status: Acute (6) Insomnia secondary to depression with anxiety Current Visit: Yes Status: Acute Cleared for Admission [facility] - Detox or Rehab [facility] Level of Care: Medically Managed Detox Regimen/Protocol: Methadone/Valium Breathalyzer - Breathalyzer Breathalyzer: 0.021 Urine Drug Screen - Test Device Lot number: [id number] Expiration date: 05/21/21 - Control Is test valid?: Yes - Results Drug screen NEGATIVE: No Urine drug screen results: FEN-Fentanyl, MOP-Opiates Inpatient Rehab Admission - Rehab Decision to Admit Inpatient rehab admission?: No
[2020-06-02] MEDS ORDERED: ONDANSETRON *ODT* 4 MG TABLET SL PRN (14:27)
[2020-06-02] MEDS ORDERED: ACETAMINOPHEN 325 MG TABLET (FP) PO PRN (14:27)
[2020-06-02] MEDS ORDERED: cloNIDine HCL 0.1 MG TABLET PO PRN (14:27)
[2020-06-02] MEDS ORDERED: BISMUTH SUBSALICYLATE 524 MG/30 ML UD PO PRN (14:27)
[2020-06-02] MEDS ORDERED: diazePAM 5 MG TABLET PO PRN (14:27)
[2020-06-02] MEDS ORDERED: METHOCARBAMOL 500 MG TABLET PO PRN (14:27)
[2020-06-02] MEDS ORDERED: METHADONE HCL 10 MG TABLET (FOR DETOX USE ONLY) PO ONE (14:27)
[2020-06-02] MEDS ORDERED: MAGNESIUM CITRATE 300 ML BOTTLE PO PRN (14:27)
[2020-06-02] MEDS ORDERED: MAGNESIUM HYDROX 2400MG/30ML ORAL SUSPENSION 30 ML CUP PO PRN (14:27)
[2020-06-02] MEDS ORDERED: MENTHOL/PHENOL 1 EACH UD MM PRN (14:27)
[2020-06-02] MEDS ORDERED: hydrOXYzine PAMOATE 25 MG CAPSULE (FP) PO PRN (14:32)
[2020-06-02 14:36] VITALS: BMI 29.0
[2020-06-02] MEDS: IBUPROFEN 400 MG TABLET (FP) PO PRN ×2 (15:48→22:40)
[2020-06-02] MEDS: diazePAM 5 MG TABLET PO SCH ×2 (17:14→22:38)
[2020-06-02] MEDS ORDERED: hydrOXYzine PAMOATE 25 MG CAPSULE (FP) PO SCH (18:00)
[2020-06-02] MEDS: MELATONIN 5 MG TABLETS PO SCH (22:38)
[2020-06-02] MEDS: THIAMINE HCL 100 MG TABLET (FP) PO SCH (22:38)
[2020-06-03] MEDS: diazePAM 5 MG TABLET PO SCH ×4 (06:03→22:29)
[2020-06-03 09:01] LABS: HEMATOCRIT 44.2 % (35.4-49); HEMOGLOBIN 14.8 GM/dL (11.7-16.9); MCH 30.3 pg (25.7-33.7); MCHC 33.5 g/dl (32.0-35.9); MEAN CELL VOLUME 90.3 fl (80-96); MEAN PLT VOLUME 9.1 fl (7.5-11.1); PLATELET COUNT 200 K/MM3 (134-434); WHITE BLOOD COUNT 8.5 K/mm3 (4.0-10.0)
[2020-06-03] MEDS ORDERED: METHADONE HCL 5 MG TABLET (FOR DETOX USE ONLY) ONE (09:02)
[2020-06-03] MEDS ORDERED: METHADONE HCL 10 MG TABLET (FOR DETOX USE ONLY) ONE (09:03)
[2020-06-03 09:18] LABS: ALBUMIN 4.1 g/dl (3.4-5.0); BILIRUBIN,TOTAL 1.8 mg/dL (0.2-1); BLOOD UREA NITROGEN 16.5 mg/dL (7-18); CALCIUM 9.5 mg/dL (8.5-10.1); CREATININE 1.2 mg/dL (0.55-1.3)
[2020-06-03] MEDS: MAG HYDROX/AL HYDROX/SIMETH 30 ML UNIT-DOSE CUP PO PRN (09:30)
[2020-06-03] MEDS ORDERED: METHADONE (DETOX) 20 MG, METHADONE (DETOX) 5 MG PO ONE (10:00)
[2020-06-03] MEDS: PRENATAL VITAMINS W/ FOLIC ACID TABLET (FP) PO SCH (10:37)
--- NOTE | 2020-06-03 13:04 | CONSULT ---
[facility] Psychiatric Consult - Data Date of interview: 06/03/20 Admission source: [facility] Identifying data: Patient is a 64 year old black male, father of five, retired, and domiciled. This is one of multiple admissions for patient. Patient admitted to for alcohol and opiate dependence. Substance Abuse History: Smoking Cessation. Smoking history: Never smoked. Have you smoked in the past 12 months: No. Aproximately how many cigarettes per day: 0. Cigars Per Day: 0. Hx Chewing Tobacco Use: No. Initiated information on smoking cessation: No. - Substance & Tx. History. Hx Alcohol Use: Yes. Hx Substance Use: Yes. Substance Use Type: Alcohol, Heroin. Hx Substance Use Treatment: Yes (04/14/20 to 04/19/20). - Substances abused. Heroin. Substance route: Inhalation. Frequency: Daily. Amount used: 8 bags. Age of first use: 27. Date of last use: 06/01/20. Alcohol. Substance route: Oral. Frequency: Daily. Amount used: 1 pint of rum/2 of 24 ozs of beer. Age of first use: 17. Date of last use: 06/01/20 Medical History: Significant for PPD+, chonic lumbar pain and chronic pain right hip. Psychiatric History: Patient denies history of psychiatric hospitalizations, outpatient psychiatric care, and suicide attempt. At present patient reports difficulty sleeping. Physical/Sexual Abuse/Trauma History: denies. Mental Status Exam - Mental Status Exam Alert and Oriented to: Time, Place, Person Cognitive Function: Good Patient Appearance: Well Groomed Mood: Euthymic Affect: Mood Congruent Patient Behavior: Appropriate, Cooperative Speech Pattern: Appropriate Voice Loudness: Normal Thought Process: Goal Oriented Thought Disorder: Not Present Hallucinations: Denies Suicidal Ideation: Denies Homicidal Ideation: Denies Insight/Judgement: Poor Sleep: Poorly Appetite: Fair Muscle strength/Tone: Normal Gait/Station: Normal Psychiatric Findings - Problem List ([place] 1, 2,3) (1) Substance-induced sleep disorder Current Visit: Yes Status: Acute (2) Alcohol dependence with uncomplicated withdrawal Current Visit: Yes Status: Acute (3) Opioid dependence with withdrawal Current Visit: Yes Status: Acute - Initial Treatment Plan Initial Treatment Plan: Psychoeducation provided. Detoxification in progress. Will order Belsomra 10mg HS PRN. Benefits and side effects discussed. Verbal consent given.
[2020-06-03] MEDS: ACETAMINOPHEN 325 MG TABLET (FP) PO PRN ×2 (14:59→22:29)
--- NOTE | 2020-06-03 17:43 | PN ---
S CIWA - CIWA Score Nausea/Vomitin-Mild Nausea/No Vomiting Muscle Tremors: 2 Anxiety: 3 Agitation: 2 Paroxysmal Sweats: 2 Orientation: 0-Oriented Tacttile Disturbances: 1-Very Mild Itch/Numbness Auditory Disturbances: 0-None Visual Disturbances: 0-None Headache: 0-None Present CIWA-Ar Total Score: 11 BHS COWS - Scale Resting Pulse: 1= [place] 81-100 Sweatin= Chills/Flushing Restless Observation: 0= Sits Still Pupil Size: 0= Normal to Room Light Bone or Joint Aches: 1= Mild Discomfort Runny Nose/ Eye Tearin= Runny Nose/Eyes GI Upset > 30mins: 2= Nausea/Diarrhea Tremor Observation of Outstretched Hands: 2= Slight Tremor Visible Yawning Observation: 0= None Anxiety or Irritability: 2=Irritable/Anxious Goose Flesh Skin: 0=Smooth Skin COWS Score: 11 S Progress Note (SOAP) Subjective: Interrupted sleep, anxious Objective: 06/03/20 17:39 Last Vital Signs Temp Pulse Resp BP Pulse Ox 98.1 F 88 18 142/93 95 06/03/20 12:53 06/03/20 12:53 06/03/20 12:53 06/03/20 12:53 06/03/20 12:53 Elevated b/p: patient denies htn, on clonidine prn Laboratory Tests 06/02/20 06/03/20 06/03/20 15:00 07:30 07:30 WBC 8.5 RBC 4.90 Hgb 14.8 Hct 44.2 MCV 90.3 MCH 30.3 MCHC 33.5 RDW 14.0 Plt Count 200 MPV 9.1 Sodium Potassium Chloride Carbon Dioxide Anion Gap BUN Creatinine Est GFR (CKD-EPI)AfAm Est GFR (CKD-EPI)NonAf Random Glucose Calcium Total Bilirubin AST ALT Alkaline Phosphatase Total Protein Albumin Syphilis Serology Non-reactive COVID-19 ([facility]) Not detected 06/03/20 07:30 WBC RBC Hgb Hct MCV MCH MCHC RDW Plt Count MPV Sodium 136 Potassium 4.0 Chloride 101 Carbon Dioxide 31 Anion Gap 5 L BUN 16.5 Creatinine 1.2 Est GFR (CKD-EPI)AfAm 74.66 Est GFR (CKD-EPI)NonAf 64.42 Random Glucose 98 Calcium 9.5 Total Bilirubin 1.8 H AST 25 ALT 26 Alkaline Phosphatase 86 Total Protein 10.0 H Albumin 4.1 Syphilis Serology COVID-19 ([facility]) Labs reviewed: total bilirubin high, total protein high Assessment: 06/03/20 17:43 Withdrawal sxs Noted with elevated total bilirubin and total protein Plan: Continue detox Encourage PO water intake Elevated total bilirubin and total protein: repeat hepatic function panel
[2020-06-03] MEDS ORDERED: SUVOREXANT 10 MG TABLET PO PRN (22:00)
[2020-06-03] MEDS: MELATONIN 5 MG TABLETS PO SCH (22:27)
[2020-06-03] MEDS: THIAMINE HCL 100 MG TABLET (FP) PO SCH (22:28)
[2020-06-04] MEDS: diazePAM 5 MG TABLET PO SCH ×3 (06:09→23:27)
[2020-06-04] MEDS: ACETAMINOPHEN 325 MG TABLET (FP) PO PRN (06:10)
[2020-06-04] MEDS ORDERED: METHADONE HCL 10 MG TABLET (FOR DETOX USE ONLY) PO ONE (10:00)
[2020-06-04] MEDS: PRENATAL VITAMINS W/ FOLIC ACID TABLET (FP) PO SCH (10:29)
[2020-06-04 11:13] LABS: ALBUMIN 4.1 g/dl (3.4-5.0)
[2020-06-04 11:18] LABS: BILIRUBIN,DIRECT 0.3 mg/dL (0.0-0.2); BILIRUBIN,TOTAL 1.2 mg/dL (0.2-1); TOT PROT 8.6 g/dl (6.4-8.2)
--- NOTE | 2020-06-04 11:25 | PN ---
S CIWA - CIWA Score Nausea/Vomitin-No Nausea/No Vomiting Muscle Tremors: 2 Anxiety: 1-Mildly Anxious Agitation: 2 Paroxysmal Sweats: 1-Minimal Palms Moist Orientation: 0-Oriented Tacttile Disturbances: 0-None Auditory Disturbances: 0-None Visual Disturbances: 0-None Headache: 0-None Present CIWA-Ar Total Score: 6 BHS COWS - Scale Resting Pulse: 1= [place] 81-100 Sweatin= No chills or Flushing Restless Observation: 1= Difficult to Sit Still Pupil Size: 0= Normal to Room Light Bone or Joint Aches: 1= Mild Discomfort Runny Nose/ Eye Tearin= Nasal Congestion GI Upset > 30mins: 0= None Tremor Observation of Outstretched Hands: 1= Tremor [place], Not Seen Yawning Observation: 1= 1-2x During Session Anxiety or Irritability: 1=Feels Anxious/Irritable Goose Flesh Skin: 0=Smooth Skin COWS Score: 7 S Progress Note (SOAP) Subjective: feeling better sweats restless agitation Objective: 06/04/20 11:23 Vital Signs Temperature 97.1 F L 06/04/20 05:46 Pulse Rate 57 L 06/04/20 05:46 Respiratory Rate 20 06/04/20 05:46 Blood Pressure 122/82 06/04/20 05:46 O2 Sat by Pulse Oximetry (%) 98 06/04/20 05:46 Laboratory Tests 06/02/20 06/03/20 06/03/20 15:00 07:30 07:30 WBC 8.5 RBC 4.90 Hgb 14.8 Hct 44.2 MCV 90.3 MCH 30.3 MCHC 33.5 RDW 14.0 Plt Count 200 MPV 9.1 Sodium Potassium Chloride Carbon Dioxide Anion Gap BUN Creatinine Est GFR (CKD-EPI)AfAm Est GFR (CKD-EPI)NonAf Random Glucose Calcium Total Bilirubin Direct Bilirubin AST ALT Alkaline Phosphatase Total Protein Albumin Syphilis Serology Non-reactive COVID-19 ([facility]) Not detected 06/03/20 06/04/20 07:30 08:15 WBC RBC Hgb Hct MCV MCH MCHC RDW Plt Count MPV Sodium 136 Potassium 4.0 Chloride 101 Carbon Dioxide 31 Anion Gap 5 L BUN 16.5 Creatinine 1.2 Est GFR (CKD-EPI)AfAm 74.66 Est GFR (CKD-EPI)NonAf 64.42 Random Glucose 98 Calcium 9.5 Total Bilirubin 1.8 H 1.2 H Direct Bilirubin 0.3 H AST 25 23 ALT 26 14 Alkaline Phosphatase 86 Total Protein 10.0 H 8.6 H Albumin 4.1 4.1 Syphilis Serology COVID-19 ([facility]) bilirubin and total protein improved aaox3 ambulating no acute distress Assessment: 06/04/20 11:24 withdrawals Plan: continue detox increase fluids
[2020-06-04] MEDS: THIAMINE HCL 100 MG TABLET (FP) PO SCH (23:27)
[2020-06-04] MEDS: MELATONIN 5 MG TABLETS PO SCH (23:27)
[2020-06-05] MEDS: diazePAM 5 MG TABLET PO SCH ×2 (06:24→17:30)
[2020-06-05] MEDS ORDERED: METHADONE HCL 5 MG TABLET (FOR DETOX USE ONLY) ONE (08:23)
[2020-06-05] MEDS ORDERED: METHADONE HCL 10 MG TABLET (FOR DETOX USE ONLY) ONE (08:24)
[2020-06-05] MEDS ORDERED: METHADONE (DETOX) 10 MG, METHADONE (DETOX) 5 MG PO ONE (10:00)
[2020-06-05] MEDS: PRENATAL VITAMINS W/ FOLIC ACID TABLET (FP) PO SCH (10:17)
--- NOTE | 2020-06-05 10:43 | PN ---
S CIWA - CIWA Score Nausea/Vomitin-No Nausea/No Vomiting Muscle Tremors: 3 Anxiety: 1-Mildly Anxious Agitation: 1-Slight > Activity Paroxysmal Sweats: No Perspiration Orientation: 0-Oriented Tacttile Disturbances: 0-None Auditory Disturbances: 0-None Visual Disturbances: 0-None Headache: 0-None Present CIWA-Ar Total Score: 5 BHS COWS - Scale Resting Pulse: 1= [place] 81-100 Sweatin= No chills or Flushing Restless Observation: 1= Difficult to Sit Still Pupil Size: 0= Normal to Room Light Bone or Joint Aches: 1= Mild Discomfort Runny Nose/ Eye Tearin= None GI Upset > 30mins: 0= None Tremor Observation of Outstretched Hands: 1= Tremor [place], Not Seen Yawning Observation: 0= None Anxiety or Irritability: 1=Feels Anxious/Irritable Goose Flesh Skin: 0=Smooth Skin COWS Score: 5 S Progress Note (SOAP) Subjective: restless anxiety body aches Objective: 06/05/20 10:41 Vital Signs Temperature 97.0 F L 06/05/20 08:48 Pulse Rate 81 06/05/20 08:48 Respiratory Rate 18 06/05/20 08:48 Blood Pressure 137/85 06/05/20 08:48 O2 Sat by Pulse Oximetry (%) 99 06/05/20 08:48 Laboratory Tests 06/02/20 06/03/20 06/03/20 15:00 07:30 07:30 WBC 8.5 RBC 4.90 Hgb 14.8 Hct 44.2 MCV 90.3 MCH 30.3 MCHC 33.5 RDW 14.0 Plt Count 200 MPV 9.1 Sodium Potassium Chloride Carbon Dioxide Anion Gap BUN Creatinine Est GFR (CKD-EPI)AfAm Est GFR (CKD-EPI)NonAf Random Glucose Calcium Total Bilirubin Direct Bilirubin AST ALT Alkaline Phosphatase Total Protein Albumin Syphilis Serology Non-reactive COVID-19 ([facility]) Not detected 06/03/20 06/04/20 07:30 08:15 WBC RBC Hgb Hct MCV MCH MCHC RDW Plt Count MPV Sodium 136 Potassium 4.0 Chloride 101 Carbon Dioxide 31 Anion Gap 5 L BUN 16.5 Creatinine 1.2 Est GFR (CKD-EPI)AfAm 74.66 Est GFR (CKD-EPI)NonAf 64.42 Random Glucose 98 Calcium 9.5 Total Bilirubin 1.8 H 1.2 H Direct Bilirubin 0.3 H AST 25 23 ALT 26 14 Alkaline Phosphatase 86 83 Total Protein 10.0 H 8.6 H Albumin 4.1 4.1 Syphilis Serology COVID-19 ([facility]) aaox3 ambulating no acute distress Assessment: 06/05/20 10:42 withdrawal sx Plan: continue detox increase fluids
[2020-06-05] MEDS ORDERED: MASKS NR ONE (16:37)
[2020-06-05] MEDS: ACETAMINOPHEN 325 MG TABLET (FP) PO PRN (17:31)
[2020-06-05] MEDS: MELATONIN 5 MG TABLETS PO SCH (23:12)
[2020-06-05] MEDS: THIAMINE HCL 100 MG TABLET (FP) PO SCH (23:12)
[2020-06-06] MEDS ORDERED: diazePAM 5 MG TABLET PO ONE (06:00)
--- NOTE | 2020-06-06 09:52 | PN ---
[facility] CIWA - CIWA Score Nausea/Vomitin-No Nausea/No Vomiting Muscle Tremors: None Anxiety: 1-Mildly Anxious Agitation: 1-Slight > Activity Paroxysmal Sweats: No Perspiration Orientation: 0-Oriented Tacttile Disturbances: 0-None Auditory Disturbances: 0-None Visual Disturbances: 0-None Headache: 0-None Present CIWA-Ar Total Score: 2 BHS COWS - Scale Resting Pulse: 0= [place] 80 or Below Sweatin= No chills or Flushing Restless Observation: 1= Difficult to Sit Still Pupil Size: 0= Normal to Room Light Bone or Joint Aches: 1= Mild Discomfort Runny Nose/ Eye Tearin= None GI Upset > 30mins: 0= None Tremor Observation of Outstretched Hands: 1= Tremor [place], Not Seen Yawning Observation: 0= None Anxiety or Irritability: 1=Feels Anxious/Irritable Goose Flesh Skin: 0=Smooth Skin COWS Score: 4 [facility] Progress Note (SOAP) Subjective: anxiety restless Objective: 06/06/20 09:51 Vital Signs Temperature 97.1 F L 06/06/20 08:45 Pulse Rate 69 06/06/20 08:45 Respiratory Rate 18 06/06/20 08:45 Blood Pressure 124/86 06/06/20 08:45 O2 Sat by Pulse Oximetry (%) 98 06/06/20 05:28 aaox3 ambulating no acute distress Assessment: 06/06/20 09:51 withdrawals Plan: continue detox d/c in am
[2020-06-06] MEDS: PRENATAL VITAMINS W/ FOLIC ACID TABLET (FP) PO SCH (09:59)
[2020-06-06] MEDS ORDERED: METHADONE HCL 10 MG TABLET (FOR DETOX USE ONLY) PO ONE (10:00)
[2020-06-07] MEDS: MELATONIN 5 MG TABLETS PO SCH (00:07)
[2020-06-07] MEDS: THIAMINE HCL 100 MG TABLET (FP) PO SCH (00:08)
[2020-06-07 05:40] VITALS: TEMP 97.7
[2020-06-07] MEDS ORDERED: METHADONE HCL 5 MG TABLET (FOR DETOX USE ONLY) PO ONE (06:00)
[2020-06-07] MEDS: ACETAMINOPHEN 325 MG TABLET (FP) PO PRN (07:18)
[2020-06-07 09:01] VITALS: BP 145/79; PULSE 93
--- NOTE | 2020-06-07 09:33 | DS ---
[facility] Detox Discharge Summary Admission Date: 06/02/20 Discharge Date: 06/07/20 - History Present History: Alcohol Dependence, Opioid Dependence - Physical Exam Results Vital Signs: Vital Signs Temperature 97.7 F 06/07/20 08:35 Pulse Rate 93 H 06/07/20 08:35 Respiratory Rate 16 06/07/20 08:35 Blood Pressure 145/79 06/07/20 08:35 O2 Sat by Pulse Oximetry (%) 98 06/07/20 08:35 Pertinent Admission Physical Exam Findings: Vital Signs Temperature 97.7 F 06/07/20 08:35 Pulse Rate 93 H 06/07/20 08:35 Respiratory Rate 16 06/07/20 08:35 Blood Pressure 145/79 06/07/20 08:35 O2 Sat by Pulse Oximetry (%) 98 06/07/20 08:35 Laboratory Tests 06/02/20 06/03/20 06/03/20 15:00 07:30 07:30 WBC 8.5 RBC 4.90 Hgb 14.8 Hct 44.2 MCV 90.3 MCH 30.3 MCHC 33.5 RDW 14.0 Plt Count 200 MPV 9.1 Sodium Potassium Chloride Carbon Dioxide Anion Gap BUN Creatinine Est GFR (CKD-EPI)AfAm Est GFR (CKD-EPI)NonAf Random Glucose Calcium Total Bilirubin Direct Bilirubin AST ALT Alkaline Phosphatase Total Protein Albumin Syphilis Serology Non-reactive COVID-19 ([facility]) Not detected 06/03/20 06/04/20 07:30 08:15 WBC RBC Hgb Hct MCV MCH MCHC RDW Plt Count MPV Sodium 136 Potassium 4.0 Chloride 101 Carbon Dioxide 31 Anion Gap 5 L BUN 16.5 Creatinine 1.2 Est GFR (CKD-EPI)AfAm 74.66 Est GFR (CKD-EPI)NonAf 64.42 Random Glucose 98 Calcium 9.5 Total Bilirubin 1.8 H 1.2 H Direct Bilirubin 0.3 H AST 25 23 ALT 26 14 Alkaline Phosphatase 86 83 Total Protein 10.0 H 8.6 H Albumin 4.1 4.1 Syphilis Serology COVID-19 ([facility]) aaox3 ambulating no acute distress lungs CTA - Treatment Hospital Course: Detox Protocol Followed, Detoxed Safely, Responded well, Discharged Condition Good, Rehab Referral Accepted - Medication Discharge Medications: Ambulatory Orders NK [No Known Home Medication] 04/14/20 - Diagnosis (1) Alcohol dependence with uncomplicated withdrawal Current Visit: Yes Status: Chronic (2) Insomnia secondary to depression with anxiety Current Visit: Yes Status: Chronic (3) Opioid dependence with withdrawal Current Visit: Yes Status: Chronic (4) Substance-induced sleep disorder Current Visit: Yes Status: Chronic (5) Weight loss Current Visit: Yes Status: Chronic (6) Anxiety and depression Current Visit: No Status: Chronic (7) Substance-induced anxiety disorder Current Visit: No Status: Acute (8) Substance-induced sleep disorder Current Visit: No Status: Acute (9) Chronic back pain Current Visit: No Status: Chronic Qualifiers: Back pain location: low back pain Back pain laterality: right Sciatica presence: without sciatica Qualified Code(s): M54.5 - Low back pain; G89.29 - Other chronic pain (10) Insomnia Current Visit: No Status: Chronic Qualifiers: Insomnia type: drug-induced Qualified Code(s): F19.982 - Other psychoactive substance use, unspecified with psychoactive substance-induced sleep disorder (11) Joint pain Current Visit: No Status: Chronic Qualifiers: Joint pain location: hip Laterality: bilateral Qualified Code(s): M25.551 - Pain in right hip; M25.552 - Pain in left hip (12) Multiple sclerosis Current Visit: No Status: Chronic (13) Nicotine dependence Current Visit: No Status: Chronic Qualifiers: Nicotine product type: cigarettes Substance use status: uncomplicated Qualified Code(s): F17.210 - Nicotine dependence, cigarettes, uncomplicated (14) Opioid dependence on agonist therapy Current Visit: No Status: Chronic (15) Depression (emotion) Current Visit: No Status: Suspected Qualifiers: Depression Type: dysthymia Qualified Code(s): F34.1 - Dysthymic disorder (16) Substance induced mood disorder Current Visit: No Status: Suspected (17) Substance-induced anxiety disorder Current Visit: No Status: Suspected (18) PPD positive Current Visit: No Status: Resolved - AMA Did Patient Leave Against Medical Advice: No
[2020-06-07] MEDS: MAG HYDROX/AL HYDROX/SIMETH 30 ML UNIT-DOSE CUP PO PRN (09:51)
[2020-06-07] MEDS: PRENATAL VITAMINS W/ FOLIC ACID TABLET (FP) PO SCH (09:53)
[2020-06-07 11:02] LABS: URINE APPEARANCE CLOUDY; URINE BILIRUBIN NEGATIVE (NEGATIVE); URINE COLOR YELLOW; URINE GLUCOSE (UA) NEGATIVE (NEGATIVE); URINE KETONE NEGATIVE (NEGATIVE); URINE LEUK ESTERASE NEGATIVE (NEGATIVE); URINE NITRITE NEGATIVE (NEGATIVE); URINE PROTEIN NEGATIVE (NEGATIVE); URINE UROBILINOGEN 0.2 mg/dL (0.2-1.0)
== END 2020-06-07 12:53 | disposition other institution (70) | DRG 773 ==
LOC: YASAS 09:47 → Y6N 14:46
PROVIDERS: ADMIT Allergy & Immunology; ATTEND Allergy & Immunology
PROC: HZ2ZZZZ Detoxification Services for Substance Abuse Treatment (ICD-10-PCS; principal; 2020-06-02)
DX: F11.23 Opioid dependence with withdrawal (principal); F10.230 Alcohol dependence with withdrawal, uncomplicated; F17.210 Nicotine dependence, cigarettes, uncomplicated; F19.280 Other psychoactive substance dependence with psychoactive substance-induced anxiety disorder; F19.282 Other psychoactive substance dependence with psychoactive substance-induced sleep disorder; F19.24 Other psychoactive substance dependence with psychoactive substance-induced mood disorder; F34.1 Dysthymic disorder; F51.05 Insomnia due to other mental disorder; G35 Multiple sclerosis; M25.551 Pain in right hip; M54.5 Low back pain; G89.29 Other chronic pain; R63.4 Abnormal weight loss; Z68.29 Body mass index [BMI] 29.0-29.9, adult; E80.6 Other disorders of bilirubin metabolism; R77.9 Abnormality of plasma protein, unspecified
CPT/HCPCS: 36415; 80053; 80076; 81003; 85027; 86780; J0735; U0003

== ENCOUNTER 2020-06-07 12:58 | Inpatient (IN) | payer OTHER ==
--- NOTE | 2020-06-07 11:21 | HP ---
[facility] Rehab Assess/Revision - Admission History Admitted to Rehab from[facility] - Findings Detox History & Physical reviewed: Yes Concur with findings: Yes Inpatient Rehab Admission - Rehab Decision to Admit Inpatient rehab admission?: Yes - Initial Determination Are CD services needed?: Yes Free of communicable disease: Yes Not in need of hospitalization: Yes - Rehab Admission Criteria Previous failed treatment: Yes Poor recovery environment: Yes Comorbidities: Yes Lacks judgement: Yes Patient is meeting Inpatient Rehab admission criteria:: Yes
[~2020-06-07 12:58] MED LIST changes: -ACETAMINOPHEN 325 MG TABLET (FP) PO PRN; +IBUPROFEN 400 MG TABLET (FP) PO PRN; +MAG HYDROX/AL HYDROX/SIMETH 30 ML UNIT-DOSE CUP PO PRN; -NICOTINE 7 MG/24 HOURS TOPICAL PATCH TD PRN; -NICOTINE POLACRILEX 2 MG GUM BC PRN; +NICOTINE POLACRILEX 2 MG GUM BUC PRN; +guaiFENesin 200 MG/10 ML 10 ML UNIT-DOSE CUPS PO PRN; +hydrOXYzine PAMOATE 25 MG CAPSULE (FP) PO PRN
[2020-06-07] MEDS: SUVOREXANT 10 MG TABLET PO PRN (21:48)
[2020-06-07] MEDS: THIAMINE HCL 100 MG TABLET (FP) PO SCH (21:48)
[2020-06-07] MEDS: MELATONIN 5 MG TABLETS PO SCH (21:49)
[2020-06-08] MEDS: NICOTINE 21 MG/24 HOURS TOPICAL PATCH TD SCH (10:24)
[2020-06-08] MEDS: ACETAMINOPHEN 325 MG TABLET (FP) PO PRN ×2 (10:25→21:35)
[2020-06-08] MEDS: PRENATAL VITAMINS W/ FOLIC ACID TABLET (FP) PO SCH (10:26)
--- NOTE | 2020-06-08 11:34 | PN ---
S Progress Note Note: Pt is a 64 y/o male admitted to rehab from detox [address] [place] [address]. Vital Signs - 24 hr 06/07/20 06/07/20 06/08/20 15:30 19:01 06:16 Temperature 97.3 F L 97.3 F L Pulse Rate 90 75 Respiratory 18 18 Rate Blood Pressure 110/74 147/95 O2 Sat by Pulse 95 94 L Oximetry (%) Alert o x 3 nad oob ambulating with steady gait extremities:no edema; skin intact. S/P Detox Maintain safety increase po fluids follow up with Counselor for aftercare planning
[2020-06-08] MEDS: THIAMINE HCL 100 MG TABLET (FP) PO SCH (21:33)
[2020-06-08] MEDS: SUVOREXANT 10 MG TABLET PO PRN (21:34)
[2020-06-08] MEDS: MELATONIN 5 MG TABLETS PO SCH (21:36)
[2020-06-09] MEDS: PRENATAL VITAMINS W/ FOLIC ACID TABLET (FP) PO SCH (09:57)
[2020-06-09] MEDS: ACETAMINOPHEN 325 MG TABLET (FP) PO PRN ×2 (09:57→22:07)
[2020-06-09] MEDS: NICOTINE 21 MG/24 HOURS TOPICAL PATCH TD SCH (09:57)
[2020-06-09] MEDS: SUVOREXANT 10 MG TABLET PO PRN (22:07)
[2020-06-09] MEDS: THIAMINE HCL 100 MG TABLET (FP) PO SCH (22:08)
[2020-06-09] MEDS: MELATONIN 5 MG TABLETS PO SCH (22:08)
[2020-06-10] MEDS ORDERED: MASKS NR ONE (07:55)
[2020-06-10] MEDS: NICOTINE 21 MG/24 HOURS TOPICAL PATCH TD SCH (10:12)
[2020-06-10] MEDS: PRENATAL VITAMINS W/ FOLIC ACID TABLET (FP) PO SCH (10:12)
[2020-06-10] MEDS: ACETAMINOPHEN 325 MG TABLET (FP) PO PRN (16:09)
[2020-06-10] MEDS: THIAMINE HCL 100 MG TABLET (FP) PO SCH (22:06)
[2020-06-10] MEDS: MELATONIN 5 MG TABLETS PO SCH (22:06)
[2020-06-11] MEDS ORDERED: MASKS NR ONE (04:16)
[2020-06-11] MEDS: ACETAMINOPHEN 325 MG TABLET (FP) PO PRN ×2 (04:20→21:30)
[2020-06-11] MEDS: PRENATAL VITAMINS W/ FOLIC ACID TABLET (FP) PO SCH (10:31)
[2020-06-11] MEDS: NICOTINE 21 MG/24 HOURS TOPICAL PATCH TD SCH (10:31)
--- NOTE | 2020-06-11 15:00 | PN ---
[facility] COWS - Scale Resting Pulse: 0= WI 80 or Below Sweatin= No chills or Flushing Restless Observation: 0= Sits Still Pupil Size: 0= Normal to Room Light Bone or Joint Aches: 1= Mild Discomfort Runny Nose/ Eye Tearin= None GI Upset > 30mins: 0= None Tremor Observation of Outstretched Hands: 1= Tremor Purdum, Not Seen Yawning Observation: 1= 1-2x During Session Anxiety or Irritability: 2=Irritable/Anxious Goose Flesh Skin: 0=Smooth Skin COWS Score: 5 [facility] Progress Note (SOAP) Subjective: Pt requesting to restart on suboxone MAT. Pt is status post detox for heroin on . Last posted as below on the [facility] website: Others' Prescriptions Patient Name: Genaro WallerBirth Date: 1955 Address: [place] [address]Oje: Male Rx Written Rx Dispensed Drug Quantity Days Supply Prescriber Name Payment Method Dispenser 02/16/2020 02/16/2020 buprenorphine-naloxone 2-0.5 mg sl film 7 7 Anaid Lopez DO [employer] [facility] Patient Name: Genaro WallerBirth Date: 1955 Address: [address] [place] [address] [place], [place] [address]Drm: Male Rx Written Rx Dispensed Drug Quantity Days Supply Prescriber Name Payment Method Dispenser 12/13/2019 12/13/2019 buprenorphine-naloxone 2-0.5 mg sl film 30 30 Wanda Huber Medicaid [facility] * - Objective: 06/11/20 14:57 Vital Signs - 24 hr 06/10/20 06/11/20 06/11/20 18:54 06:42 12:49 Temperature 97.3 F L Pulse Rate 69 Respiratory 18 Rate Blood Pressure 135/87 O2 Sat by Pulse 95 94 L 95 Oximetry (%) URINE DRUG SCREEN RESULTS Urine Drug Screen Results BZO-Benzodiazepines,MTD-Methadone Alert o x 3 nad oob ambulating with steady gait Assessment: 06/11/20 14:58 S/P detox Suboxone MAT Plan: UTox today 2 mg/0.1 mg sl now then daily
[2020-06-11] MEDS ORDERED: BUPRENORPHINE/NALOXONE 2 MG/0.5 MG FILM PACKET SL ONE ×2 (15:01)
[2020-06-11] MEDS: MELATONIN 5 MG TABLETS PO SCH (21:30)
[2020-06-11] MEDS: THIAMINE HCL 100 MG TABLET (FP) PO SCH (21:30)
[2020-06-11] MEDS: SUVOREXANT 10 MG TABLET PO PRN (21:30)
[2020-06-12] MEDS: NICOTINE 21 MG/24 HOURS TOPICAL PATCH TD SCH (10:18)
[2020-06-12] MEDS: PRENATAL VITAMINS W/ FOLIC ACID TABLET (FP) PO SCH (10:18)
[2020-06-12] MEDS: BUPRENORPHINE/NALOXONE 2 MG/0.5 MG FILM PACKET SL SCH (10:19)
[2020-06-12] MEDS: THIAMINE HCL 100 MG TABLET (FP) PO SCH (21:17)
[2020-06-12] MEDS: SUVOREXANT 10 MG TABLET PO PRN (21:18)
[2020-06-12] MEDS: ACETAMINOPHEN 325 MG TABLET (FP) PO PRN (21:18)
[2020-06-12] MEDS: MELATONIN 5 MG TABLETS PO SCH (21:18)
[2020-06-13] MEDS: PRENATAL VITAMINS W/ FOLIC ACID TABLET (FP) PO SCH (10:21)
[2020-06-13] MEDS: BUPRENORPHINE/NALOXONE 2 MG/0.5 MG FILM PACKET SL SCH (10:21)
[2020-06-13] MEDS: NICOTINE 21 MG/24 HOURS TOPICAL PATCH TD SCH (10:21)
[2020-06-13] MEDS: DOCUSATE SODIUM 100 MG CAPSULE (FP) PO SCH ×2 (13:27→21:23)
[2020-06-13] MEDS: SUVOREXANT 10 MG TABLET PO PRN (21:23)
[2020-06-13] MEDS: THIAMINE HCL 100 MG TABLET (FP) PO SCH (21:23)
[2020-06-13] MEDS: MELATONIN 5 MG TABLETS PO SCH (21:23)
[2020-06-13] MEDS: ACETAMINOPHEN 325 MG TABLET (FP) PO PRN (21:24)
[2020-06-14] MEDS ORDERED: MASKS NR ONE (06:57)
[2020-06-14] MEDS: DOCUSATE SODIUM 100 MG CAPSULE (FP) PO SCH ×3 (06:57→21:49)
[2020-06-14] MEDS: NICOTINE 21 MG/24 HOURS TOPICAL PATCH TD SCH (10:26)
[2020-06-14] MEDS: PRENATAL VITAMINS W/ FOLIC ACID TABLET (FP) PO SCH (10:26)
[2020-06-14] MEDS: BUPRENORPHINE/NALOXONE 2 MG/0.5 MG FILM PACKET SL SCH (10:26)
[2020-06-14] MEDS: SUVOREXANT 10 MG TABLET PO PRN (21:21)
[2020-06-14] MEDS: ACETAMINOPHEN 325 MG TABLET (FP) PO PRN (21:21)
[2020-06-14] MEDS: MELATONIN 5 MG TABLETS PO SCH (21:49)
[2020-06-14] MEDS: THIAMINE HCL 100 MG TABLET (FP) PO SCH (21:49)
[2020-06-15] MEDS: DOCUSATE SODIUM 100 MG CAPSULE (FP) PO SCH ×3 (06:04→21:21)
[2020-06-15] MEDS: NICOTINE 21 MG/24 HOURS TOPICAL PATCH TD SCH (10:13)
[2020-06-15] MEDS: BUPRENORPHINE/NALOXONE 2 MG/0.5 MG FILM PACKET SL SCH (10:13)
[2020-06-15] MEDS: PRENATAL VITAMINS W/ FOLIC ACID TABLET (FP) PO SCH (10:14)
[2020-06-15] MEDS: VITAMINS A AND D TOPICAL OINTMENT 60 GM TUBE TP SCH (14:24)
[2020-06-15] MEDS: SUVOREXANT 10 MG TABLET PO PRN (21:21)
[2020-06-15] MEDS: MELATONIN 5 MG TABLETS PO SCH (21:21)
[2020-06-15] MEDS: ACETAMINOPHEN 325 MG TABLET (FP) PO PRN (21:22)
[2020-06-15] MEDS: THIAMINE HCL 100 MG TABLET (FP) PO SCH (21:46)
[2020-06-16] MEDS: DOCUSATE SODIUM 100 MG CAPSULE (FP) PO SCH ×3 (06:57→21:21)
[2020-06-16] MEDS: BUPRENORPHINE/NALOXONE 2 MG/0.5 MG FILM PACKET SL SCH (10:03)
[2020-06-16] MEDS: NICOTINE 21 MG/24 HOURS TOPICAL PATCH TD SCH (10:05)
[2020-06-16] MEDS: PRENATAL VITAMINS W/ FOLIC ACID TABLET (FP) PO SCH (10:05)
[2020-06-16] MEDS: VITAMINS A AND D TOPICAL OINTMENT 60 GM TUBE TP SCH (10:05)
[2020-06-16] MEDS: ACETAMINOPHEN 325 MG TABLET (FP) PO PRN (21:20)
[2020-06-16] MEDS: SUVOREXANT 10 MG TABLET PO PRN (21:21)
[2020-06-16] MEDS: THIAMINE HCL 100 MG TABLET (FP) PO SCH (21:21)
[2020-06-16] MEDS: MELATONIN 5 MG TABLETS PO SCH (21:21)
[2020-06-17] MEDS: DOCUSATE SODIUM 100 MG CAPSULE (FP) PO SCH ×3 (06:57→21:25)
[2020-06-17] MEDS: NICOTINE 21 MG/24 HOURS TOPICAL PATCH TD SCH (10:02)
[2020-06-17] MEDS: PRENATAL VITAMINS W/ FOLIC ACID TABLET (FP) PO SCH (10:02)
[2020-06-17] MEDS: VITAMINS A AND D TOPICAL OINTMENT 60 GM TUBE TP SCH (10:02)
[2020-06-17] MEDS: BUPRENORPHINE/NALOXONE 2 MG/0.5 MG FILM PACKET SL SCH (10:02)
[2020-06-17] MEDS: SUVOREXANT 10 MG TABLET PO PRN (21:25)
[2020-06-17] MEDS: ACETAMINOPHEN 325 MG TABLET (FP) PO PRN (21:25)
[2020-06-17] MEDS: MELATONIN 5 MG TABLETS PO SCH (21:25)
[2020-06-17] MEDS: THIAMINE HCL 100 MG TABLET (FP) PO SCH (21:26)
[2020-06-18] MEDS: DOCUSATE SODIUM 100 MG CAPSULE (FP) PO SCH ×3 (07:32→22:46)
[2020-06-18] MEDS: PRENATAL VITAMINS W/ FOLIC ACID TABLET (FP) PO SCH (10:30)
[2020-06-18] MEDS: NICOTINE 21 MG/24 HOURS TOPICAL PATCH TD SCH (10:30)
[2020-06-18] MEDS: VITAMINS A AND D TOPICAL OINTMENT 60 GM TUBE TP SCH (10:31)
[2020-06-18] MEDS ORDERED: BUPRENORPHINE/NALOXONE 2 MG/0.5 MG FILM PACKET SL ONE (10:43)
[2020-06-18] MEDS ORDERED: MASKS NR ONE (21:30)
[2020-06-18] MEDS: ACETAMINOPHEN 325 MG TABLET (FP) PO PRN (22:44)
[2020-06-18] MEDS: SUVOREXANT 10 MG TABLET PO PRN (22:46)
[2020-06-18] MEDS: MELATONIN 5 MG TABLETS PO SCH (22:46)
[2020-06-18] MEDS: THIAMINE HCL 100 MG TABLET (FP) PO SCH (22:46)
[2020-06-19] MEDS: DOCUSATE SODIUM 100 MG CAPSULE (FP) PO SCH ×3 (06:37→21:12)
[2020-06-19] MEDS: PRENATAL VITAMINS W/ FOLIC ACID TABLET (FP) PO SCH (10:14)
[2020-06-19] MEDS: NICOTINE 21 MG/24 HOURS TOPICAL PATCH TD SCH (10:14)
[2020-06-19] MEDS: BUPRENORPHINE/NALOXONE 2 MG/0.5 MG FILM PACKET SL SCH (10:15)
[2020-06-19] MEDS: VITAMINS A AND D TOPICAL OINTMENT 60 GM TUBE TP SCH (10:16)
[2020-06-19] MEDS: ACETAMINOPHEN 325 MG TABLET (FP) PO PRN (21:12)
[2020-06-19] MEDS: MELATONIN 5 MG TABLETS PO SCH (21:12)
[2020-06-19] MEDS: SUVOREXANT 10 MG TABLET PO PRN (21:12)
[2020-06-19] MEDS: THIAMINE HCL 100 MG TABLET (FP) PO SCH (21:12)
[2020-06-20] MEDS: DOCUSATE SODIUM 100 MG CAPSULE (FP) PO SCH ×3 (07:03→21:20)
[2020-06-20] MEDS: NICOTINE 21 MG/24 HOURS TOPICAL PATCH TD SCH (10:35)
[2020-06-20] MEDS: BUPRENORPHINE/NALOXONE 2 MG/0.5 MG FILM PACKET SL SCH (10:36)
[2020-06-20] MEDS: PRENATAL VITAMINS W/ FOLIC ACID TABLET (FP) PO SCH (10:36)
[2020-06-20] MEDS: VITAMINS A AND D TOPICAL OINTMENT 60 GM TUBE TP SCH (10:37)
[2020-06-20] MEDS: SUVOREXANT 10 MG TABLET PO PRN (21:19)
[2020-06-20] MEDS: MELATONIN 5 MG TABLETS PO SCH (21:20)
[2020-06-20] MEDS: THIAMINE HCL 100 MG TABLET (FP) PO SCH (21:20)
[2020-06-21] MEDS: DOCUSATE SODIUM 100 MG CAPSULE (FP) PO SCH (06:39)
[2020-06-21 06:52] VITALS: BP 124/88; PULSE 75; TEMP 97.1
[2020-06-21] MEDS: PRENATAL VITAMINS W/ FOLIC ACID TABLET (FP) PO SCH (09:24)
[2020-06-21] MEDS: VITAMINS A AND D TOPICAL OINTMENT 60 GM TUBE TP SCH (09:24)
[2020-06-21] MEDS: BUPRENORPHINE/NALOXONE 2 MG/0.5 MG FILM PACKET SL SCH (09:24)
[2020-06-21] MEDS: NICOTINE 21 MG/24 HOURS TOPICAL PATCH TD SCH (09:24)
--- NOTE | 2020-06-21 10:31 | DS ---
[facility] Rehab Discharge Summary - [facility] Rehab Discharge Summary Admission Date: 06/07/20 Discharge Date: 06/21/20 - History Present History: Alcohol dependence, Opioid dependence Pertinent Past History: Hx Multiple Sclerosis Joint Pain Anxiety/Depression - Discharge Physical Exam Vital Signs: Vital Signs Temperature 97.1 F L 06/21/20 05:46 Pulse Rate 75 06/21/20 05:46 Respiratory Rate 18 06/21/20 05:46 Blood Pressure 124/88 06/21/20 05:46 O2 Sat by Pulse Oximetry (%) 94 L 06/21/20 05:46 Pertinent Admission Physical Exam Findings: Laboratory Tests 06/14/20 11:45 HIV Ag/Ab Combo Qual Negative - Treatment Discharge Condition: Discharge condition good, Rehabilitated safely, Responded well, Outpatient referral accepted Hospital Course: Pt completed rehab and discharging today to follow up with CD aftercare at [facility] as well as Suboxone MAT. - Medication Discharge Medications: Ambulatory Orders Buprenorphine/Naloxone [Suboxone 2Mg/0.5MG Sl Film -] 1 combo SL DAILY #7 packet MDD 1 06/20/20 Naloxone HCl [Narcan] 4 mg NS ONCE #1 spray 06/21/20 - Medication-Assisted Treatment (MAT) Medication-Assisted Treatment (MAT): Yes Medication Prescribed: Suboxone MAT Follow-up Referral: [facility] - Discharge Instructions Diet, activity, other medical instructions: Diet:Regular Activity: oob ad cali Other medical instructions:follow up with [facility] CD program as recommended and scheduled. 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
[2020-06-21] MEDS ORDERED: SUVOREXANT 10 MG TABLET PO PRN (22:00)
== END 2020-06-21 10:00 | disposition home or self-care (01) | DRG 772 ==
LOC: YASAS 12:58 → Y5N 12:59
PROVIDERS: ADMIT Allergy & Immunology; ATTEND Allergy & Immunology
PROC: HZ42ZZZ Group Counseling for Substance Abuse Treatment, Cognitive-Behavioral (ICD-10-PCS; principal; 2020-06-07)
DX: F11.20 Opioid dependence, uncomplicated (principal); F10.20 Alcohol dependence, uncomplicated; F17.210 Nicotine dependence, cigarettes, uncomplicated; F41.9 Anxiety disorder, unspecified; F32.9 Major depressive disorder, single episode, unspecified; G35 Multiple sclerosis; M25.551 Pain in right hip; Z51.81 Encounter for therapeutic drug level monitoring; Z79.899 Other long term (current) drug therapy
CPT/HCPCS: 36415; 87389

== ENCOUNTER 2020-08-14 11:04 | Inpatient (IN) | payer OTHER ==
[2020-08-14 12:23] VITALS: BMI 27.7
[2020-08-14] MEDS ORDERED: MAG HYDROX/AL HYDROX/SIMETH 30 ML UNIT-DOSE CUP PO PRN (13:16)
[2020-08-14] MEDS ORDERED: MAGNESIUM HYDROX 2400MG/30ML ORAL SUSPENSION 30 ML CUP PO PRN (13:16)
[2020-08-14] MEDS ORDERED: MENTHOL/PHENOL 1 EACH UD MM PRN (13:16)
[2020-08-14] MEDS ORDERED: ONDANSETRON *ODT* 4 MG TABLET SL PRN (13:16)
[2020-08-14] MEDS ORDERED: ACETAMINOPHEN 325 MG TABLET (FP) PO PRN ×2 (13:16)
[2020-08-14] MEDS ORDERED: BISMUTH SUBSALICYLATE 524 MG/30 ML UD PO PRN (13:16)
[2020-08-14] MEDS ORDERED: cloNIDine HCL 0.1 MG TABLET PO PRN (13:16)
[2020-08-14] MEDS ORDERED: IBUPROFEN 400 MG TABLET (FP) PO PRN (13:16)
[2020-08-14] MEDS ORDERED: MAGNESIUM CITRATE 300 ML BOTTLE PO PRN (13:16)
[2020-08-14] MEDS ORDERED: chlordiazePOXIDE HCL 25 MG CAPSULE PO PRN (13:16)
[2020-08-14] MEDS ORDERED: METHADONE HCL 10 MG TABLET (FOR DETOX USE ONLY) PO ONE (13:30)
[2020-08-14] MEDS: hydrOXYzine PAMOATE 25 MG CAPSULE (FP) PO SCH ×3 (14:05→22:13)
[2020-08-14] MEDS: METHOCARBAMOL 500 MG TABLET PO PRN (14:06)
[2020-08-14 17:02] LABS: HEMATOCRIT 46.4 % (35.4-49); HEMOGLOBIN 15.5 GM/dL (11.7-16.9); MCH 30.4 pg (25.7-33.7); MCHC 33.4 g/dl (32.0-35.9); MEAN CELL VOLUME 91.1 fl (80-96); MEAN PLT VOLUME 9.6 fl (7.5-11.1); PLATELET COUNT 289 K/MM3 (134-434); POTASSIUM 4.2 mmol/L (3.5-5.1); RDW 14.2 % (11.9-15.9); WHITE BLOOD COUNT 10.4 K/mm3 (4.0-10.0)
[2020-08-14 17:04] LABS: CALCIUM 9.9 mg/dL (8.5-10.1)
[2020-08-14 17:05] LABS: ALBUMIN 4.4 g/dl (3.4-5.0); BLOOD UREA NITROGEN 21.3 mg/dL (7-18)
[2020-08-14 17:08] LABS: CREATININE 1.3 mg/dL (0.55-1.3)
[2020-08-14 17:09] LABS: BILIRUBIN,TOTAL 1.2 mg/dL (0.2-1); TOT PROT 8.7 g/dl (6.4-8.2)
[2020-08-14] MEDS: chlordiazePOXIDE HCL 25 MG CAPSULE PO SCH ×2 (17:17→22:14)
[2020-08-14] MEDS ORDERED: MELATONIN 5 MG TABLETS PO SCH (22:00)
[2020-08-14] MEDS: THIAMINE HCL 100 MG TABLET (FP) PO SCH (22:13)
[2020-08-15] MEDS: chlordiazePOXIDE HCL 25 MG CAPSULE PO SCH ×4 (05:43→22:40)
[2020-08-15] MEDS: hydrOXYzine PAMOATE 25 MG CAPSULE (FP) PO SCH ×5 (05:44→22:40)
[2020-08-15] MEDS: METHOCARBAMOL 500 MG TABLET PO PRN ×2 (06:46→17:32)
[2020-08-15] MEDS ORDERED: METHADONE HCL 5 MG TABLET (FOR DETOX USE ONLY) ONE (08:26)
[2020-08-15] MEDS ORDERED: METHADONE HCL 10 MG TABLET (FOR DETOX USE ONLY) ONE (08:26)
[2020-08-15] MEDS ORDERED: METHADONE (DETOX) 20 MG, METHADONE (DETOX) 5 MG PO ONE (10:00)
[2020-08-15] MEDS: PRENATAL VITAMINS W/ FOLIC ACID TABLET (FP) PO SCH (10:09)
[2020-08-15] MEDS: THIAMINE HCL 100 MG TABLET (FP) PO SCH (22:40)
[2020-08-16] MEDS: chlordiazePOXIDE HCL 25 MG CAPSULE PO SCH ×4 (05:29→22:04)
[2020-08-16] MEDS: hydrOXYzine PAMOATE 25 MG CAPSULE (FP) PO SCH ×3 (05:29→15:40)
[2020-08-16] MEDS: METHOCARBAMOL 500 MG TABLET PO PRN (05:29)
[2020-08-16] MEDS: PRENATAL VITAMINS W/ FOLIC ACID TABLET (FP) PO SCH (09:53)
[2020-08-16] MEDS ORDERED: METHADONE HCL 10 MG TABLET (FOR DETOX USE ONLY) PO ONE (10:00)
[2020-08-16] MEDS: DOCUSATE SODIUM 100 MG CAPSULE (FP) PO PRN (21:00)
[2020-08-16] MEDS: THIAMINE HCL 100 MG TABLET (FP) PO SCH (22:04)
[2020-08-16] MEDS: MELATONIN 5 MG TABLETS PO PRN (22:05)
[2020-08-16] MEDS: SUVOREXANT 10 MG TABLET PO PRN (22:06)
[2020-08-17] MEDS ORDERED: chlordiazePOXIDE HCL 10 MG CAPSULE PO PRN
[2020-08-17] MEDS: chlordiazePOXIDE HCL 10 MG CAPSULE PO SCH ×4 (05:31→22:08)
[2020-08-17] MEDS: METHOCARBAMOL 500 MG TABLET PO PRN ×2 (05:32→17:55)
[2020-08-17] MEDS ORDERED: METHADONE HCL 5 MG TABLET (FOR DETOX USE ONLY) ONE (09:09)
[2020-08-17] MEDS ORDERED: METHADONE HCL 10 MG TABLET (FOR DETOX USE ONLY) ONE (09:09)
[2020-08-17] MEDS ORDERED: METHADONE (DETOX) 10 MG, METHADONE (DETOX) 5 MG PO ONE (10:00)
[2020-08-17] MEDS: PRENATAL VITAMINS W/ FOLIC ACID TABLET (FP) PO SCH (10:13)
[2020-08-17] MEDS: DOCUSATE SODIUM 100 MG CAPSULE (FP) PO PRN (10:38)
[2020-08-17] MEDS ORDERED: MASKS NR ONE (16:19)
[2020-08-17] MEDS: THIAMINE HCL 100 MG TABLET (FP) PO SCH (22:08)
[2020-08-17] MEDS: SUVOREXANT 10 MG TABLET PO PRN (22:09)
[2020-08-17] MEDS: MELATONIN 5 MG TABLETS PO PRN (22:10)
[2020-08-18] MEDS: chlordiazePOXIDE HCL 10 MG CAPSULE PO SCH ×2 (05:57→17:40)
[2020-08-18] MEDS: METHOCARBAMOL 500 MG TABLET PO PRN ×2 (05:58→22:15)
[2020-08-18] MEDS: DOCUSATE SODIUM 100 MG CAPSULE (FP) PO PRN (07:37)
[2020-08-18] MEDS ORDERED: METHADONE HCL 10 MG TABLET (FOR DETOX USE ONLY) PO ONE (10:00)
[2020-08-18] MEDS: PRENATAL VITAMINS W/ FOLIC ACID TABLET (FP) PO SCH (10:15)
[2020-08-18] MEDS: SUVOREXANT 10 MG TABLET PO PRN (21:00)
[2020-08-18] MEDS: THIAMINE HCL 100 MG TABLET (FP) PO SCH (22:13)
[2020-08-18] MEDS: MELATONIN 5 MG TABLETS PO PRN (22:14)
[2020-08-19] MEDS ORDERED: chlordiazePOXIDE HCL 10 MG CAPSULE PO ONE (05:00)
[2020-08-19] MEDS: DOCUSATE SODIUM 100 MG CAPSULE (FP) PO PRN ×2 (05:58→12:45)
[2020-08-19] MEDS: METHOCARBAMOL 500 MG TABLET PO PRN (05:58)
[2020-08-19] MEDS ORDERED: METHADONE HCL 5 MG TABLET (FOR DETOX USE ONLY) PO ONE (06:00)
[2020-08-19 06:23] VITALS: TEMP 97.3
[2020-08-19 09:01] VITALS: BP 130/67; PULSE 84
[2020-08-19] MEDS: PRENATAL VITAMINS W/ FOLIC ACID TABLET (FP) PO SCH (10:07)
== END 2020-08-19 13:07 | disposition other institution (70) | DRG 773 ==
LOC: YASAS 11:04 → Y3N 12:19
PROVIDERS: ADMIT Allergy & Immunology; ATTEND Allergy & Immunology
PROC: HZ2ZZZZ Detoxification Services for Substance Abuse Treatment (ICD-10-PCS; principal; 2020-08-14)
DX: F11.23 Opioid dependence with withdrawal (principal); F10.230 Alcohol dependence with withdrawal, uncomplicated; F17.210 Nicotine dependence, cigarettes, uncomplicated; F19.282 Other psychoactive substance dependence with psychoactive substance-induced sleep disorder; F19.280 Other psychoactive substance dependence with psychoactive substance-induced anxiety disorder; G35 Multiple sclerosis; M25.551 Pain in right hip; M54.5 Low back pain; G89.29 Other chronic pain; R76.11 Nonspecific reaction to tuberculin skin test without active tuberculosis; R63.4 Abnormal weight loss; Z68.27 Body mass index [BMI] 27.0-27.9, adult
CPT/HCPCS: 36415; 80053; 85027; 86780; C9803; U0003

== ENCOUNTER 2020-10-10 11:19 | Inpatient (IN) | payer OTHER ==
[2020-10-10] MEDS ORDERED: BISMUTH SUBSALICYLATE 262 MG/15 ML BTL PO PRN (14:27)
[2020-10-10] MEDS ORDERED: MAG HYDROX/AL HYDROX/SIMETH 30 ML UNIT-DOSE CUP PO PRN (14:27)
[2020-10-10] MEDS ORDERED: MAGNESIUM HYDROX 2400MG/30ML ORAL SUSPENSION 30 ML CUP PO PRN (14:27)
[2020-10-10] MEDS ORDERED: IBUPROFEN 400 MG TABLET (FP) PO PRN (14:27)
[2020-10-10] MEDS ORDERED: ONDANSETRON *ODT* 4 MG TABLET SL PRN (14:27)
[2020-10-10] MEDS ORDERED: MAGNESIUM CITRATE 300 ML BOTTLE PO PRN (14:27)
[2020-10-10] MEDS ORDERED: METHADONE HCL 10 MG TABLET (FOR DETOX USE ONLY) PO ONE (14:27)
[2020-10-10] MEDS ORDERED: NICOTINE POLACRILEX 2 MG GUM BUC PRN (14:27)
[2020-10-10] MEDS ORDERED: ACETAMINOPHEN 325 MG TABLET (FP) PO PRN ×2 (14:27)
[2020-10-10] MEDS ORDERED: cloNIDine HCL 0.1 MG TABLET PO PRN (14:27)
[2020-10-10] MEDS ORDERED: MENTHOL/PHENOL 1 EACH UD MM PRN (14:27)
[2020-10-10] MEDS ORDERED: METHOCARBAMOL 500 MG TABLET PO PRN (14:27)
[2020-10-10] MEDS ORDERED: METHADONE HCL 10 MG TABLET (FOR DETOX USE ONLY) ONE (14:52)
[2020-10-10] MEDS: PRENATAL VITAMINS W/ FOLIC ACID TABLET (FP) PO SCH (17:15)
[2020-10-10 17:54] LABS: POTASSIUM 4.9 mmol/L (3.5-5.1)
[2020-10-10 17:55] LABS: CALCIUM 9.7 mg/dL (8.5-10.1)
[2020-10-10 17:56] LABS: ALBUMIN 4.4 g/dl (3.4-5.0); BLOOD UREA NITROGEN 16.2 mg/dL (7-18); HEMATOCRIT 46.8 % (35.4-49); HEMOGLOBIN 15.7 GM/dL (11.7-16.9); MCH 30.4 pg (25.7-33.7); MCHC 33.5 g/dl (32.0-35.9); MEAN CELL VOLUME 90.7 fl (80-96); MEAN PLT VOLUME 9.1 fl (7.5-11.1); PLATELET COUNT 263 K/MM3 (134-434); RBC 5.16 M/mm3 (4.00-5.60); RDW 13.9 % (11.9-15.9); WHITE BLOOD COUNT 9.3 K/mm3 (4.0-10.0)
[2020-10-10 17:59] LABS: CREATININE 1.2 mg/dL (0.55-1.3)
[2020-10-10 18:01] LABS: BILIRUBIN,TOTAL 1.8 mg/dL (0.2-1); TOT PROT 9.4 g/dl (6.4-8.2)
[2020-10-10] MEDS: hydrOXYzine PAMOATE 25 MG CAPSULE (FP) PO SCH ×2 (18:25→23:50)
[2020-10-10] MEDS ORDERED: MELATONIN 5 MG TABLETS PO SCH (22:00)
[2020-10-11] MEDS: THIAMINE HCL 100 MG TABLET (FP) PO SCH ×2 (00:04→22:25)
[2020-10-11] MEDS: hydrOXYzine PAMOATE 25 MG CAPSULE (FP) PO SCH ×5 (06:55→22:23)
[2020-10-11] MEDS ORDERED: METHADONE HCL 5 MG TABLET (FOR DETOX USE ONLY) ONE (09:22)
[2020-10-11] MEDS ORDERED: METHADONE HCL 10 MG TABLET (FOR DETOX USE ONLY) ONE (09:23)
[2020-10-11] MEDS: PRENATAL VITAMINS W/ FOLIC ACID TABLET (FP) PO SCH (09:50)
[2020-10-11] MEDS ORDERED: METHADONE (DETOX) 20 MG, METHADONE (DETOX) 5 MG PO ONE (10:00)
[2020-10-11] MEDS ORDERED: diazePAM 5 MG TABLET PO PRN (17:32)
[2020-10-11] MEDS: SUVOREXANT 15 MG TABLET PO PRN (22:23)
[2020-10-12] MEDS: hydrOXYzine PAMOATE 25 MG CAPSULE (FP) PO SCH ×5 (06:01→22:27)
[2020-10-12] MEDS ORDERED: METHADONE HCL 10 MG TABLET (FOR DETOX USE ONLY) PO ONE (10:00)
[2020-10-12] MEDS: PRENATAL VITAMINS W/ FOLIC ACID TABLET (FP) PO SCH (10:17)
[2020-10-12 14:44] LABS: POTASSIUM 4.2 mmol/L (3.5-5.1)
[2020-10-12 14:48] LABS: CALCIUM 9.6 mg/dL (8.5-10.1)
[2020-10-12 14:49] LABS: ALBUMIN 3.9 g/dl (3.4-5.0); BLOOD UREA NITROGEN 17.4 mg/dL (7-18)
[2020-10-12 14:52] LABS: CREATININE 1.2 mg/dL (0.55-1.3)
[2020-10-12 14:53] LABS: BILIRUBIN,TOTAL 1.6 mg/dL (0.2-1)
[2020-10-12 14:54] LABS: TOT PROT 8.2 g/dl (6.4-8.2)
[2020-10-12] MEDS: THIAMINE HCL 100 MG TABLET (FP) PO SCH (22:25)
[2020-10-12] MEDS: SUVOREXANT 15 MG TABLET PO PRN (22:26)
[2020-10-13] MEDS: hydrOXYzine PAMOATE 25 MG CAPSULE (FP) PO SCH ×5 (06:49→22:10)
[2020-10-13] MEDS ORDERED: METHADONE HCL 10 MG TABLET (FOR DETOX USE ONLY) ONE (09:40)
[2020-10-13] MEDS ORDERED: METHADONE HCL 5 MG TABLET (FOR DETOX USE ONLY) ONE (09:40)
[2020-10-13] MEDS ORDERED: METHADONE (DETOX) 10 MG, METHADONE (DETOX) 5 MG PO ONE (10:00)
[2020-10-13] MEDS: PRENATAL VITAMINS W/ FOLIC ACID TABLET (FP) PO SCH (10:51)
[2020-10-13] MEDS ORDERED: SUVOREXANT 15 MG TABLET PO PRN (22:00)
[2020-10-13] MEDS: THIAMINE HCL 100 MG TABLET (FP) PO SCH (22:10)
[2020-10-14] MEDS: hydrOXYzine PAMOATE 25 MG CAPSULE (FP) PO SCH ×5 (07:07→23:12)
[2020-10-14] MEDS ORDERED: METHADONE HCL 10 MG TABLET (FOR DETOX USE ONLY) PO ONE (10:00)
[2020-10-14] MEDS: PRENATAL VITAMINS W/ FOLIC ACID TABLET (FP) PO SCH (10:51)
[2020-10-14] MEDS: THIAMINE HCL 100 MG TABLET (FP) PO SCH (22:06)
[2020-10-15] MEDS: hydrOXYzine PAMOATE 25 MG CAPSULE (FP) PO SCH ×2 (05:29→10:17)
[2020-10-15] MEDS ORDERED: METHADONE HCL 5 MG TABLET (FOR DETOX USE ONLY) PO ONE (06:00)
[2020-10-15] MEDS: PRENATAL VITAMINS W/ FOLIC ACID TABLET (FP) PO SCH ×2 (10:17→10:32)
[2020-10-15 10:56] VITALS: BP 135/69; PULSE 86; TEMP 97.7
== END 2020-10-15 11:35 | disposition home or self-care (01) | DRG 773 ==
LOC: YASAS 11:19 → Y6N 15:46
PROVIDERS: ADMIT Allergy & Immunology; ATTEND Allergy & Immunology
PROC: HZ2ZZZZ Detoxification Services for Substance Abuse Treatment (ICD-10-PCS; principal; 2020-10-10)
DX: F11.23 Opioid dependence with withdrawal (principal); F10.20 Alcohol dependence, uncomplicated; F19.282 Other psychoactive substance dependence with psychoactive substance-induced sleep disorder; F41.9 Anxiety disorder, unspecified; E80.6 Other disorders of bilirubin metabolism; M54.5 Low back pain; M25.551 Pain in right hip; G89.29 Other chronic pain; R63.4 Abnormal weight loss; Z68.28 Body mass index [BMI] 28.0-28.9, adult
CPT/HCPCS: 36415; 80053; 85027; 86780; 87426; 93005; 93010; C9803; U0003

== ENCOUNTER 2020-12-06 12:57 | Inpatient (IN) | payer OTHER ==
[2020-12-06 13:46] VITALS: BMI 28.6
[2020-12-06] MEDS ORDERED: LORazepam 1 MG TABLET PO PRN (14:45)
[2020-12-06] MEDS ORDERED: ONDANSETRON *ODT* 4 MG TABLET SL PRN (14:45)
[2020-12-06] MEDS ORDERED: METHADONE HCL 10 MG TABLET (FOR DETOX USE ONLY) PO ONE (14:45)
[2020-12-06] MEDS ORDERED: ACETAMINOPHEN 325 MG TABLET (FP) PO PRN ×2 (14:45)
[2020-12-06] MEDS ORDERED: MAGNESIUM HYDROX 2400MG/30ML ORAL SUSPENSION 30 ML CUP PO PRN (14:45)
[2020-12-06] MEDS ORDERED: MAGNESIUM CITRATE 300 ML BOTTLE PO PRN (14:45)
[2020-12-06] MEDS ORDERED: MENTHOL/PHENOL 1 EACH UD MM PRN (14:45)
[2020-12-06] MEDS ORDERED: MAG HYDROX/AL HYDROX/SIMETH 30 ML UNIT-DOSE CUP PO PRN (14:45)
[2020-12-06] MEDS ORDERED: BISMUTH SUBSALICYLATE 262 MG/15 ML BTL PO PRN (14:45)
[2020-12-06] MEDS ORDERED: IBUPROFEN 400 MG TABLET (FP) PO PRN (14:45)
[2020-12-06] MEDS ORDERED: cloNIDine HCL 0.1 MG TABLET PO PRN (14:45)
[2020-12-06] MEDS ORDERED: METHOCARBAMOL 500 MG TABLET PO PRN (14:45)
[2020-12-06] MEDS: PRENATAL VITAMINS W/ FOLIC ACID TABLET (FP) PO SCH (15:56)
[2020-12-06 16:26] LABS: HEMATOCRIT 42.4 % (35.4-49); MCH 29.9 pg (25.7-33.7); MCHC 32.9 g/dl (32.0-35.9); MEAN CELL VOLUME 90.8 fl (80-96); MEAN PLT VOLUME 9.3 fl (7.5-11.1); PLATELET COUNT 218 K/MM3 (134-434); RBC 4.68 M/mm3 (4.00-5.60); RDW 14.2 % (11.9-15.9); WHITE BLOOD COUNT 8.1 K/mm3 (4.0-10.0)
[2020-12-06 16:27] LABS: ALBUMIN 3.9 g/dl (3.4-5.0); BLOOD UREA NITROGEN 18.4 mg/dL (7-18); CALCIUM 9.3 mg/dL (8.5-10.1)
[2020-12-06 16:31] LABS: CREATININE 1.2 mg/dL (0.55-1.3)
[2020-12-06 16:32] LABS: BILIRUBIN,TOTAL 0.8 mg/dL (0.2-1); TOT PROT 8.4 g/dl (6.4-8.2)
[2020-12-06] MEDS: LORazepam 2 MG TABLET PO SCH ×2 (17:56→22:11)
[2020-12-06] MEDS: hydrOXYzine PAMOATE 25 MG CAPSULE (FP) PO SCH ×2 (17:57→22:10)
[2020-12-06] MEDS ORDERED: MELATONIN 5 MG TABLETS PO SCH (22:00)
[2020-12-06] MEDS: THIAMINE HCL 100 MG TABLET (FP) PO SCH (22:10)
[2020-12-07] MEDS: LORazepam 2 MG TABLET PO SCH ×4 (05:56→22:24)
[2020-12-07] MEDS: hydrOXYzine PAMOATE 25 MG CAPSULE (FP) PO SCH ×2 (05:58→10:37)
[2020-12-07] MEDS ORDERED: METHADONE HCL 10 MG TABLET (FOR DETOX USE ONLY) ONE (08:53)
[2020-12-07] MEDS ORDERED: METHADONE HCL 5 MG TABLET (FOR DETOX USE ONLY) ONE (08:53)
[2020-12-07] MEDS ORDERED: METHADONE (DETOX) 20 MG, METHADONE (DETOX) 5 MG PO ONE (10:00)
[2020-12-07] MEDS: PRENATAL VITAMINS W/ FOLIC ACID TABLET (FP) PO SCH (10:37)
[2020-12-07] MEDS ORDERED: MELATONIN 5 MG TABLETS PO PRN (10:43)
[2020-12-07] MEDS: THIAMINE HCL 100 MG TABLET (FP) PO SCH (22:23)
[2020-12-07] MEDS: MIRTAZAPINE 15 MG TABLET (FP) PO SCH (22:23)
[2020-12-08] MEDS: LORazepam 1 MG TABLET PO SCH ×4 (05:48→22:13)
[2020-12-08] MEDS ORDERED: METHADONE HCL 10 MG TABLET (FOR DETOX USE ONLY) PO ONE (10:00)
[2020-12-08] MEDS: PRENATAL VITAMINS W/ FOLIC ACID TABLET (FP) PO SCH (10:37)
[2020-12-08] MEDS: MIRTAZAPINE 15 MG TABLET (FP) PO SCH (22:13)
[2020-12-08] MEDS: THIAMINE HCL 100 MG TABLET (FP) PO SCH (22:13)
[2020-12-09] MEDS ORDERED: LORazepam 0.5 MG TABLET PO PRN
[2020-12-09] MEDS: LORazepam 0.5 MG TABLET PO SCH ×4 (06:31→22:02)
[2020-12-09] MEDS ORDERED: METHADONE HCL 5 MG TABLET (FOR DETOX USE ONLY) ONE (09:01)
[2020-12-09] MEDS ORDERED: METHADONE HCL 10 MG TABLET (FOR DETOX USE ONLY) ONE (09:01)
[2020-12-09] MEDS ORDERED: METHADONE (DETOX) 10 MG, METHADONE (DETOX) 5 MG PO ONE (10:00)
[2020-12-09] MEDS: PRENATAL VITAMINS W/ FOLIC ACID TABLET (FP) PO SCH (10:33)
[2020-12-09] MEDS: MIRTAZAPINE 15 MG TABLET (FP) PO SCH (22:01)
[2020-12-09] MEDS: THIAMINE HCL 100 MG TABLET (FP) PO SCH (22:02)
[2020-12-10] MEDS ORDERED: LORazepam 0.5 MG TABLET PO ONE (05:00)
[2020-12-10] MEDS ORDERED: METHADONE HCL 10 MG TABLET (FOR DETOX USE ONLY) PO ONE (10:00)
[2020-12-10] MEDS: PRENATAL VITAMINS W/ FOLIC ACID TABLET (FP) PO SCH (11:24)
[2020-12-11] MEDS: MIRTAZAPINE 15 MG TABLET (FP) PO SCH (00:04)
[2020-12-11] MEDS: THIAMINE HCL 100 MG TABLET (FP) PO SCH (00:04)
[2020-12-11] MEDS ORDERED: METHADONE HCL 5 MG TABLET (FOR DETOX USE ONLY) PO ONE (06:00)
[2020-12-11] MEDS ORDERED: MASKS NR ONE (06:13)
[2020-12-11 09:59] VITALS: BP 142/77; PULSE 71; TEMP 97.5
[2020-12-11] MEDS: PRENATAL VITAMINS W/ FOLIC ACID TABLET (FP) PO SCH (10:21)
== END 2020-12-11 12:51 | disposition other institution (70) | DRG 773 ==
LOC: YASAS 12:57 → Y6N 15:03
PROVIDERS: ADMIT Allergy & Immunology; ATTEND Allergy & Immunology
PROC: HZ2ZZZZ Detoxification Services for Substance Abuse Treatment (ICD-10-PCS; principal; 2020-12-06)
DX: F11.23 Opioid dependence with withdrawal (principal); F10.230 Alcohol dependence with withdrawal, uncomplicated; F17.210 Nicotine dependence, cigarettes, uncomplicated; F19.282 Other psychoactive substance dependence with psychoactive substance-induced sleep disorder; F19.24 Other psychoactive substance dependence with psychoactive substance-induced mood disorder; M16.11 Unilateral primary osteoarthritis, right hip; M54.5 Low back pain; G89.29 Other chronic pain; R76.11 Nonspecific reaction to tuberculin skin test without active tuberculosis
CPT/HCPCS: 36415; 80053; 85027; 86780; C9803; U0003

== ENCOUNTER 2020-12-11 13:12 | Inpatient (IN) | payer OTHER ==
[2020-12-11] MEDS ORDERED: guaiFENesin 200 MG/10 ML 10 ML UNIT-DOSE CUPS PO PRN (13:39)
[2020-12-11] MEDS ORDERED: MAGNESIUM CITRATE 300 ML BOTTLE PO PRN (13:39)
[2020-12-11] MEDS ORDERED: IBUPROFEN 400 MG TABLET (FP) PO PRN (13:39)
[2020-12-11] MEDS ORDERED: LOPERAMIDE HCL 2 MG CAPSULE PO PRN (13:39)
[2020-12-11] MEDS ORDERED: MENTHOL/PHENOL 1 EACH UD MM PRN (13:39)
[2020-12-11] MEDS ORDERED: MAG HYDROX/AL HYDROX/SIMETH 30 ML UNIT-DOSE CUP PO PRN (13:39)
[2020-12-11] MEDS ORDERED: ACETAMINOPHEN 325 MG TABLET (FP) PO PRN (13:39)
[2020-12-11] MEDS ORDERED: P-EPHED 60MG/TRIPROLIDI 2.5MG TABLET PO PRN (13:39)
[2020-12-11] MEDS ORDERED: MAGNESIUM HYDROX 2400MG/30ML ORAL SUSPENSION 30 ML CUP PO PRN (13:39)
[2020-12-11] MEDS: MELATONIN 5 MG TABLETS PO SCH (21:21)
[2020-12-11] MEDS: THIAMINE HCL 100 MG TABLET (FP) PO SCH (21:21)
[2020-12-12] MEDS: PRENATAL VITAMINS W/ FOLIC ACID TABLET (FP) PO SCH (10:00)
[2020-12-12] MEDS ORDERED: MIRTAZAPINE 15 MG TABLET (FP) PO SCH (10:00)
[2020-12-12] MEDS: THIAMINE HCL 100 MG TABLET (FP) PO SCH (21:20)
[2020-12-12] MEDS: MIRTAZAPINE 15 MG TABLET (FP) PO SCH (21:20)
[2020-12-12] MEDS: MELATONIN 5 MG TABLETS PO SCH (21:20)
[2020-12-13] MEDS: PRENATAL VITAMINS W/ FOLIC ACID TABLET (FP) PO SCH (10:17)
[2020-12-13] MEDS: MIRTAZAPINE 15 MG TABLET (FP) PO SCH ×2 (11:13→21:17)
[2020-12-13] MEDS: THIAMINE HCL 100 MG TABLET (FP) PO SCH (21:17)
[2020-12-13] MEDS: MELATONIN 5 MG TABLETS PO SCH (21:17)
[2020-12-14] MEDS ORDERED: MASKS NR ONE (07:52)
[2020-12-14] MEDS: PRENATAL VITAMINS W/ FOLIC ACID TABLET (FP) PO SCH (10:15)
[2020-12-14] MEDS: MIRTAZAPINE 15 MG TABLET (FP) PO SCH (21:21)
[2020-12-14] MEDS: MELATONIN 5 MG TABLETS PO SCH (21:21)
[2020-12-14] MEDS: THIAMINE HCL 100 MG TABLET (FP) PO SCH (21:21)
[2020-12-15] MEDS: PRENATAL VITAMINS W/ FOLIC ACID TABLET (FP) PO SCH (10:04)
[2020-12-15] MEDS: MIRTAZAPINE 15 MG TABLET (FP) PO SCH (21:17)
[2020-12-15] MEDS: THIAMINE HCL 100 MG TABLET (FP) PO SCH (21:18)
[2020-12-15] MEDS: MELATONIN 5 MG TABLETS PO SCH (21:18)
[2020-12-16] MEDS: PRENATAL VITAMINS W/ FOLIC ACID TABLET (FP) PO SCH (10:02)
[2020-12-16] MEDS: MELATONIN 5 MG TABLETS PO SCH (21:08)
[2020-12-16] MEDS: MIRTAZAPINE 15 MG TABLET (FP) PO SCH (21:09)
[2020-12-16] MEDS: THIAMINE HCL 100 MG TABLET (FP) PO SCH (21:09)
[2020-12-17] MEDS: PRENATAL VITAMINS W/ FOLIC ACID TABLET (FP) PO SCH (10:30)
[2020-12-17] MEDS: THIAMINE HCL 100 MG TABLET (FP) PO SCH (21:27)
[2020-12-17] MEDS: MIRTAZAPINE 15 MG TABLET (FP) PO SCH (21:27)
[2020-12-17] MEDS: MELATONIN 5 MG TABLETS PO SCH (21:28)
[2020-12-18] MEDS: PRENATAL VITAMINS W/ FOLIC ACID TABLET (FP) PO SCH (11:03)
[2020-12-18] MEDS: THIAMINE HCL 100 MG TABLET (FP) PO SCH (21:10)
[2020-12-18] MEDS: MELATONIN 5 MG TABLETS PO SCH (21:11)
[2020-12-18] MEDS: MIRTAZAPINE 15 MG TABLET (FP) PO SCH (21:11)
[2020-12-19] MEDS: PRENATAL VITAMINS W/ FOLIC ACID TABLET (FP) PO SCH (10:39)
[2020-12-19] MEDS: MIRTAZAPINE 15 MG TABLET (FP) PO SCH (22:46)
[2020-12-19] MEDS: THIAMINE HCL 100 MG TABLET (FP) PO SCH (22:46)
[2020-12-19] MEDS: MELATONIN 5 MG TABLETS PO SCH (22:46)
[2020-12-20 07:22] VITALS: BP 126/79; PULSE 73; TEMP 98
[2020-12-20] MEDS ORDERED: PT OWN MED DRAWER 7, Y5N ONE (09:20)
[2020-12-20] MEDS: PRENATAL VITAMINS W/ FOLIC ACID TABLET (FP) PO SCH (10:14)
== END 2020-12-20 09:35 | disposition home or self-care (01) | DRG 772 ==
LOC: YASAS 13:12 → Y3W 13:14
PROVIDERS: ADMIT Allergy & Immunology; ATTEND Allergy & Immunology
PROC: HZ42ZZZ Group Counseling for Substance Abuse Treatment, Cognitive-Behavioral (ICD-10-PCS; principal; 2020-12-11)
DX: F11.20 Opioid dependence, uncomplicated (principal); F10.20 Alcohol dependence, uncomplicated
CPT/HCPCS: C9803; U0003

== ENCOUNTER 2021-03-04 10:50 | Inpatient (IN) | payer OTHER ==
[2021-03-04 12:15] VITALS: BMI 28.3
[2021-03-04] MEDS ORDERED: MENTHOL/PHENOL 1 EACH UD MM PRN (13:02)
[2021-03-04] MEDS ORDERED: BISMUTH SUBSALICYLATE 524 MG/30 ML PO PRN (13:02)
[2021-03-04] MEDS ORDERED: MAGNESIUM HYDROX 2400MG/30ML ORAL SUSPENSION 30 ML CUP PO PRN (13:02)
[2021-03-04] MEDS ORDERED: ACETAMINOPHEN 325 MG TABLET (FP) PO PRN (13:02)
[2021-03-04] MEDS ORDERED: METHOCARBAMOL 500 MG TABLET PO PRN (13:02)
[2021-03-04] MEDS ORDERED: MAG HYDROX/AL HYDROX/SIMETH 30 ML UNIT-DOSE CUP PO PRN (13:02)
[2021-03-04] MEDS ORDERED: MAGNESIUM CITRATE 300 ML BOTTLE PO PRN (13:02)
[2021-03-04] MEDS ORDERED: IBUPROFEN 400 MG TABLET (FP) PO PRN (13:02)
[2021-03-04] MEDS ORDERED: cloNIDine HCL 0.1 MG TABLET PO PRN (13:02)
[2021-03-04] MEDS ORDERED: ONDANSETRON *ODT* 4 MG TABLET SL PRN (13:02)
[2021-03-04] MEDS ORDERED: METHADONE HCL 10 MG TABLET (FOR DETOX USE ONLY) PO ONE (14:00)
[2021-03-04] MEDS: PRENATAL VITAMINS W/ FOLIC ACID TABLET (FP) PO SCH (14:00)
[2021-03-04] MEDS ORDERED: hydrOXYzine PAMOATE 25 MG CAPSULE (FP) PO SCH (14:00)
[2021-03-04] MEDS: ACETAMINOPHEN 325 MG TABLET (FP) PO PRN ×2 (14:01→21:27)
[2021-03-04] MEDS ORDERED: hydrOXYzine PAMOATE 25 MG CAPSULE (FP) PO PRN (14:09)
[2021-03-04 14:56] LABS: HEMATOCRIT 45.2 % (35.4-49); MCH 29.6 pg (25.7-33.7); MCHC 33.1 g/dl (32.0-35.9); MEAN CELL VOLUME 89.2 fl (80-96); MEAN PLT VOLUME 8.6 fl (7.5-11.1); PLATELET COUNT 234 10^3/uL (134-434); RBC 5.07 M/mm3 (4.00-5.60); RDW 14.8 % (11.9-15.9); WHITE BLOOD COUNT 9.5 K/mm3 (4.0-10.0)
[2021-03-04 14:58] LABS: ALBUMIN 4.5 g/dl (3.4-5.0); BLOOD UREA NITROGEN 21.6 mg/dL (7-18); CALCIUM 9.8 mg/dL (8.5-10.1)
[2021-03-04 15:02] LABS: CREATININE 1.4 mg/dL (0.55-1.3)
[2021-03-04 15:03] LABS: BILIRUBIN,TOTAL 1.8 mg/dL (0.2-1); TOT PROT 8.9 g/dl (6.4-8.2)
[2021-03-04] MEDS: THIAMINE HCL 100 MG TABLET (FP) PO SCH (21:26)
[2021-03-04] MEDS: MIRTAZAPINE 15 MG TABLET (FP) PO SCH (21:26)
[2021-03-04] MEDS: MELATONIN 5 MG TABLETS PO SCH (21:28)
[2021-03-05] MEDS ORDERED: METHADONE HCL 10 MG TABLET (FOR DETOX USE ONLY) ONE (08:57)
[2021-03-05] MEDS ORDERED: METHADONE HCL 5 MG TABLET (FOR DETOX USE ONLY) ONE (08:58)
[2021-03-05] MEDS ORDERED: METHADONE (DETOX) 20 MG, METHADONE (DETOX) 5 MG PO ONE (10:00)
[2021-03-05] MEDS: ACETAMINOPHEN 325 MG TABLET (FP) PO PRN ×2 (10:11→22:16)
[2021-03-05] MEDS: PRENATAL VITAMINS W/ FOLIC ACID TABLET (FP) PO SCH (10:12)
[2021-03-05] MEDS: MIRTAZAPINE 15 MG TABLET (FP) PO SCH (22:15)
[2021-03-05] MEDS: THIAMINE HCL 100 MG TABLET (FP) PO SCH (22:15)
[2021-03-05] MEDS: MELATONIN 5 MG TABLETS PO SCH (22:18)
[2021-03-06] MEDS ORDERED: METHADONE HCL 10 MG TABLET (FOR DETOX USE ONLY) PO ONE (10:00)
[2021-03-06] MEDS: ACETAMINOPHEN 325 MG TABLET (FP) PO PRN ×2 (10:08→22:04)
[2021-03-06] MEDS: PRENATAL VITAMINS W/ FOLIC ACID TABLET (FP) PO SCH (11:07)
[2021-03-06] MEDS: MELATONIN 5 MG TABLETS PO SCH (22:05)
[2021-03-06] MEDS: THIAMINE HCL 100 MG TABLET (FP) PO SCH (22:05)
[2021-03-06] MEDS: MIRTAZAPINE 15 MG TABLET (FP) PO SCH (22:05)
[2021-03-07] MEDS ORDERED: METHADONE HCL 10 MG TABLET (FOR DETOX USE ONLY) ONE (09:21)
[2021-03-07] MEDS ORDERED: METHADONE HCL 5 MG TABLET (FOR DETOX USE ONLY) ONE (09:22)
[2021-03-07] MEDS ORDERED: METHADONE (DETOX) 10 MG, METHADONE (DETOX) 5 MG PO ONE (10:00)
[2021-03-07] MEDS: PRENATAL VITAMINS W/ FOLIC ACID TABLET (FP) PO SCH (10:30)
[2021-03-07] MEDS: TOLNAFTATE 1% CREAM 15 GM TUBE TP SCH ×2 (10:31→22:25)
[2021-03-07] MEDS: ACETAMINOPHEN 325 MG TABLET (FP) PO PRN ×2 (10:33→22:26)
[2021-03-07 14:10] LABS: SARS-CoV-2 NAA Not Detected (Not Detected)
[2021-03-07] MEDS: MELATONIN 5 MG TABLETS PO SCH (22:26)
[2021-03-07] MEDS: MIRTAZAPINE 15 MG TABLET (FP) PO SCH (22:27)
[2021-03-07] MEDS: THIAMINE HCL 100 MG TABLET (FP) PO SCH (22:27)
[2021-03-08] MEDS ORDERED: METHADONE HCL 10 MG TABLET (FOR DETOX USE ONLY) PO ONE (10:00)
[2021-03-08] MEDS: PRENATAL VITAMINS W/ FOLIC ACID TABLET (FP) PO SCH (10:25)
[2021-03-08] MEDS: TOLNAFTATE 1% CREAM 15 GM TUBE TP SCH ×2 (10:26→22:26)
[2021-03-08] MEDS: ACETAMINOPHEN 325 MG TABLET (FP) PO PRN ×2 (10:29→22:26)
[2021-03-08] MEDS: MIRTAZAPINE 15 MG TABLET (FP) PO SCH (22:25)
[2021-03-08] MEDS: MELATONIN 5 MG TABLETS PO SCH (22:25)
[2021-03-08] MEDS: THIAMINE HCL 100 MG TABLET (FP) PO SCH (22:25)
[2021-03-09] MEDS ORDERED: METHADONE HCL 5 MG TABLET (FOR DETOX USE ONLY) PO ONE (06:00)
[2021-03-09 09:32] VITALS: TEMP 96.9
[2021-03-09] MEDS: TOLNAFTATE 1% CREAM 15 GM TUBE TP SCH (10:28)
[2021-03-09] MEDS: PRENATAL VITAMINS W/ FOLIC ACID TABLET (FP) PO SCH (10:28)
[2021-03-09] MEDS: ACETAMINOPHEN 325 MG TABLET (FP) PO PRN (10:29)
[2021-03-09 12:51] VITALS: BP 122/84; PULSE 72
== END 2021-03-09 13:45 | disposition other institution (70) | DRG 773 ==
LOC: YASAS 10:50 → Y3N 12:49
PROVIDERS: ADMIT Allergy & Immunology; ATTEND Allergy & Immunology
PROC: HZ2ZZZZ Detoxification Services for Substance Abuse Treatment (ICD-10-PCS; principal; 2021-03-04)
DX: F10.230 Alcohol dependence with withdrawal, uncomplicated (principal); F11.23 Opioid dependence with withdrawal; F13.20 Sedative, hypnotic or anxiolytic dependence, uncomplicated; F19.282 Other psychoactive substance dependence with psychoactive substance-induced sleep disorder; F19.24 Other psychoactive substance dependence with psychoactive substance-induced mood disorder; M54.5 Low back pain; G89.29 Other chronic pain; Z96.641 Presence of right artificial hip joint
CPT/HCPCS: 36415; 71045-TC-FY; 80053; 85027; 86780; C9803; U0003; U0005

== ENCOUNTER 2021-03-09 13:58 | Inpatient (IN) | payer OTHER ==
[2021-03-09] MEDS ORDERED: MAGNESIUM HYDROX 2400MG/30ML ORAL SUSPENSION 30 ML CUP PO PRN (14:32)
[2021-03-09] MEDS ORDERED: P-EPHED 60MG/TRIPROLIDI 2.5MG TABLET PO PRN (14:32)
[2021-03-09] MEDS ORDERED: MAG HYDROX/AL HYDROX/SIMETH 30 ML UNIT-DOSE CUP PO PRN (14:32)
[2021-03-09] MEDS ORDERED: guaiFENesin 200 MG/10 ML 10 ML UNIT-DOSE CUPS PO PRN (14:32)
[2021-03-09] MEDS ORDERED: MAGNESIUM CITRATE 300 ML BOTTLE PO PRN (14:32)
[2021-03-09] MEDS ORDERED: MENTHOL/PHENOL 1 EACH UD MM PRN (14:32)
[2021-03-09] MEDS ORDERED: LOPERAMIDE HCL 2 MG CAPSULE PO PRN (14:32)
[2021-03-09] MEDS ORDERED: hydrOXYzine PAMOATE 25 MG CAPSULE (FP) PO PRN (14:32)
[2021-03-09] MEDS: MELATONIN 5 MG TABLETS PO SCH (21:30)
[2021-03-09] MEDS: THIAMINE HCL 100 MG TABLET (FP) PO SCH (21:30)
[2021-03-09] MEDS: MIRTAZAPINE 30 MG TABLET PO SCH (21:30)
[2021-03-09] MEDS: ACETAMINOPHEN 325 MG TABLET (FP) PO PRN (21:30)
[2021-03-09] MEDS: TOLNAFTATE 1% CREAM 15 GM TUBE TP SCH (21:54)
[2021-03-10] MEDS: PRENATAL VITAMINS W/ FOLIC ACID TABLET (FP) PO SCH (10:01)
[2021-03-10] MEDS: ACETAMINOPHEN 325 MG TABLET (FP) PO PRN ×2 (10:02→18:02)
[2021-03-10] MEDS: TOLNAFTATE 1% CREAM 15 GM TUBE TP SCH ×2 (10:02→21:19)
[2021-03-10] MEDS: MELATONIN 5 MG TABLETS PO SCH (21:18)
[2021-03-10] MEDS: MIRTAZAPINE 30 MG TABLET PO SCH (21:18)
[2021-03-10] MEDS: THIAMINE HCL 100 MG TABLET (FP) PO SCH (21:19)
[2021-03-11] MEDS: ACETAMINOPHEN 325 MG TABLET (FP) PO PRN (10:18)
[2021-03-11] MEDS: PRENATAL VITAMINS W/ FOLIC ACID TABLET (FP) PO SCH (10:19)
[2021-03-11] MEDS: TOLNAFTATE 1% CREAM 15 GM TUBE TP SCH ×2 (10:19→21:30)
[2021-03-11] MEDS: THIAMINE HCL 100 MG TABLET (FP) PO SCH (21:28)
[2021-03-11] MEDS: MIRTAZAPINE 30 MG TABLET PO SCH (21:28)
[2021-03-11] MEDS: MELATONIN 5 MG TABLETS PO SCH (21:28)
[2021-03-11] MEDS: IBUPROFEN 400 MG TABLET (FP) PO PRN (21:29)
[2021-03-12] MEDS: IBUPROFEN 400 MG TABLET (FP) PO PRN ×3 (06:36→21:15)
[2021-03-12] MEDS: PRENATAL VITAMINS W/ FOLIC ACID TABLET (FP) PO SCH (10:26)
[2021-03-12] MEDS: TOLNAFTATE 1% CREAM 15 GM TUBE TP SCH ×2 (10:26→21:16)
[2021-03-12] MEDS: THIAMINE HCL 100 MG TABLET (FP) PO SCH (21:15)
[2021-03-12] MEDS: MIRTAZAPINE 30 MG TABLET PO SCH (21:15)
[2021-03-12] MEDS: MELATONIN 5 MG TABLETS PO SCH (21:15)
[2021-03-13] MEDS: COLLOIDAL OATMEAL 1 BAR EACH TP PRN (06:45)
[2021-03-13] MEDS: PRENATAL VITAMINS W/ FOLIC ACID TABLET (FP) PO SCH (10:29)
[2021-03-13] MEDS: TOLNAFTATE 1% CREAM 15 GM TUBE TP SCH ×2 (10:29→21:25)
[2021-03-13] MEDS: IBUPROFEN 400 MG TABLET (FP) PO PRN (21:24)
[2021-03-13] MEDS: MIRTAZAPINE 30 MG TABLET PO SCH (21:24)
[2021-03-13] MEDS: THIAMINE HCL 100 MG TABLET (FP) PO SCH (21:24)
[2021-03-13] MEDS: MELATONIN 5 MG TABLETS PO SCH (21:24)
[2021-03-14] MEDS: PRENATAL VITAMINS W/ FOLIC ACID TABLET (FP) PO SCH (10:32)
[2021-03-14] MEDS: TOLNAFTATE 1% CREAM 15 GM TUBE TP SCH ×2 (10:32→21:21)
[2021-03-14] MEDS: MIRTAZAPINE 30 MG TABLET PO SCH (21:19)
[2021-03-14] MEDS: MELATONIN 5 MG TABLETS PO SCH (21:19)
[2021-03-14] MEDS: IBUPROFEN 400 MG TABLET (FP) PO PRN (21:19)
[2021-03-14] MEDS: THIAMINE HCL 100 MG TABLET (FP) PO SCH (21:19)
[2021-03-15] MEDS: TOLNAFTATE 1% CREAM 15 GM TUBE TP SCH ×2 (10:00→21:31)
[2021-03-15] MEDS: PRENATAL VITAMINS W/ FOLIC ACID TABLET (FP) PO SCH (10:00)
[2021-03-15] MEDS: MIRTAZAPINE 30 MG TABLET PO SCH (21:30)
[2021-03-15] MEDS: MELATONIN 5 MG TABLETS PO SCH (21:31)
[2021-03-15] MEDS: THIAMINE HCL 100 MG TABLET (FP) PO SCH (21:31)
[2021-03-16] MEDS: PRENATAL VITAMINS W/ FOLIC ACID TABLET (FP) PO SCH (10:38)
[2021-03-16] MEDS: TOLNAFTATE 1% CREAM 15 GM TUBE TP SCH ×2 (10:38→21:21)
[2021-03-16] MEDS: MIRTAZAPINE 30 MG TABLET PO SCH (21:20)
[2021-03-16] MEDS: THIAMINE HCL 100 MG TABLET (FP) PO SCH (21:21)
[2021-03-16] MEDS: MELATONIN 5 MG TABLETS PO SCH (21:21)
[2021-03-17] MEDS: PRENATAL VITAMINS W/ FOLIC ACID TABLET (FP) PO SCH (10:38)
[2021-03-17] MEDS: TOLNAFTATE 1% CREAM 15 GM TUBE TP SCH ×2 (10:38→22:27)
[2021-03-17] MEDS: THIAMINE HCL 100 MG TABLET (FP) PO SCH (21:37)
[2021-03-17] MEDS: MELATONIN 5 MG TABLETS PO SCH (21:37)
[2021-03-17] MEDS: MIRTAZAPINE 30 MG TABLET PO SCH (21:38)
[2021-03-18] MEDS: PRENATAL VITAMINS W/ FOLIC ACID TABLET (FP) PO SCH (10:14)
[2021-03-18] MEDS: TOLNAFTATE 1% CREAM 15 GM TUBE TP SCH ×2 (10:14→21:38)
[2021-03-18] MEDS ORDERED: COVID-19 VAC,AD26(JANSSEN)/PF 0.5 ML IM ONE (12:00)
[2021-03-18] MEDS: MIRTAZAPINE 30 MG TABLET PO SCH (21:37)
[2021-03-18] MEDS: MELATONIN 5 MG TABLETS PO SCH (21:37)
[2021-03-18] MEDS: THIAMINE HCL 100 MG TABLET (FP) PO SCH (21:37)
[2021-03-19] MEDS: ACETAMINOPHEN 325 MG TABLET (FP) PO PRN (06:18)
[2021-03-19] MEDS: PRENATAL VITAMINS W/ FOLIC ACID TABLET (FP) PO SCH (10:34)
[2021-03-19] MEDS: TOLNAFTATE 1% CREAM 15 GM TUBE TP SCH ×2 (10:34→21:30)
[2021-03-19] MEDS: THIAMINE HCL 100 MG TABLET (FP) PO SCH (21:30)
[2021-03-19] MEDS: MELATONIN 5 MG TABLETS PO SCH (21:30)
[2021-03-19] MEDS: MIRTAZAPINE 30 MG TABLET PO SCH (22:41)
[2021-03-20] MEDS: COLLOIDAL OATMEAL 1 BAR EACH TP PRN (07:21)
[2021-03-20] MEDS: PRENATAL VITAMINS W/ FOLIC ACID TABLET (FP) PO SCH (10:07)
[2021-03-20] MEDS: TOLNAFTATE 1% CREAM 15 GM TUBE TP SCH ×3 (10:07→23:00)
[2021-03-20] MEDS: MIRTAZAPINE 30 MG TABLET PO SCH (23:00)
[2021-03-20] MEDS: MELATONIN 5 MG TABLETS PO SCH (23:00)
[2021-03-20] MEDS: THIAMINE HCL 100 MG TABLET (FP) PO SCH (23:00)
[2021-03-21 06:59] VITALS: BP 122/81; PULSE 86; TEMP 97.3
== END 2021-03-21 09:28 | disposition home or self-care (01) | DRG 772 ==
LOC: YASAS 13:58 → Y3W 14:02
PROVIDERS: ADMIT Allergy & Immunology; ATTEND Allergy & Immunology
PROC: HZ42ZZZ Group Counseling for Substance Abuse Treatment, Cognitive-Behavioral (ICD-10-PCS; principal; 2021-03-09)
DX: F11.20 Opioid dependence, uncomplicated (principal); F10.20 Alcohol dependence, uncomplicated; F13.20 Sedative, hypnotic or anxiolytic dependence, uncomplicated; M54.5 Low back pain; G89.29 Other chronic pain; Z96.641 Presence of right artificial hip joint
CPT/HCPCS: 0031A; 91303

== ENCOUNTER 2021-08-05 10:49 | Inpatient (IN) | payer OTHER ==
[2021-08-05 11:23] VITALS: BMI 28.1
[2021-08-05] MEDS ORDERED: ONDANSETRON *ODT* 4 MG TABLET SL PRN (11:48)
[2021-08-05] MEDS ORDERED: methaDONE HCL 10 MG TABLET (FOR DETOX USE ONLY) PO ONE (11:48)
[2021-08-05] MEDS ORDERED: MAGNESIUM CITRATE 300 ML BOTTLE PO PRN (11:48)
[2021-08-05] MEDS ORDERED: cloNIDine HCL 0.1 MG TABLET PO PRN (11:48)
[2021-08-05] MEDS ORDERED: IBUPROFEN 400 MG TABLET (FP) PO PRN (11:48)
[2021-08-05] MEDS ORDERED: MAGNESIUM HYDROX 2400MG/30ML ORAL SUSPENSION 30 ML CUP PO PRN (11:48)
[2021-08-05] MEDS ORDERED: MENTHOL/PHENOL 1 EACH UD MM PRN (11:48)
[2021-08-05] MEDS ORDERED: BISMUTH SUBSALICYLATE 524 MG/30 ML PO PRN (11:48)
[2021-08-05] MEDS ORDERED: MAG HYDROX/AL HYDROX/SIMETH 30 ML UNIT-DOSE CUP PO PRN (11:48)
[2021-08-05] MEDS ORDERED: ACETAMINOPHEN 325 MG TABLET (FP) PO PRN ×2 (11:48)
[2021-08-05] MEDS: METHOCARBAMOL 500 MG TABLET PO PRN (13:09)
[2021-08-05] MEDS: PRENATAL VITAMINS W/ FOLIC ACID TABLET (FP) PO SCH (13:12)
[2021-08-05] MEDS: hydrOXYzine PAMOATE 25 MG CAPSULE (FP) PO SCH ×3 (15:16→22:35)
[2021-08-05 17:22] LABS: HEMATOCRIT 45.1 % (35.4-49); HEMOGLOBIN 15.1 GM/dL (11.7-16.9); MCH 30.5 pg (25.7-33.7); MCHC 33.6 g/dl (32.0-35.9); MEAN CELL VOLUME 90.9 fl (80-96); PLATELET COUNT 253 10^3/uL (134-434); RBC 4.96 M/mm3 (4.00-5.60); RDW 13.9 % (11.9-15.9); WHITE BLOOD COUNT 9.5 K/mm3 (4.0-10.0)
[2021-08-05 17:25] LABS: CALCIUM 9.5 mg/dL (8.5-10.1)
[2021-08-05 17:26] LABS: BLOOD UREA NITROGEN 16.3 mg/dL (7-18)
[2021-08-05 17:30] LABS: BILIRUBIN,TOTAL 1.7 mg/dL (0.2-1); CREATININE 1.2 mg/dL (0.55-1.3); TOT PROT 8.6 g/dl (6.4-8.2)
[2021-08-05] MEDS: MELATONIN 5 MG TABLETS PO SCH (22:35)
[2021-08-05] MEDS: THIAMINE HCL 100 MG TABLET (FP) PO SCH (22:35)
[2021-08-06] MEDS: hydrOXYzine PAMOATE 25 MG CAPSULE (FP) PO SCH ×2 (07:04→10:13)
[2021-08-06] MEDS ORDERED: methaDONE HCL 10 MG TABLET (FOR DETOX USE ONLY) ONE (08:54)
[2021-08-06] MEDS: PRENATAL VITAMINS W/ FOLIC ACID TABLET (FP) PO SCH (10:13)
[2021-08-06] MEDS: METHOCARBAMOL 500 MG TABLET PO PRN ×2 (10:15→22:10)
[2021-08-06] MEDS ORDERED: hydrOXYzine PAMOATE 25 MG CAPSULE (FP) PO PRN (12:31)
[2021-08-06] MEDS: QUEtiapine FUMARATE 50 MG TABLET PO SCH (22:10)
[2021-08-06] MEDS: MELATONIN 5 MG TABLETS PO SCH (22:10)
[2021-08-06] MEDS: THIAMINE HCL 100 MG TABLET (FP) PO SCH (22:10)
[2021-08-07] MEDS ORDERED: methaDONE HCL 10 MG TABLET (FOR DETOX USE ONLY) PO ONE (10:00)
[2021-08-07] MEDS: PRENATAL VITAMINS W/ FOLIC ACID TABLET (FP) PO SCH (10:12)
[2021-08-07] MEDS: METHOCARBAMOL 500 MG TABLET PO PRN ×2 (10:13→22:30)
[2021-08-07] MEDS: THIAMINE HCL 100 MG TABLET (FP) PO SCH (22:30)
[2021-08-07] MEDS: MELATONIN 5 MG TABLETS PO SCH (22:30)
[2021-08-07] MEDS: QUEtiapine FUMARATE 50 MG TABLET PO SCH (22:30)
[2021-08-08] MEDS ORDERED: methaDONE HCL 10 MG TABLET (FOR DETOX USE ONLY) ONE (08:52)
[2021-08-08] MEDS: PRENATAL VITAMINS W/ FOLIC ACID TABLET (FP) PO SCH (10:42)
[2021-08-08] MEDS: METHOCARBAMOL 500 MG TABLET PO PRN ×2 (10:45→22:32)
[2021-08-08] MEDS: MELATONIN 5 MG TABLETS PO SCH (22:31)
[2021-08-08] MEDS: THIAMINE HCL 100 MG TABLET (FP) PO SCH (22:31)
[2021-08-08] MEDS: QUEtiapine FUMARATE 100 MG TABLET (FP) PO SCH (22:31)
[2021-08-09] MEDS ORDERED: methaDONE HCL 10 MG TABLET (FOR DETOX USE ONLY) PO ONE (10:00)
[2021-08-09] MEDS: PRENATAL VITAMINS W/ FOLIC ACID TABLET (FP) PO SCH (10:36)
[2021-08-09] MEDS: METHOCARBAMOL 500 MG TABLET PO PRN ×2 (10:37→22:33)
[2021-08-09] MEDS: QUEtiapine FUMARATE 100 MG TABLET (FP) PO SCH (22:33)
[2021-08-09] MEDS: MELATONIN 5 MG TABLETS PO SCH (22:33)
[2021-08-09] MEDS: THIAMINE HCL 100 MG TABLET (FP) PO SCH (22:34)
[2021-08-10] MEDS: PRENATAL VITAMINS W/ FOLIC ACID TABLET (FP) PO SCH (10:56)
[2021-08-10] MEDS: METHOCARBAMOL 500 MG TABLET PO PRN (11:08)
[2021-08-10] MEDS: QUEtiapine FUMARATE 100 MG TABLET (FP) PO SCH (22:46)
[2021-08-10] MEDS: THIAMINE HCL 100 MG TABLET (FP) PO SCH (22:46)
[2021-08-10] MEDS: MELATONIN 5 MG TABLETS PO SCH (22:46)
[2021-08-11 09:15] VITALS: BP 134/70; PULSE 81; TEMP 97.1
[2021-08-11] MEDS: PRENATAL VITAMINS W/ FOLIC ACID TABLET (FP) PO SCH (10:32)
[2021-08-11] MEDS: METHOCARBAMOL 500 MG TABLET PO PRN (10:32)
== END 2021-08-11 11:40 | disposition other institution (70) | DRG 773 ==
LOC: YASAS 10:49 → Y3N 12:08
PROVIDERS: ADMIT Allergy & Immunology; ATTEND Allergy & Immunology
PROC: HZ2ZZZZ Detoxification Services for Substance Abuse Treatment (ICD-10-PCS; principal; 2021-08-05)
DX: F11.23 Opioid dependence with withdrawal (principal); F10.230 Alcohol dependence with withdrawal, uncomplicated; F19.282 Other psychoactive substance dependence with psychoactive substance-induced sleep disorder; F41.9 Anxiety disorder, unspecified; E80.6 Other disorders of bilirubin metabolism; R77.8 Other specified abnormalities of plasma proteins; M16.11 Unilateral primary osteoarthritis, right hip; M54.50 Low back pain, unspecified; G89.29 Other chronic pain
CPT/HCPCS: 36415; 71045-TC-FY; 80053; 85027; 86780; C9803; J0735; U0003; U0005

== ENCOUNTER 2021-08-11 11:41 | Inpatient (IN) | payer OTHER ==
[2021-08-11] MEDS ORDERED: P-EPHED 60MG/TRIPROLIDI 2.5MG TABLET PO PRN (12:49)
[2021-08-11] MEDS ORDERED: MAGNESIUM HYDROX 2400MG/30ML ORAL SUSPENSION 30 ML CUP PO PRN (12:49)
[2021-08-11] MEDS ORDERED: LOPERAMIDE HCL 2 MG CAPSULE PO PRN (12:49)
[2021-08-11] MEDS ORDERED: hydrOXYzine PAMOATE 25 MG CAPSULE (FP) PO PRN (12:49)
[2021-08-11] MEDS ORDERED: ACETAMINOPHEN 325 MG TABLET (FP) PO PRN (12:49)
[2021-08-11] MEDS ORDERED: guaiFENesin 200 MG/10 ML 10 ML UNIT-DOSE CUPS PO PRN (12:49)
[2021-08-11] MEDS ORDERED: IBUPROFEN 400 MG TABLET (FP) PO PRN (12:49)
[2021-08-11] MEDS ORDERED: MENTHOL/PHENOL 1 EACH UD MM PRN (12:49)
[2021-08-11] MEDS ORDERED: MAGNESIUM CITRATE 300 ML BOTTLE PO PRN (12:49)
[2021-08-11] MEDS: THIAMINE HCL 100 MG TABLET (FP) PO SCH (21:33)
[2021-08-11] MEDS: QUEtiapine FUMARATE 100 MG TABLET (FP) PO SCH (21:33)
[2021-08-11] MEDS: MELATONIN 5 MG TABLETS PO SCH (21:35)
[2021-08-12] MEDS: PRENATAL VITAMINS W/ FOLIC ACID TABLET (FP) PO SCH (10:13)
[2021-08-12 13:37] LABS: BILIRUBIN,DIRECT 0.2 mg/dL (0.0-0.2)
[2021-08-12 13:40] LABS: BILIRUBIN,TOTAL 0.7 mg/dL (0.2-1); TOT PROT 8.5 g/dl (6.4-8.2)
[2021-08-12] MEDS: QUEtiapine FUMARATE 100 MG TABLET (FP) PO SCH (21:23)
[2021-08-12] MEDS: THIAMINE HCL 100 MG TABLET (FP) PO SCH (21:23)
[2021-08-12] MEDS: MELATONIN 5 MG TABLETS PO SCH (21:24)
[2021-08-13] MEDS ORDERED: PT OWN MED DRAWER 7, Y5N ONE (09:43)
[2021-08-13] MEDS: METHOCARBAMOL 500 MG TABLET PO PRN (10:09)
[2021-08-13] MEDS: PRENATAL VITAMINS W/ FOLIC ACID TABLET (FP) PO SCH (10:09)
[2021-08-13] MEDS: LIDOCAINE 5% TOPICAL PATCH TP SCH (10:09)
[2021-08-13] MEDS: MELATONIN 5 MG TABLETS PO SCH (22:34)
[2021-08-13] MEDS: LIDOCAINE PATCH REMOVAL MC SCH (22:34)
[2021-08-13] MEDS: QUEtiapine FUMARATE 100 MG TABLET (FP) PO SCH (22:35)
[2021-08-13] MEDS: THIAMINE HCL 100 MG TABLET (FP) PO SCH (22:35)
[2021-08-14] MEDS: MAG HYDROX/AL HYDROX/SIMETH 30 ML UNIT-DOSE CUP PO PRN (08:06)
[2021-08-14] MEDS: PRENATAL VITAMINS W/ FOLIC ACID TABLET (FP) PO SCH (10:09)
[2021-08-14] MEDS: METHOCARBAMOL 500 MG TABLET PO PRN ×2 (10:10→21:21)
[2021-08-14] MEDS: LIDOCAINE 5% TOPICAL PATCH TP SCH (10:10)
[2021-08-14] MEDS: MELATONIN 5 MG TABLETS PO SCH (21:21)
[2021-08-14] MEDS: QUEtiapine FUMARATE 100 MG TABLET (FP) PO SCH (21:21)
[2021-08-14] MEDS: LIDOCAINE PATCH REMOVAL MC SCH (21:21)
[2021-08-14] MEDS: THIAMINE HCL 100 MG TABLET (FP) PO SCH (21:21)
[2021-08-15] MEDS: LIDOCAINE 5% TOPICAL PATCH TP SCH (09:55)
[2021-08-15] MEDS: PRENATAL VITAMINS W/ FOLIC ACID TABLET (FP) PO SCH (09:56)
[2021-08-15] MEDS: MAG HYDROX/AL HYDROX/SIMETH 30 ML UNIT-DOSE CUP PO PRN (20:38)
[2021-08-15] MEDS: QUEtiapine FUMARATE 100 MG TABLET (FP) PO SCH (21:14)
[2021-08-15] MEDS: THIAMINE HCL 100 MG TABLET (FP) PO SCH (21:14)
[2021-08-15] MEDS: METHOCARBAMOL 500 MG TABLET PO PRN (21:14)
[2021-08-15] MEDS: LIDOCAINE PATCH REMOVAL MC SCH (21:14)
[2021-08-15] MEDS: MELATONIN 5 MG TABLETS PO SCH (21:14)
[2021-08-16] MEDS: LIDOCAINE 5% TOPICAL PATCH TP SCH (09:51)
[2021-08-16] MEDS: METHOCARBAMOL 500 MG TABLET PO PRN ×2 (09:52→21:27)
[2021-08-16] MEDS: PRENATAL VITAMINS W/ FOLIC ACID TABLET (FP) PO SCH (09:54)
[2021-08-16] MEDS: MELATONIN 5 MG TABLETS PO SCH (21:28)
[2021-08-16] MEDS: QUEtiapine FUMARATE 100 MG TABLET (FP) PO SCH (21:28)
[2021-08-16] MEDS: THIAMINE HCL 100 MG TABLET (FP) PO SCH (21:28)
[2021-08-16] MEDS: LIDOCAINE PATCH REMOVAL MC SCH (22:30)
[2021-08-17] MEDS: METHOCARBAMOL 500 MG TABLET PO PRN ×2 (09:58→21:27)
[2021-08-17] MEDS: LIDOCAINE 5% TOPICAL PATCH TP SCH (09:58)
[2021-08-17] MEDS: PRENATAL VITAMINS W/ FOLIC ACID TABLET (FP) PO SCH (09:59)
[2021-08-17] MEDS: THIAMINE HCL 100 MG TABLET (FP) PO SCH (21:25)
[2021-08-17] MEDS: SUVOREXANT 10 MG TABLET PO PRN (21:26)
[2021-08-17] MEDS: LIDOCAINE PATCH REMOVAL MC SCH (21:26)
[2021-08-17] MEDS: QUEtiapine FUMARATE 100 MG TABLET (FP) PO SCH (21:26)
[2021-08-18] MEDS: METHOCARBAMOL 500 MG TABLET PO PRN ×2 (10:08→21:20)
[2021-08-18] MEDS: PRENATAL VITAMINS W/ FOLIC ACID TABLET (FP) PO SCH (10:08)
[2021-08-18] MEDS: LIDOCAINE 5% TOPICAL PATCH TP SCH (10:08)
[2021-08-18 18:17] LABS: HIV INTERPRETATION NEGATIVE (NEGATIVE)
[2021-08-18] MEDS: LIDOCAINE PATCH REMOVAL MC SCH (21:20)
[2021-08-18] MEDS: QUEtiapine FUMARATE 100 MG TABLET (FP) PO SCH (21:20)
[2021-08-18] MEDS: THIAMINE HCL 100 MG TABLET (FP) PO SCH (21:20)
[2021-08-18] MEDS: SUVOREXANT 10 MG TABLET PO PRN (21:22)
[2021-08-19] MEDS: LIDOCAINE 5% TOPICAL PATCH TP SCH (10:04)
[2021-08-19] MEDS: METHOCARBAMOL 500 MG TABLET PO PRN ×2 (10:04→21:09)
[2021-08-19] MEDS: PRENATAL VITAMINS W/ FOLIC ACID TABLET (FP) PO SCH (10:05)
[2021-08-19] MEDS: THIAMINE HCL 100 MG TABLET (FP) PO SCH (21:09)
[2021-08-19] MEDS: LIDOCAINE PATCH REMOVAL MC SCH (21:09)
[2021-08-19] MEDS: QUEtiapine FUMARATE 100 MG TABLET (FP) PO SCH (21:09)
[2021-08-19] MEDS: SUVOREXANT 10 MG TABLET PO PRN (21:11)
[2021-08-20] MEDS: METHOCARBAMOL 500 MG TABLET PO PRN ×2 (10:26→22:15)
[2021-08-20] MEDS: LIDOCAINE 5% TOPICAL PATCH TP SCH (10:26)
[2021-08-20] MEDS: PRENATAL VITAMINS W/ FOLIC ACID TABLET (FP) PO SCH (10:26)
[2021-08-20] MEDS ORDERED: SUVOREXANT 10 MG TABLET PO PRN (22:00)
[2021-08-20] MEDS: LIDOCAINE PATCH REMOVAL MC SCH (22:15)
[2021-08-20] MEDS: THIAMINE HCL 100 MG TABLET (FP) PO SCH (22:15)
[2021-08-20] MEDS: QUEtiapine FUMARATE 100 MG TABLET (FP) PO SCH (22:15)
[2021-08-21 07:07] VITALS: BP 146/92; PULSE 72; TEMP 97.3
== END 2021-08-21 08:01 | disposition home or self-care (01) | DRG 772 ==
LOC: YASAS 11:41 → Y5N 11:43
PROVIDERS: ADMIT Allergy & Immunology; ATTEND Allergy & Immunology
PROC: HZ42ZZZ Group Counseling for Substance Abuse Treatment, Cognitive-Behavioral (ICD-10-PCS; principal; 2021-08-11)
DX: F11.20 Opioid dependence, uncomplicated (principal); F10.20 Alcohol dependence, uncomplicated; F17.213 Nicotine dependence, cigarettes, with withdrawal; M25.551 Pain in right hip; M25.552 Pain in left hip; M54.50 Low back pain, unspecified; G89.29 Other chronic pain
CPT/HCPCS: 36415; 80076; 87389

== ENCOUNTER 2021-11-06 10:05 | Inpatient (IN) | payer OTHER ==
[2021-11-06] MEDS ORDERED: MAG HYDROX/AL HYDROX/SIMETH 30 ML UNIT-DOSE CUP PO PRN (10:48)
[2021-11-06] MEDS ORDERED: ACETAMINOPHEN 325 MG TABLET (FP) PO PRN (10:48)
[2021-11-06] MEDS ORDERED: IBUPROFEN 400 MG TABLET (FP) PO PRN (10:48)
[2021-11-06] MEDS ORDERED: MAGNESIUM HYDROX 2400MG/30ML ORAL SUSPENSION 30 ML CUP PO PRN (10:48)
[2021-11-06] MEDS ORDERED: ONDANSETRON *ODT* 4 MG TABLET SL PRN (10:48)
[2021-11-06] MEDS ORDERED: MENTHOL/PHENOL 1 EACH UD MM PRN (10:48)
[2021-11-06] MEDS ORDERED: cloNIDine HCL 0.1 MG TABLET PO PRN (10:48)
[2021-11-06] MEDS ORDERED: LOPERAMIDE HCL 2 MG CAPSULE PO PRN (10:48)
[2021-11-06] MEDS ORDERED: BISMUTH SUBSALICYLATE 524 MG/30 ML PO PRN (10:48)
[2021-11-06] MEDS ORDERED: MAGNESIUM CITRATE 300 ML BOTTLE PO PRN (10:48)
[2021-11-06] MEDS ORDERED: chlordiazePOXIDE HCL 25 MG CAPSULE PO PRN (10:48)
[2021-11-06 11:19] VITALS: BMI 25.9
[2021-11-06 13:39] LABS: HEMATOCRIT 45.6 % (35.4-49); HEMOGLOBIN 15.2 GM/dL (11.7-16.9); MCH 29.5 pg (25.7-33.7); MCHC 33.4 g/dl (32.0-35.9); MEAN CELL VOLUME 88.3 fl (80-96); MEAN PLT VOLUME 8.7 fl (7.5-11.1); PLATELET COUNT 297 10^3/uL (134-434); RBC 5.16 M/mm3 (4.00-5.60); RDW 14.7 % (11.9-15.9); WHITE BLOOD COUNT 8.4 K/mm3 (4.0-10.0)
[2021-11-06] MEDS ORDERED: methaDONE HCL 10 MG TABLET (FOR DETOX USE ONLY) PO ONE (13:45)
[2021-11-06 14:46] LABS: CALCIUM 10.4 mg/dL (8.5-10.1)
[2021-11-06 14:47] LABS: ALBUMIN 4.2 g/dl (3.4-5.0)
[2021-11-06 14:48] LABS: BLOOD UREA NITROGEN 20.7 mg/dL (7-18)
[2021-11-06 14:50] LABS: CREATININE 1.3 mg/dL (0.55-1.3)
[2021-11-06 14:52] LABS: BILIRUBIN,TOTAL 1.8 mg/dL (0.2-1); TOT PROT 8.9 g/dl (6.4-8.2)
[2021-11-06] MEDS: chlordiazePOXIDE HCL 25 MG CAPSULE PO SCH ×3 (15:01→22:15)
[2021-11-06] MEDS: PRENATAL VITAMINS W/ FOLIC ACID TABLET (FP) PO SCH (15:02)
[2021-11-06] MEDS: hydrOXYzine PAMOATE 25 MG CAPSULE (FP) PO SCH ×3 (15:05→22:15)
[2021-11-06] MEDS: THIAMINE HCL 100 MG TABLET (FP) PO SCH (22:15)
[2021-11-06] MEDS: MELATONIN 5 MG TABLETS PO SCH (22:15)
[2021-11-06] MEDS: MIRTAZAPINE 15 MG TABLET (FP) PO SCH (22:15)
[2021-11-07] MEDS: chlordiazePOXIDE HCL 25 MG CAPSULE PO SCH ×4 (05:44→22:26)
[2021-11-07] MEDS: hydrOXYzine PAMOATE 25 MG CAPSULE (FP) PO SCH ×5 (05:45→22:29)
[2021-11-07] MEDS ORDERED: methaDONE HCL 10 MG TABLET (FOR DETOX USE ONLY) ONE (09:16)
[2021-11-07] MEDS: PRENATAL VITAMINS W/ FOLIC ACID TABLET (FP) PO SCH (10:32)
[2021-11-07] MEDS: ACETAMINOPHEN 325 MG TABLET (FP) PO PRN (10:33)
[2021-11-07] MEDS: MIRTAZAPINE 15 MG TABLET (FP) PO SCH (22:26)
[2021-11-07] MEDS: THIAMINE HCL 100 MG TABLET (FP) PO SCH (22:26)
[2021-11-07] MEDS: MELATONIN 5 MG TABLETS PO SCH (22:29)
[2021-11-08] MEDS: hydrOXYzine PAMOATE 25 MG CAPSULE (FP) PO SCH ×5 (06:26→22:53)
[2021-11-08] MEDS: chlordiazePOXIDE HCL 25 MG CAPSULE PO SCH ×4 (06:28→22:53)
[2021-11-08] MEDS ORDERED: methaDONE HCL 10 MG TABLET (FOR DETOX USE ONLY) PO ONE (10:00)
[2021-11-08] MEDS: PRENATAL VITAMINS W/ FOLIC ACID TABLET (FP) PO SCH (10:19)
[2021-11-08] MEDS: ACETAMINOPHEN 325 MG TABLET (FP) PO PRN ×2 (10:21→17:03)
[2021-11-08 12:42] LABS: CALCIUM 9.3 mg/dL (8.5-10.1)
[2021-11-08 12:48] LABS: BILIRUBIN,TOTAL 1.3 mg/dL (0.2-1)
[2021-11-08 14:07] LABS: SARS-CoV-2 NAA Not Detected (Not Detected)
[2021-11-08] MEDS: THIAMINE HCL 100 MG TABLET (FP) PO SCH (22:53)
[2021-11-08] MEDS: MIRTAZAPINE 15 MG TABLET (FP) PO SCH (22:53)
[2021-11-08] MEDS: METHOCARBAMOL 500 MG TABLET PO PRN (22:54)
[2021-11-08] MEDS: MELATONIN 5 MG TABLETS PO SCH (23:11)
[2021-11-09] MEDS ORDERED: chlordiazePOXIDE HCL 10 MG CAPSULE PO PRN
[2021-11-09] MEDS: hydrOXYzine PAMOATE 25 MG CAPSULE (FP) PO SCH ×6 (05:39→22:57)
[2021-11-09] MEDS: chlordiazePOXIDE HCL 10 MG CAPSULE PO SCH ×4 (05:39→22:02)
[2021-11-09] MEDS ORDERED: methaDONE HCL 10 MG TABLET (FOR DETOX USE ONLY) ONE (09:16)
[2021-11-09] MEDS: PRENATAL VITAMINS W/ FOLIC ACID TABLET (FP) PO SCH (10:18)
[2021-11-09] MEDS: ACETAMINOPHEN 325 MG TABLET (FP) PO PRN ×2 (10:19→16:44)
[2021-11-09] MEDS: MIRTAZAPINE 15 MG TABLET (FP) PO SCH (22:02)
[2021-11-09] MEDS: THIAMINE HCL 100 MG TABLET (FP) PO SCH (22:02)
[2021-11-09] MEDS: MELATONIN 5 MG TABLETS PO SCH (22:03)
[2021-11-09] MEDS: METHOCARBAMOL 500 MG TABLET PO PRN (22:03)
[2021-11-10] MEDS: chlordiazePOXIDE HCL 10 MG CAPSULE PO SCH ×2 (06:27→18:37)
[2021-11-10] MEDS: ACETAMINOPHEN 325 MG TABLET (FP) PO PRN (06:42)
[2021-11-10] MEDS: hydrOXYzine PAMOATE 25 MG CAPSULE (FP) PO SCH ×5 (06:51→23:06)
[2021-11-10] MEDS ORDERED: methaDONE HCL 10 MG TABLET (FOR DETOX USE ONLY) PO ONE (10:00)
[2021-11-10] MEDS: PRENATAL VITAMINS W/ FOLIC ACID TABLET (FP) PO SCH (10:19)
[2021-11-10] MEDS: THIAMINE HCL 100 MG TABLET (FP) PO SCH (23:06)
[2021-11-10] MEDS: MIRTAZAPINE 15 MG TABLET (FP) PO SCH (23:06)
[2021-11-10] MEDS: MELATONIN 5 MG TABLETS PO SCH (23:06)
[2021-11-11] MEDS ORDERED: chlordiazePOXIDE HCL 10 MG CAPSULE PO ONE (05:00)
[2021-11-11] MEDS: hydrOXYzine PAMOATE 25 MG CAPSULE (FP) PO SCH ×2 (06:06→10:01)
[2021-11-11] MEDS: ACETAMINOPHEN 325 MG TABLET (FP) PO PRN (06:06)
[2021-11-11 09:57] VITALS: TEMP 97.5
[2021-11-11] MEDS: PRENATAL VITAMINS W/ FOLIC ACID TABLET (FP) PO SCH (10:01)
[2021-11-11 13:14] VITALS: BP 115/69; PULSE 60
== END 2021-11-11 13:45 | disposition other institution (70) | DRG 773 ==
LOC: YASAS 10:05 → Y3N 13:29
PROVIDERS: ADMIT Allergy & Immunology; ATTEND Allergy & Immunology
PROC: HZ2ZZZZ Detoxification Services for Substance Abuse Treatment (ICD-10-PCS; principal; 2021-11-06)
DX: F11.23 Opioid dependence with withdrawal (principal); F10.230 Alcohol dependence with withdrawal, uncomplicated; F17.210 Nicotine dependence, cigarettes, uncomplicated; F19.282 Other psychoactive substance dependence with psychoactive substance-induced sleep disorder; F19.24 Other psychoactive substance dependence with psychoactive substance-induced mood disorder; F41.8 Other specified anxiety disorders; F32.A Depression, unspecified; G35 Multiple sclerosis; M54.50 Low back pain, unspecified; G89.29 Other chronic pain; Z96.641 Presence of right artificial hip joint; Z86.11 Personal history of tuberculosis
CPT/HCPCS: 36415; 80053; 82247; 82310; 84520; 85027; 86780; C9803; U0003; U0005